=== PATIENT | male | born 1965 | race Caucasian/White ===

== ENCOUNTER 2019-04-24 11:03 | Emergency (ER) | payer OTHER, MEDICAID, SELFPAY ==
[2019-04-24] VITALS (7 sets, daily range): BP systolic 146–166; BP diastolic 93–101; PULSE 85–106; RESP 16–22; TEMP 36.3; O2SAT 94–98; BMI 24.4
--- NOTE | 2019-04-24 12:02 | PC.NURSE ---
Pt reports B/L leg pain and swelling x 4 days. Nothing makes it better. appears SOB and purse lipped breathing on arrival into room. states h/o COPD and has been told he has CHF. pt homeless. does not take any medications. 90% RA. placed on 2L with improvement to 99%. hypertensive. 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 B/L LE with mild non-pitting swelling. redness with R>L and pain also greater in R. Lungs with exp wheeze and mild crackles on LLL. IV placed and labs drawn. remains on O2. attached to cardiac monitoring. awaiting MD assessment
[2019-04-24 12:09] LABS: Add Manual Diff / Slide Review NO; Basophils Absolute Auto 100 /uL (0-100); Basophils Percent Auto 1.2 % (0-2); Eosinophils Absolute Auto 100 /uL (0-450); Eosinophils Percent Auto 1.8 % (2-4); Hematocrit 44.1 % (41-53); Hemoglobin 14.5 g/dL (13.5-17.5); Lymphocytes Absolute Auto 1100 /uL (1100-4500); Lymphocytes Percent Auto 14.5 % (25-40); Mean Corpuscular HGB Conc 32.8 % (30-36); Mean Corpuscular Hemoglobin 27.6 PG (26-34); Mean Corpuscular Volume 84.1 fL (80-100); Monocytes Absolute Auto 600 /uL (0-900); Monocytes Percent Auto 7.2 % (3-14); Neutrophils Absolute Auto 5800 /uL (1500-7000); Neutrophils Percent Auto 75.3 % (50-75); Platelet Count 410 X10^3/uL (150-400); Red Blood Cell Count 5.24 X10^6/uL (4.5-5.9); White Blood Cell Count 7.7 X10^3/uL (4.5-11.0)
--- NOTE | 2019-04-24 12:09 | DI.RAD.S_ITS ---
PROCEDURE: XR CHEST 2V INDICATIONS: shortness of breath TECHNIQUE: 2 views of the chest were acquired. COMPARISON: [facility], CHEST 1 VIEW, 08/18/2017, 18:05. [facility], CHEST 1 VIEW, 07/05/2017, 17:15. FINDINGS: Surgical changes and devices: None. Lungs and pleura: Lungs are clear. No pleural effusions or pneumothorax. Mediastinum: Mediastinal contours are normal. Heart size is normal. Bones and chest wall: No suspicious bony abnormalities. Soft tissues appear unremarkable. IMPRESSION: Normal for age, source of current shortness of breath symptoms is not seen. Dictated by: Buck Gonzales M.D. on 04/24/2019 at 12:54 Approved by: Buck Gonzales M.D. on 04/24/2019 at 12:54
[2019-04-24 12:10] LABS: INR 1.1 (0.9-1.3); Prothrombin Time 12.2 SECONDS (10.1-12.7)
[2019-04-24 12:25] LABS: Alanine Aminotransferase 15 IU/L (<50); Albumin 4.1 g/dL (3.5-5.0); Albumin Globulin Ratio 1.2 (1.0-2.8); Alkaline Phosphatase 117 U/L (38-126); Aspartate Aminotransferase 25 IU/L (17-59); Bilirubin Total 0.3 mg/dL (0.2-1.3); Blood Urea Nitrogen 17 mg/dL (9-20); Carbon Dioxide 26 mmol/L (22-32); Chloride 105 mmol/L (98-107); Estimated Glomerular Filt Rate > 60.0 mL/min (>60); Globulin 3.3 g/dL (1.7-4.1); Glucose 117 mg/dL (70-100); HEMOLYSIS < 15 (0-50); Potassium 4.4 mmol/L (3.4-5.1); Sodium 139 mmol/L (137-145); Total Protein 7.4 g/dL (6.3-8.2)
--- NOTE | 2019-04-24 12:31 | ED_ITS ---
HPI - Extremity Problem General Chief complaint: Extremity Problem,Nontraumatic Stated complaint: right leg swelling,hard to walk/painful Time Seen by Provider: 04/24/19 12:11 Source: patient Mode of arrival: Ambulatory History of Present Illness HPI Narrative: Patient is a 53-year-old male with history of COPD and bilateral lower extremity edema presenting with right leg weakness ongoing for 2 days. He says that swollen. He was noticed by nursing to be short of breath with an O2 of 88%. He admits to smoking. He denies any chest pain no fevers he has pain and weakness in his right leg. No injury MD Complaint: extremity pain and extremity swelling Related Data Home Medications Medication Instructions Recorded Confirmed Heart Pill 1 tab PO DAILY 04/24/19 04/24/19 beclomethasone dipropionate [Qvar 1 inh INHALATION DAILY 04/24/19 04/24/19 RediHaler] umeclidinium [Incruse Ellipta] 1 inh INHALATION QAM 04/24/19 04/24/19 Previous Rx's Medication Instructions Recorded albuterol sulfate [Ventolin HFA] 2 puff INH QID #1 ea 07/08/17 albuterol sulfate 2 puff INHALATION Q4-6H PRN #8.5 04/24/19 gram doxycycline hyclate 100 mg PO BID #14 cap 04/24/19 prednisone 50 mg PO DAILY #5 tab 04/24/19 Review of Systems Review of Systems Narrative: GENERAL: Denies chills, fatigue, malaise, fever, sweats, travel HEENT: Denies sinus pain, ear pain, sore throat, difficulty swallowing, neck pain RESPIRATORY: Denies dyspnea, cough, wheezing, hemoptysis, sputum. CARDIOVASCULAR: Denies chest pain, palpitations, orthopnea, edema GASTROINTESTINAL: Denies nausea, vomiting, abdominal pain, diarrhea, consti pation, melena. : Denies dysuria, frequency, incontinence, hematuria, urinary retention, flank pain. MUSCULOSKELETAL: Right leg pain and weakness SKIN: No rash, no erythema, no pruritus NEUROLOGIC: Denies weakness, dizziness, headache, numbness, change in speech, confusion PSYCHIATRIC: No concerning psychosocial issues. 12 point review of systems is negative except for those stated above and HPI Patient History Medical History COPD (chronic obstructive pulmonary disease) (Acute) Peripheral edema (Acute) Surgical History Status post appendectomy (Acute) Social History Smoking Status: Current every day smoker Smoking Status: Current every day smoker alcohol intake frequency: other Substance Use Type: does not use Exam Initial Vital Signs Initial Vital Signs: Vital Signs Temperature 97.3 F L 04/24/19 11:12 Pulse Rate 106 H 04/24/19 11:12 Respiratory Rate 22 04/24/19 11:12 Blood Pressure 151/100 H 04/24/19 11:12 Pulse Oximetry 94 04/24/19 11:12 GENERAL: Alert chronically ill male HEENT: Head atraumatic,EOMI, pupils reactive, face symmetric CARDIOVASCULAR: Regular rate and rhythm without murmurs, rubs or gallops. RESPIRATORY: Breath sounds equal bilaterally, no wheezes rales or rhonchi. ABDOMEN: Soft, nontender. Normoactive bowel sounds all 4 quadrants. No guarding or rebound. EXTREMITIES: Normal range of motion, no clubbing or edema. Neurovascularly intact. Good strong distal pedal pulses bilaterally NEUROLOGICAL: Alert and oriented x4. Right leg is noted to be weak he is able to lift it but it does drift down. It appears painful. [employer] Network [employer] strength equal bilaterally good [id number] bilaterally SKIN: Warm, dry, no laceration, no petechiae, no rashes or lesions. Scores NIH Stroke Scale Level of Conciousness: Alert, keenly responsive Ask month/age: Answers both questions correctly. Open/close eyes, close hand: Performs both tasks correctly Best gaze horizontal: Normal Visual santillan: No visual loss Facial palsy: Normal symetrical movement Left arm drift: No drift for full 10 sec Right arm drift: No drift for full 10 sec Left leg drift: No drift for full 10 sec Right leg drift: Drifts down, not to bed Limb ataxia: Absent Sensory on face/arms/legs: Normal, no sensory loss Best language: No aphasia, normal Dysarthria: Normal Extinction or inattention: No abnormality Total NIH Stroke scale score: 1 Course Orders Ordered: ED Orders 04/24/19 11:54 B Type Natriuretic Peptide Stat Complete Blood Count AUTO DIFF Stat Lactate (Lactic Acid) Stat Prothrombin Time INR Stat 04/24/19 12:09 XR chest 2V Stat EKG-12 Lead Stat Measure peak expiratory flow ONCE RT Consult Eval and Treat Now 04/24/19 12:19 Comprehensive Metabolic Panel Stat 04/24/19 12:20 Troponin & CK Cardiac Panel Stat 04/24/19 12:37 CT angio chest PE protocol Stat CT head/brain wo con Stat US periph venous low extrem rt Stat Discontinued Medications Albuterol/Ipratropium (Duoneb) 3 ml INH NOW ONE Stop: 04/24/19 12:31 Last Admin: 04/24/19 12:33 Dose: 3 ml Documented by: JORDAN Albuterol/Ipratropium (Duoneb) 3 ml INH NOW ONE Stop: 04/24/19 12:34 Last Admin: 04/24/19 13:00 Dose: 3 ml Documented by: JORDAN Albuterol/Ipratropium (Duoneb) 3 ml INH NOW ONE Stop: 04/24/19 12:44 Last Admin: 04/24/19 13:00 Dose: 3 ml Documented by: JORDAN Methylprednisolone (Solu-Medrol 125 Mg Vial) 125 mg IV NOW ONE Stop: 04/24/19 12:49 Last Admin: 04/24/19 13:16 Dose: 125 mg Documented by: BRIONNA Vital Signs Vital signs: Vital Signs - 8 hr 04/24/19 11:12 04/24/19 12:00 04/24/19 12:12 Temperature 97.3 F L 97.3 F L Pulse Rate 106 H 90 106 H Respiratory Rate 22 22 Blood Pressure 151/100 H 151/100 H Blood Pressure [Right Arm] 166/101 H Pulse Oximetry 94 97 94 04/24/19 12:33 04/24/19 13:01 04/24/19 14:24 Temperature Pulse Rate 88 85 91 H Respiratory Rate 16 16 Blood Pressure Blood Pressure [Right Arm] 146/93 H Pulse Oximetry 98 98 96 04/24/19 14:55 Temperature Pulse Rate Respiratory Rate 20 Blood Pressure Blood Pressure [Right Arm] Pulse Oximetry 95 MDM - Extremity (Nontraumatic) Lab Data Attestation: I reviewed the patient's lab results. Result diagrams: 04/24/19 11:54 04/24/19 12:19 Labs: Lab Results 04/24/19 04/24/1919 Range/Units 11:54 11:54 11:54 WBC 7.7 (4.5-11.0) X10^3/uL RBC 5.24 (4.5-5.9) X10^6/uL Hgb 14.5 (13.5-17.5) g/dL Hct 44.1 (41-53) % MCV 84.1 (80-100) fL MCH 27.6 (26-34) PG MCHC 32.8 (30-36) % RDW 14.0 (11.6-14.8) % Plt Count 410 H (150-400) X10^3/uL Neut % (Auto) 75.3 H (50-75) % Lymph % (Auto) 14.5 L (25-40) % Rankin % (Auto) 7.2 (3-14) % Eos % (Auto) 1.8 L (2-4) % Baso % (Auto) 1.2 (0-2) % Neut # (Auto) 5800 (0443-2831) /uL Lymph # (Auto) 1100 (7168-9747) /uL Rankin # (Auto) 600 (0-900) /uL Eos # (Auto) 100 (0-450) /uL Baso # (Auto) 100 (0-100) /uL PT 12.2 (10.1-12.7) SECONDS INR 1.1 (0.9-1.3) Sodium Cancelled Potassium Cancelled Chloride Cancelled Carbon Dioxide Cancelled BUN Cancelled Creatinine Cancelled Estimated GFR Cancelled BUN/Creatinine Ratio Cancelled Glucose Cancelled Lactate (0.7-2.1) mmol/L Calcium Cancelled Total Bilirubin (0.2-1.3) mg/dL AST (17-59) IU/L ALT (<50) IU/L Alkaline Phosphatase (38-126) U/L Total Creatine Kinase (55-170) U/L CK-MB (CK-2) CK-MB (CK-2) Rel Index Troponin I (0.01-0.034) ng/mL B-Natriuretic Peptide (<100) Total Protein (6.3-8.2) g/dL Albumin (3.5-5.0) g/dL Globulin (1.7-4.1) g/dL Albumin/Globulin Ratio (1.0-2.8) 04/24/19 04/24/19 04/24/19 Range/Units 11:54 11:54 12:19 WBC (4.5-11.0) X10^3/uL RBC (4.5-5.9) X10^6/uL Hgb (13.5-17.5) g/dL Hct (41-53) % MCV (80-100) fL MCH (26-34) PG MCHC (30-36) % RDW (11.6-14.8) % Plt Count (150-400) X10^3/uL Neut % (Auto) (50-75) % Lymph % (Auto) (25-40) % Rankin % (Auto) (3-14) % Eos % (Auto) (2-4) % Baso % (Auto) (0-2) % Neut # (Auto) (9056-6807) /uL Lymph # (Auto) (2676-8054) /uL Rankin # (Auto) (0-900) /uL Eos # (Auto) (0-450) /uL Baso # (Auto) (0-100) /uL PT (10.1-12.7) SECONDS INR (0.9-1.3) Sodium 139 Potassium 4.4 Chloride 105 Carbon Dioxide 26 BUN 17 Creatinine 0.50 L Estimated GFR > 60.0 BUN/Creatinine Ratio 34.0 H Glucose 117 H Lactate 0.7 (0.7-2.1) mmol/L Calcium 9.0 Total Bilirubin 0.3 (0.2-1.3) mg/dL AST 25 (17-59) IU/L ALT 15 (<50) IU/L Alkaline Phosphatase 117 (38-126) U/L Total Creatine Kinase (55-170) U/L CK-MB (CK-2) CK-MB (CK-2) Rel Index Troponin I (0.01-0.034) ng/mL B-Natriuretic Peptide < 100 (<100) Total Protein 7.4 (6.3-8.2) g/dL Albumin 4.1 (3.5-5.0) g/dL Globulin 3.3 (1.7-4.1) g/dL Albumin/Globulin Ratio 1.2 (1.0-2.8) 04/24/19 Range/Units 12:20 WBC (4.5-11.0) X10^3/uL RBC (4.5-5.9) X10^6/uL Hgb (13.5-17.5) g/dL Hct (41-53) % MCV (80-100) fL MCH (26-34) PG MCHC (30-36) % RDW (11.6-14.8) % Plt Count (150-400) X10^3/uL Neut % (Auto) (50-75) % Lymph % (Auto) (25-40) % Rankin % (Auto) (3-14) % Eos % (Auto) (2-4) % Baso % (Auto) (0-2) % Neut # (Auto) (5319-0192) /uL Lymph # (Auto) (1848-1883) /uL Rankin # (Auto) (0-900) /uL Eos # (Auto) (0-450) /uL Baso # (Auto) (0-100) /uL PT (10.1-12.7) SECONDS INR (0.9-1.3) Sodium Potassium Chloride Carbon Dioxide BUN Creatinine Estimated GFR BUN/Creatinine Ratio Glucose Lactate (0.7-2.1) mmol/L Calcium Total Bilirubin (0.2-1.3) mg/dL AST (17-59) IU/L ALT (<50) IU/L Alkaline Phosphatase (38-126) U/L Total Creatine Kinase 67 (55-170) U/L CK-MB (CK-2) TNP CK-MB (CK-2) Rel Index TNP Troponin I < 0.012 (0.01-0.034) ng/mL B-Natriuretic Peptide (<100) Total Protein (6.3-8.2) g/dL Albumin (3.5-5.0) g/dL Globulin (1.7-4.1) g/dL Albumin/Globulin Ratio (1.0-2.8) Imaging Data Chest x-ray: Radiologist's Impression: PROCEDURE: XR CHEST 2V INDICATIONS: shortness of breath TECHNIQUE: 2 views of the chest were acquired. COMPARISON: [facility], , CHEST 1 VIEW, 08/18/2017, 18:05. [facility], , CHEST 1 VIEW, 07/05/2017, 17:15. FINDINGS: Surgical changes and devices: None. Lungs and pleura: Lungs are clear. No pleural effusions or pneumothorax. Mediastinum: Mediastinal contours are normal. Heart size is normal. Bones and chest wall: No suspicious bony abnormalities. Soft tissues appear unremarkable. IMPRESSION: Normal for age, source of current shortness of breath symptoms is not seen. Dictated by: Buck Gonzales M.D. on 04/24/2019 at 12:54 CT scan - chest: Radiologist's Impression: PROCEDURE: CT ANGIO CHEST PE PROTOCOL INDICATIONS: hypoxia TECHNIQUE: After the administration of intravenous contrast, 2 mm thick sections acquired from the pulmonary apices to the posterior costophrenic angles. 3-dimensional maximum intensity projection (MIP) coronal and sagittal reformats were then acquired through the thorax. For radiation dose reduction, the following was used: automated exposure control, adjustment of mA and/or kV according to patient size. COMPARISON: [facility], CT, THORAX WITHOUT CONTRAST, 09/05/2016, 10:06. [facility], CT, ABDOMEN/PELVIS WITH CONTRAST, 07/23/2017, 18:51. FINDINGS: Image quality: Excellent. Pulmonary arteries: Pulmonary arteries are normal in size, and demonstrate no intraluminal filling defects to suggest central pulmonary embolism. Lungs and pleura: There is moderate centrilobular emphysema with an apical predominance. A consolidative mass is present within the left lower lobe which measures approximately 5.1 x 2.8 cm in the axial plane (series 6, image 173). This is unchanged when compared with the prior CT dated 09/05/16 and likely represents rounded atelectasis. Trace atelectasis or scar is present at the lateral right lung base. No acute air space opacities. Mediastinum: Heart size is normal, without pericardial effusion. No mediastinal or hilar adenopathy. Thoracic aorta is normal in caliber and enhancement. Esophagus is normal in caliber, without hiatal hernia. Bones and chest wall: No suspicious bony lesions. Ribs and thoracic spine appear intact throughout. Thyroid gland is unremarkable. No axillary or supraclavicular adenopathy. Abdomen: Visualized upper abdominal solid organs appear normal in the early arterial phase of enhancement. IMPRESSION: 1. No acute pulmonary embolus. 2. Rounded atelectasis at the left lung base unchanged 2016. 3. Moderate centrilobular emphysema. Dictated by: Zaida Torres M.D. on 04/24/2019 at 12:17 CT scan - head: Radiologist's Impression: PROCEDURE: CT HEAD/BRAIN WO CON INDICATIONS: right leg weakness x 2 days TECHNIQUE: Noncontrast 4.5 mm thick angled axial sections acquired from the foramen magnum to the vertex, with coronal and sagittal reformats. For radiation dose reduction, the following was used: automated exposure control, adjustment of mA and/or kV according to patient size. COMPARISON: [facility], CT, HEAD WITHOUT CONTRAST, 08/25/2016, 20:34. FINDINGS: Image quality: Excellent. CSF spaces: Basal cisterns are patent. No extra-axial fluid collections. Ventricles are normal in size and shape. Brain: No midline shift. No intracranial masses or hemorrhage. Joseph-white matter interface is normal. Skull and face: Calvarium and visualized facial bones are intact, without suspicious lesions. Sinuses: Visualized sinuses and mastoids are clear. IMPRESSION: No acute intracranial findings. Dictated by: Zaida Torres M.D. on 04/24/2019 at 12:10 US - DVT: Radiologist's Impression: PROCEDURE: US PERIPH VENOUS LOW EXTREM RT INDICATIONS: EDEMA TECHNIQUE: Real-time imaging, as well as color and pulse Doppler interrogation, were performed of the lower extremity deep veins from the inguinal ligament to the popliteal fossa. COMPARISON: None. FINDINGS: The common femoral, femoral and popliteal veins are normally compressible, and free of intraluminal thrombus. Color and pulse Doppler demonstrate normal phasic intraluminal flow. There is normal augmentation response to distal compression maneuver. IMPRESSION: No deep vein thrombosis of the right lower extremity. Dictated by: Zaida Torres M.D. on 04/24/2019 at 12:23 ECG Data Attestation EKG: I personally reviewed and interpreted this ECG as follows: Prior ECG tracings: available for review Interpretation: He sinus rhythm rate 86 p.r. interval 142 QRS [address] elevation depression or T-wave inversions similar to to EKG in 2018 [facility] Narrative Medical decision making narrative: Patient is re-evaluated he is actually moving his right leg quite well bending his knee lifting it up out pain. He was given multiple albuterol treatments in the emergency department he is no longer requiring oxygen. Workup is negative. Previous records have been reviewed he has had swelling bilaterally that possibly to be from cor pulmonale however he doesn't have significant swelling here. His DVT study is negative CT chest angio negative head CT negative At this time will treat him for COPD exacerbation. Discharge Plan Departure Patient Disposition: Home Clinical Impression: COPD exacerbation Discharge Date/Time: 04/24/19 14:55 Activity Restrictions/Additional Instructions: *You have been diagnosed with COPD exacerbation *What to do: This time workup is overall reassuring. *Continue to take medications as directed-->SENT TO [facility] IN [place] Prednisone 50 mg once a day for 5 days Doxycycline 100 mg twice a day for 7 days Albuterol inhaler 1-2 puffs every 4 hours if needed for cough or shortness of *Follow up with your primary care provider in 2-3 days *Return to ER if you should have any shortness of breath chest pain weakness numbness tingling or any new, worsening or concerning symptoms Prescriptions: New doxycycline hyclate 100 mg capsule 100 mg PO BID Qty: 14 RF: 0 albuterol sulfate 90 mcg/actuation HFA aerosol inhaler 2 puff INHALATION Q4-6H PRN (Reason: shortness of breath or wheezing) Qty: 8.5 RF: 0 prednisone 50 mg tablet 50 mg PO DAILY Qty: 5 RF: 0 No Action albuterol sulfate [Ventolin HFA] 90 MCG/PUFF HFA aerosol inhaler 2 puff INH QID Qty: 1 RF: 7 Incruse Ellipta 62.5 mcg/actuation blister with device 1 inh INHALATION QAM RF: 0 Qvar RediHaler 80 mcg/actuation HFA aerosol breath activated 1 inh INHALATION DAILY RF: 0 Heart Pill 1 tab PO DAILY RF: 0 Referrals: [facility] [Outside]
[2019-04-24] MEDS: ALBUTEROL/IPRATROPIUM 3 ML AMPUL INH ×3 (12:33→13:00)
[2019-04-24 12:36] LABS: Creatine Kinase 67 U/L (55-170)
--- NOTE | 2019-04-24 12:37 | DI.US.S_ITS ---
PROCEDURE: US PERIPH VENOUS LOW EXTREM RT INDICATIONS: EDEMA TECHNIQUE: Real-time imaging, as well as color and pulse Doppler interrogation, were performed of the lower extremity deep veins from the inguinal ligament to the popliteal fossa. COMPARISON: None. FINDINGS: The common femoral, femoral and popliteal veins are normally compressible, and free of intraluminal thrombus. Color and pulse Doppler demonstrate normal phasic intraluminal flow. There is normal augmentation response to distal compression maneuver. IMPRESSION: No deep vein thrombosis of the right lower extremity. Dictated by: Zaida Torres M.D. on 04/24/2019 at 12:23 Approved by: Zaida Torres M.D. on 04/24/2019 at 12:23
--- NOTE | 2019-04-24 12:37 | DI.CT.S_ITS ---
PROCEDURE: CT HEAD/BRAIN WO CON INDICATIONS: right leg weakness x 2 days TECHNIQUE: Noncontrast 4.5 mm thick angled axial sections acquired from the foramen magnum to the vertex, with coronal and sagittal reformats. For radiation dose reduction, the following was used: automated exposure control, adjustment of mA and/or kV according to patient size. COMPARISON: [facility], CT, HEAD WITHOUT CONTRAST, 08/25/2016, 20:34. FINDINGS: Image quality: Excellent. CSF spaces: Basal cisterns are patent. No extra-axial fluid collections. Ventricles are normal in size and shape. Brain: No midline shift. No intracranial masses or hemorrhage. Joseph-white matter interface is normal. Skull and face: Calvarium and visualized facial bones are intact, without suspicious lesions. Sinuses: Visualized sinuses and mastoids are clear. IMPRESSION: No acute intracranial findings. Dictated by: Zaida Torres M.D. on 04/24/2019 at 12:10 Approved by: Zaida Torres M.D. on 04/24/2019 at 12:12
--- NOTE | 2019-04-24 12:37 | DI.CT.S_ITS ---
PROCEDURE: CT ANGIO CHEST PE PROTOCOL INDICATIONS: hypoxia TECHNIQUE: After the administration of intravenous contrast, 2 mm thick sections acquired from the pulmonary apices to the posterior costophrenic angles. 3-dimensional maximum intensity projection (MIP) coronal and sagittal reformats were then acquired through the thorax. For radiation dose reduction, the following was used: automated exposure control, adjustment of mA and/or kV according to patient size. COMPARISON: [facility], CT, THORAX WITHOUT CONTRAST, 09/05/2016, 10:06. [facility], CT, ABDOMEN/PELVIS WITH CONTRAST, 07/23/2017, 18:51. FINDINGS: Image quality: Excellent. Pulmonary arteries: Pulmonary arteries are normal in size, and demonstrate no intraluminal filling defects to suggest central pulmonary embolism. Lungs and pleura: There is moderate centrilobular emphysema with an apical predominance. A consolidative mass is present within the left lower lobe which measures approximately 5.1 x 2.8 cm in the axial plane (series 6, image 173). This is unchanged when compared with the prior CT dated 09/05/16 and likely represents rounded atelectasis. Trace atelectasis or scar is present at the lateral right lung base. No acute air space opacities. Mediastinum: Heart size is normal, without pericardial effusion. No mediastinal or hilar adenopathy. Thoracic aorta is normal in caliber and enhancement. Esophagus is normal in caliber, without hiatal hernia. Bones and chest wall: No suspicious bony lesions. Ribs and thoracic spine appear intact throughout. Thyroid gland is unremarkable. No axillary or supraclavicular adenopathy. Abdomen: Visualized upper abdominal solid organs appear normal in the early arterial phase of enhancement. IMPRESSION: 1. No acute pulmonary embolus. 2. Rounded atelectasis at the left lung base unchanged 2016. 3. Moderate centrilobular emphysema. Dictated by: Zaida Torres M.D. on 04/24/2019 at 12:17 Approved by: Zaida Torres M.D. on 04/24/2019 at 12:21
[2019-04-24 12:40] LABS: Lactate (Lactic Acid) 0.7 mmol/L (0.7-2.1)
[2019-04-24 12:49] LABS: Troponin I < 0.012 ng/mL (0.01-0.034)
[2019-04-24] MEDS: methylPREDNISolone 125 MG/2 ML VIAL IV (13:16)
[2019-04-24 14:35] LABS: B Type Natriuretic Peptide < 100 (<100)
== END 2019-04-24 14:55 | disposition home or self-care (01) ==
PROVIDERS: Emergency Provider Emergency Medicine
DX: J44.1 Chronic obstructive pulmonary disease with (acute) exacerbation (principal); M79.604 Pain in right leg; R53.1 Weakness; F17.200 Nicotine dependence, unspecified, uncomplicated
CPT/HCPCS: 36415; 70450; 71046; 71275; 80053; 82550; 83605; 83880; 84484; 85025; 85610; 93005; 93971; 94150; 94640; 96374; 99284; 99285; J2930; Q9967

== ENCOUNTER 2020-04-14 01:25 | Observation (INO) | payer OTHER, MEDICAID, SELFPAY ==
[2020-04-14] VITALS (20 sets, daily range): BP systolic 114–149; BP diastolic 73–109; PULSE 95–112; RESP 18–33; TEMP 36.3–37; O2SAT 88–98; BMI 28.6
--- NOTE | 2020-04-14 01:31 | DI.RAD.S_ITS ---
PROCEDURE: XR CHEST 1V INDICATIONS: Shortness of breath TECHNIQUE: One view of the chest was acquired. COMPARISON: [facility], CR, XR CHEST 2V, 04/24/2019, 12:18. FINDINGS: Surgical changes and devices: None. Scattered subsegmental atelectasis and/or scarring. No focal consolidation. Retrocardiac opacity appears grossly unchanged. No pleural effusions or pneumothorax. Mediastinum: Mediastinal contours appear normal. Heart size is normal. Bones and chest wall: Bilateral chronic rib fractures. IMPRESSION: No acute disease. Dictated by: Nehemiah Llanos M.D. on 04/14/2020 at 9:02 Approved by: Nehemiah Llanos M.D. on 04/14/2020 at 9:07
--- NOTE | 2020-04-14 01:34 | ED_ITS ---
HPI - General Adult General Chief complaint: Shortness of Breath/Dyspnea Stated complaint: COPD problems Time Seen by Provider: 04/14/20 01:28 Source: patient Mode of arrival: Ambulatory Limitations: no limitations History of Present Illness HPI narrative: Patient is a 54-year-old male. Has a history COPD. Has not been on any inhalers for ?months here for evaluation of shortness of breath. Also reports subjective fevers. Also has had a cough. States that his short nervous have been worsening for the past several days and the reason that he came into the emergency department is was close to the area. No chest pain. Has not tried anything for symptoms prior to arrival Related Data Home Medications Medication Instructions Recorded Confirmed Heart Pill 1 tab PO DAILY 04/24/19 04/24/19 beclomethasone dipropionate [Qvar 1 inh INHALATION DAILY 04/24/19 04/24/19 RediHaler] umeclidinium [Incruse Ellipta] 1 inh INHALATION QAM 04/24/19 04/24/19 Previous Rx's Medication Instructions Recorded albuterol sulfate [Ventolin HFA] 2 puff INH QID #1 ea 07/08/17 albuterol sulfate 2 puff INHALATION Q4-6H PRN #8.5 04/24/19 gram doxycycline hyclate 100 mg PO BID #14 cap 04/24/19 prednisone 50 mg PO DAILY #5 tab 04/24/19 Allergies Allergy/AdvReac Type Severity Reaction Status Date / Time No Known Drug Allergies Allergy Verified 04/14/20 03:02 Review of Systems Constitutional Constitutional: Reports chills and Reports fever(s) Cardiovascular Cardiovascular: Denies chest pain and Reports dyspnea Respiratory Respiratory: Reports cough and Reports dyspnea Gastrointestinal Gastrointestinal: Denies abdominal pain, Denies nausea and Denies vomiting Musculoskeletal Musculoskeletal: Denies arthralgias and Denies myalgias Integumentary/Breasts Skin/Breast: Denies lesions and Denies rash Neurologic Neurologic: Denies behavioral changes Psychiatric Psychiatric: Denies behavioral changes Hematologic/Lymphatic Hematologic/Lymphatic: Denies easy bleeding and Denies easy bruising Allergic/Immunologic Allergic/Immunologic: Denies urticaria Patient History Medical History (Updated 04/14/20 @ 03:22 by Adrian Zambrano DO) COPD (chronic obstructive pulmonary disease) Peripheral edema Surgical History Status post appendectomy Social History Smoking Status: Current every day smoker Smoking Status: Current every day smoker alcohol intake frequency: other Substance Use Type: does not use Exam Initial Vital Signs Initial Vital Signs: Vital Signs Temperature 98.6 F 04/14/20 01:36 Pulse Rate 112 H 04/14/20 01:36 Respiratory Rate 25 H 04/14/20 01:36 Blood Pressure 145/87 H 04/14/20 01:36 Pulse Oximetry 95 04/14/20 01:36 Const General: cooperative HENMT Head: normal to inspection and normocephalic Resp Effort & Inspection: labored and tachypneic Auscultation: rhonchi and wheezes Cardio Rate: tachycardic GI Inspection: non-distended Palpation: soft Skin Lesions: no lesions Rashes: no rashes Neuro General: patient alert and patient awake Cognition: normal cognition Extrem General: capillary refill normal and edema Psych Appearance: grossly normal and well kempt Course Orders Ordered: ED Orders 04/14/20 EKG-12 Lead Stat 04/14/20 01:25 COVID19 Stat 04/14/20 01:31 XR chest 1V Stat RT Consult Eval and Treat Now 04/14/20 01:45 Complete Blood Count AUTO DIFF Stat Comprehensive Metabolic Panel Stat Lipase Stat NT-proBNP (BNP-Adult 18+) Stat Procalcitonin Stat Troponin & CK Cardiac Panel Stat Discontinued Medications Albuterol (Albuterol Hfa Mdi 60 Puff/8 Gm Inhaler) 4 puff INH NOW ONE Stop: 04/14/20 01:33 Last Admin: 04/14/20 01:46 Dose: 4 puff Documented by: Albuterol/Ipratropium (Albuterol/Ipratropium 3 Ml Ampul) 3 ml INH NOW ONE Stop: 04/14/20 02:38 Last Admin: 04/14/20 02:58 Dose: 3 ml Documented by: Furosemide (Furosemide 40 Mg/4 Ml Vial) 40 mg IV NOW ONE Stop: 04/14/20 02:38 Last Admin: 04/14/20 03:02 Dose: 40 mg Documented by: Methylprednisolone (Methylprednisolone 125 Mg/2 Ml Vial) 125 mg IV NOW ONE Stop: 04/14/20 01:33 Last Admin: 04/14/20 01:46 Dose: 125 mg Documented by: Vital Signs Vital signs: Vital Signs - 8 hr 04/14/20 01:36 04/14/20 01:46 04/14/20 01:55 Temperature 98.6 F Pulse Rate 112 H 107 H 101 H Respiratory Rate 25 H 30 H 30 H Blood Pressure 145/87 H Pulse Oximetry 95 93 97 04/14/20 02:00 04/14/20 02:30 04/14/20 03:00 Temperature Pulse Rate 101 H 97 H 98 H Respiratory Rate 26 H 25 H 30 H Blood Pressure 136/109 H 132/76 Pulse Oximetry 96 96 97 04/14/20 03:01 Temperature Pulse Rate 97 H Respiratory Rate 28 H Blood Pressure 149/99 H Pulse Oximetry 98 Medical Decision Making Medical Records Medical records reviewed: Yes I reviewed the patient's medical records. Lab Data Lab results reviewed: Yes I reviewed the patient's lab results. Result diagrams: 04/14/20 01:45 04/14/20 01:45 Labs: Lab Results 04/14/20 04/14/20 04/14/20 Range/Units 01:25 01:45 01:45 WBC 9.3 (4.5-11.0) X10^3/uL RBC 5.72 (4.5-5.9) X10^6/uL Hgb 15.4 (13.5-17.5) g/dL Hct 48.3 (41-53) % MCV 84.4 (80-100) fL MCH 26.9 (26-34) PG MCHC 31.9 (30-36) % RDW 14.5 (11.6-14.8) % Plt Count 247 (150-400) X10^3/uL Neut % (Auto) 77.8 H (50-75) % Lymph % (Auto) 13.2 L (25-40) % [place] % (Auto) 6.8 (3-14) % Eos % (Auto) 1.8 L (2-4) % Baso % (Auto) 0.4 (0-2) % Neut # (Auto) 7200 H (3056-6769) /uL Lymph # (Auto) 1200 (0349-8769) /uL [place] # (Auto) 600 (0-900) /uL Eos # (Auto) 200 (0-450) /uL Baso # (Auto) 0 (0-100) /uL Sodium 139 (137-145) mmol/L Potassium 3.8 (3.4-5.1) mmol/L Chloride 103 (98-107) mmol/L Carbon Dioxide 33 H (22-32) mmol/L BUN 19 (9-20) mg/dL Creatinine 0.70 (0.66-1.25) mg/dL Estimated GFR > 60.0 (>60) mL/min BUN/Creatinine Ratio 27.1 H (6-22) Glucose 110 H (70-100) mg/dL Calcium 8.8 (8.4-10.2) mg/dL Total Bilirubin 0.4 (0.2-1.3) mg/dL AST 34 (17-59) IU/L ALT 24 (<50) IU/L Alkaline Phosphatase 79 (38-126) U/L Total Creatine Kinase 203 H (55-170) U/L CK-MB (CK-2) 9.45 H (<2.37) ng/mL CK-MB (CK-2) Rel Index 4.7 (1.5-5.0) % Troponin I 0.050 H (0.01-0.034) ng/mL NT-Pro-B Natriuret Pep 1640 H (<125) pg/mL Total Protein 7.0 (6.3-8.2) g/dL Albumin 3.8 (3.5-5.0) g/dL Globulin 3.2 (1.7-4.1) g/dL Albumin/Globulin Ratio 1.2 (1.0-2.8) Lipase 126 (23-300) U/L Procalcitonin (<0.5) ng/mL COVID-19 PCR Negative (Negative) 04/14/20 Range/Units 01:45 WBC (4.5-11.0) X10^3/uL RBC (4.5-5.9) X10^6/uL Hgb (13.5-17.5) g/dL Hct (41-53) % MCV (80-100) fL MCH (26-34) PG MCHC (30-36) % RDW (11.6-14.8) % Plt Count (150-400) X10^3/uL Neut % (Auto) (50-75) % Lymph % (Auto) (25-40) % [place] % (Auto) (3-14) % Eos % (Auto) (2-4) % Baso % (Auto) (0-2) % Neut # (Auto) (5211-9956) /uL Lymph # (Auto) (7224-0149) /uL [place] # (Auto) (0-900) /uL Eos # (Auto) (0-450) /uL Baso # (Auto) (0-100) /uL Sodium (137-145) mmol/L Potassium (3.4-5.1) mmol/L Chloride (98-107) mmol/L Carbon Dioxide (22-32) mmol/L BUN (9-20) mg/dL Creatinine (0.66-1.25) mg/dL Estimated GFR (>60) mL/min BUN/Creatinine Ratio (6-22) Glucose (70-100) mg/dL Calcium (8.4-10.2) mg/dL Total Bilirubin (0.2-1.3) mg/dL AST (17-59) IU/L ALT (<50) IU/L Alkaline Phosphatase (38-126) U/L Total Creatine Kinase (55-170) U/L CK-MB (CK-2) (<2.37) ng/mL CK-MB (CK-2) Rel Index (1.5-5.0) % Troponin I (0.01-0.034) ng/mL NT-Pro-B Natriuret Pep (<125) pg/mL Total Protein (6.3-8.2) g/dL Albumin (3.5-5.0) g/dL Globulin (1.7-4.1) g/dL Albumin/Globulin Ratio (1.0-2.8) Lipase (23-300) U/L Procalcitonin < 0.05 (<0.5) ng/mL COVID-19 PCR (Negative) ECG Data Attestation: I personally reviewed and interpreted this ECG as follows: Prior ECG tracings: not available for review Interpretation: Sinus tachycardia Ventricular rate of 1 1 LVH Inverted T-waves in 1 aVL [address] elevations MDM Narrative Medical decision making narrative: Patient arrived tachypneic with bilateral wheezing and rhonchi. His COVID was negative. Chest x-ray shows no acute issues. Does have bilateral lower extremity swelling. Difficult to determine whether not this is new or old is the patient does not know if these are new changes. Has not been seen in over a year. Review his medical records show no prior echocardiogram. He was initially given Solu-Medrol IV and then an albuterol MDI which seemed to help his symptoms somewhat. Was placed on 2 L of oxygen upon arrival for symptom control. He was satting in the low 90s. Patient reported some improvement after the albuterol however after a short period of time of observation the wheezing returned. He was then given a DuoNeb which again seemed to help his symptoms somewhat. He ambulated to the bathroom and upon returning was very tachypneic and short of breath his oxygen saturations were in the low 90s. Has T-wave inversions laterally on his EKG. He denies chest pain. Has a troponin above the 99th percentile however less than the a.m. I cut off. Aspirin was ordered. His elevated troponin most likely related to COPD. Could also be related to heart failure. Discussed the case with TINA Young the [facility] provider who will admit for further evaluation and treatment. Discussed the admission with the patient. He expressed understanding and agreement. Discharge Plan Departure Patient Disposition: Admitted as Observation Clinical Impression: COPD exacerbation, Elevated troponin Admit Date/Time: 04/14/20 03:21 Admit Provider: Regina Young
[2020-04-14] MEDS: methylPREDNISolone 125 MG/2 ML VIAL IV (01:46)
[2020-04-14] MEDS: ALBUTEROL HFA MDI 60 PUFF/8 GM INHALER INH (01:46)
[2020-04-14 02:00] LABS: Add Manual Diff / Slide Review NO; Basophils Absolute Auto 0 /uL (0-100); Basophils Percent Auto 0.4 % (0-2); Eosinophils Absolute Auto 200 /uL (0-450); Eosinophils Percent Auto 1.8 % (2-4); Hematocrit 48.3 % (41-53); Hemoglobin 15.4 g/dL (13.5-17.5); Lymphocytes Absolute Auto 1200 /uL (1100-4500); Lymphocytes Percent Auto 13.2 % (25-40); Mean Corpuscular HGB Conc 31.9 % (30-36); Mean Corpuscular Hemoglobin 26.9 PG (26-34); Mean Corpuscular Volume 84.4 fL (80-100); Monocytes Absolute Auto 600 /uL (0-900); Monocytes Percent Auto 6.8 % (3-14); Neutrophils Absolute Auto 7200 /uL (1500-7000); Neutrophils Percent Auto 77.8 % (50-75); Platelet Count 247 X10^3/uL (150-400); Red Blood Cell Count 5.72 X10^6/uL (4.5-5.9); Red Cell Distribution Width 14.5 % (11.6-14.8); White Blood Cell Count 9.3 X10^3/uL (4.5-11.0)
[2020-04-14 02:00] LABS: COVID19 -Nasal RAPID Negative (Negative)
[2020-04-14 02:15] LABS: Alanine Aminotransferase 24 IU/L (<50); Albumin 3.8 g/dL (3.5-5.0); Albumin Globulin Ratio 1.2 (1.0-2.8); Alkaline Phosphatase 79 U/L (38-126); Aspartate Aminotransferase 34 IU/L (17-59); BUN Creatinine Ratio 27.1 (6-22); Bilirubin Total 0.4 mg/dL (0.2-1.3); Blood Urea Nitrogen 19 mg/dL (9-20); Calcium 8.8 mg/dL (8.4-10.2); Carbon Dioxide 33 mmol/L (22-32); Chloride 103 mmol/L (98-107); Creatine Kinase 203 U/L (55-170); Estimated Glomerular Filt Rate > 60.0 mL/min (>60); Globulin 3.2 g/dL (1.7-4.1); Glucose 110 mg/dL (70-100); HEMOLYSIS < 15 (0-50); Lipase 126 U/L (23-300); Potassium 3.8 mmol/L (3.4-5.1); Sodium 139 mmol/L (137-145)
[2020-04-14 02:27] LABS: NT-proBNP (BNP-Adult 18+) 1640 pg/mL (<125)
[2020-04-14 02:30] LABS: CKMB % Relative Index 4.7 % (1.5-5.0); Creatine Kinase MB 9.45 ng/mL (<2.37)
[2020-04-14] MEDS: ALBUTEROL/IPRATROPIUM 3 ML AMPUL INH ×2 (02:58→18:55)
[2020-04-14 03:00] LABS: Procalcitonin < 0.05 ng/mL (<0.5)
[2020-04-14] MEDS: FUROSEMIDE 40 MG/4 ML VIAL IV (03:02)
[2020-04-14] MEDS: ASPIRIN 81 MG CHEW TAB 324 MG PO (03:44)
--- NOTE | 2020-04-14 04:15 | DI.ECHO.S_ITS ---
[facility] +---------+ : : [address] : : : : [place] : : : : [id number] : : : : Phone: [phone] Echocardiogram Report + + :Name: JOHN JOHNSON Study Date: 04/14/2020 Height: 67 in : :[facility] Weight: 183 lb : : Gender: Male BSA: 1.9 m2 : :: 1965 Age: 54 yrs BP: 149/99 mmHg: :Reason For Study: COPD, ELEVATED TROPONIN : :Ordering Physician: : :QING CHAMBERS SHOE STITCHER-BC Performed By: Yasmin Velasquez : :Referring: QING CHAMBERS : + + Interpretation Summary Left ventricular wall thickness is mildly increased. The left ventricle is mildly dilated. Left ventricular systolic function is moderately reduced. The ejection fraction is estimated to be 35-40%. The apex appears to be mildly hyperdynamic. The septum and part of anterolateral wall appear to have normal contractility. The rest of LV segments are hypokinetic. The specificity for assessing LV wall motion is decreased due to suboptimal visualization of LV endocardium. Findings are suggetive of ischemic or stress induced cardiomyopathy. The right ventricle is normal in size and function. Pulmonary artery pressures cannot be estimated because of the lack of a measurable TR jet velocity but the IVC suggests a CVP of around 3 mmHg. Both atria are normal in size. There is no significant valvular heart disease. The aortic root is normal size. Comparison to prior echo shows a significant decreased LVEF and new wall motion abnormalities. Procedure: A two-dimensional transthoracic echocardiogram with color flow and Doppler was performed. The study quality was technically adequate. Comparison is made with the echocardiogram of 04/12/2017. The heart rate ranged between 84-111 bpm during the study. Left Ventricle: Left ventricular wall thickness is mildly increased. The left ventricle is mildly dilated. Left ventricular systolic function is moderately reduced. The ejection fraction is estimated to be 35-40%. The apex appears to be mildly hyperdynamic. The septum and part of anterolateral wall appear to have normal contractility. The rest of LV segments are hypokinetic. The specificity for assessing LV wall motion is decreased due to suboptimal visualization of LV endocardium. Findings are suggetive of ischemic or stress induced cardiomyopathy. Diastolic function could not be accurately assessed due to unobtainable data. Right Ventricle: The right ventricle is normal in size and function. Atria: Both atria are normal in size. A patent foramen ovale is present. Mitral Valve: The mitral valve leaflets appear mildly thickened, but open well. There is trace mitral regurgitation. Aortic Valve: The aortic valve opens well. There is no aortic valve stenosis. No aortic regurgitation is present. Tricuspid Valve: The tricuspid valve is not well visualized, but is grossly normal. There is trace tricuspid regurgitation. Pulmonary artery pressures cannot be estimated because of the lack of a measurable TR jet velocity but the IVC suggests a CVP of around 3 mmHg. Pulmonic Valve: The pulmonic valve is not well seen, but is grossly normal. There is no pulmonic valvular regurgitation. There is no significant valvular heart disease. Great Vessels: The aortic root is normal size. The dimensions of the ascending aorta are normal. The IVC is of normal diameter and collapses greater than 50% with a sniff. This suggests a low right atrial pressure of 3 mm Hg. Pericardium/ Pleura There is no pericardial effusion. There is no pleural effusion. MMode/2D Measurements & Calculations LVIDd: 5.7 cm LVOT diam: 2.0 cm LVIDs: 4.8 cm Ao root diam: 3.4 cm FS: 15.2 % asc Aorta Diam: 3.3 cm EPSS: 1.9 cm IVSd: 1.1 cm LVPWd: 1.1 cm LV thompson. diameter/BSA (cm/m^2): 2.9 LV sys. diameter/BSA (cm/m^2): 2.5 LA A2 area: 21.6 cm2 RA long axis: 4.9 cm LA A4 area: 19.3 cm2 RA area: 17.5 cm2 LA length (vol): 5.5 cm RA vol: 52.5 ml LA vol: 64.7 ml RA : 27.0 ml/m2 LA vol index: 33.2 ml/m2 IVC diam: 1.1 cm RVD1 (basal): 3.6 cm TAPSE: 2.1 cm Doppler Measurements & Calculations Ao V2 max: 131.4 cm/sec LVOT Max Timi: 106.4 cm/sec Ao V2 mean: 89.1 cm/sec LV V1 max P.5 mmHg Ao max P.9 mmHg LV V1 VTI: 16.3 cm Ao mean P.6 mmHg JARAD(I,D): 2.7 cm2 Ao V2 VTI: 18.3 cm JARAD(V,D): 2.4 cm2 sev ratio: 0.89 JARAD indexed to BSA (cm^2/m^2): 1.4 Med Peak E' Timi: 4.5 cm/sec PA V2 max: 78.2 cm/sec Lat Peak E' Timi: 5.0 cm/sec PA V2 mean: 49.4 cm/sec PA mean P.2 mmHg PA pr(Accel): 29.3 mmHg SV(LVOT): 49.0 ml Reading Physician:12:29 PM
--- NOTE | 2020-04-14 05:01 | PC.NURSE ---
Admitted from ER. patient very poor historian. States I'm tired lrt me sleep. Falls asleep while asking him questions, & mumbles. 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 Was not able to do home medications rec. he does not know what kind of medications his taking. Refused to take off his pants & declined to secure his Credit card. Placed his pack of cigarette in the safe. Instructed to call for assistance to the BR. denies any fall for the last 3 months. Bed alarm activated. Coughing non productive cough, sl. wheezing with exertion & denies any dyspnea. Will cont. POC & monitor.
[2020-04-14 05:47] LABS: Fractionated Inspired Oxygen 21; HCO3 ABG 34 mmol/L (22-26); Oxygen Saturation ABG 86 % (95-100); PCO2 ABG 58.6 mmHg (35-45); PO2 ABG 54 mmHg (80-100); TCO2 ABG 36 mmol/L (21-31); pH ABG 7.38 (7.35-7.45)
[2020-04-14 05:52] LABS: Cholesterol 164 mg/dL (140-199); HDL Cholesterol 51 mg/dL (40-60); LDL Cholesterol Calculated 92 mg/dL (<100); Magnesium 1.8 mg/dL (1.6-2.3); Triglycerides 105 mg/dL (35-150)
[2020-04-14 05:55] LABS: High Sensitivity CRP - Cardiac 7.4 mg/L (1.0-3.0)
--- NOTE | 2020-04-14 08:54 | P.HP_ITS ---
History of Present Illness History of Present Illness Date Patient Seen: 04/14/20 Time Patient Seen: 08:54 Chief complaint: COPD problems Narrative: Bradly Morley is a 54 year old homeless male with PMH of COPD who presents for shortness of breath. Patient reports he is short of breath normally with exertion. States he is only able to walk about 12 feet at baseline. He does not take any medications. Reports daily smoking still. He denies chest pain but endorses chronic cough. He states he is supposed to be taking inhalers and medications but cannot. In the emergency room, patient was mildly hypertensive, mildly tachycardic, tachypneic but saturating well on room air. Initial laboratory evaluation showed an unremarkable CBC, ABG with a pH of 7.38, pCO2 of 58, and PO2 of 54 with a bicarb of 34. Chemistries revealed a normal BMP, A1c of 6.1%, initial troponin of 0.050, proBNP of 1640, procalcitonin negative. COVID-19 testing was negative. He was given a dose of steroids and lasix. Patient was admitted under observation status for COPD exacerbation with possible new diagnosis of heart failure. Patient History Medical History COPD (chronic obstructive pulmonary disease) Peripheral edema Surgical History Status post appendectomy Family & Social History Social History: Prior Living Arrangements Homeless Safety & Behavioral: Feels Safe in Current Yes Environment Been Physically Hurt or No Threatened By a Person Suicidal Ideation Description None Suicide Plan Description No Plan Tobacco & Substance use: Tobacco type cigarettes Smoking Status Current every day smoker alcohol intake never alcohol intake frequency other Substance Use Type does not use Meds Home Medications and Allergies Home Medications Medication Instructions Recorded Confirmed Type albuterol sulfate [Ventolin HFA] 2 puff INH QID #1 ea 07/08/17 04/24/19 Rx Heart Pill 1 tab PO DAILY 04/24/19 04/24/19 History albuterol sulfate 2 puff INHALATION Q4-6H PRN #8.5 04/24/19 Rx gram beclomethasone dipropionate [Qvar 1 inh INHALATION DAILY 04/24/19 04/24/19 History RediHaler] doxycycline hyclate 100 mg PO BID #14 cap 04/24/19 Rx prednisone 50 mg PO DAILY #5 tab 04/24/19 Rx umeclidinium [Incruse Ellipta] 1 inh INHALATION QAM 04/24/19 04/24/19 History Allergies Allergy/AdvReac Type Severity Reaction Status Date / Time No Known Drug Allergies Allergy Verified 04/14/20 03:02 Review of Systems Review of Systems Narrative: All other systems reviewed with the patient and are negative unless otherwise stated. Exam Vital Signs (past 8 hours): - 04/14/20 01:36 04/14/20 01:46 04/14/20 01:55 Temperature 98.6 F Pulse Rate 112 H 107 H 101 H Respiratory Rate 25 H 30 H 30 H Blood Pressure 145/87 H Pulse Oximetry 95 93 97 04/14/20 02:00 04/14/20 02:30 04/14/20 03:00 Temperature Pulse Rate 101 H 97 H 98 H Respiratory Rate 26 H 25 H 30 H Blood Pressure 136/109 H 132/76 Pulse Oximetry 96 96 97 04/14/20 03:01 04/14/20 03:30 04/14/20 03:40 Temperature 97.3 F L Pulse Rate 97 H 102 H 100 H Respiratory Rate 28 H 33 H 20 Blood Pressure 149/99 H 147/92 H Pulse Oximetry 98 90 L 95 04/14/20 03:58 04/14/20 07:55 Temperature 97.7 F Pulse Rate 96 H Respiratory Rate 18 Blood Pressure 148/92 H Pulse Oximetry 95 92 Oxygen Delivery Method Nasal Cannula Oxygen Flow Rate 0 Narrative Exam Narrative: GENERAL APPEARANCE: Disheveled male, no acute distress, mildly fatigued. SKIN: Inspection of the skin reveals no rashes, ulcerations or petechiae. There are multiple tattoos HEENT: Normocephalic atraumatic, extraocular muscles are intact, oropharynx is clear and mucous membranes are moist, neck is supple without adenopathy NECK: Supple and symmetric. There was no thyroid enlargement, and no tenderness, or masses were felt. CHEST: Normal AP diameter and normal contour without any kyphoscoliosis. LUNGS: Auscultation of the lungs revealed mild diffuse wheezing. CARDIOVASCULAR: There was a regular rate and rhythm without any murmurs, gallops, rubs. Peripheral pulses were 2+ and symmetric. ABDOMEN: Soft and nontender with normal bowel sounds. No ascites was noted. MUSCULOSKELETAL: There was no tenderness or effusions noted. Muscle strength and tone were normal. EXTREMITIES: No cyanosis, clubbing or edema. NEUROLOGIC: Alert and oriented x 3. avoidant. Slurred speech likely baseline. Strength is +5/5 in the Upper Extremities and Lower Extremities Bilaterally. Sensation to touch was normal. Objective ECG Impression: Sinus tachycardia, new T wave inversions laterally, old shows TWI in lead I, now in I aVL, V4-6. Imaging Chest x-ray: Radiologist's impression: PROCEDURE: XR CHEST 1V INDICATIONS: Shortness of breath TECHNIQUE: One view of the chest was acquired. COMPARISON: [facility], , XR CHEST 2V, 04/24/2019, 12:18. FINDINGS: Surgical changes and devices: None. Scattered subsegmental atelectasis and/or scarring. No focal consolidation. Retrocardiac opacity appears grossly unchanged. No pleural effusions or pneumothorax. Mediastinum: Mediastinal contours appear normal. Heart size is normal. Bones and chest wall: Bilateral chronic rib fractures. IMPRESSION: No acute disease Labs Result Diagrams: 04/14/20 01:45 04/14/20 01:45 Labs: Laboratory Results - last 24 hr 04/14/20 04/14/20 04/14/20 01:25 01:45 01:45 WBC 9.3 RBC 5.72 Hgb 15.4 Hct 48.3 MCV 84.4 MCH 26.9 MCHC 31.9 RDW 14.5 Plt Count 247 Neut % (Auto) 77.8 H Lymph % (Auto) 13.2 L [place] % (Auto) 6.8 Eos % (Auto) 1.8 L Baso % (Auto) 0.4 Neut # (Auto) 7200 H Lymph # (Auto) 1200 [place] # (Auto) 600 Eos # (Auto) 200 Baso # (Auto) 0 ABG pH ABG pCO2 ABG pO2 ABG HCO3 ABG Total CO2 ABG O2 Saturation ABG Base Excess FiO2 Sodium 139 Potassium 3.8 Chloride 103 Carbon Dioxide 33 H BUN 19 Creatinine 0.70 Estimated GFR > 60.0 BUN/Creatinine Ratio 27.1 H Glucose 110 H Calcium 8.8 Magnesium Total Bilirubin 0.4 AST 34 ALT 24 Alkaline Phosphatase 79 Total Creatine Kinase 203 H CK-MB (CK-2) 9.45 H CK-MB (CK-2) Rel Index 4.7 Troponin I 0.050 H C-React Prot High Sens NT-Pro-B Natriuret Pep 1640 H Total Protein 7.0 Albumin 3.8 Globulin 3.2 Albumin/Globulin Ratio 1.2 Triglycerides Cholesterol LDL Cholesterol, Calc HDL Cholesterol Lipase 126 Procalcitonin COVID-19 PCR Negative 04/14/20 04/14/20 04/14/20 01:45 01:45 05:39 WBC RBC Hgb Hct MCV MCH MCHC RDW Plt Count Neut % (Auto) Lymph % (Auto) [place] % (Auto) Eos % (Auto) Baso % (Auto) Neut # (Auto) Lymph # (Auto) [place] # (Auto) Eos # (Auto) Baso # (Auto) ABG pH 7.38 ABG pCO2 58.6 H ABG pO2 54 L ABG HCO3 34 H ABG Total CO2 36 H ABG O2 Saturation 86 L ABG Base Excess 9.0 H FiO2 21 Sodium Potassium Chloride Carbon Dioxide BUN Creatinine Estimated GFR BUN/Creatinine Ratio Glucose Calcium Magnesium 1.8 Total Bilirubin AST ALT Alkaline Phosphatase Total Creatine Kinase CK-MB (CK-2) CK-MB (CK-2) Rel Index Troponin I C-React Prot High Sens 7.4 H NT-Pro-B Natriuret Pep Total Protein Albumin Globulin Albumin/Globulin Ratio Triglycerides 105 Cholesterol 164 LDL Cholesterol, Calc 92 HDL Cholesterol 51 Lipase Procalcitonin < 0.05 COVID-19 PCR Assessment & Plan Assessment & Plan narrative: Bradly Morley is a 54 year old homeless male with PMH of COPD who presents for shortness of breath and is admitted under observation status for COPD exacerbation with possible new diagnosis of heart failure. 1. shortness of breath, chronic - suspect etiology is due to poorly controlled COPD as he is unable to afford medications, and he is still smoking. - Troponin elevated on admission labs, will trend. EKG with new T wave inversions, echo pending. No complaints of chest pain, ACS unlikely. Not a great [facility] candidate given medication non-compliance. - at baseline he is able to walk about 12 feet, appears at baseline. last echo 2016 with normal EF. 2. COPD exacerbation - - COVID negative, no evidence of bacterial infection or pneumonia on CXR. Continue prednisone 40 mg x4 additional days, given 125 mg solumedrol in ED. - Respiratory therapy eval and treat. - doxycycline 100 mg BID for antiinflammatory effect in COPD. 3. Medication non-compliance, chronic - due to homelessness. 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 Code: full as discussed with the patient. Dispo: Admit under observation, likely discharge later today as he is now seemingly at baseline shortness of breath if troponin improves and echo is unremarkable. Quality VTE Deep Vein Thrombosis/Pulmonary Embolism Present on Admission: No
--- NOTE | 2020-04-14 09:56 | OT.IP.EVAL ---
Past Medical History (Last Reviewed 04/14/20 @ 08:55 by Madi Hartley DO) COPD (chronic obstructive pulmonary disease) Peripheral edema Surgical History (Last Reviewed 04/14/20 @ 08:55 by Madi Hartley DO) Status post appendectomy Occupational Therapy Inpatient Evaluation/Re-Eval M1 PT/OT-IP Prior Functional Status Start: 04/14/20 10:19 Freq: NEEDED Status: Active Protocol: Document 04/14/20 10:21 CGR (Rec: 04/14/20 10:42 CGR [id number]) Medical Review Prior Functional Status Medical History Reviewed Yes Communication Pt is an effective verbal communicator but is difficult to understand. Mobility and Gait Pt states that he is typically IND in all mobility and gait. Activities of Daily Living and IADL's Pt states that he is typically IND in all ADLs. Prior Functional Level (Other details) Pt is homeless and states that he couch surfs but doesn't always have a place to sleep. Pt stays in [place]. Social History Living Arrangements Homeless M2 OT-IP Current Condition Start: 04/14/20 10:19 Freq: Status: Active Protocol: Document 04/14/20 10:21 CGR (Rec: 04/14/20 10:42 CGR [id number]) Occupational Therapy Current Condition Current Condition Evaluation Date 04/14/20 Treatment Diagnosis SOB, COPD exacerbation Diagnosis Onset Date 04/13/20 M3 OT- IP Subjective and Pain Start: 04/14/20 10:19 Freq: Status: Active Protocol: Document 04/14/20 10:21 CGR (Rec: 04/14/20 10:42 CGR [id number]) OT- Subjective Occupational Therapy Visit Type Type Initial Evaluation Visit Start Time 09:30 Visit Stop Time 09:56 Total Visit Minutes 26 Occupational Therapy Visit Comments Patient Comments I just want to sleep OT Pain Assessment Pain When Pain Assessed At Rest Pain Present Pain Present Denied Pain M4 OT- IP ADL's Start: 04/14/20 10:19 Freq: Status: Active Protocol: Document 04/14/20 10:21 CGR (Rec: 04/14/20 10:42 CGR [id number]) OT TIO-[place] General Evaluation Self-Feeding Ability Independent Comments OT Self-Feeding Comments Pt eating breakfast when OT entered. Obtained apple juice for pt per request and nursing oked. OT ADL-Grooming General Evaluation Grooming Ability Standby Assistance Areas Needing Assistance Retrieving/Set-up of Grooming Items,Face Washing Comments OT Grooming Comments seated in bed OT ADL-Oral Care General Eval Oral Care Ability Standby Assistance Areas of Assistance Brushing Teeth,Retrieving/Set- Up of Items Comments Oral Care Comments seated in bed OT ADL-Dressing General Eval Lower Body Dressing Ability Total Assistance Areas Needing Assistance Socks Comments OT Dressing Comments Pt states that he will be too winded if he dons his own socks but is typically able to perform. OT ADL-Toileting General Evaluation Toileting Ability Standby Assistance Comments OT Toileting Comments urinated standing at toilet OT ADL-Bathing Comments OT Bathing Comments Not performed M5 OT- IP IADL's Start: 04/14/20 10:19 Freq: Status: Active Protocol: Document 04/14/20 10:21 CGR (Rec: 04/14/20 10:42 CGR [id number]) OT-Instrumental Activities of Daily Living Deficits IADL Deficits Identified Deficits Home Safety Awareness Awareness of Need for Assistance at Home Decreased Awareness M6 OT- IP Functional Cognition Start: 04/14/20 10:19 Freq: Status: Active Protocol: Document 04/14/20 10:21 CGR (Rec: 04/14/20 10:42 CGR [id number]) Cognitive Factors Limiting Selfcare Function Cognitive Ability Level of Alertness Alert Patient Orientation Name,Age,Birthday,Month,Date, Year,Day of Week,Place, Situation Attention Span Ability Capable of Focused Attention, Unable to Sustain Attention Ability to Follow Commands Able to Follow One Step Commands with Increased Time, Able to Follow One Step Commands with Repetition OT- Vision and Hearing OT- Hearing Assessment OT- Hearing Assessment WFL OT- Vision Assessment Visual Acuity WFL M7 OT- IP Mobility and Balance Start: 04/14/20 10:19 Freq: Status: Active Protocol: Document 04/14/20 10:21 CGR (Rec: 04/14/20 10:42 CGR [id number]) OT- Bed Mobility Assessment Supine to Sit Supine to Sit Assist Standby Assistance Sit to Supine Sit to Supine Assist Standby Assistance Scooting Scooting to Edge of Bed Standby Assistance OT-Transfer Assessment Sit to and From Stand Sit to and from Stand Contact Guard Assistance Transfers Transfer Ability Contact Guard Assistance, Minimal Assistance Technique Transfer Destination Bed,Toilet Transfer Technique Stand Step Pivot Devices Transfer Assistive Devices Gait Belt Comments Mobility Comments Pt stood without assist prior to having gait belt for safety . Pt ambulated to the bathroom with poor balance but without LOB. Pt leans heavily to the right with ambulation. Pt was able to stand at the toilet without assist for urination and return to bed with CGA to min a for mobility. Pt with poor safety awareness and is impulsive. OT- Balance Assessment Sitting Balance and Reactions Static Sitting Balance Ability Fair Dynamic Sitting Balance Ability Fair Standing Balance and Reactions Static Standing Balance Ability Fair Dynamic Standing Balance Ability Poor M8 OT- IP Objective Assessments Start: 04/14/20 10:19 Freq: Status: Active Protocol: Document 04/14/20 10:21 CGR (Rec: 04/14/20 10:42 CGR [id number]) OT Gross Range of Motion Upper Extremity Range of Motion Assessment Within Functional Limits OT Strength Upper Extremity Strength Assessment Within Functional Limits OT- Coordination Assessment Upper Extremity Finger to Nose Test Within Functional Limits Finger Tapping Test Within Functional Limits OT-Muscle Tone Assessment Muscle Tone WNL Yes OT Sensation Assessment Edema Edema Absent M9 OT- IP Assessment and Plan Start: 04/14/20 10:19 Freq: Status: Active Protocol: Document 04/14/20 10:21 CGR (Rec: 04/14/20 10:42 CGR [id number]) OT Summary Assessment and Plan Potential Rehabilitation Potential Good Analytic Complexity at Evaluation Low Summary OT Impairments Balance,Activity Tolerance Progress Towards Goals Slow Progress due to Activity Tolerance Assessment Summary Pt presents as a low complexity evaluation s/p admit for SOB. Pt with poor endurance and balance for mobility and is impulsive with his mobility. Pt will benefit from further OT services to address declines to his ADLs. Discharge recommendation at this time SNF vs home/couch surfing depending on progress. Pt's O2 stats dropped to 87% without O2 during limited mobility and required 1.5-2 minutes on 2L o2 to return to 94%. Pt demonstrates poor articulation with conversing. Discussed with SP and plan to see if articulation clears over 1-2 days and request orders if needed at that time. Goals Grooming Goal Independent Dressing Goal Independent Toileting Goal Independent Bathing Goal Independent Toilet Transfer Goal Independent Shower Transfer Goal Independent Days to Meet Goals 5 Frequency of Treatment Frequency Of Treatment Once a Day Treatment Plan OT Treatment Plan ADL Training,Functional Mobility,Patient/Family Education,Discharge Planning Other Treatment Recommendations and Next endurance activities, energy Treatment Focus conservation Discharge Recommendations OT Discharge Recommendations Home with Assistance,SNF Rehab Other Discharge Recommendations Pt is homeless and couch surfs prior to admit. Pt stated that he needed to call his parents at end of eval. Unsure of pt's plan for discharge. Transportation Needs at Discharge Private Vehicle
[2020-04-14] MEDS: SODIUM CHLORIDE 0.9% FLUSH 10 ML IV ×2 (10:06→20:46)
[2020-04-14] MEDS: predniSONE 20 MG TABLET 40 MG PO (10:06)
[2020-04-14 10:21] LABS: Hemoglobin A1C% w Est Avg Glu 6.1 % (4.0-6.0)
[2020-04-14 10:39] LABS: Troponin I 0.022 ng/mL (0.01-0.034)
--- NOTE | 2020-04-14 10:43 | PT.IIE ---
Surgical History (Last Reviewed 04/14/20 @ 08:55 by Madi Hartley DO) Status post appendectomy Medical History (Last Reviewed 04/14/20 @ 08:55 by Madi Hartley DO) COPD (chronic obstructive pulmonary disease) Peripheral edema Physical Therapy Inpatient Evaluation/Re-Eval M1 PT/OT-IP Prior Functional Status Start: 04/14/20 10:19 Freq: NEEDED Status: Active Protocol: Document 04/14/20 10:21 CGR (Rec: 04/14/20 10:42 CGR [id number]) Medical Review Prior Functional Status Medical History Reviewed Yes Communication Pt is an effective verbal communicator but is difficult to understand. Mobility and Gait Pt states that he is typically IND in all mobility and gait. Activities of Daily Living and IADL's Pt states that he is typically IND in all ADLs. Prior Functional Level (Other details) Pt is homeless and states that he couch surfs but doesn't always have a place to sleep. Pt stays in [place]. Social History Living Arrangements Homeless M2 PT-IP Current Condition Start: 04/14/20 08:33 Freq: NEEDED Status: Active Protocol: Document 04/14/20 10:43 DE (Rec: 04/14/20 11:17 DE [id number]) Physical Therapy Current Condition Current Condition Evaluation Date 04/14/20 Treatment Diagnosis Dyspnea; Decreased endurance, generalized weakness Onset Date 04/14/20 M3 PT-IP Subjective Start: 04/14/20 08:33 Freq: NEEDED Status: Active Protocol: Document 04/14/20 10:43 DE (Rec: 04/14/20 11:17 DE [id number]) Subjective Physical Therapy Visit Type Type Initial Evaluation Visit Start Time 10:13 Visit Stop Time 10:29 Total Visit Minutes 16 Notes SPT Mariano led session under direct supervision of PT Bunny. Number of DRAFTING TEACHER Visits 0 Physical Therapy Visit Comments Patient Comments I am tired M4 PT-IP Mobility and Gait Start: 04/14/20 08:33 Freq: NEEDED Status: Active Protocol: Document 04/14/20 10:43 DE (Rec: 04/14/20 11:17 DE [id number]) PT-Bed Mobility Assessment Supine to Sit Supine to Sit Standby Assistance,Head of Bed Elevated PT-Transfer Assessment Sit to and From Stand Sit to and from Stand Contact Guard Assistance Equipment Transfer Assistive Device None,Gait Belt Orthotic/Prosthetic Devices or Brace: No Transfers Transfer Destination Bed Transfer Technique Amb Transfer Ability Level of Assist Contact Guard Assistance Comments Mobility Comments Pt was inclined in bed sleeping upon arrival. Pt was agreeable to do PT. Pt completed supine to sit at L EOB with elevated HOB and SBA. Pt had difficulty sitting upright as he demonstrated tendency to lean on something likely d/t respiratory distress. When asked, pt was able to sit up straight. Pt demonstrated severe respiratory distress with use of accessory breathing muscles and wheezing. On EOB, BP was 142/92, HR was high 90s to low 100s, and SPO2 was low 90s. Pt performed sit to stand without AD with CGA. In standing, pt had tendency to lean on his RLE while putting the LLE forward in staggered stance. When asked, pt was able to square up his feet and stand up straight. However, pt had difficulty maintaining upright posture d/t respiratory distress and fatigue. Pt the amb ~12 ft in the room to the window and back to bed with SBA and no AD . Pt demonstrated unsteadiness during gait. Pt needed to sit down on EOB immediately d/t fatigue. Pt refused to perform 2-minute walk test d/t increased fatigue. Pt did sit to supine in bed SBA. HR maintained in high 90s to low 100s and SPO2 maintained in low 90s throughout session. Call light placed within reach . Gait Assessment Gait Gait Assistance Required: Contact Guard Assist Distance (Feet) 12 Assistive Devices Assistive Device None,Gait Belt Orthotic/Prosthetic Devices or Brace: No Gait Deviations General Gait Pattern Decreased Feet Clearance, Flexed Trunk Factors Limiting Gait Function Factors Limiting Gait Function Decreased Activity Tolerance, Decreased Strength,Poor Balance,Poor Safety Awareness, Respiratory Distress Comments Gait Comments See mobility comments. Stair Climbing Assessment Comments Stair Climbing Comments Not assessed. 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 Gross Range of Motion Lower Extremity ROM Assessment Within Functional Limits Strength Lower Extremity Strength Assessment Bilaterally Impaired Hip 4-/5 Knee 4-/5 Ankle 5/5 Comments Strength Comments Strength likely limited d/t respiratory distress and fatigue. Coordination Assessment Gross Coordination Gross Coordination WNL Muscle Tone Muscle Tone WNL Yes M6 PT-IP Treatment Start: 04/14/20 08:33 Freq: NEEDED Status: Active Protocol: Document 04/14/20 10:43 DE (Rec: 04/14/20 11:17 DE [id number]) Physical Therapy Treatment Education Education Provided Safety M7 PT-IP Assessment and Plan Start: 04/14/20 08:33 Freq: NEEDED Status: Active Protocol: Document 04/14/20 10:43 DE (Rec: 04/14/20 11:17 DE [id number]) PT Summary Assessment and Plan Potential Rehabilitation Potential Fair Status of Condition at Evaluation Evolving Summary Impairments Pain,ROM,Strength,Balance, Cognition,Bed Mobility, Transfers,Gait,Activity Tolerance Assessment Summary Bradly is a 54 yo male who was admitted to the hospital for difficulty breathing with hx of COPD. Pt is currently homeless and reports that he couch surfs and sometimes sleeps on street. Pt reports he was IND for all mobility, amb, and ADLs at baseline. On evaluation, pt CGA-SBA for mobility and amb but demonstrates severe dyspnea, poor endurance, and unsteady gait. Pt had difficulty breathing after sitting up on EOB. Pt was able to amb ~12 ft in the room with CGA and no AD but was very fatigued and SOB afterwards. PT recommends SNF to improve endurance as well as strength and balance. Goals Bed Mobility Goal Independent Transfer Goal Independent Gait Goal Independent Gait Distance 200 Days to Meet Goals 5 Frequency of Treatment Frequency Of Treatment Once a Day Treatment Plan Physical Therapy Treatment Plan Bed Mobility Training,Transfer Training,Gait Training, Therapeutic Exercise,Balance Retraining,Post Op Education, Discharge Planning,Hot or Cold Pack,Neuromuscular Re-ed Other Recommendations and Next Treatment Endurance outcome measure (ex. Focus 2-min walk test) Recommendations To Nursing Amount of Assist Needed 1 Person Assist Discharge Recommendations PT Discharge Recommendations SNF Rehab Other Discharge Recommendations [facility] depending on pt progress Transportation Needs at Discharge Private Vehicle This session was led by SPT Mariano Webb and supervised by me PT Morelia Ball. I personally reviewed and approved this eval noted as well.
[2020-04-14 11:15] LABS: TSH w/ Reflex to FT4 0.55 uIU/mL (0.47-4.68)
[2020-04-14] MEDS: lisinopriL 10 MG TABLET PO (13:46)
--- NOTE | 2020-04-14 15:21 | CM.DANOTE ---
Patient is a 54 year old male who was admitted on 04/14/20 today for SOB/COPD. Pt has [employer] and [employer] for insurance and his PCP is not listed. EMR was reviewed. Per MD, pt with a hx of medication noncompliance and meth abuse and admitted for Echo and Stress Test which is not available until Sunday. UDS ordered and pending to determine toxicology. Pt last admitted in 2018 and was homeless and had UDS positive for methamphetamines and amphetamines and was living in his truck at the time and declined CD tx but accepted housing and CD resources and discharged back to his truck and was unable to live at local father's house due to legal restraining order by neighbor. Pt also with legal hx of alf time for being in possession of meth. SW met bedside with pt and pt very difficult to wake and was having some labored respirations and RN notified. Pt able to provide brief answers and was vague but states he no longer has his truck and has been living on the street and walking places. Pt initially denied any current drug use but then father Jonnathan arrived bedside and pt became more alert and responsive. Father states pt continues to smoke cigarettes and use drugs and that he has attempted to get pt sober for decades. Father confirms that pt cannot stay with him and he himself is elderly with some medical issues himself but he does stay in regular contact with the pt. SW inquired if pt has been utilizing the Shelters and he states they are all usually full. Pt confirms that he is not currently established with [facility] for PCP anymore and still needs to establish with PCP. PT/OT ordered and pending and pt still quite short of breath. D/C needs unclear at this time. Plan: SW to follow closely for further discussion with pt regarding his plan and needs at d/c pending PT/OT eval and stress test and to determine if pt agreeable with any CD tx resources and plan of likely back to the streets. ASHLI Tsai Discharge Planning/Care Management CM Discharge Assessment Start: 04/14/20 15:18 Freq: Status: Active Protocol: Document 04/14/20 15:19 BF (Rec: 04/14/20 15:21 BF [id number]) Discharge Planning Assessment Assigned Outreach Manager ASHLI Sheffield DPOA/Assigned Designee Name none, informally father Jonnathan Contact Information [phone] Advance Directives? No Advance Directives on File No History Provided By Patient,Family Member,Medical Record Has Patient been admitted in last 30 No days? Prior Living Arrangements Homeless Household Members none Type of transporation used prior to Relies on Others admit Willing to Return to Facility? No Independent with ADL's Yes Is patient alert and oriented? Yes Caregiver for Another No Patient/Family Preference Drug/Alcohol Rehab Comment Pt likely will decline CD resources or tx but to assess further when pt more medically appropriate. Barriers to Discharge No Discharge Plan Home Transportation Arrangement Father lives locally and may provide transport and but pt is homeless and therefore may d/c outside by himself Additional Comment Waiting for Stress test and UDS to determine needs Review Status In Process Please Provide Date Initial DC 04/14/20 Assessment Was Performed Next Review Type Continued Stay Review
[2020-04-14] MEDS: DOXYCYCLINE HYCLATE 100 MG TABLET PO (20:46)
[2020-04-15] VITALS (15 sets, daily range): BP systolic 124–156; BP diastolic 72–97; PULSE 95–112; RESP 13–26; TEMP 35.8–37.3; O2SAT 87–96
[2020-04-15 05:15] LABS: UR Morphine/Opiate cutoff 300 Negative (Negative); Ur Creatinine Normal (Normal); Ur Specific Gravity Normal (Normal); Urine Amphetamines Positive (Negative); Urine Barbiturates Negative (Negative); Urine Benzodiazepines Negative (Negative); Urine Cocaine Negative (Negative); Urine MDMA Negative (Negative); Urine Methadone Negative (Negative); Urine Methamphetamines Positive (Negative); Urine Oxycodone Negative (Negative); Urine Phencyclidine Negative (Negative); Urine Tetrahydrocannabinol Negative (Negative); Urine Tricyclic Antidepressant Negative (Negative); Urine pH Normal (Normal)
[2020-04-15 06:18] LABS: NT-proBNP (BNP-Adult 18+) 573 pg/mL (<125)
[2020-04-15] MEDS: ALBUTEROL/IPRATROPIUM 3 ML AMPUL INH ×4 (07:52→19:18)
[2020-04-15] MEDS: BUDESONIDE 0.5 MG/2 ML NEB INH ×2 (08:18→19:25)
[2020-04-15] MEDS: IPRATROPIUM 0.5 MG/2.5 ML NEB INH (08:18)
[2020-04-15] MEDS: predniSONE 20 MG TABLET 40 MG PO (09:02)
[2020-04-15] MEDS: FUROSEMIDE 20 MG TABLET PO (09:02)
[2020-04-15] MEDS: lisinopriL 10 MG TABLET PO (09:02)
[2020-04-15] MEDS: DOXYCYCLINE HYCLATE 100 MG TABLET PO ×2 (09:02→20:54)
[2020-04-15] MEDS: SODIUM CHLORIDE 0.9% FLUSH 10 ML IV ×2 (09:03→20:54)
--- NOTE | 2020-04-15 12:26 | PC.NURSE ---
Patient remains lethargic, awakes to eat and go to the bathroom but declines other activity stating I just want to sleep. Frequently mumbles and then drifts off to sleep. Urinal at bedside, or SB assistance up to bathroom. Patient did not save urine but states he went pee without problem. Nehemiah COMMUTATOR INSPECTOR shared tele strip of irregular heart beats, possible PAC's and non conducted PAC's. Patient asymptomatic, and resting. Nehemiah reviewed strips with Dr. Hartley, and plan for STAT EKG if reoccurs. Currently SR/ST on telmetry. Call light with in reach and bed alarm on for safety. Continue to monitor.
--- NOTE | 2020-04-15 14:37 | PC.NURSE ---
Nuclear medicine called to let this RN know that patient needs to be NO CAFFEINE (including decaf or chocolate) now for stress test tomorrow. And should be NPO by 5am.
--- NOTE | 2020-04-15 15:05 | PM.PN.1 ---
Subjective Subjective Date Patient Seen: 04/15/20 Time Patient Seen: 15:05 Interval history: Bradly Morley is a 54-year-old homeless male with past medical history of COPD who presented with shortness of breath. He is admitted with continued shortness of breath, but acute, likely on chronic systolic heart failure and COPD exacerbation. His UDS was positive for methamphetamines. He is very sleepy throughout the day, waking only to eat and use the restroom. Overnight he was nauseous, pale, diaphoretic, tachycardic. EKG did not show any changes from admission tracing. He still endorses fatigue, and shortness of breath with minimal movement, but improved since yesterday slightly. He is getting coughing fits as well. O2 did drop to 87 % overnight, now in low 90s on 1 L NC. Exam Vital Signs (past 8 hours): - 04/15/20 07:15 04/15/20 08:19 04/15/20 09:00 Temperature 98.2 F Pulse Rate 104 H Respiratory Rate 13 26 H Blood Pressure 156/97 H Pulse Oximetry 91 93 94 04/15/20 11:02 04/15/20 11:47 04/15/20 14:37 Temperature 98.4 F Pulse Rate 98 H 95 H Respiratory Rate 14 22 Blood Pressure 130/88 Pulse Oximetry 93 94 96 Oxygen Delivery Method Nasal Cannula Oxygen Flow Rate 1 Narrative Exam Narrative: GENERAL APPEARANCE: Disheveled male, no acute distress, fatigued mildly diaphoretic. SKIN: Inspection of the skin reveals no rashes, ulcerations or petechiae. There are multiple tattoos HEENT: Normocephalic atraumatic, extraocular muscles are intact, oropharynx is clear and mucous membranes are moist, neck is supple without adenopathy NECK: Supple and symmetric. There was no thyroid enlargement, and no tenderness, or masses were felt. CHEST: Normal AP diameter and normal contour without any kyphoscoliosis. LUNGS: Auscultation of the lungs no wheezes, rhonchi, or rales. CARDIOVASCULAR: There was a regular rate and rhythm without any murmurs, gallops, rubs. Peripheral pulses were 2+ and symmetric. ABDOMEN: Soft and nontender with normal bowel sounds. No ascites was noted. MUSCULOSKELETAL: There was no tenderness or effusions noted. Muscle strength and tone were normal. EXTREMITIES: No cyanosis, clubbing or edema. NEUROLOGIC: Alert and oriented x 3. avoidant. Slurred speech likely baseline. Strength is +5/5 in the Upper Extremities and Lower Extremities Bilaterally. Sensation to touch was normal. Objective Labs Result Diagrams: 04/14/20 01:45 04/14/20 01:45 Labs: Laboratory Results - last 24 hr 04/15/20 04/15/20 04:58 05:15 NT-Pro-B Natriuret Pep 573 H U Opiates 300ng/mL cut Negative Ur Oxycodone Screen Negative Urine Methadone Screen Negative Ur Barbiturates Screen Negative U Tricyclic Antidepress Negative Ur Phencyclidine Scrn Negative Ur Amphetamines Screen Positive H U Methamphetamines Scrn Positive H Ur MDMA Scrn (Ecstasy) Negative U Benzodiazepines Scrn Negative Urine Cocaine Screen Negative U Marijuana (THC) Screen Negative [facility] Medical History COPD (chronic obstructive pulmonary disease) Peripheral edema Surgical History Status post appendectomy Social History household members: none Smoking Status: Current every day smoker alcohol intake: never Assessment & Plan Assessment & Plan narrative: Bradly Morley is a 54 year old homeless male with PMH of COPD who presents for shortness of breath and is admitted with hypoxia, secondary to acute likely on chronic systolic heart failure and COPD exacerbation. Pending stress testing tomorrow. 1. hypoxia, acute - currently on 1 L NC after O2 87% on RA overnight. Suspect secondary to acute on chronic heart failure and COPD exacerbation. - Troponin elevated on admission labs to 0.050 which then downtrended. EKG with new T wave inversions, echo shows increased left ventricular wall thickness, mildly dilated left ventricle with an EF of 35-40% with new wall motion abnormalities compared to prior echocardiogram. No complaints of chest pain, ACS unlikely. Not a great [facility] candidate given medication non-compliance. Discussed with cardiology at [facility] whom recommended stress testing. - at baseline he is able to walk about 12 feet, appears at baseline. last echo 2016 with normal EF. 2. COPD exacerbation - - COVID negative, no evidence of bacterial infection or pneumonia on CXR. Continue prednisone 40 mg x4 additional days, given 125 mg solumedrol in ED. - Respiratory therapy eval and treat. - doxycycline 100 mg BID for antiinflammatory effect in COPD. 3. Acute, likely on chronic, systolic heart failure, acute portion resolved. -echo shows increased left ventricular wall thickness, mildly dilated left ventricle with an EF of 35-40% with new wall motion abnormalities compared to prior echocardiogram -have started lisinopril, add beta andreina following stress testing. -appears euvolemic at this time. Continue oral furosemide daily. Patient was initially given doses of IV furosemide for slight diuresis in the ER with improvement by the time of arrival to the floor. -stress testing delayed until tomorrow for schedule availability. He is highly unlikely to follow up as an outpatient for additional evaluations. 4. Medication non-compliance, chronic - due to homelessness. [employer] consultation ordered. 5. Methamphetamine use, chronic - UDS positive for methamphetamines. Patient denied drug use to this provider. Suspect other use, possible heroin, as he had an episode of diaphoresis, nausea, agitation yesterday which improved with ativan . Code: full as discussed with the patient. Dispo: Admit under observation, likely discharge later today as he is now seemingly at baseline shortness of breath if troponin improves and echo is unremarkable. Quality VTE Deep Vein Thrombosis/Pulmonary Embolism Present on Admission: No
--- NOTE | 2020-04-15 15:24 | DI.RAD.S_ITS ---
PROCEDURE: XR CHEST 1V INDICATIONS: hypoxia TECHNIQUE: One view of the chest was acquired. COMPARISON: [facility], CR, XR CHEST 1V, 04/14/2020, 1:46. FINDINGS: Surgical changes and devices: None. Lungs and pleura: There is left basilar infiltrate or atelectasis. Possible trace left pleural effusion. Right lung is clear. No pneumothorax. Mediastinum: Mediastinal contours appear normal. Heart size is normal. Bones and chest wall: No suspicious bony lesions. Overlying soft tissues appear unremarkable. IMPRESSION: Left basilar infiltrate or atelectasis. Possible small left pleural effusion. No pneumothorax. Dictated by: Yakelin Moon M.D. on 04/15/2020 at 16:22 Approved by: Yakelin Moon M.D. on 04/15/2020 at 16:23
--- NOTE | 2020-04-15 16:10 | PC.NURSE ---
Addendum entered by Cyndie Parker R.N. 04/15/20 22:14: Pt has been resting quietly since 1800. Denies any discomfort. NPO @ 0500 for stress test in am. Tele shows ST per ICU staff. Call light w/in reach. pt calls appropriately for needs. Continue w/plan of care. Addendum entered by Cyndie Parker R.N. 04/15/20 16:26: Tele reads NSR per ICU staff. Original Note: Pt watching TV, Denies dsicomfort @ this time. HL right hand intact. Lungs course w/faint wheeze anteriorly. SpO2 93% on 1L Call light w/in reach, pt calls appropriately for needs.
--- NOTE | 2020-04-15 16:18 | OT.IP.TRT ---
Occupational Therapy Treatment Note M2 OT-IP Current Condition Start: 04/14/20 10:19 Freq: Status: Active Protocol: Document 04/14/20 10:21 [facility] (Rec: 04/14/20 10:42 CGR [id number]) Occupational Therapy Current Condition Current Condition Evaluation Date 04/14/20 Treatment Diagnosis SOB, COPD exacerbation Diagnosis Onset Date 04/13/20 M3 OT- IP Subjective and Pain Start: 04/14/20 10:19 Freq: Status: Active Protocol: Document 04/15/20 16:34 [facility] (Rec: 04/15/20 16:42 [facility] [id number]) OT- Subjective Occupational Therapy Visit Type Type Treatment Note Visit Start Time 16:10 Visit Stop Time 16:18 Total Visit Minutes 8 Occupational Therapy Visit Comments Patient Comments Pt not wanting to shower as states, I do not need someone to babysit me in the shower, I can do it myself. Pt agreed to go over energy conservations suggestions. OT Pain Assessment Pain When Pain Assessed At Rest Pain Present Pain Present Denied Pain M4 OT- IP ADL's Start: 04/14/20 10:19 Freq: Status: Active Protocol: Document 04/15/20 16:34 [facility] (Rec: 04/15/20 16:42 [facility] [id number]) OT [id number] Comments OT Self-Feeding Comments NOt at meal time. OT ADL-Grooming Comments OT Grooming Comments Not performed. OT ADL-Dressing General Eval Lower Body Dressing Ability Standby Assistance Areas Needing Assistance Socks Comments OT Dressing Comments Pt able to bend his foot up to natalia/doff socks with great effort and O2 on 1L decreased from 98% t0 92%. Able to talk to pt about use of boiler inspector and sock aid to help to increase ease and help to conserve his energy , but pt not interested in trying today . OT ADL-Toileting Comments OT Toileting Comments Pt states just used the toilet earlier. OT ADL-Bathing Comments OT Bathing Comments Pt reefusing to shower. M5 OT- IP IADL's Start: 04/14/20 10:19 Freq: Status: Active Protocol: Document 04/14/20 10:21 [facility] (Rec: 04/14/20 10:42 [facility] [id number]) OT-Instrumental Activities of Daily Living Deficits IADL Deficits Identified Deficits Home Safety Awareness Awareness of Need for Assistance at Home Decreased Awareness M6 OT- IP Functional Cognition Start: 04/14/20 10:19 Freq: Status: Active Protocol: Document 04/15/20 16:34 [facility] (Rec: 04/15/20 16:42 [facility] [id number]) Cognitive Factors Limiting Selfcare Function Cognitive Comments Cognitive Assessment Comments Pt insistent of doing things his way but open to listening to energy conservation suggestions. M8 OT- IP Objective Assessments Start: 04/14/20 10:19 Freq: Status: Active Protocol: Document 04/14/20 10:21 [facility] (Rec: 04/14/20 10:42 [facility] [id number]) OT Gross Range of Motion Upper Extremity Range of Motion Assessment Within Functional Limits OT Strength Upper Extremity Strength Assessment Within Functional Limits OT- Coordination Assessment Upper Extremity Finger to Nose Test Within Functional Limits Finger Tapping Test Within Functional Limits OT-Muscle Tone Assessment Muscle Tone WNL Yes OT Sensation Assessment Edema Edema Absent M9 OT- IP Assessment and Plan Start: 04/14/20 10:19 Freq: Status: Active Protocol: Document 04/15/20 16:34 [facility] (Rec: 04/15/20 16:42 [facility] [id number]) OT Summary Assessment and Plan Potential Rehabilitation Potential Good Analytic Complexity at Evaluation Low Summary OT Impairments Balance,Dressing,Activity Tolerance Progress Towards Goals Slow Progress due to Activity Tolerance Assessment Summary Pt not wanting to get up today but open to listening to energy conservation strategies . Pt feel that he is already able to do all his ADL needs on his own. However with minimal activity pt's O2 level drop. While donning his socks, O2 level decreased from 98% to 92% on 1L of O2. Pt would benefit from short skilled rehab versus home with assist. Goals Grooming Goal Independent Dressing Goal Independent Toileting Goal Independent Bathing Goal Independent Toilet Transfer Goal Independent Shower Transfer Goal Independent Days to Meet Goals 4 Frequency of Treatment Frequency Of Treatment Once a Day Treatment Plan OT Treatment Plan ADL Training,Functional Mobility,Patient/Family Education,Discharge Planning Other Treatment Recommendations and Next Have pt try LB dressing Treatment Focus equipment Discharge Recommendations OT Discharge Recommendations Home with Assistance,SNF Rehab Other Discharge Recommendations Pt is homeless and couch surfs prior to admit. Unsure of pt's plan for discharge. Transportation Needs at Discharge Private Vehicle
--- NOTE | 2020-04-15 16:52 | PT.IPTN ---
Physical Therapy Treatment Note M2 PT-IP Current Condition Start: 04/14/20 08:33 Freq: NEEDED Status: Active Protocol: Document 04/14/20 10:43 [facility] (Rec: 04/14/20 11:17 [facility] [id number]) Physical Therapy Current Condition Current Condition Evaluation Date 04/14/20 Treatment Diagnosis Dyspnea; Decreased endurance, generalized weakness Onset Date 04/14/20 M3 PT-IP Subjective Start: 04/14/20 08:33 Freq: NEEDED Status: Active Protocol: Document 04/15/20 16:11 [facility] (Rec: 04/15/20 16:49 [facility] [id number]) Subjective Physical Therapy Visit Type Type Treatment Note Visit Start Time 15:10 Visit Stop Time 15:35 Total Visit Minutes 25 Notes SPT Mariano led session under direct supervision of PT Ainsley. Number of PADDER CUSHION Visits 0 Physical Therapy Visit Comments Patient Comments Pt is agreeablt to do PT. M4 PT-IP Mobility and Gait Start: 04/14/20 08:33 Freq: NEEDED Status: Active Protocol: Document 04/15/20 16:11 [facility] (Rec: 04/15/20 16:49 [facility] [id number]) PT-Bed Mobility Assessment Supine to Sit Supine to Sit Standby Assistance,Head of Bed Elevated PT-Transfer Assessment Sit to and From Stand Sit to and from Stand Contact Guard Assistance Equipment Transfer Assistive Device None,Gait Belt Orthotic/Prosthetic Devices or Brace: No Transfers Transfer Destination Bed Transfer Technique Amb Transfer Ability Level of Assist Contact Guard Assistance Comments Mobility Comments Pt was inclined in bed upon arrival. Pt completed supine to sit at L EOB with SBA. BP in sitting on EOB was 146/87. SPO2 was low 90s on 1L O2 NC. Pt demonstrated sweating. Pt requested to use the bathroom. Pt did sit to stand and amb ~ 8 ft to the toilet with CGA. Pt was able to void in standing with CGA. Pt demonstrated labored breathing while voiding. Pt amb back to the L EOB and sat down with CGA. Pt had labored breathing with coughing. SPO2 remained in the low 90s. After resting for ~2 min on EOB with 1L of O2 NC, labored breathing and coughing improved. Pt agreed to participate in 2-minute walk test. Pt stood up and amb ~450 ft in the hallway and back to the room with CGA and 1L of O2 NC. SPO2 remained 90- 91 throughout amb. Pt had step -through gait pattern without noticeable deviations but demonstrated some heavy foot falls. Pt amb ~362 ft in 2 minutes. Pt returned to the room and sat down on the bed with CGA. Pt did sit to supine SBA. Pt refused blankets. Call light placed within reach . Gait Assessment Gait Gait Assistance Required: Contact Guard Assist Distance (Feet) 12 Assistive Devices Assistive Device None,Gait Belt Orthotic/Prosthetic Devices or Brace: No Factors Limiting Gait Function Factors Limiting Gait Function Respiratory Distress Comments Gait Comments See mobility comments. Functional Assessments Functional Tests 2 Minute Walk Test ~362 ft Other Functional Tests Performed Pt walked around the tiff station in clockwise direction starting from room 210. After 2 min, pt was in front of room 206 on the second lap. M5 PT-IP Objective Assessments Start: 04/14/20 08:33 Freq: NEEDED Status: Active Protocol: Document 04/14/20 10:43 [facility] (Rec: 04/14/20 11:17 DE [id number]) Orientation Orientation/Cognition Level of Alertness Lethargic Language Function Ability Garbled Speech Safety Awareness Decreased Safety Awareness Memory Description Short Term Impaired,Jail Impaired Comments Pt was very fatigued and drowsy. Gross Range of Motion Lower Extremity ROM Assessment Within Functional Limits Strength Lower Extremity Strength Assessment Bilaterally Impaired Hip 4-/5 Knee 4-/5 Ankle 5/5 Comments Strength Comments Strength likely limited d/t respiratory distress and fatigue. Coordination Assessment Gross Coordination Gross Coordination WNL Muscle Tone Muscle Tone WNL Yes M6 PT-IP Treatment Start: 04/14/20 08:33 Freq: NEEDED Status: Active Protocol: Document 04/15/20 16:11 [facility] (Rec: 04/15/20 16:49 DE [id number]) Physical Therapy Treatment Education Education Provided Safety Other Treatments Other Treatment Performed Provided education on safety and role of PT. M7 PT-IP Assessment and Plan Start: 04/14/20 08:33 Freq: NEEDED Status: Active Protocol: Document 04/15/20 16:11 [facility] (Rec: 04/15/20 16:49 DE [id number]) PT Summary Assessment and Plan Potential Rehabilitation Potential Fair Status of Condition at Evaluation Evolving Summary Impairments Pain,ROM,Strength,Balance, Cognition,Bed Mobility, Transfers,Gait,Activity Tolerance Assessment Summary Pt demonstrated improved alertness and activity tolerance from yesterday However, pt still continues to demonstrate labored breathing and coughing after short amb in the room. Pt was able to amb ~450 ft in the hallway with 1L O2 NC and participate in 2-minute walk test. Pt walked ~362 ft in 2 min. SPO2 maintained 90-91 throughout amb. PT will continue to recommend SNF to improve endurance and activity tolerance. Goals Bed Mobility Goal Independent Transfer Goal Independent Gait Goal Independent Gait Distance 200 Days to Meet Goals 5 Frequency of Treatment Frequency Of Treatment Once a Day Treatment Plan Physical Therapy Treatment Plan Bed Mobility Training,Transfer Training,Gait Training, Therapeutic Exercise,Balance Retraining,Post Op Education, Discharge Planning,Hot or Cold Pack,Neuromuscular Re-ed Other Recommendations and Next Treatment Monitor SPO2 Focus Bring pulse ox and portable oxygen tank if walking in the hallway Recommendations To Nursing Amount of Assist Needed 1 Person Assist Discharge Recommendations PT Discharge Recommendations SNF Rehab Other Discharge Recommendations [facility] depending on pt progress Transportation Needs at Discharge Private Vehicle Treatment was provided by Mariano Webb, SPT and supervised by Ainsley Weir, PT. I personally reviewed this note and agree with its contents.
[2020-04-16] VITALS (8 sets, daily range): BP systolic 127–152; BP diastolic 91–102; PULSE 92–106; RESP 20–24; TEMP 36.7–37.2; O2SAT 90–95
[2020-04-16 06:19] LABS: Alanine Aminotransferase 19 IU/L (<50); Albumin 3.4 g/dL (3.5-5.0); Albumin Globulin Ratio 1.1 (1.0-2.8); Alkaline Phosphatase 70 U/L (38-126); Aspartate Aminotransferase 22 IU/L (17-59); Bilirubin Total 0.4 mg/dL (0.2-1.3); Bilirubin Unconjugated 0.2 mg/dL (0.0-1.1); Blood Urea Nitrogen 32 mg/dL (9-20); Calcium 8.7 mg/dL (8.4-10.2); Carbon Dioxide 37 mmol/L (22-32); Chloride 102 mmol/L (98-107); Estimated Glomerular Filt Rate > 60.0 mL/min (>60); Globulin 3.1 g/dL (1.7-4.1); Glucose 88 mg/dL (70-100); HEMOLYSIS < 15 (0-50); Potassium 3.8 mmol/L (3.4-5.1); Sodium 139 mmol/L (137-145); Total Protein 6.5 g/dL (6.3-8.2)
[2020-04-16] MEDS: ALBUTEROL/IPRATROPIUM 3 ML AMPUL INH ×2 (07:42→12:41)
[2020-04-16] MEDS: BUDESONIDE 0.5 MG/2 ML NEB INH (07:58)
--- NOTE | 2020-04-16 10:28 | PT-IP ANOTE ---
Attempted to see patient at 10:28 AM, patient stated he is too tired to participate in PT at this time. Will attempt to see pt again in PM.
--- NOTE | 2020-04-16 11:32 | PC.NURSE ---
Addendum entered by Anatoliy Christie R.N. 04/16/20 13:59: bp elevated upon return from studies. notified and that lisinopril and lasix given late r/t npo status this am. rounded on patient and cleared for dc. patient eager to leave, states he plans to sleep on the sidewalk in [place], states he has already called his dad who was in visiting patient earlier and that his dad is picking him up outside. he is determined to wait for him outside if he is not yet here. discussed option of trying to find [facility], states he doesn't want to do that. he gives verbal understanding that taking his medication is extremely important, that if he does, he will improve, if he doesn't he could feel worse rapidly. patient understands scripts for heart and breathing medications have been sent to [facility] in [place], he states his dad will take him there. attempted to call patient's dad henry, on his home phone, no answer, mailbox full. notified mireya in fence installer helper, who came to see patient. patient declines any further assistance. returned box of cigarettes from safe. wrote rationale for each medication next to each on vt home paperwork. attempted to review [facility] handouts, patient not interested and not paying attention, but read to him the color coded handout. patient left by w[place] with wood fence erector escort. per wood fence erector report, patient's dad had not arrived yet. patient lit up cigarette promptly and would not wait inside for his ride to come. Original Note: PATIENT OFF OF UNIT TWICE THIS AM FOR PORTIONS OF NUC MED STRESS TEST.
[2020-04-16] MEDS: SODIUM CHLORIDE 0.9% FLUSH 10 ML IV (12:23)
[2020-04-16] MEDS: predniSONE 20 MG TABLET 40 MG PO (12:24)
[2020-04-16] MEDS: FUROSEMIDE 20 MG TABLET PO (12:24)
[2020-04-16] MEDS: ENOXAPARIN 40 MG/0.4 ML SYRINGE SUBCUT (12:24)
[2020-04-16] MEDS: DOXYCYCLINE HYCLATE 100 MG TABLET PO (12:24)
[2020-04-16] MEDS: lisinopriL 10 MG TABLET PO (12:24)
--- NOTE | 2020-04-16 13:21 | P.DS_ITS ---
History of Present Illness History of Present Illness Date Patient Seen: 04/16/20 Time Patient Seen: 13:30 Chief complaint: COPD problems Narrative: Bradly Morley is a 54 year old homeless male with PMH of COPD who presents for shortness of breath. Patient reports he is short of breath normally with exertion. States he is only able to walk about 12 feet at baseline. He does not take any medications. Reports daily smoking still. He denies chest pain but endorses chronic cough. He states he is supposed to be taking inhalers and medications but cannot. In the emergency room, patient was mildly hypertensive, mildly tachycardic, tachypneic but saturating well on room air. Initial laboratory evaluation showed an unremarkable CBC, ABG with a pH of 7.38, pCO2 of 58, and PO2 of 54 with a bicarb of 34. Chemistries revealed a normal BMP, A1c of 6.1%, initial troponin of 0.050, proBNP of 1640, procalcitonin negative. COVID-19 testing was negative. He was given a dose of steroids and lasix. Patient was admitted under observation status for COPD exacerbation with possible new diagnosis of heart failure. Discharge Providers Provider Date of admission: 04/14/20 03:21 Discharge Date: 04/16/20 Consults: 04/14/20 04:05 Consult to Occupational Therapy Evaluate & Treat Comment: Physician Instructions: Evaluate and treat Consult to Physical Therapy Evaluate & Treat Comment: Physician Instructions: Evaluate and Treat 04/14/20 04:06 Consult to Discharge Planning Routine Comment: Discharge provider: Madi Hartley DO Summary Hospital Course Discharge Diagnosis: Please see hospital course by problem list noted below. Hospital Course: Bradly Morley is a 54 year old homeless male with PMH of COPD who presents for shortness of breath whom was admitted with hypoxia, secondary to acute likely on chronic systolic heart failure and COPD exacerbation. Stress testing was deemed low risk for ischemia per cardiology. Patient was saturating well on room air, and although he was still dyspnic on exertion this appeared to be his baseline. 1. hypoxia, acute, resolved - Troponin elevated on admission labs to 0.050 which then downtrended. EKG with new T wave inversions, echo shows increased left ventricular wall thickness, mildly dilated left ventricle with an EF of 35-40% with new wall motion abnormalities compared to prior echocardiogram. No complaints of chest pain, ACS unlikely. Not a great [facility] candidate given medication non-compliance. Discussed with cardiology at [facility] whom recommended stress testing. Stress testing was deemed low risk for ischemia. - at baseline he is able to walk about 12 feet, appears at baseline. last echo 2016 with normal EF. - patient was saturating at 91% after activity on room air on the day of discharge, after stress testing. 2. COPD exacerbation, acute, present on admission - COVID negative, no evidence of bacterial infection or pneumonia on CXR. Given 125 mg solumedrol in ED, can complete 5 day total course of steroids as an outpatient. - doxycycline 100 mg BID for antiinflammatory effect in COPD. - Patient's COPD medications were adjusted slightly to try and reduce risk of re-exacerbation, although compliance limited by his homelessness. Patient refused nursing home placement. Discharged on albuterol, mometasone, and tiotroprium as well as a few additional days of doxy and prednisone as noted above. 3. Acute, likely on chronic, systolic heart failure, acute portion resolved. -echo showed increased left ventricular wall thickness, mildly dilated left ventricle with an EF of 35-40% with new wall motion abnormalities compared to prior echocardiogram. -suspect related to methamphetamine use given Urine tox, denies EtOH. Ischemic evaluation recommended by cardiology which was deemed low risk for ischemia. -started on lisa-inhibition and beta andreina at time of discharge. Medications were sent to a local pharmacy per patient request. -appears euvolemic at this time. Continue oral furosemide daily. Patient was initially given doses of IV furosemide for slight diuresis in the ER with improvement in shortness of breath. 4. Medication non-compliance, chronic - due to homelessness. [employer] consultation appreciated. 5. Methamphetamine use, chronic - UDS positive for methamphetamines. Patient denied drug use to this provider. Suspect other use, possible heroin, as he had an episode of diaphoresis, nausea, agitation which improved with ativan. 6. Elevated troponin, acute, present on admission, resolved. - management as noted above. Likely elevated in the setting of COPD exacerbation. Status at Discharge Cognitive/behavioral status at discharge: oriented Functional status at discharge: independent ambulation Overall status at discharge: patient is back to baseline Time Spent with Patient Time spent: Greater than 30 minutes Exam Vital Signs (past 8 hours): - 04/16/20 06:17 04/16/20 07:43 04/16/20 07:59 Temperature Pulse Rate 102 H 92 H Respiratory Rate 24 24 Blood Pressure Pulse Oximetry 91 90 L 04/16/20 08:00 04/16/20 09:00 04/16/20 12:42 Temperature 98.9 F Pulse Rate 106 H 94 H Respiratory Rate 21 22 Blood Pressure 127/102 H Pulse Oximetry 92 95 94 Oxygen Delivery Method Nasal Cannula Oxygen Flow Rate 2 Narrative Exam Narrative: GENERAL APPEARANCE: Disheveled male, no acute distress, fatigued mildly diaphoretic. SKIN: Inspection of the skin reveals no rashes, ulcerations or petechiae. There are multiple tattoos HEENT: Normocephalic atraumatic, extraocular muscles are intact, oropharynx is clear and mucous membranes are moist, neck is supple without adenopathy NECK: Supple and symmetric. There was no thyroid enlargement, and no tenderness, or masses were felt. CHEST: Normal AP diameter and normal contour without any kyphoscoliosis. LUNGS: Auscultation of the lungs no wheezes, rhonchi, or rales. CARDIOVASCULAR: There was a regular rate and rhythm without any murmurs, gallops, rubs. Peripheral pulses were 2+ and symmetric. ABDOMEN: Soft and nontender with normal bowel sounds. No ascites was noted. MUSCULOSKELETAL: There was no tenderness or effusions noted. Muscle strength and tone were normal. EXTREMITIES: No cyanosis, clubbing or edema. NEUROLOGIC: Alert and oriented x 3. avoidant. Slurred speech likely baseline. Strength is +5/5 in the Upper Extremities and Lower Extremities Bilaterally. Sensation to touch was normal. Objective Labs Result Diagrams: 04/14/20 01:45 04/16/20 05:30 Labs: Laboratory Results - last 24 hr 04/16/20 05:30 Sodium 139 Potassium 3.8 Chloride 102 Carbon Dioxide 37 H BUN 32 H Creatinine 0.64 L Estimated GFR > 60.0 BUN/Creatinine Ratio 50.0 H Glucose 88 Calcium 8.7 Magnesium 2.0 Total Bilirubin 0.4 Conjugated Bilirubin 0.0 Unconjugated Bilirubin 0.2 AST 22 ALT 19 Alkaline Phosphatase 70 Total Protein 6.5 Albumin 3.4 L Globulin 3.1 Albumin/Globulin Ratio 1.1 [facility] Medical History COPD (chronic obstructive pulmonary disease) Peripheral edema Surgical History Status post appendectomy Social History household members: none Smoking Status: Current every day smoker alcohol intake: never Discharge Plan Discharge Plan Patient Disposition: Home Provider Discharge Comment: You were admitted to the hospital with shortness of breath due to COPD and newly found heart failure. I enourage you to take your medications and try and follow up with a primary care provider and find a stable place to live. Please avoid using methamphetamines or illicit substances. If you take your medications your symptoms will improve. Discharge orders & Medications Prescriptions: New furosemide 20 mg Tablet 20 mg PO DAILY 30 Days Qty: 30 RF: 0 prednisone 20 mg Tablet 40 mg PO DAILY 3 Days Qty: 6 RF: 0 lisinopril 10 mg Tablet 10 mg PO DAILY 30 Days Qty: 30 RF: 0 metoprolol succinate 25 mg tablet extended release 24 hr 12.5 mg PO BID 30 Days Qty: 30 RF: 0 Continued albuterol sulfate [Ventolin HFA] 90 MCG/PUFF HFA aerosol inhaler 2 puff INH QID Qty: 1 RF: 7 doxycycline hyclate 100 mg capsule 100 mg PO BID 3 Days Qty: 6 RF: 0 albuterol sulfate 90 mcg/actuation HFA aerosol inhaler 2 puff INHALATION Q4-6H PRN (Reason: shortness of breath or wheezing) 30 Days Qty: 8.5 RF: 0 Changed tiotropium bromide 18 mcg capsule, w/inhalation device 1 cap inhalation DAILY 30 Days Qty: 30 RF: 0 mometasone 100 mcg/actuation HFA aerosol inhaler 1 puff inhalation BID 30 Days Qty: 13 RF: 0 Discontinued Heart Pill 1 tab PO DAILY RF: 0 prednisone 50 mg tablet 50 mg PO DAILY Qty: 5 RF: 0 Diet/Activity/Treatments Diet: Diet as Tolerated and Low-sodium Activity: As tolerated Visit Report/Discharge Packet Instructions: DI for Heart Failure Discharge Data Attending Provider: Regina Young VTE Deep Vein Thrombosis/Pulmonary Embolism Present on Admission: No
--- NOTE | 2020-04-16 13:28 | OT.IP.TRT ---
Occupational Therapy Treatment Note M2 OT-IP Current Condition Start: 04/14/20 10:19 Freq: Status: Active Protocol: Document 04/14/20 10:21 CGR (Rec: 04/14/20 10:42 CGR [id number]) Occupational Therapy Current Condition Current Condition Evaluation Date 04/14/20 Treatment Diagnosis SOB, COPD exacerbation Diagnosis Onset Date 04/13/20 M3 OT- IP Subjective and Pain Start: 04/14/20 10:19 Freq: Status: Active Protocol: Document 04/16/20 13:26 CGR (Rec: 04/16/20 13:27 CGR [id number]) OT- Subjective Occupational Therapy Visit Type Type Administrative Note Notes Attempted to see pt for OT services x3. Pt initially declined stating that he was fatigued. Then pt was being take off the floor for stress test. In PM pt had been told that he was discharging and is preparing for discharge. No OT charge on this date.
--- NOTE | 2020-04-16 13:39 | CM.SWNOTE ---
CODING DIRECTOR Note Patient has passed his stress test today; Dr Hartley has suggested DC today to patient, after which patient had a panic attack in room. Patient now would like to leave [facility] and has been telling NICHOLE Cope I'll stay w/my Dad down the street. Patient asking for his cigarettes so he can leave. 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 and patient said he could p/u at [facility] in [place]. Patient denies needs from this CODING DIRECTOR, patient states he does not stay in homeless shelters. Patient states he will plan to stay with his Dad or somewhere. Plan: DC home today, patient refuses resources or assist w/coordination JW
--- NOTE | 2020-04-16 13:51 | DI.NM.S_ITS ---
DATE OF SERVICE: 04/16/2020 PROCEDURE PERFORMED: Vasodilator stress and rest myocardial perfusion imaging with gating to assess ejection fraction and regional wall motion. ORDERING PROVIDER: Dr. Madi Hartley. INDICATIONS: The patient is a 54-year-old homeless male with COPD and a history of methamphetamine use. CARDIAC STRESS: Per protocol, 0.4 mg of regadenoson was infused with a normal hemodynamic response. The patient developed severe dyspnea but no chest discomfort. His ECG shows LVH with a strain pattern. There are no significant ST-segment shifts with cardiac stress. There were no arrhythmias. Per protocol, 26.4 millicuries of technetium-99m Myoview was injected and the patient was imaged 20 minutes later using a gated SPECT acquisition protocol. Earlier in the day, he had been injected with 10.5 millicuries of technetium-99m Myoview at rest and was imaged 30 minutes later, again using a gated SPECT acquisition protocol. FINDINGS: 1. Raw data: There is fair myocardial tracer uptake although the patient was unwilling to lie prone. There is clear diaphragmatic attenuation noted on the raw data images. Lung/heart ratio was normal at 0.28. TID ratio is borderline elevated at 1.20, but is nonspecific with vasodilator stress. 2. Quantitated gated SPECT: Post-stress ejection fraction is estimated at 22% with severe global hypokinesis without any obvious focal wall motion abnormality and specifically the inferior wall has similar contractility as the other wall segments. Left ventricular volumes are markedly increased with a resting end-diastolic volume of 261 mL. Resting ejection fraction is 30% and appears similar to the post- stress images. 3. Post-stress supine images shows a mild perfusion defect throughout the entire inferior wall in a pattern that would be consistent with diaphragmatic attenuation. There is no prone imaging to assess for this. There are no other concerning perfusion defects. The resting images show an identical perfusion pattern without any obvious improvement in the inferior wall or other wall segments. IMPRESSION: 1. Abnormal myocardial perfusion study. 2. Mild fixed inferior defect that likely reflects diaphragmatic attenuation, although there are no prone images to assess for this. A previous nontransmural infarction cannot be entirely excluded. There is no compelling evidence for any significant myocardial ischemia. 3. Severely reduced left ventricular systolic function in a global fashion without any focal wall motion abnormality. Left ventricular volumes are severely increased. 4. Severe dyspnea with regadenoson infusion but no chest discomfort or changes from his baseline ST-segment abnormalities to suggest ischemia. Bradly Morley - FERNANDA/sb/yogi doc#: [id number]/job#: [id number] dd: 04/16/2020 12:56:00 dt: 04/16/2020 13:33:00 DICTATING MD/COPIES TO: Fahad Hogue MD; Madi Hartley M.D. COPIES MNE: MALIK;
== END 2020-04-16 14:11 | disposition home or self-care (01) ==
LOC: ED 03:22 → AC 03:24
PROVIDERS: Internal Medicine; Admitting Provider Nurse Practitioner Family; Emergency Provider Emergency Medicine; Visit Provider Nurse Practitioner Family
DX: R09.02 Hypoxemia (principal); R06.02 Shortness of breath; R77.8 Other specified abnormalities of plasma proteins; I50.21 Acute systolic (congestive) heart failure; J44.1 Chronic obstructive pulmonary disease with (acute) exacerbation; F15.90 Other stimulant use, unspecified, uncomplicated; Z91.14 Patient's other noncompliance with medication regimen; Z59.0 Homelessness; F17.210 Nicotine dependence, cigarettes, uncomplicated; Z01.812 Encounter for preprocedural laboratory examination; Z20.828 Contact with and (suspected) exposure to other viral communicable diseases
CPT/HCPCS: 36415; 36600; 71045; 78452; 80048; 80053; 80061; 80076; 80305; 82550; 82553; 82805; 82962; 83036; 83690; 83735; 83880; 84145; 84443; 84484; 85025; 86140; 87635; 93005; 93010; 93017; 93306; 94640; 94760; 94762; 96372; 96374; 96375; 97116; 97162; 97165; 97530; 97535; 99284; G0378; A9270; A9502; J1650; J1940; J2785; J2930

== ENCOUNTER 2020-05-21 14:15 | Inpatient (IN) | payer OTHER, MEDICAID, SELFPAY ==
[2020-04-14 03:48] VITALS: BMI 28.6
[2020-05-21] VITALS (24 sets, daily range): BP systolic 124–178; BP diastolic 64–114; PULSE 84–114; RESP 18–49; TEMP 36.4–36.7; O2SAT 92–98; BMI 26.2
--- NOTE | 2020-05-21 14:26 | DI.RAD.S_ITS ---
PROCEDURE: XR CHEST 1V INDICATIONS: SOB TECHNIQUE: One view of the chest was acquired. COMPARISON: [facility], CT, CT ANGIO CHEST PE PROTOCOL, 04/24/2019, 12:41. [facility], CR, XR CHEST 1V, 04/15/2020, 15:31. [facility], CR, XR CHEST 1V, 04/14/2020, 1:46. FINDINGS: Surgical changes and devices: None. Lungs and pleura: Minimal opacity at the left lung base similar to the prior exams. Suspect mild scarring at the left lung base. No significant pleural effusions or pneumothorax. Mediastinum: Mediastinal contours appear unchanged. Heart size is within normal limits. Bones and chest wall: No suspicious bony lesions. Overlying soft tissues appear unremarkable. IMPRESSION: Minimal opacity at the left lung base is similar to the prior exams and most likely due to scarring. Less likely infectious/inflammatory etiology. Dictated by: Vishnu Gomez M.D. on 05/21/2020 at 14:52 Approved by: Vishnu Gomez M.D. on 05/21/2020 at 14:54
--- NOTE | 2020-05-21 14:32 | ED_ITS ---
HPI - General Adult General Chief complaint: Shortness of Breath/Dyspnea Stated complaint: COPD Time Seen by Provider: 05/21/20 14:20 Source: patient Mode of arrival: Ambulatory Limitations: no limitations History of Present Illness HPI narrative: Patient is a 54-year-old male. Has a history of COPD. Reported history of drug abuse. Is homeless. Was admitted here to the hospital than the past 60 days for COPD exacerbation where he had a cardiac workup secondary to an elevated troponin and EKG changes. It was felt after that workup that no cardiac catheterization was needed. He was discharged home with medications. Patient states that he ?completed ?those medications and has not on anything for the past several weeks. He states that for the past couple days he has had increasing shortness of breath. Has had subjective fevers, no productive cough, occasionally has chest discomfort. Comes the emergency department today for shortness of breath Related Data Previous Rx's Medication Instructions Recorded albuterol sulfate [Ventolin HFA] 2 puff INH QID #1 ea 07/08/17 albuterol sulfate 2 puff INHALATION Q4-6H PRN 30 04/16/20 Days #8.5 gram doxycycline hyclate 100 mg PO BID 3 Days #6 cap 04/16/20 mometasone 1 puff INHALATION BID 30 Days #13 g 04/16/20 tiotropium bromide 1 cap INHALATION DAILY 30 Days #30 04/16/20 inh Allergies Allergy/AdvReac Type Severity Reaction Status Date / Time No Known Drug Allergies Allergy Verified 04/14/20 03:02 Review of Systems Constitutional Constitutional: Reports fever(s) (Subjective) and Denies headache(s) ENT Ears, Nose, Mouth, and Throat: Denies headache(s) Cardiovascular Cardiovascular: Reports chest pain, Reports dyspnea and Reports dyspnea on exertion Respiratory Respiratory: Reports cough, Denies excessive phlegm production, Reports dyspnea and Reports dyspnea on exertion Gastrointestinal Gastrointestinal: Denies abdominal pain, Denies nausea and Denies vomiting Genitourinary Genitourinary: Denies dysuria Genitourinary: Denies dysuria Musculoskeletal Musculoskeletal: Denies arthralgias and Denies myalgias Integumentary/Breasts Skin/Breast: Denies lesions and Denies rash Neurologic Neurologic: Denies behavioral changes and Denies headache(s) Psychiatric Psychiatric: Denies behavioral changes Hematologic/Lymphatic On Anticoagulants: No Allergic/Immunologic Allergic/Immunologic: Denies urticaria Patient History Medical History (Updated 05/21/20 @ 18:58 by Adrian Zambrano DO) COPD (chronic obstructive pulmonary disease) Peripheral edema Surgical History Status post appendectomy Social History household members: none Smoking Status: Current every day smoker alcohol intake: never Smoking Status: Current every day smoker alcohol intake frequency: other Substance Use Type: does not use Exam Initial Vital Signs Initial Vital Signs: Vital Signs Pulse Rate 113 H 05/21/20 14:22 Respiratory Rate 49 H 05/21/20 14:22 Pulse Oximetry 95 05/21/20 14:22 Const General: cooperative and No ill appearing Limitations: mental status not altered HENMT Head: normal to inspection and normocephalic Resp Effort & Inspection: labored and tachypneic Auscultation: no wheezes Cardio Rate: regular rate Rhythm: regular rhythm GI Inspection: non-distended Palpation: soft Skin Lesions: no lesions Rashes: no rashes Neuro General: patient alert and patient awake Cognition: normal cognition Speech: speech normal Extrem General: capillary refill normal Psych Appearance: grossly normal and well kempt Course Orders Ordered: ED Orders 05/21/20 14:26 XR chest 1V Stat EKG-12 Lead Stat RT Consult Eval and Treat Now 05/21/20 14:30 COVID19 Stat Complete Blood Count AUTO DIFF Stat Comprehensive Metabolic Panel Stat Ethanol (ETOH) Stat Lipase Stat NT-proBNP (BNP-Adult 18+) Stat Procalcitonin Stat Troponin & CK Cardiac Panel Stat 05/21/20 14:41 Consult to [employer]ER - [employer] Technologist Stat Discontinued Medications Albuterol (Albuterol Hfa Mdi 60 Puff/8 Gm Inhaler) 2 puff INH NOW ONE Stop: 05/21/20 14:28 Last Admin: 05/21/20 14:49 Dose: 2 puff Documented by: ZIA Albuterol (Albuterol 2.5 Mg/3 Ml Neb (Adult)) 2.5 mg INH NOW ONE Stop: 05/21/20 18:54 Albuterol/Ipratropium (Albuterol/Ipratropium 3 Ml Ampul) 3 ml INH Q20M LIGIA Stop: 05/21/20 15:56 Last Admin: 05/21/20 17:00 Dose: 3 ml Documented by: Admin: 05/21/20 15:58 Dose: 3 ml Documented by: Admin: 05/21/20 15:15 Dose: 3 ml Documented by: DARNELL Azithromycin (Azithromycin 250 Mg Tablet) 500 mg PO NOW ONE Stop: 05/21/20 18:35 Last Admin: 05/21/20 18:45 Dose: 500 mg Documented by: Methylprednisolone (Methylprednisolone 125 Mg/2 Ml Vial) 125 mg IV NOW ONE Stop: 05/21/20 14:32 Last Admin: 05/21/20 14:35 Dose: 125 mg Documented by: KATHY Vital Signs Vital signs: Vital Signs - 8 hr 05/21/20 14:22 05/21/20 14:28 05/21/20 14:30 Temperature 98.1 F Pulse Rate 113 H 110 H 114 H Respiratory Rate 49 H 28 H 38 H Blood Pressure 139/75 Pulse Oximetry 95 96 92 05/21/20 14:31 05/21/20 14:54 05/21/20 15:00 Temperature Pulse Rate 112 H 104 H 105 H Respiratory Rate 41 H 28 H 26 H Blood Pressure 175/69 H 170/90 H Pulse Oximetry 92 94 95 05/21/20 15:15 05/21/20 15:30 05/21/20 15:59 Temperature Pulse Rate 104 H 106 H 108 H Respiratory Rate 26 H 33 H Blood Pressure 162/93 H Pulse Oximetry 94 98 96 05/21/20 16:00 05/21/20 16:30 05/21/20 17:00 Temperature Pulse Rate 109 H 111 H 109 H Respiratory Rate 32 H Blood Pressure 178/114 H Pulse Oximetry 92 92 05/21/20 17:01 05/21/20 17:30 05/21/20 18:00 Temperature Pulse Rate 112 H 110 H 111 H Respiratory Rate 34 H 34 H 31 H Blood Pressure 172/100 H 154/87 H 124/64 Pulse Oximetry 96 96 05/21/20 18:30 Temperature Pulse Rate 114 H Respiratory Rate 41 H Blood Pressure 126/82 Pulse Oximetry 93 Medical Decision Making Medical Records Medical records reviewed: Yes I reviewed the patient's medical records. Lab Data Lab results reviewed: Yes I reviewed the patient's lab results. Result diagrams: 05/21/20 14:30 05/21/20 14:30 Labs: Lab Results 05/21/20 05/21/20 05/21/20 Range/Units 14:30 14:30 14:30 WBC 9.4 (4.5-11.0) X10^3/uL RBC 6.00 H (4.5-5.9) X10^6/uL Hgb 16.5 (13.5-17.5) g/dL Hct 50.4 (41-53) % MCV 84.0 (80-100) fL MCH 27.6 (26-34) PG MCHC 32.8 (30-36) % RDW 13.9 (11.6-14.8) % Plt Count 271 (150-400) X10^3/uL Neut % (Auto) 86.4 H (50-75) % Lymph % (Auto) 10.1 L (25-40) % [place] % (Auto) 2.6 L (3-14) % Eos % (Auto) 0.3 L (2-4) % Baso % (Auto) 0.6 (0-2) % Neut # (Auto) 8100 H (9568-8658) /uL Lymph # (Auto) 1000 L (1307-1602) /uL [place] # (Auto) 200 (0-900) /uL Eos # (Auto) 0 (0-450) /uL Baso # (Auto) 100 (0-100) /uL Sodium 137 (137-145) mmol/L Potassium 3.7 (3.4-5.1) mmol/L Chloride 100 (98-107) mmol/L Carbon Dioxide 34 H (22-32) mmol/L BUN 21 H (9-20) mg/dL Creatinine 0.75 (0.66-1.25) mg/dL Estimated GFR > 60.0 (>60) mL/min BUN/Creatinine Ratio 28.0 H (6-22) Glucose 248 H (70-100) mg/dL Calcium 9.0 (8.4-10.2) mg/dL Total Bilirubin 0.3 (0.2-1.3) mg/dL AST 26 (17-59) IU/L ALT 19 (<50) IU/L Alkaline Phosphatase 84 (38-126) U/L Total Creatine Kinase 99 (55-170) U/L CK-MB (CK-2) TNP CK-MB (CK-2) Rel Index TNP Troponin I 0.031 (0.01-0.034) ng/mL NT-Pro-B Natriuret Pep (<125) pg/mL Total Protein 7.1 (6.3-8.2) g/dL Albumin 3.9 (3.5-5.0) g/dL Globulin 3.2 (1.7-4.1) g/dL Albumin/Globulin Ratio 1.2 (1.0-2.8) Lipase 90 (23-300) U/L Procalcitonin < 0.05 (<0.5) ng/mL Ethyl Alcohol < 10 ( - 10) mg/dL SARS-CoV-2 (PCR) (Negative) 05/21/20 05/21/20 Range/Units 14:30 14:30 WBC (4.5-11.0) X10^3/uL RBC (4.5-5.9) X10^6/uL Hgb (13.5-17.5) g/dL Hct (41-53) % MCV (80-100) fL MCH (26-34) PG MCHC (30-36) % RDW (11.6-14.8) % Plt Count (150-400) X10^3/uL Neut % (Auto) (50-75) % Lymph % (Auto) (25-40) % [place] % (Auto) (3-14) % Eos % (Auto) (2-4) % Baso % (Auto) (0-2) % Neut # (Auto) (4676-8751) /uL Lymph # (Auto) (2040-6864) /uL [place] # (Auto) (0-900) /uL Eos # (Auto) (0-450) /uL Baso # (Auto) (0-100) /uL Sodium (137-145) mmol/L Potassium (3.4-5.1) mmol/L Chloride (98-107) mmol/L Carbon Dioxide (22-32) mmol/L BUN (9-20) mg/dL Creatinine (0.66-1.25) mg/dL Estimated GFR (>60) mL/min BUN/Creatinine Ratio (6-22) Glucose (70-100) mg/dL Calcium (8.4-10.2) mg/dL Total Bilirubin (0.2-1.3) mg/dL AST (17-59) IU/L ALT (<50) IU/L Alkaline Phosphatase (38-126) U/L Total Creatine Kinase (55-170) U/L CK-MB (CK-2) CK-MB (CK-2) Rel Index Troponin I (0.01-0.034) ng/mL NT-Pro-B Natriuret Pep 1290 H (<125) pg/mL Total Protein (6.3-8.2) g/dL Albumin (3.5-5.0) g/dL Globulin (1.7-4.1) g/dL Albumin/Globulin Ratio (1.0-2.8) Lipase (23-300) U/L Procalcitonin (<0.5) ng/mL Ethyl Alcohol ( - 10) mg/dL SARS-CoV-2 (PCR) Negative (Negative) Imaging Data Chest x-ray: Radiologist's Impression: [address] [id number] ReportSigned Patient: Bradly Morley AMR#: [id number]: 1965Acct:[id number]/Sex: 54 / MDate of Service: 05/21/20Loc: EDAccession Number: [id number] Procedure: XR chest 1V Ordering Provider: Adrian Zambrano D.O. PROCEDURE: XR CHEST 1V INDICATIONS: SOB TECHNIQUE: One view of the chest was acquired. COMPARISON: [facility], CT, CT ANGIO CHEST PE PROTOCOL, 04/24/2019, 12:41. [facility], CR, XR CHEST 1V, 04/15/2020, 15:31. [facility], CR, XR CHEST 1V, 04/14/2020, 1:46. FINDINGS: Surgical changes and devices: None. Lungs and pleura: Minimal opacity at the left lung base similar to the prior exams. Suspect mild scarring at the left lung base. No significant pleural effusions or pneumothorax. Mediastinum: Mediastinal contours appear unchanged. Heart size is within normal limits. Bones and chest wall: No suspicious bony lesions. Overlying soft tissues appear unremarkable. IMPRESSION: Minimal opacity at the left lung base is similar to the prior exams and most likely due to scarring. Less likely infectious/inflammatory etiology. Dictated by: Vishnu Gomez M.D. on 05/21/2020 at 14:52 Approved by: Vishnu Gomez M.D. on 05/21/2020 at 14:54 ECG Data Attestation: I personally reviewed and interpreted this ECG as follows: Prior ECG tracings: not available for review Interpretation: Sinus tachycardia Ventricular rate of 110 LVH Normal QTC Nonspecific ST T wave changes MDM Narrative Medical decision making narrative: Patient has not been on his COPD medications for several weeks. He is homeless. After albuterol nebulizers his symptoms improved. Low suspicion for pneumonia. Low suspicion for ACS. He did have an extensive workup recently for any cardiac issues. He was seen by social work. Patient's symptoms did seem to improve however upon my re-evaluation he became much more tachypneic. He was ambulating his oxygen saturations dropped to the low 90s. He became tachypneic into the 40s. Still wheezing. I did discuss the case with Dr. Rehman with Internal Medicine who will admit for further evaluation and treatment. Discharge Plan Departure Patient Disposition: Admitted as Observation Clinical Impression: COPD exacerbation
[2020-05-21] MEDS: methylPREDNISolone 125 MG/2 ML VIAL IV (14:35)
[2020-05-21 14:37] LABS: Add Manual Diff / Slide Review NO; Basophils Absolute Auto 100 /uL (0-100); Basophils Percent Auto 0.6 % (0-2); Eosinophils Absolute Auto 0 /uL (0-450); Eosinophils Percent Auto 0.3 % (2-4); Hematocrit 50.4 % (41-53); Hemoglobin 16.5 g/dL (13.5-17.5); Lymphocytes Absolute Auto 1000 /uL (1100-4500); Lymphocytes Percent Auto 10.1 % (25-40); Mean Corpuscular HGB Conc 32.8 % (30-36); Mean Corpuscular Hemoglobin 27.6 PG (26-34); Monocytes Absolute Auto 200 /uL (0-900); Monocytes Percent Auto 2.6 % (3-14); Neutrophils Absolute Auto 8100 /uL (1500-7000); Neutrophils Percent Auto 86.4 % (50-75); Platelet Count 271 X10^3/uL (150-400); Red Cell Distribution Width 13.9 % (11.6-14.8); White Blood Cell Count 9.4 X10^3/uL (4.5-11.0)
[2020-05-21] MEDS: ALBUTEROL HFA MDI 60 PUFF/8 GM INHALER INH (14:49)
[2020-05-21 14:51] LABS: Alanine Aminotransferase 19 IU/L (<50); Albumin 3.9 g/dL (3.5-5.0); Albumin Globulin Ratio 1.2 (1.0-2.8); Alkaline Phosphatase 84 U/L (38-126); Aspartate Aminotransferase 26 IU/L (17-59); Bilirubin Total 0.3 mg/dL (0.2-1.3); Blood Urea Nitrogen 21 mg/dL (9-20); COVID19 -Nasal RAPID Negative (Negative); Carbon Dioxide 34 mmol/L (22-32); Chloride 100 mmol/L (98-107); Creatine Kinase 99 U/L (55-170); Estimated Glomerular Filt Rate > 60.0 mL/min (>60); Ethanol (ETOH) < 10 mg/dL; Globulin 3.2 g/dL (1.7-4.1); Glucose 248 mg/dL (70-100); HEMOLYSIS < 15 (0-50); Lipase 90 U/L (23-300); Potassium 3.7 mmol/L (3.4-5.1); Sodium 137 mmol/L (137-145); Total Protein 7.1 g/dL (6.3-8.2)
[2020-05-21 15:00] LABS: NT-proBNP (BNP-Adult 18+) 1290 pg/mL (<125)
[2020-05-21 15:02] LABS: Troponin I 0.031 ng/mL (0.01-0.034)
[2020-05-21 15:14] LABS: Procalcitonin < 0.05 ng/mL (<0.5)
[2020-05-21] MEDS: ALBUTEROL/IPRATROPIUM 3 ML AMPUL INH ×4 (15:15→20:45)
--- NOTE | 2020-05-21 15:24 | RT ---
pt on room air, katie neb tx well. pf 120 pre and 150 post with min effort. sob still noted
--- NOTE | 2020-05-21 16:03 | PC.NURSE ---
PT is resting, breathing improved with treatments. RT at beside.
--- NOTE | 2020-05-21 16:20 | RT ---
pt katie tx well, improvment noted. pt on room air and mild sob noted
--- NOTE | 2020-05-21 17:25 | RT ---
pt katie tx well, no distress noted and pt on room air. Peak flow attempted, poor effort
--- NOTE | 2020-05-21 18:16 | CM.SWNOTE ---
DRIVER GUARD note DRIVER GUARD consult requested for manjinder. Patient is a 54 y/o male who presents to ED with breathing difficulty s/t COPD. Per verbal report from Dr. Zambrano, patient is currently experiencing homelessness and not connected with PCP. DRIVER GUARD enters room and attempts to meet with patient. Patient is drowsy, and falls asleep during brief meeting. DRIVER GUARD exits and re enters later. Patient explains that he has been struggling with his breathing for a long time and that he is currently worried because he does not have anywhere to go after leaving ED. Patient states he stayed outside previous evening I just run around, but is worried about staying outside tonight due to cold air. Patient reports he previously had a system in which he purchased a motel room for part of the month with [employer], and then stayed with friends for the remainder of the month. Patient reports a recent falling out with members of his friend group that resulted in the lost of his abliity to stay with them. Patient states he is unable to stay with family. Patient provides permission for DRIVER GUARD to contact [facility] to see if patient can get into cold weather long-term. leaves VM for Nori @ [facility] with patient's contact info. Pl: Patient to continue course of care while in ED ASHLI Callahan
[2020-05-21] MEDS: AZITHROMYCIN 250 MG TABLET 500 MG PO (18:45)
--- NOTE | 2020-05-21 18:54 | PC.NURSE ---
Assisted pt with ambulation down the hallway. Pt can ambulated independently with a SBA however pt is not very steady. Pt became very tachypnCall light within reach. ic with small amount of exertion, RR 40's, SPO2 91% on room air. Pt assisted back to bed.
[2020-05-21] MEDS: ALBUTEROL 2.5 MG/3 ML NEB (ADULT) INH (19:07)
--- NOTE | 2020-05-21 20:22 | PC.NURSE ---
Addendum entered by Michelle Jackson R.N. 05/21/20 23:29: Per Machelle, TABULAR TYPIST, pt experienced HR in the 50's with oxygen level in the 80's with sleep. At this time Machelle placed pt on 02 @ 2L. Shortly thereafter, Machelle reported pt attempted out of bed to use urinal and tele rhythm showed pt in rapid afib. Per Machelle, pt did c/o burning in chest when this occurred. Machelle notified GISSEL Jane who obtained stat EKG. This proposal lead writer returned from dinner break and was informed of these events. Orders entered by GISSEL Jane for electrolyte replacement and metoprolol. This proposal lead writer phoned Max @ [facility] to acknowledge these new orders APOORVA. Original Note: Pt to room 225 from E.R. via wheelchair. Dyspnea @ rest and increases with activity. Room air 95% at rest. Cautioned and recommended pt not attempt out of bed d/t dyspnea. Pt verbalizes agreement and understanding. Tele placed and BL calf scd's placed as ordered. Blood sugar 204 and heart healthy foods provided. Pt states no valuables to secure in safe, but when this proposal lead writer assisted pt out of own jeans into hospital pj pants, several cards and change fell out of pockets of jeans. Inquired of pt if desires to have these locked in safe and pt declines. GISSEL Jane in to see patient.
[2020-05-21 20:23] LABS: Magnesium 1.8 mg/dL (1.6-2.3)
[2020-05-21 20:26] LABS: Hemoglobin A1C% w Est Avg Glu 6.3 % (4.0-6.0)
[2020-05-21] MEDS: INSULIN ASPART 100 UNIT/ML INSULN PEN SUBCUT (20:28)
[2020-05-21] MEDS: FUROSEMIDE 40 MG/4 ML VIAL IV (20:35)
[2020-05-21] MEDS: SODIUM CHLORIDE 0.9% FLUSH 10 ML IV ×2 (20:41→23:25)
--- NOTE | 2020-05-21 20:49 | PM.HP.1 ---
History of Present Illness History of Present Illness Date Patient Seen: 05/21/20 Time Patient Seen: 20:03 Chief complaint: COPD Narrative: Mr. Bradly Morley is a 54-year-old male who is a current smoker with a past medical history significant for COPD, methamphetamine abuse and congestive heart failure with reduced ejection fraction diagnosed on prior admission who presents to the ER today with shortness of breath for 2 days. The patient has a history of becoming dyspneic walking 12 ft and now states he can not walk 3 ft without having to stop. Reports shortness of breath at rest with conversational dyspnea. He was hospitalized for COPD exacerbation from 04/14/2020 to 04/16/2020 at which time was also found to have congestive heart failure with echo demonstrating reduced ejection fraction of 35 to 45%. He was discharged with a 30 day supply of lisinopril metoprolol and Lasix and a course of doxycycline for which he states he has completed. The patient reports he has run out of all medications and does not have inhalers. He has no primary care and has had no post discharge follow-up. He denies complaints of fevers or chills, endorses a frontal headache but no dizziness, nasal congestion or sore throat. He denies complaints of chest pain or palpitations and describes mild ankle swelling. The patient is short of breath at rest and becomes markedly dyspneic with any activity including just standing. Patient denies epigastric or abdominal pain but has had episode of nausea and vomiting with coughing. He denies diarrhea constipation and has had no urinary difficulties starting or stopping his stream, burning urgency or frequency. He states he is homeless and will stay with friends. He continues smoke methamphetamine he says every couple weeks last use few days ago. Upon arrival the ER the patient is afebrile with temperature 98.1?, heart rate of 110, blood pressure 139/75, respiratory rate of 28 saturating 94% on room air. Chest x-ray shows a normal cardiac silhouette with minimal opacity left base which is similar to prior exams likely representing scarring. Twelve lead EKG reveals a sinus tach at 110 with baseline artifact but appearance of atrial enlargement with LVH. On laboratory analysis he has white count of 9.4 with slightly elevated neutrophils add a 1100. His hemoglobin is 16.5 and hematocrit is 50.4 and platelets are 271. His electrolytes are within normal range and has a BUN of 21 creatinine 0.75. His EGFR is greater than 60. His nonfasting glucose is 248. He has normal liver function. He has a total CK of 99, troponin of 0.031, proBNP of 1290. His procalcitonin is negative at less than 0.05, ETOH is less than 10 and COVID screening is negative. While in the ER the patient received multiple nebulizer treatments with DuoNeb and albuterol, methylprednisolone 125 cc and 500 mg azithromycin. The patient continues to be markedly dyspneic and wheezy and is admitted to the hospital service for COPD exacerbation and congestive heart failure. Patient History Medical History (Updated 05/21/20 @ 21:14 by GISSEL Koo) COPD (chronic obstructive pulmonary disease) HFrEF (heart failure with reduced ejection fraction) Methamphetamine abuse Peripheral edema Surgical History Status post appendectomy Family & Social History Family History (Updated 05/21/20 @ 21:15 by GISSEL Koo) Father Heart disease Mother Medical history unknown Brother Medical history unknown Social History: household members none Prior Living Arrangements Homeless Safety & Behavioral: Feels Safe in Current Yes Environment Been Physically Hurt or No Threatened By a Person Suicidal Ideation Description None Suicide Plan Description No Plan Tobacco & Substance use: Tobacco type cigarettes Smoking Status Current every day smoker Smoking packs per day 1 alcohol intake never alcohol intake frequency other Substance Use Type methamphetamine Meds Home Medications and Allergies Home Medications Medication Instructions Recorded Confirmed Type albuterol sulfate [Ventolin HFA] 2 puff INH QID #1 ea 07/08/17 04/24/19 Rx albuterol sulfate 2 puff INHALATION Q4-6H PRN 30 04/16/20 Rx Days #8.5 gram doxycycline hyclate 100 mg PO BID 3 Days #6 cap 04/16/20 Rx mometasone 1 puff INHALATION BID 30 Days #13 g 04/16/20 Rx tiotropium bromide 1 cap INHALATION DAILY 30 Days #30 04/16/20 Rx inh Allergies Allergy/AdvReac Type Severity Reaction Status Date / Time No Known Drug Allergies Allergy Verified 04/14/20 03:02 Review of Systems Review of Systems ROS: Yes All systems reviewed with the patient and are negative except as otherwise documented Exam Vital Signs (past 8 hours): - 05/21/20 14:22 05/21/20 14:28 05/21/20 14:30 Temperature 98.1 F Pulse Rate 113 H 110 H 114 H Respiratory Rate 49 H 28 H 38 H Blood Pressure 139/75 Pulse Oximetry 95 96 92 05/21/20 14:31 05/21/20 14:54 05/21/20 15:00 Temperature Pulse Rate 112 H 104 H 105 H Respiratory Rate 41 H 28 H 26 H Blood Pressure 175/69 H 170/90 H Pulse Oximetry 92 94 95 05/21/20 15:15 05/21/20 15:30 05/21/20 15:59 Temperature Pulse Rate 104 H 106 H 108 H Respiratory Rate 26 H 33 H Blood Pressure 162/93 H Pulse Oximetry 94 98 96 05/21/20 16:00 05/21/20 16:30 05/21/20 17:00 Temperature Pulse Rate 109 H 111 H 109 H Respiratory Rate 32 H Blood Pressure 178/114 H Pulse Oximetry 92 92 05/21/20 17:01 05/21/20 17:30 05/21/20 18:00 Temperature Pulse Rate 112 H 110 H 111 H Respiratory Rate 34 H 34 H 31 H Blood Pressure 172/100 H 154/87 H 124/64 Pulse Oximetry 96 96 05/21/20 18:30 05/21/20 19:00 05/21/20 19:07 Temperature Pulse Rate 114 H 109 H 106 H Respiratory Rate 41 H 29 H 24 Blood Pressure 126/82 Pulse Oximetry 93 93 95 Oxygen Delivery Method Room Air Oxygen Flow Rate 0 Narrative Exam Narrative: GENERAL APPEARANCE: well developed, well nourished, anxious appearing with 3-4 word dyspnea. HEENT: Normocephalic, PERRLA, conjunctiva mild injection, EOMs intact without nystagmus, no sinus tenderness to percussion, no rhinorrhea, mucous membranes are moist and pink NECK/THYROID: neck supple, no JVD, no thyromegaly, trachea midline. LYMPH NODES: no cervical or supraclavicular lymphadenopathy. SKIN: [place], warm and dry, no visible rashes or lesions. HEART: regular rate and rhythm, S1-S2, no murmur, no rubs or gallops, 2+ pedal pulses, trace bilateral pedal edema LUNGS: Breath sounds diminished with expiratory wheezing bilaterally left greater than right and bibasilar crackles. No cough present CHEST: Symmetrical movement, no accessory muscle use, good tidal volume, no pain on AP or lateral compression. ABDOMEN: Soft, distended in technique to percussion, no abdominal tenderness or guarding, no organomegaly, no flank or suprapubic tenderness, active bowel tones. BACK: Nontender to palpation EXTREMITIES: moves all extremities, strength is 5/5 and symmetrical, no deformities or joint effusions no distal cyanosis, mild clubbing. NEUROLOGIC: AAO x 3, cranial nerves II-XII grossly intact, sensation intact to light touch, hearing grossly normal to speech. PSYCH: Anxious, response to questions with short answer, evasive responses. Objective Labs Result Diagrams: 05/21/20 14:30 05/21/20 14:30 Labs: Laboratory Results - last 24 hr 05/21/20 05/21/20 05/21/20 14:30 14:30 14:30 WBC 9.4 RBC 6.00 H Hgb 16.5 Hct 50.4 MCV 84.0 MCH 27.6 MCHC 32.8 RDW 13.9 Plt Count 271 Neut % (Auto) 86.4 H Lymph % (Auto) 10.1 L [place] % (Auto) 2.6 L Eos % (Auto) 0.3 L Baso % (Auto) 0.6 Neut # (Auto) 8100 H Lymph # (Auto) 1000 L [place] # (Auto) 200 Eos # (Auto) 0 Baso # (Auto) 100 Sodium 137 Potassium 3.7 Chloride 100 Carbon Dioxide 34 H BUN 21 H Creatinine 0.75 Estimated GFR > 60.0 BUN/Creatinine Ratio 28.0 H Glucose 248 H Hemoglobin A1c Calcium 9.0 Magnesium Total Bilirubin 0.3 AST 26 ALT 19 Alkaline Phosphatase 84 Total Creatine Kinase 99 CK-MB (CK-2) TNP CK-MB (CK-2) Rel Index TNP Troponin I 0.031 NT-Pro-B Natriuret Pep Total Protein 7.1 Albumin 3.9 Globulin 3.2 Albumin/Globulin Ratio 1.2 Lipase 90 Procalcitonin < 0.05 Ethyl Alcohol < 10 SARS-CoV-2 (PCR) 05/21/20 05/21/20 05/21/20 14:30 14:30 14:30 WBC RBC Hgb Hct MCV MCH MCHC RDW Plt Count Neut % (Auto) Lymph % (Auto) [place] % (Auto) Eos % (Auto) Baso % (Auto) Neut # (Auto) Lymph # (Auto) [place] # (Auto) Eos # (Auto) Baso # (Auto) Sodium Potassium Chloride Carbon Dioxide BUN Creatinine Estimated GFR BUN/Creatinine Ratio Glucose Hemoglobin A1c 6.3 H Calcium Magnesium Total Bilirubin AST ALT Alkaline Phosphatase Total Creatine Kinase CK-MB (CK-2) CK-MB (CK-2) Rel Index Troponin I NT-Pro-B Natriuret Pep 1290 H Total Protein Albumin Globulin Albumin/Globulin Ratio Lipase Procalcitonin Ethyl Alcohol SARS-CoV-2 (PCR) Negative 05/21/20 14:30 WBC RBC Hgb Hct MCV MCH MCHC RDW Plt Count Neut % (Auto) Lymph % (Auto) [place] % (Auto) Eos % (Auto) Baso % (Auto) Neut # (Auto) Lymph # (Auto) [place] # (Auto) Eos # (Auto) Baso # (Auto) Sodium Potassium Chloride Carbon Dioxide BUN Creatinine Estimated GFR BUN/Creatinine Ratio Glucose Hemoglobin A1c Calcium Magnesium 1.8 Total Bilirubin AST ALT Alkaline Phosphatase Total Creatine Kinase CK-MB (CK-2) CK-MB (CK-2) Rel Index Troponin I NT-Pro-B Natriuret Pep Total Protein Albumin Globulin Albumin/Globulin Ratio Lipase Procalcitonin Ethyl Alcohol SARS-CoV-2 (PCR) Assessment & Plan Assessment & Plan narrative: This is a 54-year-old male who is a current smoker with a past medical history significant for COPD, methamphetamine abuse and congestive heart failure with reduced ejection fraction diagnosed on prior admission who presents to the ER today with shortness of breath for 2 days after running out medications. The patient states he has been taking medications as he was told including inhalers, lisinopril Toprol and Lasix of which she had a 30 day supply. At baseline the patient can ambulate approximately 12 ft without dyspnea today become dyspneic upon standing. 1. Acute exacerbation of chronic COPD, present on admission, active. -the patient continues to be a 1 [id number] smoker and continues to smoke methamphetamine. -no evidence pneumonia, chest x-ray identifies minimal opacity in left base which is similar to prior exams and felt to be related to scarring, white count is normal at 9.4, procalcitonin is negative at less than 0.05. -patient received multiple nebulizer treatments in the ER including albuterol and DuoNebs and methylprednisolone 125 mg with minimal to modest improvement in respiratory status. -requested respiratory therapy to consult evaluate and treat -ordered albuterol treatments every every 2 hours as needed and DuoNeb every 6 hours scheduled. -ordered prednisone 40 mg daily. 2. Acute on chronic systolic heart failure, present on admission, active -patient with echocardiogram completed on 04/14/2020 finding ejection fraction of 35-40% with mildly increased left ventricular wall thickness and moderately reduced function right ventricle is normal in size and function. -patient presents today with an elevated proBNP 1290, total CK is 99 and troponin is upper end of normal at 0.031 in the setting of a normal renal function with a creatinine 0.75. -patient states he has been taking all medications he was given on discharge until he ran out 2 days ago which included Lasix 20 mg daily. -chest x-ray finds minimal opacity in left base only no evidence of pulmonary edema and a normal cardiac silhouette. -ordered Lasix 40 mg x 1 now, ordered Lasix 20 mg daily starting in the morning. -will recheck proBNP in the morning. 3. Hyperglycemia without diagnosis of diabetes, present on admission, active -Patient presents to with hyperglycemia on initial labs with a serum glucose of 248. Patient with mildly elevated glucose 110-117 on prior admission in March 2020. -ordered fingerstick blood sugars a.c. and hs with correctional insulin low-dose range. -will obtain hemoglobin A1c 4. Methamphetamine abuse, chronic, stable -teach provided on methamphetamine use and progression of hard damage and heart failure. -strongly encouraged sobriety. 5. Tobacco dependence, chronic, stable -teaching provided on COPD and smoking. -strongly encouraged smoking cessation. DVT prophylaxis: Enoxaparin IV fluid: Saline lock Diet: Small consistent carbohydrate, heart healthy low-sodium Code status: Full code. The patient designates his father to be his surrogate decision maker. The patient is admitted to the hospital due to the extent of his symptoms not responding to initial therapy and requiring further monitoring and intervention with a complex treatment plan. The patient is admitted as observation with expected length of stay to be less than 2 midnights. COVID-19 COVID-19 status: Negative Result date/Date tested (Pos, Neg/Pending): 05/21/20 Scores GCS Bogdan coma scale eye opening: Spontaneous [place] coma scale verbal response: Orientated [place] coma scale motor response: Obey commands [place] coma scale total score: 15
[2020-05-21 22:24] LABS: Bacteria Urine None Seen; WBC Urine None Seen (0-5/HPF)
[2020-05-21 22:26] LABS: Appearance Urine UA CLEAR; Bilirubin Urine UA NEGATIVE (NEGATIVE); Color Urine UA YELLOW; Glucose Urine UA TRACE g/dL (Negative); Ketones Urine UA NEGATIVE (NEGATIVE); Leukocyte Esterase Urine UA NEGATIVE (NEGATIVE); Nitrite Urine UA NEGATIVE (Negative); Occult Blood Urine UA TRACE-LYSED (Negative); Protein Urine UA 2+ (Negative); Urobilinogen Urine UA 0.2 E.U./dL (0.2)
[2020-05-21 22:30] LABS: UR Morphine/Opiate cutoff 300 Negative (Negative); Ur Creatinine Normal (Normal); Ur Specific Gravity Normal (Normal); Urine Amphetamines Positive (Negative); Urine Barbiturates Negative (Negative); Urine Benzodiazepines Negative (Negative); Urine Cocaine Positive (Negative); Urine MDMA Negative (Negative); Urine Methadone Negative (Negative); Urine Methamphetamines Positive (Negative); Urine Oxycodone Negative (Negative); Urine Phencyclidine Negative (Negative); Urine Tetrahydrocannabinol Negative (Negative); Urine Tricyclic Antidepressant Negative (Negative); Urine pH Normal (Normal)
[2020-05-21 22:34] LABS: Culture Indicated Urine Cult Not Indicated; Mucus Urine 1+ (Negative); RBC Urine 0-1/HPF (0-5/HPF)
[2020-05-21] MEDS: METOPROLOL ER 25 MG TABLET PO (23:25)
[2020-05-21] MEDS: POTASSIUM CHLORIDE 40 MEQ in SODIUM CHLORIDE 0.9% 500 ML 130 ML IV (23:30)
[2020-05-21] MEDS: MAGNESIUM SULFATE 1 GM in DEXTROSE 5 % IN WATER 100 ML 102 ML IV (23:31)
--- NOTE | 2020-05-21 23:58 | PC.NURSE ---
[id number] patient sleeping soundly; able to awaken by calling name loudly and shaking arm. Is oriented to self, birthdate, month and place but states he doesn't know date/year/age because he doesn't care. Breath sounds diminished with crackles in left LL; oxygen at 2L/min per NC with sat of 96% and not currently SOB so oxygen decreased to 1L/min and will continue to titrate for sat > 88% with use of continuous oximetry. HR irregular and tachy in low 100's. Last telemetry reading was afib RVR; medicated with Metoprolol at shift change. Denies nausea. BT present and abdomen is soft. Voiding per urinal. Able to move self in bed. Gait not assessed at this time; evening RN reports very dyspneic with activity. Wearing bilateral calf SCD's. Fall risk score is high and bed alarm is activated.
[2020-05-22] VITALS (13 sets, daily range): BP systolic 110–136; BP diastolic 34–95; PULSE 87–97; RESP 15–23; TEMP 36.6–37.4; O2SAT 93–100
[2020-05-22] MEDS: ALBUTEROL/IPRATROPIUM 3 ML AMPUL INH ×4 (01:27→19:03)
--- NOTE | 2020-05-22 01:42 | RT ---
Found pt on RA @ 0126 with pt's NC on chest. Pt's SpO2 93%, RR 20-21. Pt left on RA, SpO2 92%-94% post breathing treatment.
[2020-05-22] MEDS: ALBUTEROL HFA MDI 60 PUFF/8 GM INHALER INH ×2 (03:43→05:57)
[2020-05-22 05:40] LABS: Add Manual Diff / Slide Review NO; Basophils Absolute Auto 0 /uL (0-100); Basophils Percent Auto 0.3 % (0-2); Eosinophils Absolute Auto 0 /uL (0-450); Eosinophils Percent Auto 0.4 % (2-4); Hematocrit 47.6 % (41-53); Hemoglobin 15.2 g/dL (13.5-17.5); Lymphocytes Absolute Auto 400 /uL (1100-4500); Lymphocytes Percent Auto 4.2 % (25-40); Mean Corpuscular Hemoglobin 26.8 PG (26-34); Mean Corpuscular Volume 83.8 fL (80-100); Monocytes Absolute Auto 300 /uL (0-900); Monocytes Percent Auto 2.5 % (3-14); Neutrophils Absolute Auto 9800 /uL (1500-7000); Neutrophils Percent Auto 92.6 % (50-75); Platelet Count 266 X10^3/uL (150-400); Red Blood Cell Count 5.68 X10^6/uL (4.5-5.9); Red Cell Distribution Width 14.2 % (11.6-14.8); White Blood Cell Count 10.5 X10^3/uL (4.5-11.0)
[2020-05-22 05:51] LABS: Magnesium 1.9 mg/dL (1.6-2.3)
[2020-05-22 05:52] LABS: BUN Creatinine Ratio 36.3 (6-22); Blood Urea Nitrogen 29 mg/dL (9-20); Calcium 8.9 mg/dL (8.4-10.2); Carbon Dioxide 32 mmol/L (22-32); Chloride 103 mmol/L (98-107); Estimated Glomerular Filt Rate > 60.0 mL/min (>60); Glucose 145 mg/dL (70-100); HEMOLYSIS < 15 (0-50); Potassium 4.5 mmol/L (3.4-5.1); Sodium 138 mmol/L (137-145)
[2020-05-22 06:01] LABS: NT-proBNP (BNP-Adult 18+) 653 pg/mL (<125)
[2020-05-22] MEDS: TIOTROPIUM BROMIDE 18 MCG INHALER INH (07:23)
[2020-05-22] MEDS: MOMETASONE 1 EACH INH (07:24)
[2020-05-22] MEDS: ASPIRIN EC 81 MG TABLET PO (08:35)
[2020-05-22] MEDS: ENOXAPARIN 40 MG/0.4 ML SYRINGE SUBCUT (08:35)
[2020-05-22] MEDS: lisinopriL 5 MG TABLET PO (08:35)
[2020-05-22] MEDS: FUROSEMIDE 40 MG TABLET 20 MG PO (08:35)
[2020-05-22] MEDS: METOPROLOL ER 25 MG TABLET PO (08:36)
[2020-05-22] MEDS: SODIUM CHLORIDE 0.9% FLUSH 10 ML IV ×2 (08:37→21:00)
[2020-05-22] MEDS: predniSONE 20 MG TABLET 40 MG PO (08:37)
--- NOTE | 2020-05-22 11:48 | PM.PN.1 ---
Subjective Subjective Date Patient Seen: 05/22/20 Interval history: He still appears very dyspneic. The slightest exertion in bed, choosing words, looks labored. He mentions that the coughing particularly causes shortness of breath and that he tends to wake up at night suddenly short of breath. His BNP has dropped from 1290 down to 653. His last ejection fraction a month ago was in the 35-40% range. His urine drug screen is positive for cocaine and methamphetamines. His magnesium was 1.8 and the potassium was 3.7 so both of those have been supplemented as he went to a rapid ventricular response atrial fibrillation episode last night. That has calmed down. His last chest CT a month ago showed chronic centrilobular emphysema. Exam Vital Signs (past 8 hours): - 05/22/20 05:57 05/22/20 07:27 05/22/20 07:44 Temperature 98.5 F Pulse Rate 96 H 92 H 88 Respiratory Rate 23 20 16 Blood Pressure 136/34 L Pulse Oximetry 97 95 99 05/22/20 08:35 05/22/20 08:36 05/22/20 11:09 Temperature 98.2 F Pulse Rate 96 H 96 H 88 Respiratory Rate 15 Blood Pressure 136/84 136/84 131/83 Pulse Oximetry 94 Oxygen Delivery Method Room Air Oxygen Flow Rate 1 Narrative Exam Narrative: He looks very very fatigued. He is oriented x3. He is in moderate respiratory distress Heart is regular rate and rhythm without murmur. Lungs have crackles and wheezing at both bases Extremities have no ankle edema Objective Labs Result Diagrams: 05/22/20 05:24 05/22/20 05:24 Labs: Laboratory Results - last 24 hr 05/21/20 05/21/20 05/21/20 14:30 14:30 14:30 WBC 9.4 RBC 6.00 H Hgb 16.5 Hct 50.4 MCV 84.0 MCH 27.6 MCHC 32.8 RDW 13.9 Plt Count 271 Neut % (Auto) 86.4 H Lymph % (Auto) 10.1 L [place] % (Auto) 2.6 L Eos % (Auto) 0.3 L Baso % (Auto) 0.6 Neut # (Auto) 8100 H Lymph # (Auto) 1000 L [place] # (Auto) 200 Eos # (Auto) 0 Baso # (Auto) 100 Sodium 137 Potassium 3.7 Chloride 100 Carbon Dioxide 34 H BUN 21 H Creatinine 0.75 Estimated GFR > 60.0 BUN/Creatinine Ratio 28.0 H Glucose 248 H Hemoglobin A1c Calcium 9.0 Magnesium Total Bilirubin 0.3 AST 26 ALT 19 Alkaline Phosphatase 84 Total Creatine Kinase 99 CK-MB (CK-2) TNP CK-MB (CK-2) Rel Index TNP Troponin I 0.031 NT-Pro-B Natriuret Pep Total Protein 7.1 Albumin 3.9 Globulin 3.2 Albumin/Globulin Ratio 1.2 Lipase 90 Procalcitonin < 0.05 Urine Color Urine Appearance Urine pH Ur Specific [place] Urine Protein Urine Glucose (UA) Urine Ketones Urine Occult Blood Urine Nitrate Urine Bilirubin Urine Urobilinogen Ur Leukocyte Esterase Urine RBC Urine WBC Urine Bacteria Urine Mucus Ur Culture Indicated? U Opiates 300ng/mL cut Ur Oxycodone Screen Urine Methadone Screen Ur Barbiturates Screen U Tricyclic Antidepress Ur Phencyclidine Scrn Ur Amphetamines Screen U Methamphetamines Scrn Ur MDMA Scrn (Ecstasy) U Benzodiazepines Scrn Urine Cocaine Screen U Marijuana (THC) Screen Ethyl Alcohol < 10 SARS-CoV-2 (PCR) 05/21/20 05/21/20 05/21/20 14:30 14:30 14:30 WBC RBC Hgb Hct MCV MCH MCHC RDW Plt Count Neut % (Auto) Lymph % (Auto) [place] % (Auto) Eos % (Auto) Baso % (Auto) Neut # (Auto) Lymph # (Auto) [place] # (Auto) Eos # (Auto) Baso # (Auto) Sodium Potassium Chloride Carbon Dioxide BUN Creatinine Estimated GFR BUN/Creatinine Ratio Glucose Hemoglobin A1c 6.3 H Calcium Magnesium Total Bilirubin AST ALT Alkaline Phosphatase Total Creatine Kinase CK-MB (CK-2) CK-MB (CK-2) Rel Index Troponin I NT-Pro-B Natriuret Pep 1290 H Total Protein Albumin Globulin Albumin/Globulin Ratio Lipase Procalcitonin Urine Color Urine Appearance Urine pH Ur Specific [place] Urine Protein Urine Glucose (UA) Urine Ketones Urine Occult Blood Urine Nitrate Urine Bilirubin Urine Urobilinogen Ur Leukocyte Esterase Urine RBC Urine WBC Urine Bacteria Urine Mucus Ur Culture Indicated? U Opiates 300ng/mL cut Ur Oxycodone Screen Urine Methadone Screen Ur Barbiturates Screen U Tricyclic Antidepress Ur Phencyclidine Scrn Ur Amphetamines Screen U Methamphetamines Scrn Ur MDMA Scrn (Ecstasy) U Benzodiazepines Scrn Urine Cocaine Screen U Marijuana (THC) Screen Ethyl Alcohol SARS-CoV-2 (PCR) Negative 05/21/20 05/21/20 05/21/20 14:30 21:30 21:30 WBC RBC Hgb Hct MCV MCH MCHC RDW Plt Count Neut % (Auto) Lymph % (Auto) [place] % (Auto) Eos % (Auto) Baso % (Auto) Neut # (Auto) Lymph # (Auto) [place] # (Auto) Eos # (Auto) Baso # (Auto) Sodium Potassium Chloride Carbon Dioxide BUN Creatinine Estimated GFR BUN/Creatinine Ratio Glucose Hemoglobin A1c Calcium Magnesium 1.8 Total Bilirubin AST ALT Alkaline Phosphatase Total Creatine Kinase CK-MB (CK-2) CK-MB (CK-2) Rel Index Troponin I NT-Pro-B Natriuret Pep Total Protein Albumin Globulin Albumin/Globulin Ratio Lipase Procalcitonin Urine Color Yellow Urine Appearance Clear Urine pH 6.0 Ur Specific [place] 1.020 Urine Protein 2+ H Urine Glucose (UA) Trace H Urine Ketones Negative Urine Occult Blood Trace-lysed Urine Nitrate Negative Urine Bilirubin Negative Urine Urobilinogen 0.2 Ur Leukocyte Esterase Negative Urine RBC 0-1/hpf Urine WBC None seen Urine Bacteria None seen Urine Mucus 1+ H Ur Culture Indicated? Cult not indicated U Opiates 300ng/mL cut Negative Ur Oxycodone Screen Negative Urine Methadone Screen Negative Ur Barbiturates Screen Negative U Tricyclic Antidepress Negative Ur Phencyclidine Scrn Negative Ur Amphetamines Screen Positive H U Methamphetamines Scrn Positive H Ur MDMA Scrn (Ecstasy) Negative U Benzodiazepines Scrn Negative Urine Cocaine Screen Positive H U Marijuana (THC) Screen Negative Ethyl Alcohol SARS-CoV-2 (PCR) 05/22/20 05/22/20 05/22/20 05:24 05:24 05:24 WBC 10.5 RBC 5.68 Hgb 15.2 Hct 47.6 MCV 83.8 MCH 26.8 MCHC 32.0 RDW 14.2 Plt Count 266 Neut % (Auto) 92.6 H Lymph % (Auto) 4.2 L [place] % (Auto) 2.5 L Eos % (Auto) 0.4 L Baso % (Auto) 0.3 Neut # (Auto) 9800 H Lymph # (Auto) 400 L [place] # (Auto) 300 Eos # (Auto) 0 Baso # (Auto) 0 Sodium 138 Potassium 4.5 Chloride 103 Carbon Dioxide 32 BUN 29 H Creatinine 0.80 Estimated GFR > 60.0 BUN/Creatinine Ratio 36.3 H Glucose 145 H D Hemoglobin A1c Calcium 8.9 Magnesium 1.9 Total Bilirubin AST ALT Alkaline Phosphatase Total Creatine Kinase CK-MB (CK-2) CK-MB (CK-2) Rel Index Troponin I NT-Pro-B Natriuret Pep 653 H Total Protein Albumin Globulin Albumin/Globulin Ratio Lipase Procalcitonin Urine Color Urine Appearance Urine pH Ur Specific [place] Urine Protein Urine Glucose (UA) Urine Ketones Urine Occult Blood Urine Nitrate Urine Bilirubin Urine Urobilinogen Ur Leukocyte Esterase Urine RBC Urine WBC Urine Bacteria Urine Mucus Ur Culture Indicated? U Opiates 300ng/mL cut Ur Oxycodone Screen Urine Methadone Screen Ur Barbiturates Screen U Tricyclic Antidepress Ur Phencyclidine Scrn Ur Amphetamines Screen U Methamphetamines Scrn Ur MDMA Scrn (Ecstasy) U Benzodiazepines Scrn Urine Cocaine Screen U Marijuana (THC) Screen Ethyl Alcohol SARS-CoV-2 (PCR) [facility] Medical History (Updated 05/21/20 @ 21:14 by GISSEL Koo) COPD (chronic obstructive pulmonary disease) HFrEF (heart failure with reduced ejection fraction) Methamphetamine abuse Peripheral edema Surgical History Status post appendectomy Family History (Updated 05/21/20 @ 21:15 by GISSEL Koo) Father Heart disease Mother Medical history unknown Brother Medical history unknown Social History household members: none Smoking Status: Current every day smoker alcohol intake: never Assessment & Plan Assessment & Plan narrative: This is a 54-year-old male who is a current smoker with a past medical history significant for COPD, methamphetamine abuse and congestive heart failure with reduced ejection fraction diagnosed on prior admission who presents to the ER with shortness of breath for 2 days after running out medications. The patient states he has been taking medications as he was told including inhalers, lisinopril Toprol and Lasix of which he had a 30 day supply. At baseline the patient can ambulate approximately 12 ft without dyspnea but today becomes dyspneic upon standing. 1. Acute exacerbation of chronic COPD, present on admission, active. -the patient continues to be a 1 [id number] smoker and continues to smoke methamphetamine. -no evidence pneumonia, chest x-ray identifies minimal opacity in left base which is similar to prior exams and felt to be related to scarring, white count is normal at 9.4, procalcitonin is negative at less than 0.05. -COVID test is negative. Last chest CT from a month ago is reviewed and shows/confirms emphysema. -patient received multiple nebulizer treatments in the ER including albuterol and DuoNebs and methylprednisolone 125 mg with minimal to modest improvement in respiratory status. -Respiratory therapy treatments -Albuterol treatments every 2 hours as needed and DuoNeb every 6 hours scheduled. -continue prednisone 40 mg daily. 2. Acute on chronic systolic heart failure, present on admission, active -patient with echocardiogram completed on 04/14/2020 finding ejection fraction of 35-40% with mildly increased left ventricular wall thickness and moderately reduced function right ventricle is normal in size and function. -patient presented with an elevated proBNP 1290, total CK is 99 and troponin is upper end of normal at 0.031 in the setting of a normal renal function with a creatinine 0.75. -patient states he has been taking all medications he was given on discharge until he ran out 2 days ago which included Lasix 20 mg daily. -chest x-ray finds minimal opacity in left base only no evidence of pulmonary edema and a normal cardiac silhouette. -continue Lasix 20 mg daily -BNP recheck today is 653 on 05/22 3. Hyperglycemia without diagnosis of diabetes, present on admission, active -Patient presented with hyperglycemia on initial labs with a serum glucose of 248. Patient with mildly elevated glucose 110-117 on prior admission in March 2020. -ordered fingerstick blood sugars a.c. and hs with correctional insulin low-dose range. -Hemoglobin A1c 6.3 on admission 4. Methamphetamine abuse, chronic, stable -teaching provided on methamphetamine use and progression of heart damage and heart failure. -strongly encouraged sobriety. 5. Tobacco dependence, chronic, stable -teaching provided on COPD and smoking. -strongly encouraged smoking cessation. DVT prophylaxis: Enoxaparin IV fluid: Saline lock Diet: Small consistent carbohydrate, heart healthy low-sodium Code status: Full code. The patient designates his father to be his surrogate decision maker.
--- NOTE | 2020-05-22 12:46 | PC.NURSE ---
Day shift note: Patient sleeping in between care, arouses easily to voice. Dyspnea noted at rest, worse with exertion. Continue on O2 at 1L via NC, sat between 93-94%, cont. pulse ox. Able to tolerate ambulating to BR and back to bed. HOB elevated while in bed, SCDs in place. Speaking in short sentences 2-3 words. PRN breathing treatment required. Persistent productive cough noted. Voiding QS, reminded to use urinal for accurate measurement. NSR on Tele. HR 95-101. RR 20-24. Excellent appetite, 100% meal intake. Dad at bedside providing supportive care. Call light within reach. Bed alarm active.
--- NOTE | 2020-05-22 13:10 | CM.DANOTE ---
Patient is a 54 year old male who was admitted on 05/21/20 for COPD. Pt has [employer] and [employer] for insurance and no established PCP. EMR was reviewed. Per MD, pt with significant COPD exacerbation and heart failure and UDS+ meth, amphetamines, cocaine and likely will need a few days in the hospital and currently on 1l oxygen and not able to successfully wean to room air yet. Pt was recently admitted for similar medical needs from 04/14/20-04/16/20 and declined CD tx again and since at least 2018 has been homeless and originally was living in his truck as he was unable to live at local father's house due to legal restraining order by neighbor. Pt also with legal hx of [place] [facility] time for being in possession of meth. During pt's admission about a month ago, pt able to provide brief answers and was vague but stated he no longer has his truck and has been living on the street and walking places, although the past week pt confirms he gets SOB after only walking a few feet. SW had met with pt's Father who states pt continues to smoke cigarettes and use drugs and that he has attempted to get pt sober for decades. Father confirms that pt cannot stay with him and he himself is elderly with some medical issues himself but he does stay in regular contact with the pt. SW inquired if pt has been utilizing the Shelters and he states they are all usually full and declines going to Shelters and would rather be on the street. Pt confirms that he is not currently established with [facility] for PCP anymore and still needs to establish with PCP. SW met bedside with pt and explained role and pt was continuously drowsy and requesting to sleep as he is not currently feeling well. Plan: SW to follow closely later today or tomorrow towards determining d/c planning needs and to determine if PT should eval pt due to his fatigue and SOB with exertion. ASHLI Tsai Discharge Planning/Care Management CM Discharge Assessment Start: 05/22/20 12:58 Freq: Status: Active Protocol: Document 05/22/20 12:58 BF (Rec: 05/22/20 13:10 BF [id number]) Discharge Planning Assessment Assigned Core Extruder ASHLI Sheffield DPOA/Assigned Designee Name none, informally father Jonnathan Contact Information [phone] Advance Directives? No Advance Directives on File No History Provided By Patient,Family Member,Medical Record Has Patient been admitted in last 30 No days? Comment Was admitted a little over a month ago from 04/14-04/16/20 and discharged home. Prior Living Arrangements Homeless Household Members none Type of transporation used prior to Relies on Others admit Independent with ADL's Yes Is patient alert and oriented? Yes Needs Assistance With Managing Medications Caregiver for Another No Patient/Family Preference Drug/Alcohol Rehab Barriers to Discharge Yes Comment Pt is homeless and has been for many years with polysubstance Discharge Plan Home Transportation Arrangement Father lives locally and may provide transport and but pt is homeless and therefore may d/c outside by himself as he refuses/declines care home options and declines CD treatment Referrals Initiated None needed Review Status In Process Please Provide Date Initial DC 05/22/20 Assessment Was Performed Next Review Type Continued Stay Review
[2020-05-22] MEDS: INSULIN ASPART 100 UNIT/ML INSULN PEN SUBCUT (16:56)
--- NOTE | 2020-05-22 21:49 | PC.NURSE ---
Pt sleeping for long periods this shift. When awake expresses concern for troubling family matters. Becomes very short of breath with slight exertion. Rocael Breath sounds noted exp wheezing throughout. O2 Sats >92 on 1.5L nc. Denies pain.
[2020-05-23] VITALS (21 sets, daily range): BP systolic 114–143; BP diastolic 61–95; PULSE 81–112; RESP 16–24; TEMP 36.2–36.9; O2SAT 90–95
--- NOTE | 2020-05-23 00:41 | PC.NURSE ---
Pt alert and oriented x4. SOB at rest. O2 sats at 94% on room air. Pt denies any pain. No complaints at this time. Bed alarm set, call light within reach
[2020-05-23] MEDS: ALBUTEROL/IPRATROPIUM 3 ML AMPUL INH ×4 (01:00→19:23)
--- NOTE | 2020-05-23 07:25 | P.PN_ITS ---
Subjective Subjective Date Patient Seen: 05/23/20 Interval history: He is very, very dyspneic with slightest movement, dropping 94% on room air to 77% on room air when standing up for vital sign orthostatics checks. His lung air movement is quite minimal. A CT of the chest is done showing no significant change/abnormality and an echocardiogram along with D- dimer is still pending. We will be changing his steroids to IV as after 2-3 days of oral steroids he does not seem to have begun to improve with his COPD exacerbation Exam Vital Signs (past 8 hours): - 05/23/20 00:05 05/23/20 00:16 05/23/20 01:00 Temperature 98.5 F Pulse Rate 93 H Respiratory Rate 18 Blood Pressure 125/80 Pulse Oximetry 94 94 94 05/23/20 05:16 Temperature 97.2 F L Pulse Rate 94 H Respiratory Rate 20 Blood Pressure 140/84 Pulse Oximetry 94 Oxygen Delivery Method Room Air Oxygen Flow Rate 0 Narrative Exam Narrative: He remains very, very dyspneic with slightest exertion He is 94% on room air at rest and 77% with minimal movement. He appears to be in mild respiratory distress. He is alert and oriented x3. Heart is regular rate and rhythm without murmur Lungs are very tight with minimal air movement and minimal wheezing bilaterally. Extremities have no ankle edema Objective Labs Result Diagrams: 05/22/20 05:24 05/22/20 05:24 [facility] Medical History (Updated 05/21/20 @ 21:14 by GISSEL Koo) COPD (chronic obstructive pulmonary disease) HFrEF (heart failure with reduced ejection fraction) Methamphetamine abuse Peripheral edema Surgical History Status post appendectomy Family History (Updated 05/21/20 @ 21:15 by GISSEL Koo) Father Heart disease Mother Medical history unknown Brother Medical history unknown Social History household members: none Smoking Status: Current every day smoker alcohol intake: never Assessment & Plan Assessment & Plan narrative: This is a 54-year-old male who is a current smoker with a past medical history significant for COPD, methamphetamine abuse and congestive heart failure with reduced ejection fraction diagnosed on prior admission who presents to the ER with shortness of breath for 2 days after running out medications. The patient states he has been taking medications as he was told including inhalers, lisinopril Toprol and Lasix of which he had a 30 day supply. At baseline the patient can ambulate approximately 12 ft without dyspnea but today becomes dyspneic upon standing. 1. Acute exacerbation of chronic COPD, present on admission, active. -the patient continues to be a 1 [id number] smoker and continues to smoke methamphetamine. -no evidence pneumonia, chest x-ray identifies minimal opacity in left base which is similar to prior exams and felt to be related to scarring, white count is normal at 9.4, procalcitonin is negative at less than 0.05. -COVID test is negative. Last chest CT from a month ago is reviewed and shows/confirms emphysema. -05/[address] shows: Masslike opacity at the left lung base with internal calcifications and adjacent mild pleural thickening. This may represent rounded atelectasis. Recommend follow-up chest CT in 3 months. -05/23 D-dimer less than 200 -changed from oral prednisone to IV Solu-Medrol based on lack of improvement over the last 48 h+. -Albuterol treatments every 2 hours as needed and DuoNeb every 6 hours scheduled. 2. Acute on chronic systolic heart failure, present on admission, active -patient with echocardiogram completed on 04/14/2020 finding ejection fraction of 35-40% with mildly increased left ventricular wall thickness and moderately reduced function right ventricle is normal in size and function. -patient presented with an elevated proBNP 1290, total CK is 99 and troponin is upper end of normal at 0.031 in the setting of a normal renal function with a creatinine 0.75. -patient states he has been taking all medications he was given on discharge until he ran out 2 days ago which included Lasix 20 mg daily. -chest x-ray finds minimal opacity in left base only no evidence of pulmonary edema and a normal cardiac silhouette. -chest CT shows significant coronary calcifications -continue Lasix 20 mg daily -BNP recheck today is 653 on 05/22 -repeat limited echo for assessment of any changes in left ventricular function on 05/23 3. Hyperglycemia without diagnosis of diabetes, present on admission, active -Patient presented with hyperglycemia on initial labs with a serum glucose of 248. Patient with mildly elevated glucose 110-117 on prior admission in March 2020. -ordered fingerstick blood sugars a.c. and hs with correctional insulin low-dose range. -Hemoglobin A1c 6.3 on admission 4. Methamphetamine abuse, chronic, stable -teaching provided on methamphetamine use and progression of heart damage and heart failure. -strongly encouraged sobriety. 5. Tobacco dependence, chronic, stable -teaching provided on COPD and smoking. -strongly encouraged smoking cessation. DVT prophylaxis: Enoxaparin IV fluid: Saline lock Diet: Small consistent carbohydrate, heart healthy low-sodium Code status: Full code. The patient designates his father to be his surrogate decision maker.
[2020-05-23] MEDS: TIOTROPIUM BROMIDE 18 MCG INHALER INH (08:03)
[2020-05-23] MEDS: MOMETASONE 1 EACH INH (08:03)
[2020-05-23] MEDS: METOPROLOL ER 25 MG TABLET PO (09:08)
[2020-05-23] MEDS: SODIUM CHLORIDE 0.9% FLUSH 10 ML IV ×3 (09:08→21:11)
[2020-05-23] MEDS: ASPIRIN EC 81 MG TABLET PO (09:08)
[2020-05-23] MEDS: ENOXAPARIN 40 MG/0.4 ML SYRINGE SUBCUT (09:08)
[2020-05-23] MEDS: FUROSEMIDE 40 MG TABLET 20 MG PO (09:09)
[2020-05-23] MEDS: lisinopriL 5 MG TABLET PO (09:09)
--- NOTE | 2020-05-23 09:09 | DI.ECHO.S_ITS ---
[facility]---------+ [facility] +---------+ : : [address] : : : : [id number] : : : : Phone: [phone]+ Echocardiogram Report + + :Name: JOHN JOHNSON Study Date: 05/23/2020 Height: 70 in : :[facility] ReadingLocation: Weight: 185 lb : : Gender: Male BSA: 2.0 m2 : :: 1965 Age: 54 yrs BP: 134/89 mmHg: :Reason For Study: Severe dyspnea : :Ordering Physician: Luli SHEN : :TAHIRA E Performed By: Yasmin Velasquez : :Referring: Luli SHEN E : + + Interpretation Summary Normal sinus rhythm. Mildly dilated LV; severe global hypokinesis. EF is 20-25%. Mild LA enlargement. No significant valvular abnormalities. Compared to prior study 04/14/2020 LV is less dynamic Procedure: A two-dimensional transthoracic echocardiogram with color flow and Doppler was performed in limited views only to assess ejection fraction. Comparison is made with the echocardiogram of 04/14/2020. The study quality was technically adequate. The heart rate ranged between 82-92 bpm during the study. Left Ventricle: The estimated left ventricular end diastolic volume is 155 ml. The left ventricle is mildly dilated. There is mild concentric left ventricular hypertrophy. Left ventricular ejection fraction is estimated to be 25 +/- 5%. Right Ventricle: The right ventricle is normal in size and function. Atria: The left atrium is mildly dilated. Right atrial size is normal. A patent foramen ovale is suspected. Aortic Valve: There is no aortic valve stenosis. Great Vessels: The IVC is of normal diameter and collapses greater than 50% with a sniff. This suggests a low right atrial pressure of 3 mm Hg. Pericardium/ Pleura There is no pericardial effusion. There is no pleural effusion. MMode/2D Measurements & Calculations LVIDd: 6.0 cm LA A2 area: 23.2 cm2 LVIDs: 5.3 cm LA A4 area: 19.6 cm2 FS: 11.1 % LA length (vol): 5.3 cm EPSS: 1.7 cm LA vol: 72.2 ml IVSd: 1.2 cm LA vol index: 35.7 ml/m2 LVPWd: 1.1 cm LV thompson. diameter/BSA (cm/m^2): 3.0 LV sys. diameter/BSA (cm/m^2): 2.6 RA long axis: 4.2 cm RVD1 (basal): 3.4 cm RA area: 14.7 cm2 TAPSE: 2.2 cm RA vol: 44.0 ml RA : 21.8 ml/m2 IVC diam: 1.3 cm Doppler Measurements & Calculations Ao V2 max: 123.7 cm/sec LVOT Max Timi: 78.2 cm/sec Ao V2 mean: 83.8 cm/sec LV V1 max P.4 mmHg Ao max P.2 mmHg LV V1 VTI: 13.5 cm Ao mean P.2 mmHg sev ratio: 0.71 Ao V2 VTI: 19.0 cm MV E max timi: 49.0 cm/sec MV A max timi: 85.3 cm/sec MV E/A: 0.57 Med Peak E' Timi: 5.2 cm/sec E/E' med: 9.4 Lat Peak E' Timi: 7.7 cm/sec E/E' lat: 6.3 E/e' average: 7.9 MV dec time: 0.30 sec Electronically signed by: Tita Palmer M.D. on Reading Physician:05/23/2020 05:42 PM
--- NOTE | 2020-05-23 09:10 | DI.CT.S_ITS ---
PROCEDURE: CT CHEST WO CON INDICATIONS: Severe Dyspnea TECHNIQUE: Noncontrast 5 mm thick sections acquired from the pulmonary apices to the posterior costophrenic angles. 1 mm lung window, 5 mm thick coronal and sagittal and 7 mm axial MIP reformats were then acquired. For radiation dose reduction, the following was used: automated exposure control, adjustment of mA and/or kV according to patient size. COMPARISON: None. FINDINGS: Image quality: Somewhat limited by motion artifact. Lungs and pleura: The central tracheobronchial tree is patent. No significant bronchiectasis. Focal basilar atelectasis is noted, this is worse within the left lung base. More focal region of density at the right lung base with internal calcifications is noted measuring approximately 3.6 by 2.1 cm. There is mild adjacent pleural thickening. There are emphysematous changes of the lungs worse at the lung apices. This is predominantly centrilobular in appearance. Calcified granuloma within the anterior aspect of the right middle lobe. Mediastinum: Heart size is normal. Mild to moderate multi-vessel coronary vascular calcifications. No pericardial effusion. No mediastinal adenopathy by size criteria. Thoracic aorta and central pulmonary arteries are normal in size. Esophagus is normal in caliber. No hiatal hernia. Bones and chest wall: No suspicious bony lesions. Multiple remote bilateral rib fractures. No acute osseous abnormality. No vertebral body compression fractures. No axillary or supraclavicular adenopathy by size criteria. Thyroid gland unremarkable. Abdomen: No acute abnormality within the visualized abdomen within limitations of motion artifact. Fluid density exophytic lesions along both kidneys are incompletely evaluated, however favor simple cysts. IMPRESSION: Apical predominent emphysema. Mild to moderate multi-vessel coronary vascular calcifications. Masslike opacity at the left lung base with internal calcifications and adjacent mild pleural thickening. This may represent rounded atelectasis. Recommend follow-up chest CT in 3 months. Dictated by: Ziyad Youssef D.O. on 05/23/2020 at 8:57 Approved by: Ziyad Youssef D.O. on 05/23/2020 at 9:05
[2020-05-23] MEDS: methylPREDNISolone 125 MG/2 ML VIAL 60 MG IV ×3 (09:38→21:11)
[2020-05-23 09:52] LABS: D Dimer < 200 ng/mL (<230)
[2020-05-23 10:02] LABS: NT-proBNP (BNP-Adult 18+) 463 pg/mL (<125)
[2020-05-23] MEDS: BENZOCAINE/MENTHOL 1 LOZ PKT 1 EACH PO (14:51)
[2020-05-23] MEDS: INSULIN ASPART 100 UNIT/ML INSULN PEN SUBCUT (16:51)
[2020-05-23] MEDS: FUROSEMIDE 40 MG/4 ML VIAL IV (18:41)
[2020-05-23] MEDS: lisinopriL 20 MG TABLET PO (18:53)
[2020-05-23] MEDS: carvediloL 12.5 MG TABLET PO (21:11)
[2020-05-24 00:56] VITALS: PULSE 84; RESP 22; O2SAT 89
[2020-05-24] MEDS: ALBUTEROL/IPRATROPIUM 3 ML AMPUL INH ×2 (00:56→07:10)
[2020-05-24 02:17] VITALS: RESP 24; O2SAT 90
--- NOTE | 2020-05-24 02:24 | PC.NURSE ---
2315 Received safe hand-off report. The patient is awake and oriented x4. He has a right AC PIV that is saline locked and is on room air. His oxygen saturation is stable at 94%. No s/sx of distress. Bed alarm is on. Will continue to monitor. 5885 The patient's oxygen saturation has been staying above 88% on room air with average of 90% while sleeping.
[2020-05-24] MEDS: methylPREDNISolone 125 MG/2 ML VIAL 60 MG IV ×2 (03:14→08:29)
[2020-05-24 04:27] VITALS: PULSE 87; O2SAT 88
[2020-05-24 05:04] LABS: Blood Urea Nitrogen 42 mg/dL (9-20); Calcium 9.1 mg/dL (8.4-10.2); Carbon Dioxide 37 mmol/L (22-32); Chloride 98 mmol/L (98-107); Estimated Glomerular Filt Rate > 60.0 mL/min (>60); Glucose 131 mg/dL (70-100); HEMOLYSIS 15 (0-50); Potassium 4.7 mmol/L (3.4-5.1); Sodium 137 mmol/L (137-145)
[2020-05-24 05:12] VITALS: BP 121/98; PULSE 95; RESP 20; TEMP 36.8; O2SAT 92
[2020-05-24 05:13] LABS: NT-proBNP (BNP-Adult 18+) 554 pg/mL (<125)
[2020-05-24] MEDS: TIOTROPIUM BROMIDE 18 MCG INHALER INH (07:10)
[2020-05-24 07:13] VITALS: PULSE 88; RESP 18; O2SAT 90
[2020-05-24 08:00] VITALS: BP 146/94; PULSE 87; RESP 24; TEMP 36.8; O2SAT 90
[2020-05-24] MEDS: lisinopriL 20 MG TABLET PO (08:26)
[2020-05-24] MEDS: ASPIRIN EC 81 MG TABLET PO (08:26)
[2020-05-24] MEDS: carvediloL 12.5 MG TABLET PO (08:26)
[2020-05-24] MEDS: SPIRONOLACTONE 25 MG TABLET 12.5 MG PO (08:26)
[2020-05-24] MEDS: ENOXAPARIN 40 MG/0.4 ML SYRINGE SUBCUT (08:26)
[2020-05-24] MEDS: FUROSEMIDE 40 MG/4 ML VIAL IV (08:28)
[2020-05-24] MEDS: SODIUM CHLORIDE 0.9% FLUSH 10 ML IV (08:29)
--- NOTE | 2020-05-24 11:03 | PM.PN.1 ---
Subjective Subjective Date Patient Seen: 05/24/20 Time Patient Seen: 11:03 Interval history: This is a 54-year-old male who is a current smoker with a past medical history significant for COPD, methamphetamine abuse and congestive heart failure with reduced ejection fraction diagnosed on prior admission who presented to the ER with shortness of breath for 2 days after running out medications. The patient states he has been taking medications as he was told including inhalers, lisinopril Toprol and Lasix of which he had a 30 day supply. At baseline the patient can ambulate approximately 12 ft without dyspnea. He is improved today slightly, with improved dyspnea at rest but still cannot take more than a few steps before becoming short of breath. Exam Vital Signs (past 8 hours): - 05/24/20 04:27 05/24/20 05:12 05/24/20 07:13 Temperature 98.3 F Pulse Rate 87 95 H 88 Respiratory Rate 20 18 Blood Pressure 121/98 H Pulse Oximetry 88 L 92 90 L 05/24/20 08:00 Temperature 98.2 F Pulse Rate 87 Respiratory Rate 24 Blood Pressure 146/94 H Pulse Oximetry 90 L Oxygen Delivery Method Room Air Oxygen Flow Rate 0 Narrative Exam Narrative: GENERAL APPEARANCE: well developed, well nourished, in no acute distress, winded with prolonged speaking. HEENT: Normocephalic, PERRLA, conjunctiva mild injection, EOMs intact without nystagmus, no sinus tenderness to percussion, no rhinorrhea, mucous membranes are moist and pink NECK/THYROID: neck supple, no JVD, no thyromegaly, trachea midline. LYMPH NODES: no cervical or supraclavicular lymphadenopathy. SKIN: [place], warm and dry, no visible rashes or lesions. HEART: regular rate and rhythm, S1-S2, no murmur, no rubs or gallops, 2+ pedal pulses, trace bilateral pedal edema LUNGS: Breath sounds diminished with expiratory wheezing bilaterally left greater than right and bibasilar crackles. No cough present CHEST: Symmetrical movement, no accessory muscle use, good tidal volume, no pain on AP or lateral compression. ABDOMEN: Soft, distended in technique to percussion, no abdominal tenderness or guarding, no organomegaly, no flank or suprapubic tenderness, active bowel tones. BACK: Nontender to palpation EXTREMITIES: moves all extremities, strength is 5/5 and symmetrical, no deformities or joint effusions no distal cyanosis, mild clubbing. NEUROLOGIC: AAO x 3, cranial nerves II-XII grossly intact, sensation intact to light touch, hearing grossly normal to speech. PSYCH: Anxious, response to questions with short answer, evasive responses. Objective Labs Result Diagrams: 05/22/20 05:24 05/24/20 04:44 Labs: Laboratory Results - last 24 hr 05/24/20 05/24/20 04:44 04:44 Sodium 137 Potassium 4.7 Chloride 98 Carbon Dioxide 37 H BUN 42 H Creatinine 0.75 Estimated GFR > 60.0 BUN/Creatinine Ratio 56.0 H Glucose 131 H Calcium 9.1 NT-Pro-B Natriuret Pep 554 H [facility] Medical History (Updated 05/21/20 @ 21:14 by GISSEL Koo) COPD (chronic obstructive pulmonary disease) HFrEF (heart failure with reduced ejection fraction) Methamphetamine abuse Peripheral edema Surgical History Status post appendectomy Family History (Updated 05/21/20 @ 21:15 by GISSEL Koo) Father Heart disease Mother Medical history unknown Brother Medical history unknown Social History household members: none Smoking Status: Current every day smoker alcohol intake: never Assessment & Plan Assessment & Plan narrative: his is a 54-year-old male who is a current smoker with a past medical history significant for COPD, methamphetamine abuse and congestive heart failure with reduced ejection fraction diagnosed on prior admission who presents to the ER with shortness of breath for 2 days after running out medications. The patient states he has been taking medications as he was told including inhalers, lisinopril Toprol and Lasix of which he had a 30 day supply. At baseline the patient can ambulate approximately 12 ft without dyspnea but today becomes dyspneic upon standing. 1. Acute exacerbation of chronic COPD, present on admission, active. -the patient continues to be a 1 [id number] smoker and continues to smoke methamphetamine. -no evidence pneumonia, chest x-ray identifies minimal opacity in left base which is similar to prior exams and felt to be related to scarring, white count is normal at 9.4, procalcitonin is negative at less than 0.05. -COVID test is negative. Last chest CT from a month ago is reviewed and shows/confirms emphysema. -05/[address] shows: Masslike opacity at the left lung base with internal calcifications and adjacent mild pleural thickening. This may represent rounded atelectasis. Recommend follow-up chest CT in 3 months. -05/23 D-dimer less than 200 -changed from oral prednisone to IV Solu-Medrol based on lack of improvement over the last 48 h+. -Albuterol treatments every 2 hours as needed and DuoNeb every 6 hours scheduled. 2. Acute on chronic systolic heart failure, present on admission, active -patient with echocardiogram completed on 04/14/2020 finding ejection fraction of 35-40% with mildly increased left ventricular wall thickness and moderately reduced function right ventricle is normal in size and function. -patient presented with an elevated proBNP 1290, total CK is 99 and troponin is upper end of normal at 0.031 in the setting of a normal renal function with a creatinine 0.75. -patient states he has been taking all medications he was given on discharge until he ran out 2 days ago which included Lasix 20 mg daily. -chest x-ray finds minimal opacity in left base only no evidence of pulmonary edema and a normal cardiac silhouette. -chest CT shows significant coronary calcifications -continue Lasix 20 mg daily -BNP recheck today is 653 on 05/22 -repeat limited echo for assessment of any changes in left ventricular function on 05/23 3. Hyperglycemia without diagnosis of diabetes, present on admission, active -Patient presented with hyperglycemia on initial labs with a serum glucose of 248. Patient with mildly elevated glucose 110-117 on prior admission in March 2020. -ordered fingerstick blood sugars a.c. and hs with correctional insulin low-dose range. -Hemoglobin A1c 6.3 on admission 4. Methamphetamine abuse, chronic, stable -teaching provided on methamphetamine use and progression of heart damage and heart failure. -strongly encouraged sobriety. 5. Tobacco dependence, chronic, stable -teaching provided on COPD and smoking. -strongly encouraged smoking cessation. DVT prophylaxis: Enoxaparin IV fluid: Saline lock Diet: Small consistent carbohydrate, heart healthy low-sodium Code status: Full code. The patient designates his father to be his surrogate decision maker.
--- NOTE | 2020-05-24 11:14 | P.DS_ITS ---
History of Present Illness History of Present Illness Date Patient Seen: 05/24/20 Time Patient Seen: 11:14 Chief complaint: COPD Narrative: As per GISSEL Koo: Bradly Morley is a 54-year-old male who is a current smoker with a past medical history significant for COPD, methamphetamine abuse and congestive heart failure with reduced ejection fraction diagnosed on prior admission who presents to the ER today with shortness of breath for 2 days. The patient has a history of becoming dyspneic walking 12 ft and now states he can not walk 3 ft without having to stop. Reports shortness of breath at rest with conversational dyspnea. He was hospitalized for COPD exacerbation from 04/14/2020 to 04/16/2020 at which time was also found to have congestive heart failure with echo demonstrating reduced ejection fraction of 35 to 45%. He was discharged with a 30 day supply of lisinopril metoprolol and Lasix and a course of doxycycline for which he states he has completed. The patient reports he has run out of all medications and does not have inhalers. He has no primary care and has had no post discharge follow-up. He denies complaints of fevers or chills, endorses a frontal headache but no dizziness, nasal congestion or sore throat. He denies complaints of chest pain or palpitations and describes mild ankle swelling. The patient is short of breath at rest and becomes markedly dyspneic with any activity including just standing. Patient denies epigastric or abdominal pain but has had episode of nausea and vomiting with coughing. He denies diarrhea constipation and has had no urinary difficulties starting or stopping his stream, burning urgency or frequency. He states he is homeless and will stay with friends. He continues smoke methamphetamine he says every couple weeks last use few days ago. Upon arrival the ER the patient is afebrile with temperature 98.1?, heart rate of 110, blood pressure 139/75, respiratory rate of 28 saturating 94% on room air. Chest x-ray shows a normal cardiac silhouette with minimal opacity left base which is similar to prior exams likely representing scarring. Twelve lead EKG reveals a sinus tach at 110 with baseline artifact but appearance of atrial enlargement with LVH. On laboratory analysis he has white count of 9.4 with slightly elevated neutrophils add a 1100. His hemoglobin is 16.5 and hematocrit is 50.4 and platelets are 271. His electrolytes are within normal range and has a BUN of 21 creatinine 0.75. His EGFR is greater than 60. His nonfasting glucose is 248. He has normal liver function. He has a total CK of 99, troponin of 0.031, proBNP of 1290. His procalcitonin is negative at less than 0.05, ETOH is less than 10 and COVID screening is negative. While in the ER the patient received multiple nebulizer treatments with DuoNeb and albuterol, methylprednisolone 125 cc and 500 mg azithromycin. The patient continues to be markedly dyspneic and wheezy and is admitted to the hospital service for COPD exacerbation and congestive heart failure. Discharge Providers Provider Date of admission: 05/21/20 19:05 Discharge Date: 05/24/20 Consults: 05/21/20 14:41 Consult to [facility] - Financial Specialist Stat Comment: COMPENSATION ADJUSTER Consult: Community Health Res Need 05/21/20 20:00 Consult to Dietitian, Adult Routine Comment: Reason For Exam: Exacerbation CHF, COPD, hyperglycemia Consult to Discharge Planning Routine Comment: Consult to Respiratory Therapy Evaluate & Treat Comment: COPD, CHF Physician Instructions: Evaluate and treat 05/21/20 21:21 Consult to [facility] - Financial Specialist Routine Comment: Readmit for lack of resources, homeless COMPENSATION ADJUSTER Consult: Community Health Res Need Discharge provider: Madi Hartley DO Summary Hospital Course Discharge Diagnosis: Please see hospital course by problem list noted below. Hospital Course: This is a 54-year-old male who is a current smoker with a past medical history significant for COPD, methamphetamine abuse and congestive heart failure with reduced ejection fraction diagnosed on prior admission who presented to the ER with shortness of breath for 2 days after running out medications. The patient states he has been taking medications as he was told including inhalers, lisinopril Toprol and Lasix of which he had a 30 day supply. At baseline the patient can ambulate approximately 12 ft without dyspnea. He improved with resumption of his medications and diuresis. His EF was noted to be slightly diminished compared to prior, but he is not a candidate at this time for [facility]. Patient improved more quickly than anticipated, and on the day of discharge he was ambulating around the nursing station at his baseline, O2 at 90% after ambulating. 1. Acute exacerbation of chronic COPD, present on admission, active. -the patient continues to be a 1 [id number] smoker and continues to smoke methamphetamine. -no evidence pneumonia, chest x-ray identifies minimal opacity in left base which is similar to prior exams and felt to be related to scarring, white count is normal at 9.4, procalcitonin is negative at less than 0.05. -COVID test is negative. Last chest CT from a month ago is reviewed and shows/confirms emphysema. -05/[address] shows: Masslike opacity at the left lung base with internal calcifications and adjacent mild pleural thickening. This may represent rounded atelectasis. Recommend follow-up chest CT in 3 months. -05/23 D-dimer less than 200 -changed from oral prednisone to IV Solu-Medrol with improvement. Will discharge on oral prednisone for an additional 4 days on discharge. -refilled home medications upon discharge. Needs follow up with a PCP. 2. Acute on chronic systolic heart failure, present on admission, active -patient with echocardiogram completed on 04/14/2020 finding ejection fraction of 35-40% with mildly increased left ventricular wall thickness and moderately reduced function right ventricle is normal in size and function. -repeat limited echo showing worsening EF of 25-30% this admission. Not a [facility] candidate per cardiology at this time. -patient presented with an elevated proBNP 1290, total CK is 99 and troponin is upper end of normal at 0.031 in the setting of a normal renal function with a creatinine 0.75. He was diuresed with IV lasix during his admission. Now improved symptoms. -resumed on home medications and given IV diuresis. Will discharge on coreg, lisinopril, aldactone, lasix, and asa. -chest CT shows significant coronary calcifications 3. Hyperglycemia without diagnosis of diabetes, now pre-diabetes, present on admission, active -Patient presented with hyperglycemia on initial labs with a serum glucose of 248. Patient with mildly elevated glucose 110-117 on prior admission in March 2020. -ordered fingerstick blood sugars a.c. and hs with correctional insulin low-dose range during admission. -Hemoglobin A1c 6.3 on admission 4. Methamphetamine abuse, chronic, stable -teaching provided on methamphetamine use and progression of heart damage and heart failure. -strongly encouraged sobriety. 5. Tobacco dependence, chronic, stable -teaching provided on COPD and smoking. -strongly encouraged smoking cessation. Dispo: patient is homeless, appreciate social work assistance in providing resources, stable for discharge from the hospital today. Time Spent with Patient Time spent: Greater than 30 minutes Exam Vital Signs (past 8 hours): - 05/24/20 04:27 05/24/20 05:12 05/24/20 07:13 Temperature 98.3 F Pulse Rate 87 95 H 88 Respiratory Rate 20 18 Blood Pressure 121/98 H Pulse Oximetry 88 L 92 90 L 05/24/20 08:00 Temperature 98.2 F Pulse Rate 87 Respiratory Rate 24 Blood Pressure 146/94 H Pulse Oximetry 90 L Oxygen Delivery Method Room Air Oxygen Flow Rate 0 Narrative Exam Narrative: GENERAL APPEARANCE: well developed, well nourished, no acute distress. HEENT: Normocephalic, PERRLA, conjunctiva mild injection, EOMs intact without nystagmus, no sinus tenderness to percussion, no rhinorrhea, mucous membranes are moist and pink NECK/THYROID: neck supple, no JVD, no thyromegaly, trachea midline. LYMPH NODES: no cervical or supraclavicular lymphadenopathy. SKIN: [place], warm and dry, no visible rashes or lesions. HEART: regular rate and rhythm, S1-S2, no murmur, no rubs or gallops, 2+ pedal pulses, trace bilateral pedal edema LUNGS: Breath sounds diminished with mild and improved expiratory wheezing bilaterally and minimal bibasilar crackles. No cough present CHEST: Symmetrical movement, no accessory muscle use, good tidal volume, no pain on AP or lateral compression. ABDOMEN: Soft, no distension, no abdominal tenderness or guarding, no organomegaly, no flank or suprapubic tenderness, active bowel tones. BACK: Nontender to palpation EXTREMITIES: moves all extremities, strength is 5/5 and symmetrical, no deformities or joint effusions no distal cyanosis, mild clubbing. NEUROLOGIC: AAO x 3, cranial nerves II-XII grossly intact, sensation intact to light touch, hearing grossly normal to speech. PSYCH: cooperative with stable behavior. normal affect. Objective Labs Result Diagrams: 05/22/20 05:24 05/24/20 04:44 Labs: Laboratory Results - last 24 hr 05/24/20 05/24/20 04:44 04:44 Sodium 137 Potassium 4.7 Chloride 98 Carbon Dioxide 37 H BUN 42 H Creatinine 0.75 Estimated GFR > 60.0 BUN/Creatinine Ratio 56.0 H Glucose 131 H Calcium 9.1 NT-Pro-B Natriuret Pep 554 H [facility] Medical History (Updated 05/21/20 @ 21:14 by GISSEL Koo) COPD (chronic obstructive pulmonary disease) HFrEF (heart failure with reduced ejection fraction) Methamphetamine abuse Peripheral edema Surgical History Status post appendectomy Family History (Updated 05/21/20 @ 21:15 by GISSEL Koo) Father Heart disease Mother Medical history unknown Brother Medical history unknown Social History household members: none Smoking Status: Current every day smoker alcohol intake: never Discharge Plan Discharge Plan Patient Disposition: Home Provider Discharge Comment: You were admitted to the hospital with shortness of breath after running out of medications. Please try and continue your home medications and establish care with a primary provider. Please stop methamphetamine and drug use as this is contributing to your symptoms. You should also see a swahili teacher if your housing situation improves and you're able to establish care. Discharge orders & Medications Prescriptions: New carvedilol [Coreg] 12.5 mg Tablet 12.5 mg PO BID 30 Days Qty: 60 RF: 0 lisinopril 20 mg Tablet 20 mg PO DAILY 30 Days Qty: 30 RF: 0 aspirin 81 mg Tablet,Delayed Release (Dr/Ec) 81 mg PO DAILY 30 Days Qty: 30 RF: 0 spironolactone 25 mg Tablet 12.5 mg PO DAILY 30 Days Qty: 15 RF: 0 prednisone 20 mg tablet 40 mg PO DAILY 4 Days Qty: 8 RF: 0 furosemide 20 mg tablet 20 mg PO DAILY 30 Days Qty: 30 RF: 0 Continued albuterol sulfate 90 mcg/actuation HFA aerosol inhaler 2 puff INHALATION Q4-6H PRN (Reason: shortness of breath or wheezing) 30 Days Qty: 8.5 RF: 0 tiotropium bromide 18 mcg capsule, w/inhalation device 1 cap inhalation DAILY 30 Days Qty: 30 RF: 0 mometasone 100 mcg/actuation HFA aerosol inhaler 1 puff inhalation BID 30 Days Qty: 13 RF: 0 Discontinued albuterol sulfate [Ventolin HFA] 90 MCG/PUFF HFA aerosol inhaler 2 puff INH QID Qty: 1 RF: 7 Diet/Activity/Treatments Diet: Diet as Tolerated and Low-sodium Activity: As tolerated Visit Report/Discharge Packet Instructions: DI for Heart Failure, DI for Chronic Obstructive Pulmonary Disease
== END 2020-05-24 12:50 | disposition home or self-care (01) | DRG 140 ==
LOC: ED 18:58 → AC 05-22 11:29
PROVIDERS: Family Medicine; Admitting Provider Nurse Practitioner Adult Health; Emergency Provider Emergency Medicine; Referring Provider Nurse Practitioner Adult Health; Visit Provider Nurse Practitioner Adult Health
DX: J44.1 Chronic obstructive pulmonary disease with (acute) exacerbation (principal); J96.20 Acute and chronic respiratory failure, unspecified whether with hypoxia or hypercapnia; I50.23 Acute on chronic systolic (congestive) heart failure; F15.10 Other stimulant abuse, uncomplicated; Z59.0 Homelessness; Z20.822 Contact with and (suspected) exposure to COVID-19; F17.210 Nicotine dependence, cigarettes, uncomplicated; R73.9 Hyperglycemia, unspecified
CPT/HCPCS: 36415; 71045; 71250; 80048; 80053; 80305; 80320; 81001; 82550; 82962; 83036; 83690; 83735; 83880; 84145; 84484; 85025; 85379; 87635; 93005; 93307; 94150; 94640; 94762; 96374; 99284; C9803; A9270; J1650; J1940; J2930; J3475; J3480; J7613

== ENCOUNTER 2020-09-16 13:54 | Inpatient (IN) | payer MEDICAID, OTHER, SELFPAY ==
[2020-05-21 19:34] VITALS: BMI 26.2
[2020-09-16] VITALS (21 sets, daily range): BP systolic 149–210; BP diastolic 83–112; PULSE 93–108; RESP 24–39; TEMP 36.4–36.9; O2SAT 86–95; BMI 26.4
--- NOTE | 2020-09-16 14:02 | DI.RAD.S_ITS ---
PROCEDURE: XR CHEST 1V INDICATIONS: chest pain TECHNIQUE: One view of the chest was acquired. COMPARISON: [facility], CT, CT CHEST WO CON, 05/23/2020, 9:15. [facility], CR, XR CHEST 1V, 04/15/2020, 15:31. [facility], CR, XR CHEST 1V, 05/21/2020, 14:30. FINDINGS: Surgical changes and devices: None. Lungs and pleura: Left hemidiaphragm elevation and left basilar atelectasis. Lungs are clear. No pleural effusions or pneumothorax. Mediastinum: Mediastinal contours appear normal. Heart size is normal. Bones and chest wall: No suspicious bony lesions. Overlying soft tissues appear unremarkable. IMPRESSION: No acute cardiopulmonary disease. Dictated by: Yakelin Moon M.D. on 09/16/2020 at 14:25 Approved by: Yakelin Moon M.D. on 09/16/2020 at 14:30
[2020-09-16 14:22] LABS: Add Manual Diff / Slide Review NO; Basophils Absolute Auto 100 /uL (0-100); Basophils Percent Auto 0.8 % (0-2); Eosinophils Absolute Auto 100 /uL (0-450); Eosinophils Percent Auto 0.9 % (2-4); Hematocrit 49.9 % (41-53); Hemoglobin 15.8 g/dL (13.5-17.5); Lymphocytes Absolute Auto 800 /uL (1100-4500); Lymphocytes Percent Auto 8.8 % (25-40); Mean Corpuscular HGB Conc 31.8 % (30-36); Mean Corpuscular Hemoglobin 27.2 PG (26-34); Mean Corpuscular Volume 85.7 fL (80-100); Monocytes Absolute Auto 200 /uL (0-900); Monocytes Percent Auto 2.5 % (3-14); Neutrophils Absolute Auto 8200 /uL (1500-7000); Platelet Count 293 X10^3/uL (150-400); Red Blood Cell Count 5.82 X10^6/uL (4.5-5.9); Red Cell Distribution Width 14.3 % (11.6-14.8); White Blood Cell Count 9.4 X10^3/uL (4.5-11.0)
[2020-09-16 14:29] LABS: INR 1.1 (0.9-1.3); Prothrombin Time 11.8 SECONDS (10.1-12.7)
[2020-09-16 14:32] LABS: PTT Partial Thromboplastin Tim 50 SECONDS (26.4-36.2)
[2020-09-16 14:35] LABS: Alanine Aminotransferase 18 IU/L (<50); Albumin 3.9 g/dL (3.5-5.0); Albumin Globulin Ratio 1.2 (1.0-2.8); Alkaline Phosphatase 86 U/L (38-126); Aspartate Aminotransferase 26 IU/L (17-59); BUN Creatinine Ratio 28.8 (6-22); Bilirubin Total 0.3 mg/dL (0.2-1.3); Blood Urea Nitrogen 23 mg/dL (9-20); Calcium 9.1 mg/dL (8.4-10.2); Carbon Dioxide 32 mmol/L (22-32); Chloride 101 mmol/L (98-107); Creatine Kinase 106 U/L (55-170); Estimated Glomerular Filt Rate > 60.0 mL/min (>60); Globulin 3.3 g/dL (1.7-4.1); Glucose 186 mg/dL (70-100); HEMOLYSIS < 15 (0-50); Lipase 282 U/L (23-300); Magnesium 1.9 mg/dL (1.6-2.3); Potassium 3.9 mmol/L (3.4-5.1); Sodium 140 mmol/L (137-145); Total Protein 7.2 g/dL (6.3-8.2)
--- NOTE | 2020-09-16 14:36 | ED_ITS ---
HPI - SOB/Dyspnea <ELIU Barnes - Last Filed: 09/16/20 18:13> General Chief Complaint: Shortness of Breath/Dyspnea Stated Complaint: COPD, can hardly walk, abdominal pain Time Seen by Provider: 09/16/20 14:21 Source: patient Mode of arrival: Ambulatory Limitations: no limitations History of Present Illness HPI Narrative: The patient is a 54-year-old male current everyday smoker me thamphetamine user who presents with a chief complaint of shortness of breath. He has history of COPD with CHF. He states that his breathing is pending a worse over the past days to weeks. He is very nonspecific with this time lines. He does note that he does not take any medications as they ?all ran out.Thus he does not use any inhalers. He states he feels very fatigued. He does note that he had his 1st coronavirus vaccination last week or the week before. He denies any abdominal pain nausea vomiting or diarrhea. He states that he does not know if anything makes his chest pain come, or go. He denies any chest pain upon my interview. He denies any known coronavirus exposures. Related Data Home Medications Medication Instructions Recorded Confirmed aspirin 81 mg PO DAILY 09/16/20 09/16/20 carvedilol 12.5 mg PO DAILY 09/16/20 09/16/20 furosemide 20 mg PO DAILY 09/16/20 09/16/20 lisinopril 20 mg PO DAILY 09/16/20 09/16/20 metoprolol succinate 12.5 mg PO DAILY 09/16/20 09/16/20 spironolactone 12.5 mg PO DAILY 09/16/20 09/16/20 Previous Rx's Medication Instructions Recorded albuterol sulfate 2 puff INHALATION Q4-6H PRN 30 05/24/20 Days #8.5 gram mometasone 1 puff INHALATION BID 30 Days #13 g 05/24/20 tiotropium bromide 1 cap INHALATION DAILY 30 Days #30 05/24/20 inh Allergies Allergy/AdvReac Type Severity Reaction Status Date / Time No Known Drug Allergies Allergy Verified 04/14/20 03:02 Review of Systems <ELIU Barnes - Last Filed: 09/16/20 18:13> Review of Systems Narrative: GENERAL: Denies chills, fatigue, malaise, fever, sweats. HEENT: Denies sinus pain, ear pain, sore throat, difficulty swallowing, dizziness. RESPIRATORY: See HPI CARDIOVASCULAR: Denies chest pain, palpitations, orthopnea, edema, GASTROINTESTINAL: Denies nausea, vomiting, abdominal pain, diarrhea, cons tipation, melena. : Denies dysuria, frequency, incontinence, hematuria, urinary retention. MUSCULOSKELETAL: denies weakness, joint pain, or bony pain SKIN: Denies rash, skin lesions, or other NEUROLOGIC: Denies weakness, headache, numbness, change in speech, confusion, seizures, incoordination. PSYCHIATRIC: No concerning psychosocial issues. 12 point review of systems is negative except for those stated above Patient History <ELIU Barnes - Last Filed: 09/16/20 18:13> Medical History COPD (chronic obstructive pulmonary disease) HFrEF (heart failure with reduced ejection fraction) Methamphetamine abuse Peripheral edema Surgical History Status post appendectomy Family History Father Heart disease Mother Medical history unknown Brother Medical history unknown Social History household members: none Smoking Status: Current every day smoker alcohol intake: never Smoking Status: Current every day smoker alcohol intake frequency: other Substance Use Type: methamphetamine Exam <ELIU Barnes - Last Filed: 09/16/20 18:13> Narrative Exam Narrative: GENERAL: This is a well-nourished, well-developed patient, in mild distress. HEAD: Atraumatic. Normocephalic. No temporal or scalp tenderness. EYES: Pupils equal round and reactive. Extraocular motions intact. No scleral icterus. No injection or drainage. ENT: Nose without bleeding, purulent drainage or septal hematoma. Wearing a mask. Airway patent. NECK: Trachea midline. No JVD or lymphadenopathy. Supple, nontender, no meningeal signs. CARDIOVASCULAR: Regular rate and rhythm RESPIRATORY: Expiratory wheeze to auscultation. Breath sounds equal bilaterally. Loose sounding cough noted GASTROINTESTINAL: Abdomen soft, non-tender, nondistended. No hepato- splenomegaly, or palpable masses. No guarding. EXTREMITIES: No clubbing, cyanosis, or edema. No joint tenderness, effusion, or edema noted. BACK: Nontender without deformity or crepitance. No flank tenderness. NEURO: AOx3. SKIN: No rash or erythema on visible skin Initial Vital Signs Initial Vital Signs: Vital Signs Temperature 97.8 F 09/16/20 14:04 Pulse Rate 107 H 09/16/20 14:04 Respiratory Rate 26 H 09/16/20 14:04 Blood Pressure 173/112 H 09/16/20 14:04 Pulse Oximetry 94 09/16/20 14:04 <Yoselin Rashid DO - Last Filed: 09/17/20 10:31> Initial Vital Signs Initial Vital Signs: Vital Signs Temperature 97.8 F 09/16/20 14:04 Pulse Rate 107 H 09/16/20 14:04 Respiratory Rate 26 H 09/16/20 14:04 Blood Pressure 173/112 H 09/16/20 14:04 Pulse Oximetry 94 09/16/20 14:04 Scores <ELIU Barnes - Last Filed: 09/16/20 18:13> GCS Bogdan coma scale eye opening: Spontaneous [place] coma scale verbal response: Orientated Bogdan coma scale motor response: Obey commands Bogdan coma scale total score: 15 Course <ELIU Barnes - Last Filed: 09/16/20 18:13> Orders Ordered: Acetaminophen (Acetaminophen 325 Mg Tablet) 650 mg PO Q6HR PRN PRN Reason: Fever/Mild Pain (1-3) Last Admin: 09/16/20 21:47 Dose: 650 mg Documented by: VERITO Albuterol (Albuterol 2.5 Mg/3 Ml Neb (Adult)) 2.5 mg INH [id number] PRN PRN Reason: Shortness Of Breath Last Admin: 09/17/20 04:30 Dose: 2.5 mg Documented by: Admin: 09/16/20 22:15 Dose: 2.5 mg Documented by: RODOLFO Albuterol/Ipratropium (Albuterol/Ipratropium 3 Ml Ampul) 3 ml INH [id number] LIGIA Last Admin: 09/17/20 07:03 Dose: 3 ml Documented by: RODOLFO Aspirin (Aspirin Ec 81 Mg Tablet) 81 mg PO DAILY COUNT INCLUDES THE [facility] Last Admin: 09/17/20 08:42 Dose: 81 mg Documented by: GERONIMO Budesonide (Budesonide 0.5 Mg/2 Ml Neb) 0.5 mg INH RTBID COUNT INCLUDES THE [facility] Last Admin: 09/17/20 07:03 Dose: 0.5 mg Documented by: RODOLFO Carvedilol (Carvedilol 12.5 Mg Tablet) 12.5 mg PO 0800 COUNT INCLUDES THE [facility] Last Admin: 09/17/20 08:49 Dose: 12.5 mg Documented by: GERONIMO Dexamethasone (Dexamethasone 10 Mg/Ml Vial) 6 mg IV DAILY COUNT INCLUDES THE [facility] Last Admin: 09/17/20 08:43 Dose: 6 mg Documented by: GERONIMO Enoxaparin Sodium (Enoxaparin 40 Mg/0.4 Ml Syringe) 40 mg SUBCUT DAILY COUNT INCLUDES THE [facility] Last Admin: 09/17/20 08:45 Dose: 40 mg Documented by: GERONIMO Furosemide (Furosemide 20 Mg Tablet) 40 mg PO DAILY COUNT INCLUDES THE [facility] Last Admin: 09/17/20 08:45 Dose: 40 mg Documented by: GERONIMO Remdesivir 100 mg/ Sodium (Chloride) 250 mls @ 250 mls/hr IV 1800 COUNT INCLUDES THE [facility] Lisinopril (Lisinopril 20 Mg Tablet) 20 mg PO DAILY COUNT INCLUDES THE [facility] Last Admin: 09/17/20 08:45 Dose: 20 mg Documented by: GERONIMO Ondansetron HCl (Ondansetron 4 Mg/2 Ml Inj) 4 mg IV Q8HR PRN PRN Reason: Nausea And Vomiting Sodium Chloride (Sodium Chloride 0.9% Flush) 10 ml IV PRN PRN PRN Reason: Flush Sodium Chloride (Sodium Chloride 0.9% Flush) 10 ml IV BID COUNT INCLUDES THE [facility] Last Admin: 09/17/20 08:46 Dose: 10 ml Documented by: GERONIMO Spironolactone (Spironolactone 25 Mg Tablet) 12.5 mg PO DAILY COUNT INCLUDES THE [facility] Last Admin: 09/17/20 08:45 Dose: 12.5 mg Documented by: GERONIMO Discontinued Medications Albuterol/Ipratropium (Albuterol/Ipratropium 3 Ml Ampul) 3 ml INH NOW ONE Stop: 09/16/20 14:47 Last Admin: 09/16/20 16:15 Dose: 3 ml Documented by: DARNELL Albuterol/Ipratropium (Albuterol/Ipratropium 3 Ml Ampul) 3 ml INH NOW ONE Stop: 09/16/20 16:13 Last Admin: 09/16/20 17:04 Dose: 3 ml Documented by: DARNELL Albuterol/Ipratropium (Albuterol/Ipratropium 3 Ml Ampul) 3 ml INH RTBID LIGIA Doxycycline Hyclate (Doxycycline Hyclate 100 Mg Tablet) 100 mg PO NOW ONE Stop: 09/16/20 17:03 Last Admin: 09/16/20 17:17 Dose: 100 mg Documented by: JEAN Furosemide (Furosemide 40 Mg/4 Ml Vial) 40 mg IV NOW ONE Stop: 09/16/20 17:22 Last Admin: 09/16/20 17:35 Dose: 40 mg Documented by: PRANAY Remdesivir 200 mg/ Sodium (Chloride) 250 mls @ 250 mls/hr IV NOW ONE Stop: 09/16/20 19:06 Last Admin: 09/16/20 19:46 Dose: 250 mls/hr Documented by: VERITO Methylprednisolone (Methylprednisolone 125 Mg/2 Ml Vial) 125 mg IV NOW ONE Stop: 09/16/20 14:47 Last Admin: 09/16/20 15:18 Dose: 125 mg Documented by: PRANAY Metoprolol Succinate (Metoprolol Er 25 Mg Tablet) 12.5 mg PO DAILY COUNT INCLUDES THE [facility] Last Admin: 09/17/20 08:42 Dose: 12.5 mg Documented by: GERONIMO Vital Signs Vital signs: Vital Signs - 8 hr 09/16/20 14:04 09/16/20 14:06 09/16/20 14:30 Temperature 97.8 F Pulse Rate 107 H 104 H 97 H Respiratory Rate 26 H 26 H 27 H Blood Pressure 173/112 H 153/83 H Pulse Oximetry 94 95 92 09/16/20 15:00 09/16/20 15:30 09/16/20 15:53 Temperature Pulse Rate 95 H 93 H Respiratory Rate 29 H 28 H Blood Pressure 149/94 H 181/93 H Pulse Oximetry 92 89 L 92 09/16/20 16:00 09/16/20 16:05 09/16/20 16:16 Temperature 98.5 F Pulse Rate 100 H 100 H 97 H Respiratory Rate 24 25 H 28 H Blood Pressure 210/97 H 171/100 H Pulse Oximetry 94 95 91 09/16/20 16:30 09/16/20 16:54 09/16/20 17:05 Temperature Pulse Rate 98 H 108 H 100 H Respiratory Rate 35 H 27 H Blood Pressure 149/86 H Pulse Oximetry 94 92 93 09/16/20 17:24 09/16/20 17:30 09/16/20 17:31 Temperature Pulse Rate 101 H 99 H Respiratory Rate 24 26 H Blood Pressure 165/102 H Pulse Oximetry 93 92 91 <Yoselin Rashid, DO - Last Filed: 09/17/20 10:31> Orders Ordered: Acetaminophen (Acetaminophen 325 Mg Tablet) 650 mg PO Q6HR PRN PRN Reason: Fever/Mild Pain (1-3) Last Admin: 09/16/20 21:47 Dose: 650 mg Documented by: VERITO Albuterol (Albuterol 2.5 Mg/3 Ml Neb (Adult)) 2.5 mg INH [id number] PRN PRN Reason: Shortness Of Breath Last Admin: 09/17/20 04:30 Dose: 2.5 mg Documented by: Admin: 09/16/20 22:15 Dose: 2.5 mg Documented by: RODOLFO Albuterol/Ipratropium (Albuterol/Ipratropium 3 Ml Ampul) 3 ml INH [id number] COUNT INCLUDES THE [facility] Last Admin: 09/17/20 07:03 Dose: 3 ml Documented by: RODOLFO Aspirin (Aspirin Ec 81 Mg Tablet) 81 mg PO DAILY COUNT INCLUDES THE [facility] Last Admin: 09/17/20 08:42 Dose: 81 mg Documented by: GERONIMO Budesonide (Budesonide 0.5 Mg/2 Ml Neb) 0.5 mg INH RTBID COUNT INCLUDES THE [facility] Last Admin: 09/17/20 07:03 Dose: 0.5 mg Documented by: RODOLFO Carvedilol (Carvedilol 12.5 Mg Tablet) 12.5 mg PO 0800 COUNT INCLUDES THE [facility] Last Admin: 09/17/20 08:49 Dose: 12.5 mg Documented by: GERONIMO Dexamethasone (Dexamethasone 10 Mg/Ml Vial) 6 mg IV DAILY COUNT INCLUDES THE [facility] Last Admin: 09/17/20 08:43 Dose: 6 mg Documented by: GERONIMO Enoxaparin Sodium (Enoxaparin 40 Mg/0.4 Ml Syringe) 40 mg SUBCUT DAILY COUNT INCLUDES THE [facility] Last Admin: 09/17/20 08:45 Dose: 40 mg Documented by: GERONIMO Furosemide (Furosemide 20 Mg Tablet) 40 mg PO DAILY COUNT INCLUDES THE [facility] Last Admin: 09/17/20 08:45 Dose: 40 mg Documented by: GERONIMO Remdesivir 100 mg/ Sodium (Chloride) 250 mls @ 250 mls/hr IV 1800 COUNT INCLUDES THE [facility] Lisinopril (Lisinopril 20 Mg Tablet) 20 mg PO DAILY COUNT INCLUDES THE [facility] Last Admin: 09/17/20 08:45 Dose: 20 mg Documented by: GERONIMO Ondansetron HCl (Ondansetron 4 Mg/2 Ml Inj) 4 mg IV Q8HR PRN PRN Reason: Nausea And Vomiting Sodium Chloride (Sodium Chloride 0.9% Flush) 10 ml IV PRN PRN PRN Reason: Flush Sodium Chloride (Sodium Chloride 0.9% Flush) 10 ml IV BID COUNT INCLUDES THE [facility] Last Admin: 09/17/20 08:46 Dose: 10 ml Documented by: GERONIMO Spironolactone (Spironolactone 25 Mg Tablet) 12.5 mg PO DAILY COUNT INCLUDES THE [facility] Last Admin: 09/17/20 08:45 Dose: 12.5 mg Documented by: GERONIMO Discontinued Medications Albuterol/Ipratropium (Albuterol/Ipratropium 3 Ml Ampul) 3 ml INH NOW ONE Stop: 09/16/20 14:47 Last Admin: 09/16/20 16:15 Dose: 3 ml Documented by: DARNELL Albuterol/Ipratropium (Albuterol/Ipratropium 3 Ml Ampul) 3 ml INH NOW ONE Stop: 09/16/20 16:13 Last Admin: 09/16/20 17:04 Dose: 3 ml Documented by: DARNELL Albuterol/Ipratropium (Albuterol/Ipratropium 3 Ml Ampul) 3 ml INH RTBID COUNT INCLUDES THE [facility] Doxycycline Hyclate (Doxycycline Hyclate 100 Mg Tablet) 100 mg PO NOW ONE Stop: 09/16/20 17:03 Last Admin: 09/16/20 17:17 Dose: 100 mg Documented by: JEAN Furosemide (Furosemide 40 Mg/4 Ml Vial) 40 mg IV NOW ONE Stop: 09/16/20 17:22 Last Admin: 09/16/20 17:35 Dose: 40 mg Documented by: KBRYERS Remdesivir 200 mg/ Sodium (Chloride) 250 mls @ 250 mls/hr IV NOW ONE Stop: 09/16/20 19:06 Last Admin: 09/16/20 19:46 Dose: 250 mls/hr Documented by: VERITO Methylprednisolone (Methylprednisolone 125 Mg/2 Ml Vial) 125 mg IV NOW ONE Stop: 09/16/20 14:47 Last Admin: 09/16/20 15:18 Dose: 125 mg Documented by: PRANAY Metoprolol Succinate (Metoprolol Er 25 Mg Tablet) 12.5 mg PO DAILY LIGIA Last Admin: 09/17/20 08:42 Dose: 12.5 mg Documented by: GERONIMO Vital Signs Vital signs: Vital Signs - 8 hr 09/16/20 14:04 09/16/20 14:06 09/16/20 14:30 Temperature 97.8 F Pulse Rate 107 H 104 H 97 H Respiratory Rate 26 H 26 H 27 H Blood Pressure 173/112 H 153/83 H Pulse Oximetry 94 95 92 09/16/20 15:00 09/16/20 15:30 09/16/20 15:53 Temperature Pulse Rate 95 H 93 H Respiratory Rate 29 H 28 H Blood Pressure 149/94 H 181/93 H Pulse Oximetry 92 89 L 92 09/16/20 16:00 09/16/20 16:05 09/16/20 16:16 Temperature 98.5 F Pulse Rate 100 H 100 H 97 H Respiratory Rate 24 25 H 28 H Blood Pressure 210/97 H 171/100 H Pulse Oximetry 94 95 91 09/16/20 16:30 09/16/20 16:54 09/16/20 17:05 Temperature Pulse Rate 98 H 108 H 100 H Respiratory Rate 35 H 27 H Blood Pressure 149/86 H Pulse Oximetry 94 92 93 09/16/20 17:24 09/16/20 17:30 09/16/20 17:31 Temperature Pulse Rate 101 H 99 H Respiratory Rate 24 26 H Blood Pressure 165/102 H Pulse Oximetry 93 92 91 MDM - SOB/Dyspnea <BRANDON Barnes-TOSHIA - Last Filed: 09/16/20 18:13> Lab Data Attestation: I reviewed the patient's lab results. Result diagrams: 09/17/20 05:30 09/17/20 05:30 Labs: Lab Results 09/16/20 09/16/20 09/16/20 Range/Units 14:10 14:10 14:10 WBC 9.4 (4.5-11.0) X10^3/uL RBC 5.82 (4.5-5.9) X10^6/uL Hgb 15.8 (13.5-17.5) g/dL Hct 49.9 (41-53) % MCV 85.7 (80-100) fL MCH 27.2 (26-34) PG MCHC 31.8 (30-36) % RDW 14.3 (11.6-14.8) % Plt Count 293 (150-400) X10^3/uL Neut % (Auto) 87.0 H (50-75) % Lymph % (Auto) 8.8 L (25-40) % [place] % (Auto) 2.5 L (3-14) % Eos % (Auto) 0.9 L (2-4) % Baso % (Auto) 0.8 (0-2) % Neut # (Auto) 8200 H (6799-4498) /uL Lymph # (Auto) 800 L (5204-9709) /uL [place] # (Auto) 200 (0-900) /uL Eos # (Auto) 100 (0-450) /uL Baso # (Auto) 100 (0-100) /uL PT 11.8 (10.1-12.7) SECONDS INR 1.1 (0.9-1.3) APTT 50 H (26.4-36.2) SECONDS D-Dimer (<230) ng/mL Sodium 140 (137-145) mmol/L Potassium 3.9 (3.4-5.1) mmol/L Chloride 101 (98-107) mmol/L Carbon Dioxide 32 (22-32) mmol/L BUN 23 H (9-20) mg/dL Creatinine 0.80 (0.66-1.25) mg/dL Estimated GFR > 60.0 (>60) mL/min BUN/Creatinine Ratio 28.8 H (6-22) Glucose 186 H (70-100) mg/dL Calcium 9.1 (8.4-10.2) mg/dL Magnesium 1.9 (1.6-2.3) mg/dL Total Bilirubin 0.3 (0.2-1.3) mg/dL AST 26 (17-59) IU/L ALT 18 (<50) IU/L Alkaline Phosphatase 86 (38-126) U/L Total Creatine Kinase 106 (55-170) U/L CK-MB (CK-2) 6.25 H (<2.37) ng/mL CK-MB (CK-2) Rel Index 5.9 H (1.5-5.0) % Troponin I 0.017 (0.01-0.034) ng/mL NT-Pro-B Natriuret Pep (<125) pg/mL Total Protein 7.2 (6.3-8.2) g/dL Albumin 3.9 (3.5-5.0) g/dL Globulin 3.3 (1.7-4.1) g/dL Albumin/Globulin Ratio 1.2 (1.0-2.8) Lipase 282 (23-300) U/L Urine Color Urine Appearance Urine pH (4.5-8.0) Ur Specific [place] (1.000-1.035) Urine Protein (Negative) Urine Glucose (UA) (Negative) g/dL Urine Ketones (NEGATIVE) Urine Occult Blood (Negative) Urine Nitrate (Negative) Urine Bilirubin (NEGATIVE) Urine Urobilinogen (0.2) E.U./dL Ur Leukocyte Esterase (NEGATIVE) Urine RBC (0-5/HPF) Urine WBC (0-5/HPF) Ur Squamous Epith Cells (0-5/HPF) Urine Bacteria (None) Urine Mucus (Negative) Ur Culture Indicated? U Opiates 300ng/mL cut (Negative) Ur Oxycodone Screen (Negative) Urine Methadone Screen (Negative) Ur Barbiturates Screen (Negative) U Tricyclic Antidepress (Negative) Ur Phencyclidine Scrn (Negative) Ur Amphetamines Screen (Negative) U Methamphetamines Scrn (Negative) Ur MDMA Scrn (Ecstasy) (Negative) U Benzodiazepines Scrn (Negative) Urine Cocaine Screen (Negative) U Marijuana (THC) Screen (Negative) SARS-CoV-2 (PCR) (Negative) 09/16/20 09/16/20 09/16/20 Range/Units 14:10 14:15 14:24 WBC (4.5-11.0) X10^3/uL RBC (4.5-5.9) X10^6/uL Hgb (13.5-17.5) g/dL Hct (41-53) % MCV (80-100) fL MCH (26-34) PG MCHC (30-36) % RDW (11.6-14.8) % Plt Count (150-400) X10^3/uL Neut % (Auto) (50-75) % Lymph % (Auto) (25-40) % [place] % (Auto) (3-14) % Eos % (Auto) (2-4) % Baso % (Auto) (0-2) % Neut # (Auto) (3347-4115) /uL Lymph # (Auto) (5838-5186) /uL [place] # (Auto) (0-900) /uL Eos # (Auto) (0-450) /uL Baso # (Auto) (0-100) /uL PT (10.1-12.7) SECONDS INR (0.9-1.3) APTT (26.4-36.2) SECONDS D-Dimer 249 H (<230) ng/mL Sodium (137-145) mmol/L Potassium (3.4-5.1) mmol/L Chloride (98-107) mmol/L Carbon Dioxide (22-32) mmol/L BUN (9-20) mg/dL Creatinine (0.66-1.25) mg/dL Estimated GFR (>60) mL/min BUN/Creatinine Ratio (6-22) Glucose (70-100) mg/dL Calcium (8.4-10.2) mg/dL Magnesium (1.6-2.3) mg/dL Total Bilirubin (0.2-1.3) mg/dL AST (17-59) IU/L ALT (<50) IU/L Alkaline Phosphatase (38-126) U/L Total Creatine Kinase (55-170) U/L CK-MB (CK-2) (<2.37) ng/mL CK-MB (CK-2) Rel Index (1.5-5.0) % Troponin I (0.01-0.034) ng/mL NT-Pro-B Natriuret Pep 2070 H (<125) pg/mL Total Protein (6.3-8.2) g/dL Albumin (3.5-5.0) g/dL Globulin (1.7-4.1) g/dL Albumin/Globulin Ratio (1.0-2.8) Lipase (23-300) U/L Urine Color Urine Appearance Urine pH (4.5-8.0) Ur Specific [place] (1.000-1.035) Urine Protein (Negative) Urine Glucose (UA) (Negative) g/dL Urine Ketones (NEGATIVE) Urine Occult Blood (Negative) Urine Nitrate (Negative) Urine Bilirubin (NEGATIVE) Urine Urobilinogen (0.2) E.U./dL Ur Leukocyte Esterase (NEGATIVE) Urine RBC (0-5/HPF) Urine WBC (0-5/HPF) Ur Squamous Epith Cells (0-5/HPF) Urine Bacteria (None) Urine Mucus (Negative) Ur Culture Indicated? U Opiates 300ng/mL cut (Negative) Ur Oxycodone Screen (Negative) Urine Methadone Screen (Negative) Ur Barbiturates Screen (Negative) U Tricyclic Antidepress (Negative) Ur Phencyclidine Scrn (Negative) Ur Amphetamines Screen (Negative) U Methamphetamines Scrn (Negative) Ur MDMA Scrn (Ecstasy) (Negative) U Benzodiazepines Scrn (Negative) Urine Cocaine Screen (Negative) U Marijuana (THC) Screen (Negative) SARS-CoV-2 (PCR) Negative (Negative) 09/16/20 09/16/20 09/16/20 Range/Units 17:30 17:57 17:57 WBC (4.5-11.0) X10^3/uL RBC (4.5-5.9) X10^6/uL Hgb (13.5-17.5) g/dL Hct (41-53) % MCV (80-100) fL MCH (26-34) PG MCHC (30-36) % RDW (11.6-14.8) % Plt Count (150-400) X10^3/uL Neut % (Auto) (50-75) % Lymph % (Auto) (25-40) % [place] % (Auto) (3-14) % Eos % (Auto) (2-4) % Baso % (Auto) (0-2) % Neut # (Auto) (7134-4742) /uL Lymph # (Auto) (1397-4949) /uL [place] # (Auto) (0-900) /uL Eos # (Auto) (0-450) /uL Baso # (Auto) (0-100) /uL PT (10.1-12.7) SECONDS INR (0.9-1.3) APTT (26.4-36.2) SECONDS D-Dimer (<230) ng/mL Sodium (137-145) mmol/L Potassium (3.4-5.1) mmol/L Chloride (98-107) mmol/L Carbon Dioxide (22-32) mmol/L BUN (9-20) mg/dL Creatinine (0.66-1.25) mg/dL Estimated GFR (>60) mL/min BUN/Creatinine Ratio (6-22) Glucose (70-100) mg/dL Calcium (8.4-10.2) mg/dL Magnesium (1.6-2.3) mg/dL Total Bilirubin (0.2-1.3) mg/dL AST (17-59) IU/L ALT (<50) IU/L Alkaline Phosphatase (38-126) U/L Total Creatine Kinase (55-170) U/L CK-MB (CK-2) (<2.37) ng/mL CK-MB (CK-2) Rel Index (1.5-5.0) % Troponin I (0.01-0.034) ng/mL NT-Pro-B Natriuret Pep (<125) pg/mL Total Protein (6.3-8.2) g/dL Albumin (3.5-5.0) g/dL Globulin (1.7-4.1) g/dL Albumin/Globulin Ratio (1.0-2.8) Lipase (23-300) U/L Urine Color Yellow Urine Appearance Clear Urine pH 6.0 (4.5-8.0) Ur Specific [place] 1.025 (1.000-1.035) Urine Protein 2+ H (Negative) Urine Glucose (UA) Negative (Negative) g/dL Urine Ketones Negative (NEGATIVE) Urine Occult Blood 1+ H (Negative) Urine Nitrate Negative (Negative) Urine Bilirubin Negative (NEGATIVE) Urine Urobilinogen 0.2 (0.2) E.U./dL Ur Leukocyte Esterase Negative (NEGATIVE) Urine RBC 1-5/hpf (0-5/HPF) Urine WBC 0-1/hpf (0-5/HPF) Ur Squamous Epith Cells 0-1 /hpf (0-5/HPF) Urine Bacteria None seen (None) Urine Mucus 1+ H (Negative) Ur Culture Indicated? Cult not indicated U Opiates 300ng/mL cut Negative (Negative) Ur Oxycodone Screen Negative (Negative) Urine Methadone Screen Negative (Negative) Ur Barbiturates Screen Negative (Negative) U Tricyclic Antidepress Negative (Negative) Ur Phencyclidine Scrn Negative (Negative) Ur Amphetamines Screen Negative (Negative) U Methamphetamines Scrn Negative (Negative) Ur MDMA Scrn (Ecstasy) Negative (Negative) U Benzodiazepines Scrn Negative (Negative) Urine Cocaine Screen Negative (Negative) U Marijuana (THC) Screen Negative (Negative) SARS-CoV-2 (PCR) Positive H (Negative) Imaging Data Chest x-ray: Radiologist's Impression: [address] [place] [id number] ReportSigned Patient: Bradly Morley AMR#: [id number]: 1965Acct:[id number]/Sex: 54 / MDate of Service: 09/16/20Loc: EDAccession Number: [id number] Procedure: XR chest 1V Ordering Provider: Yoselin Rashid D.O. PROCEDURE: XR CHEST 1V INDICATIONS: chest pain TECHNIQUE: One view of the chest was acquired. COMPARISON: [facility], CT, CT CHEST WO CON, 05/23/2020, 9:15. [facility], CR, XR CHEST 1V, 04/15/2020, 15:31. [facility], CR, XR CHEST 1V, 05/21/2020, 14:30. FINDINGS: Surgical changes and devices: None. Lungs and pleura: Left hemidiaphragm elevation and left basilar atelectasis. Lungs are clear. No pleural effusions or pneumothorax. Mediastinum: Mediastinal contours appear normal. Heart size is normal. Bones and chest wall: No suspicious bony lesions. Overlying soft tissues appear unremarkable. IMPRESSION: No acute cardiopulmonary disease. Dictated by: Yakelin Moon M.D. on 09/16/2020 at 14:25 Approved by: Yakelin Moon M.D. on 09/16/2020 at 14:30 MDM Narrative Medical decision making narrative: The patient is a 54-year-old male with history of CHF and COPD who presents to the emergency department with shortness of breath productive cough. He is given Solu-Medrol in the emergency department, multiple nebulizers, doxycycline and remained approximately 90 to 92% on room air however was noted to have increased work of breathing. He tests negative for COVID in the emergency department. He is noted to have an elevated BNP. Patient admitted to observation by Dr Hartley <Yoselin Rashid, DO - Last Filed: 09/17/20 10:31> Lab Data Labs: Lab Results 09/16/20 09/16/20 09/16/20 Range/Units 14:10 14:10 14:10 WBC 9.4 (4.5-11.0) X10^3/uL RBC 5.82 (4.5-5.9) X10^6/uL Hgb 15.8 (13.5-17.5) g/dL Hct 49.9 (41-53) % MCV 85.7 (80-100) fL MCH 27.2 (26-34) PG MCHC 31.8 (30-36) % RDW 14.3 (11.6-14.8) % Plt Count 293 (150-400) X10^3/uL Neut % (Auto) 87.0 H (50-75) % Lymph % (Auto) 8.8 L (25-40) % [place] % (Auto) 2.5 L (3-14) % Eos % (Auto) 0.9 L (2-4) % Baso % (Auto) 0.8 (0-2) % Neut # (Auto) 8200 H (6599-0441) /uL Lymph # (Auto) 800 L (4817-8839) /uL [place] # (Auto) 200 (0-900) /uL Eos # (Auto) 100 (0-450) /uL Baso # (Auto) 100 (0-100) /uL PT 11.8 (10.1-12.7) SECONDS INR 1.1 (0.9-1.3) APTT 50 H (26.4-36.2) SECONDS D-Dimer (<230) ng/mL Sodium 140 (137-145) mmol/L Potassium 3.9 (3.4-5.1) mmol/L Chloride 101 (98-107) mmol/L Carbon Dioxide 32 (22-32) mmol/L BUN 23 H (9-20) mg/dL Creatinine 0.80 (0.66-1.25) mg/dL Estimated GFR > 60.0 (>60) mL/min BUN/Creatinine Ratio 28.8 H (6-22) Glucose 186 H (70-100) mg/dL Calcium 9.1 (8.4-10.2) mg/dL Magnesium 1.9 (1.6-2.3) mg/dL Total Bilirubin 0.3 (0.2-1.3) mg/dL AST 26 (17-59) IU/L ALT 18 (<50) IU/L Alkaline Phosphatase 86 (38-126) U/L Total Creatine Kinase 106 (55-170) U/L CK-MB (CK-2) 6.25 H (<2.37) ng/mL CK-MB (CK-2) Rel Index 5.9 H (1.5-5.0) % Troponin I 0.017 (0.01-0.034) ng/mL NT-Pro-B Natriuret Pep (<125) pg/mL Total Protein 7.2 (6.3-8.2) g/dL Albumin 3.9 (3.5-5.0) g/dL Globulin 3.3 (1.7-4.1) g/dL Albumin/Globulin Ratio 1.2 (1.0-2.8) Lipase 282 (23-300) U/L Urine Color Urine Appearance Urine pH (4.5-8.0) Ur Specific [place] (1.000-1.035) Urine Protein (Negative) Urine Glucose (UA) (Negative) g/dL Urine Ketones (NEGATIVE) Urine Occult Blood (Negative) Urine Nitrate (Negative) Urine Bilirubin (NEGATIVE) Urine Urobilinogen (0.2) E.U./dL Ur Leukocyte Esterase (NEGATIVE) Urine RBC (0-5/HPF) Urine WBC (0-5/HPF) Ur Squamous Epith Cells (0-5/HPF) Urine Bacteria (None) Urine Mucus (Negative) Ur Culture Indicated? U Opiates 300ng/mL cut (Negative) Ur Oxycodone Screen (Negative) Urine Methadone Screen (Negative) Ur Barbiturates Screen (Negative) U Tricyclic Antidepress (Negative) Ur Phencyclidine Scrn (Negative) Ur Amphetamines Screen (Negative) U Methamphetamines Scrn (Negative) Ur MDMA Scrn (Ecstasy) (Negative) U Benzodiazepines Scrn (Negative) Urine Cocaine Screen (Negative) U Marijuana (THC) Screen (Negative) SARS-CoV-2 (PCR) (Negative) 09/16/20 09/16/20 09/16/20 Range/Units 14:10 14:15 14:24 WBC (4.5-11.0) X10^3/uL RBC (4.5-5.9) X10^6/uL Hgb (13.5-17.5) g/dL Hct (41-53) % MCV (80-100) fL MCH (26-34) PG MCHC (30-36) % RDW (11.6-14.8) % Plt Count (150-400) X10^3/uL Neut % (Auto) (50-75) % Lymph % (Auto) (25-40) % [place] % (Auto) (3-14) % Eos % (Auto) (2-4) % Baso % (Auto) (0-2) % Neut # (Auto) (6300-9192) /uL Lymph # (Auto) (6446-4542) /uL [place] # (Auto) (0-900) /uL Eos # (Auto) (0-450) /uL Baso # (Auto) (0-100) /uL PT (10.1-12.7) SECONDS INR (0.9-1.3) APTT (26.4-36.2) SECONDS D-Dimer 249 H (<230) ng/mL Sodium (137-145) mmol/L Potassium (3.4-5.1) mmol/L Chloride (98-107) mmol/L Carbon Dioxide (22-32) mmol/L BUN (9-20) mg/dL Creatinine (0.66-1.25) mg/dL Estimated GFR (>60) mL/min BUN/Creatinine Ratio (6-22) Glucose (70-100) mg/dL Calcium (8.4-10.2) mg/dL Magnesium (1.6-2.3) mg/dL Total Bilirubin (0.2-1.3) mg/dL AST (17-59) IU/L ALT (<50) IU/L Alkaline Phosphatase (38-126) U/L Total Creatine Kinase (55-170) U/L CK-MB (CK-2) (<2.37) ng/mL CK-MB (CK-2) Rel Index (1.5-5.0) % Troponin I (0.01-0.034) ng/mL NT-Pro-B Natriuret Pep 2070 H (<125) pg/mL Total Protein (6.3-8.2) g/dL Albumin (3.5-5.0) g/dL Globulin (1.7-4.1) g/dL Albumin/Globulin Ratio (1.0-2.8) Lipase (23-300) U/L Urine Color Urine Appearance Urine pH (4.5-8.0) Ur Specific [place] (1.000-1.035) Urine Protein (Negative) Urine Glucose (UA) (Negative) g/dL Urine Ketones (NEGATIVE) Urine Occult Blood (Negative) Urine Nitrate (Negative) Urine Bilirubin (NEGATIVE) Urine Urobilinogen (0.2) E.U./dL Ur Leukocyte Esterase (NEGATIVE) Urine RBC (0-5/HPF) Urine WBC (0-5/HPF) Ur Squamous Epith Cells (0-5/HPF) Urine Bacteria (None) Urine Mucus (Negative) Ur Culture Indicated? U Opiates 300ng/mL cut (Negative) Ur Oxycodone Screen (Negative) Urine Methadone Screen (Negative) Ur Barbiturates Screen (Negative) U Tricyclic Antidepress (Negative) Ur Phencyclidine Scrn (Negative) Ur Amphetamines Screen (Negative) U Methamphetamines Scrn (Negative) Ur MDMA Scrn (Ecstasy) (Negative) U Benzodiazepines Scrn (Negative) Urine Cocaine Screen (Negative) U Marijuana (THC) Screen (Negative) SARS-CoV-2 (PCR) Negative (Negative) 09/16/20 09/16/20 09/16/20 Range/Units 17:30 17:57 17:57 WBC (4.5-11.0) X10^3/uL RBC (4.5-5.9) X10^6/uL Hgb (13.5-17.5) g/dL Hct (41-53) % MCV (80-100) fL MCH (26-34) PG MCHC (30-36) % RDW (11.6-14.8) % Plt Count (150-400) X10^3/uL Neut % (Auto) (50-75) % Lymph % (Auto) (25-40) % [place] % (Auto) (3-14) % Eos % (Auto) (2-4) % Baso % (Auto) (0-2) % Neut # (Auto) (5066-1297) /uL Lymph # (Auto) (4755-1696) /uL [place] # (Auto) (0-900) /uL Eos # (Auto) (0-450) /uL Baso # (Auto) (0-100) /uL PT (10.1-12.7) SECONDS INR (0.9-1.3) APTT (26.4-36.2) SECONDS D-Dimer (<230) ng/mL Sodium (137-145) mmol/L Potassium (3.4-5.1) mmol/L Chloride (98-107) mmol/L Carbon Dioxide (22-32) mmol/L BUN (9-20) mg/dL Creatinine (0.66-1.25) mg/dL Estimated GFR (>60) mL/min BUN/Creatinine Ratio (6-22) Glucose (70-100) mg/dL Calcium (8.4-10.2) mg/dL Magnesium (1.6-2.3) mg/dL Total Bilirubin (0.2-1.3) mg/dL AST (17-59) IU/L ALT (<50) IU/L Alkaline Phosphatase (38-126) U/L Total Creatine Kinase (55-170) U/L CK-MB (CK-2) (<2.37) ng/mL CK-MB (CK-2) Rel Index (1.5-5.0) % Troponin I (0.01-0.034) ng/mL NT-Pro-B Natriuret Pep (<125) pg/mL Total Protein (6.3-8.2) g/dL Albumin (3.5-5.0) g/dL Globulin (1.7-4.1) g/dL Albumin/Globulin Ratio (1.0-2.8) Lipase (23-300) U/L Urine Color Yellow Urine Appearance Clear Urine pH 6.0 (4.5-8.0) Ur Specific [place] 1.025 (1.000-1.035) Urine Protein 2+ H (Negative) Urine Glucose (UA) Negative (Negative) g/dL Urine Ketones Negative (NEGATIVE) Urine Occult Blood 1+ H (Negative) Urine Nitrate Negative (Negative) Urine Bilirubin Negative (NEGATIVE) Urine Urobilinogen 0.2 (0.2) E.U./dL Ur Leukocyte Esterase Negative (NEGATIVE) Urine RBC 1-5/hpf (0-5/HPF) Urine WBC 0-1/hpf (0-5/HPF) Ur Squamous Epith Cells 0-1 /hpf (0-5/HPF) Urine Bacteria None seen (None) Urine Mucus 1+ H (Negative) Ur Culture Indicated? Cult not indicated U Opiates 300ng/mL cut Negative (Negative) Ur Oxycodone Screen Negative (Negative) Urine Methadone Screen Negative (Negative) Ur Barbiturates Screen Negative (Negative) U Tricyclic Antidepress Negative (Negative) Ur Phencyclidine Scrn Negative (Negative) Ur Amphetamines Screen Negative (Negative) U Methamphetamines Scrn Negative (Negative) Ur MDMA Scrn (Ecstasy) Negative (Negative) U Benzodiazepines Scrn Negative (Negative) Urine Cocaine Screen Negative (Negative) U Marijuana (THC) Screen Negative (Negative) SARS-CoV-2 (PCR) Positive H (Negative) Discharge Plan Departure Patient Disposition: Admitted as Observation Clinical Impression: COPD exacerbation CHF (congestive heart failure) Qualifiers: Heart failure type: unspecified Heart failure chronicity: unspecified Qualified Code(s): I50.9 - Heart failure, unspecified Admit Date/Time: 09/16/20 17:59 Admit Provider: Madi Hartley <Yoselin Rashid DO - Last Filed: 09/17/20 10:31> [facility] ED Attending Bradley[place] Attestation: I was immediately available in the department for consultation. Documentation has been reviewed. I agree with assessment and plan.
[2020-09-16 14:39] LABS: COVID19 -Nasal RAPID Negative (Negative)
[2020-09-16 14:47] LABS: Troponin I 0.017 ng/mL (0.01-0.034)
[2020-09-16 14:51] LABS: CKMB % Relative Index 5.9 % (1.5-5.0); Creatine Kinase MB 6.25 ng/mL (<2.37)
[2020-09-16 14:57] LABS: D Dimer 249 ng/mL (<230)
[2020-09-16 14:59] LABS: NT-proBNP (BNP-Adult 18+) 2070 pg/mL (<125)
[2020-09-16] MEDS: methylPREDNISolone 125 MG/2 ML VIAL IV (15:18)
[2020-09-16] MEDS: ALBUTEROL/IPRATROPIUM 3 ML AMPUL INH ×2 (16:15→17:04)
--- NOTE | 2020-09-16 16:21 | RT ---
pt katie tx well, mild/mod sob and pt placed on 2 lpm nc.
--- NOTE | 2020-09-16 16:56 | PC.NURSE ---
ambulatory trial, on room air, ambulated approx 80 feet. oxygen saturation 92-94% HR 100-108. steady gate. tolerated well.
--- NOTE | 2020-09-16 16:58 | PC.NURSE ---
pt refuses to provide urine sample.
[2020-09-16] MEDS: DOXYCYCLINE HYCLATE 100 MG TABLET PO (17:17)
[2020-09-16] MEDS: FUROSEMIDE 40 MG/4 ML VIAL IV (17:35)
--- NOTE | 2020-09-16 17:42 | PM.HP.1 ---
History of Present Illness History of Present Illness Date Patient Seen: 09/16/20 Time Patient Seen: 17:45 Chief complaint: COPD, can hardly walk, abdominal pain Narrative: This is a 54-year-old male who is a current smoker with a past medical history significant for COPD, methamphetamine abuse and congestive heart failure with reduced ejection fraction diagnosed on prior admission who presented to the ER with shortness of breath for the last few weeks after running out of medications. He reports dyspnea on exertion and even dyspnea at rest currently. He complains of some chest tightness, increased cough with white sputum production. He also complains of lower abdominal pain but worsened with cough. He denies palpitations, lower extremity edema, or orthopnea. He denies any nausea, vomiting, diarrhea, or constipation. In the emergency room the patient had a desaturation to 86% on room air. He was mildly tachypneic, mildly hypertensive, and mildly tachycardic. He was saturating in the low 90s on room air. Initial laboratory evaluation revealed an unremarkable CBC, negative D-dimer for age, unremarkable chemistries except for a glucose of 186. Troponin was within normal limits at 0.017. ProBNP was 2070. COVID-19 testing was negative. In the emergency room the patient was given 2 DuoNebs, Solu-Medrol, and Lasix without much improvement in symptoms. He was admitted for further management of COPD exacerbation and probable acute on chronic systolic heart failure. Patient History Medical History COPD (chronic obstructive pulmonary disease) HFrEF (heart failure with reduced ejection fraction) Methamphetamine abuse Peripheral edema Surgical History Status post appendectomy Family & Social History Family History Father Heart disease Mother Medical history unknown Brother Medical history unknown Social History: household members none Safety & Behavioral: Feels Safe in Current Yes Environment Been Physically Hurt or No Threatened By a Person Tobacco & Substance use: Tobacco type cigarettes Smoking Status Current every day smoker alcohol intake never alcohol intake frequency other Substance Use Type methamphetamine Meds Home Medications and Allergies Home Medications Medication Instructions Recorded Confirmed Type albuterol sulfate 2 puff INHALATION Q4-6H PRN 30 05/24/20 09/16/20 Rx Days #8.5 gram mometasone 1 puff INHALATION BID 30 Days #13 g 05/24/20 09/16/20 Rx tiotropium bromide 1 cap INHALATION DAILY 30 Days #30 05/24/20 09/16/20 Rx inh aspirin 81 mg PO DAILY 09/16/20 09/16/20 History carvedilol 12.5 mg PO DAILY 09/16/20 09/16/20 History furosemide 20 mg PO DAILY 09/16/20 09/16/20 History lisinopril 20 mg PO DAILY 09/16/20 09/16/20 History metoprolol succinate 12.5 mg PO DAILY 09/16/20 09/16/20 History spironolactone 12.5 mg PO DAILY 09/16/20 09/16/20 History Allergies Allergy/AdvReac Type Severity Reaction Status Date / Time No Known Drug Allergies Allergy Verified 04/14/20 03:02 Review of Systems Review of Systems Narrative: All other systems reviewed with the patient and are negative unless otherwise stated. Exam Vital Signs (past 8 hours): - 09/16/20 14:04 09/16/20 14:06 09/16/20 14:30 Temperature 97.8 F Pulse Rate 107 H 104 H 97 H Respiratory Rate 26 H 26 H 27 H Blood Pressure 173/112 H 153/83 H Pulse Oximetry 94 95 92 09/16/20 15:00 09/16/20 15:30 09/16/20 15:53 Temperature Pulse Rate 95 H 93 H Respiratory Rate 29 H 28 H Blood Pressure 149/94 H 181/93 H Pulse Oximetry 92 89 L 92 09/16/20 16:00 09/16/20 16:05 09/16/20 16:16 Temperature 98.5 F Pulse Rate 100 H 100 H 97 H Respiratory Rate 24 25 H 28 H Blood Pressure 210/97 H 171/100 H Pulse Oximetry 94 95 91 09/16/20 16:30 09/16/20 16:54 09/16/20 17:05 Temperature Pulse Rate 98 H 108 H 100 H Respiratory Rate 35 H 27 H Blood Pressure 149/86 H Pulse Oximetry 94 92 93 09/16/20 17:24 09/16/20 17:30 09/16/20 17:31 Temperature Pulse Rate 101 H 99 H Respiratory Rate 24 26 H Blood Pressure 165/102 H Pulse Oximetry 93 92 91 Oxygen Delivery Method Room Air Oxygen Flow Rate 1 Narrative Exam Narrative: GENERAL APPEARANCE: Disheveled male, no acute distress. SKIN: Inspection of the skin reveals no rashes, ulcerations or petechiae. There are multiple tattoos HEENT: Normocephalic atraumatic, extraocular muscles are intact, oropharynx is clear and mucous membranes are moist, neck is supple without adenopathy NECK: Supple and symmetric. There was no thyroid enlargement, and no tenderness, or masses were felt. CHEST: Normal AP diameter and normal contour without any kyphoscoliosis. LUNGS: Auscultation of the lungs revealed mild diffuse wheezing, mild bibasilar crackles. CARDIOVASCULAR: There was a regular rate and rhythm without any murmurs, gallops, rubs. Peripheral pulses were 2+ and symmetric. ABDOMEN: Soft and nontender with normal bowel sounds. No ascites was noted. MUSCULOSKELETAL: There was no tenderness or effusions noted. Muscle strength and tone were normal. EXTREMITIES: No cyanosis, clubbing or edema. NEUROLOGIC: Alert and oriented x 3. speech slightly slurred at baseline compared to previous encounters. Strength is +5/5 in the Upper Extremities and Lower Extremities Bilaterally. Sensation to touch was normal. Objective Labs Result Diagrams: 09/16/20 14:10 09/16/20 14:10 Labs: Laboratory Results - last 24 hr 09/16/20 09/16/20 09/16/20 14:10 14:10 14:10 WBC 9.4 RBC 5.82 Hgb 15.8 Hct 49.9 MCV 85.7 MCH 27.2 MCHC 31.8 RDW 14.3 Plt Count 293 Neut % (Auto) 87.0 H Lymph % (Auto) 8.8 L [place] % (Auto) 2.5 L Eos % (Auto) 0.9 L Baso % (Auto) 0.8 Neut # (Auto) 8200 H Lymph # (Auto) 800 L [place] # (Auto) 200 Eos # (Auto) 100 Baso # (Auto) 100 PT 11.8 INR 1.1 APTT 50 H D-Dimer Sodium 140 Potassium 3.9 Chloride 101 Carbon Dioxide 32 BUN 23 H Creatinine 0.80 Estimated GFR > 60.0 BUN/Creatinine Ratio 28.8 H Glucose 186 H Calcium 9.1 Magnesium 1.9 Total Bilirubin 0.3 AST 26 ALT 18 Alkaline Phosphatase 86 Total Creatine Kinase 106 CK-MB (CK-2) 6.25 H CK-MB (CK-2) Rel Index 5.9 H Troponin I 0.017 NT-Pro-B Natriuret Pep Total Protein 7.2 Albumin 3.9 Globulin 3.3 Albumin/Globulin Ratio 1.2 Lipase 282 SARS-CoV-2 (PCR) 09/16/20 09/16/20 09/16/20 14:10 14:15 14:24 WBC RBC Hgb Hct MCV MCH MCHC RDW Plt Count Neut % (Auto) Lymph % (Auto) [place] % (Auto) Eos % (Auto) Baso % (Auto) Neut # (Auto) Lymph # (Auto) [place] # (Auto) Eos # (Auto) Baso # (Auto) PT INR APTT D-Dimer 249 H Sodium Potassium Chloride Carbon Dioxide BUN Creatinine Estimated GFR BUN/Creatinine Ratio Glucose Calcium Magnesium Total Bilirubin AST ALT Alkaline Phosphatase Total Creatine Kinase CK-MB (CK-2) CK-MB (CK-2) Rel Index Troponin I NT-Pro-B Natriuret Pep 2070 H Total Protein Albumin Globulin Albumin/Globulin Ratio Lipase SARS-CoV-2 (PCR) Negative Assessment & Plan Assessment & Plan narrative: This is a 54-year-old male who is a current smoker with a past medical history significant for COPD, methamphetamine abuse and congestive heart failure with reduced ejection fraction, prior abnormal stress testing but not a suitable left heart cath candidate due to medication noncompliance who presented to the ER with shortness of breath for the last few weeks after running out medications. 1. Acute exacerbation of chronic COPD, present on admission, active. -the patient reports his smoking has declined dramatically, he in fact denies methamphetamine use -COVID test is negative. Last chest CT is reviewed and shows/confirms emphysema. -continue doxy for anti-inflammatory effect. F/u sputum cultures but no current evidence of pneumonia on CXR however + COVID testing. -continue prednisone 40 mg daily. -may be related to COVID, given 86% on RA will start remdesevir and decadron. Decadron will adequately cover COPD exacerbation 2. Acute on chronic systolic heart failure, present on admission, active -patient with echocardiogram completed on 04/14/2020 finding ejection fraction of 35-40% with mildly increased left ventricular wall thickness and moderately reduced function right ventricle is normal in size and function. -repeat limited echo 1 month later showing worsening EF of 25-30% this admission. Not a [facility] candidate per cardiology during prior admission. -patient presented with an elevated proBNP 2069. -resume previous medciations including coreg, lisinopril, aldactone, asa and diurese with IV lasix 40 mg IV BID. First dose in ER now. He is not a LHC at this time. Depending on progress in symptoms consider repeat limited TTE however this will not likely climate change risk assessor at this time. -prior chest CT shows significant coronary calcifications 3. Prediabetes -glucose 186 on admission -Hemoglobin A1c 6.3 on previous admission, will repeat. 4. Methamphetamine abuse, chronic, reports cessation -UDS pending -strongly encouraged sobriety. 5. Tobacco dependence, chronic, stable -teaching provided on COPD and smoking. -strongly encouraged smoking cessation 6. Medication non-compliance. 7. + COVID 19 testing - patient with positive nasal swab. Received COVID vaccine. 8. Acute respiratory failure with hypoxia, improved - patient 86% on room air in the ER. Treatments as noted above with improvement, currently 92% on 1 L. titrate oxygen supplementation with goal O2 of greater than 88%, but no greater than 96% while on supplemental therapy. Code: Full, as discussed with the patient. DVT: Lovenox Dispo: Admit as observation as his stay is not expected to exceed 2 midnights.
[2020-09-16 18:30] LABS: Bacteria Urine None Seen
[2020-09-16 18:58] LABS: COVID19 - ADMIT (NP swab/PCR) POSITIVE (Negative)
[2020-09-16 19:01] LABS: Appearance Urine UA CLEAR; Bilirubin Urine UA NEGATIVE (NEGATIVE); Color Urine UA YELLOW; Glucose Urine UA NEGATIVE (Negative); Ketones Urine UA NEGATIVE (NEGATIVE); Leukocyte Esterase Urine UA NEGATIVE (NEGATIVE); Nitrite Urine UA NEGATIVE (Negative); Occult Blood Urine UA 1+ (Negative); Protein Urine UA 2+ (Negative); Specific Gravity Urine UA 1.025 (1.000-1.035); Urobilinogen Urine UA 0.2 E.U./dL (0.2)
[2020-09-16 19:31] LABS: UR Morphine/Opiate cutoff 300 Negative (Negative); Ur Creatinine Normal (Normal); Ur Specific Gravity Normal (Normal); Urine Amphetamines Negative (Negative); Urine Barbiturates Negative (Negative); Urine Benzodiazepines Negative (Negative); Urine Cocaine Negative (Negative); Urine MDMA Negative (Negative); Urine Methadone Negative (Negative); Urine Methamphetamines Negative (Negative); Urine Oxycodone Negative (Negative); Urine Phencyclidine Negative (Negative); Urine Tetrahydrocannabinol Negative (Negative); Urine Tricyclic Antidepressant Negative (Negative); Urine pH Normal (Normal)
[2020-09-16 19:41] LABS: Culture Indicated Urine Cult Not Indicated; Mucus Urine 1+ (Negative); RBC Urine 1-5/HPF (0-5/HPF); Squamous Epithelial Cell Urine 0-1 /HPF (0-5/HPF); WBC Urine 0-1/HPF (0-5/HPF)
[2020-09-16] MEDS: REMDESIVIR 200 MG in SODIUM CHLORIDE 0.9% 210 ML 250 ML IV (19:46)
[2020-09-16] MEDS: ACETAMINOPHEN 325 MG TABLET 650 MG PO (21:47)
[2020-09-16] MEDS: ALBUTEROL 2.5 MG/3 ML NEB (ADULT) INH (22:15)
[2020-09-17] VITALS (19 sets, daily range): BP systolic 120–143; BP diastolic 70–93; PULSE 87–107; RESP 15–25; TEMP 36.1–36.8; O2SAT 90–96
[2020-09-17] MEDS: ALBUTEROL 2.5 MG/3 ML NEB (ADULT) INH (04:30)
[2020-09-17 05:58] LABS: Add Manual Diff / Slide Review NO; Basophils Absolute Auto 0 /uL (0-100); Basophils Percent Auto 0.2 % (0-2); Eosinophils Absolute Auto 0 /uL (0-450); Eosinophils Percent Auto 0.4 % (2-4); Hematocrit 47.4 % (41-53); Hemoglobin 14.9 g/dL (13.5-17.5); Lymphocytes Absolute Auto 500 /uL (1100-4500); Lymphocytes Percent Auto 5.7 % (25-40); Mean Corpuscular HGB Conc 31.5 % (30-36); Mean Corpuscular Hemoglobin 27.1 PG (26-34); Monocytes Absolute Auto 300 /uL (0-900); Monocytes Percent Auto 3.2 % (3-14); Neutrophils Absolute Auto 7900 /uL (1500-7000); Neutrophils Percent Auto 90.5 % (50-75); Platelet Count 250 X10^3/uL (150-400); Red Blood Cell Count 5.52 X10^6/uL (4.5-5.9); Red Cell Distribution Width 14.5 % (11.6-14.8); White Blood Cell Count 8.7 X10^3/uL (4.5-11.0)
[2020-09-17 06:09] LABS: Alanine Aminotransferase 18 IU/L (<50); Albumin 3.5 g/dL (3.5-5.0); Albumin Globulin Ratio 1.1 (1.0-2.8); Alkaline Phosphatase 74 U/L (38-126); Aspartate Aminotransferase 22 IU/L (17-59); Bilirubin Total 0.1 mg/dL (0.2-1.3); Globulin 3.1 g/dL (1.7-4.1); HEMOLYSIS < 15 (0-50); Total Protein 6.6 g/dL (6.3-8.2)
[2020-09-17 06:10] LABS: BUN Creatinine Ratio 38.5 (6-22); Blood Urea Nitrogen 30 mg/dL (9-20); Calcium 8.5 mg/dL (8.4-10.2); Carbon Dioxide 30 mmol/L (22-32); Chloride 99 mmol/L (98-107); Estimated Glomerular Filt Rate > 60.0 mL/min (>60); Glucose 199 mg/dL (70-100); HEMOLYSIS < 15 (0-50); Potassium 4.1 mmol/L (3.4-5.1); Sodium 138 mmol/L (137-145)
[2020-09-17] MEDS: ALBUTEROL/IPRATROPIUM 3 ML AMPUL INH ×5 (07:03→23:04)
[2020-09-17] MEDS: BUDESONIDE 0.5 MG/2 ML NEB INH ×2 (07:03→19:36)
[2020-09-17] MEDS: METOPROLOL ER 25 MG TABLET 12.5 MG PO (08:42)
[2020-09-17] MEDS: ASPIRIN EC 81 MG TABLET PO (08:42)
[2020-09-17] MEDS: DEXAMETHASONE 10 MG/ML VIAL 6 MG IV (08:43)
[2020-09-17] MEDS: SPIRONOLACTONE 25 MG TABLET 12.5 MG PO (08:45)
[2020-09-17] MEDS: FUROSEMIDE 20 MG TABLET 40 MG PO (08:45)
[2020-09-17] MEDS: ENOXAPARIN 40 MG/0.4 ML SYRINGE SUBCUT (08:45)
[2020-09-17] MEDS: lisinopriL 20 MG TABLET PO (08:45)
[2020-09-17] MEDS: SODIUM CHLORIDE 0.9% FLUSH 10 ML IV ×2 (08:46→21:47)
[2020-09-17] MEDS: carvediloL 12.5 MG TABLET PO (08:49)
--- NOTE | 2020-09-17 13:55 | PC.NURSE ---
SOB at rest; ls diminished bl throughout; O2 RA=90% independent in room, patient declines shower; call light within reach
--- NOTE | 2020-09-17 16:44 | PM.PN.1 ---
Subjective Subjective Date Patient Seen: 09/17/20 Time Patient Seen: 16:44 Interval history: Bradly Morley is a 54-year-old homeless male with past medical history of COPD and systolic heart failure who presented with shortness of breath. He remains dyspneic at rest, and still more so with exertion today. He is not on any supplemental oxygen at this time. He denies any fever, shortness of breath. He does have some muscle aches, which may be more indicative of a early diagnosed COVID-19 infection as his COVID-19 testing was positive. Exam Vital Signs (past 8 hours): - 09/17/20 08:55 09/17/20 11:45 09/17/20 11:54 Temperature 98.0 F Pulse Rate 102 H 97 H Respiratory Rate 15 24 Blood Pressure 137/93 H Pulse Oximetry 91 91 90 L 09/17/20 12:30 09/17/20 14:49 09/17/20 15:50 Temperature 98.2 F Pulse Rate 92 H 87 87 Respiratory Rate 16 20 Blood Pressure 131/82 131/82 Pulse Oximetry 92 90 L Oxygen Delivery Method Room Air Oxygen Flow Rate 0 Narrative Exam Narrative: GENERAL APPEARANCE: Disheveled male, no acute distress. SKIN: Inspection of the skin reveals no rashes, ulcerations or petechiae. There are multiple tattoos HEENT: Normocephalic atraumatic, extraocular muscles are intact, oropharynx is clear and mucous membranes are moist, neck is supple without adenopathy NECK: Supple and symmetric. There was no thyroid enlargement, and no tenderness, or masses were felt. CHEST: Normal AP diameter and normal contour without any kyphoscoliosis. LUNGS: Auscultation of the lungs revealed mild diffuse wheezing, mild bibasilar crackles. CARDIOVASCULAR: There was a regular rate and rhythm without any murmurs, gallops, rubs. Peripheral pulses were 2+ and symmetric. ABDOMEN: Soft and nontender with normal bowel sounds. No ascites was noted. MUSCULOSKELETAL: There was no tenderness or effusions noted. Muscle strength and tone were normal. EXTREMITIES: No cyanosis, clubbing or edema. NEUROLOGIC: Alert and oriented x 3. speech slightly slurred at baseline compared to previous encounters. Strength is +5/5 in the Upper Extremities and Lower Extremities Bilaterally. Sensation to touch was normal. Objective Labs Result Diagrams: 09/17/20 05:30 09/17/20 05:30 Labs: Laboratory Results - last 24 hr 09/16/20 09/16/20 09/16/20 17:30 17:57 17:57 WBC RBC Hgb Hct MCV MCH MCHC RDW Plt Count Neut % (Auto) Lymph % (Auto) [place] % (Auto) Eos % (Auto) Baso % (Auto) Neut # (Auto) Lymph # (Auto) [place] # (Auto) Eos # (Auto) Baso # (Auto) Sodium Potassium Chloride Carbon Dioxide BUN Creatinine Estimated GFR BUN/Creatinine Ratio Glucose Calcium Magnesium Total Bilirubin Conjugated Bilirubin Unconjugated Bilirubin AST ALT Alkaline Phosphatase Total Protein Albumin Globulin Albumin/Globulin Ratio Urine Color Yellow Urine Appearance Clear Urine pH 6.0 Ur Specific [place] 1.025 Urine Protein 2+ H Urine Glucose (UA) Negative Urine Ketones Negative Urine Occult Blood 1+ H Urine Nitrate Negative Urine Bilirubin Negative Urine Urobilinogen 0.2 Ur Leukocyte Esterase Negative Urine RBC 1-5/hpf Urine WBC 0-1/hpf Ur Squamous Epith Cells 0-1 /hpf Urine Bacteria None seen Urine Mucus 1+ H Ur Culture Indicated? Cult not indicated U Opiates 300ng/mL cut Negative Ur Oxycodone Screen Negative Urine Methadone Screen Negative Ur Barbiturates Screen Negative U Tricyclic Antidepress Negative Ur Phencyclidine Scrn Negative Ur Amphetamines Screen Negative U Methamphetamines Scrn Negative Ur MDMA Scrn (Ecstasy) Negative U Benzodiazepines Scrn Negative Urine Cocaine Screen Negative U Marijuana (THC) Screen Negative SARS-CoV-2 (PCR) Positive H 09/17/20 09/17/20 09/17/20 05:30 05:30 05:30 WBC 8.7 RBC 5.52 Hgb 14.9 Hct 47.4 MCV 86.0 MCH 27.1 MCHC 31.5 RDW 14.5 Plt Count 250 Neut % (Auto) 90.5 H Lymph % (Auto) 5.7 L Cowley % (Auto) 3.2 Eos % (Auto) 0.4 L Baso % (Auto) 0.2 Neut # (Auto) 7900 H Lymph # (Auto) 500 L Cowley # (Auto) 300 Eos # (Auto) 0 Baso # (Auto) 0 Sodium 138 Potassium 4.1 Chloride 99 Carbon Dioxide 30 BUN 30 H Creatinine 0.78 Estimated GFR > 60.0 BUN/Creatinine Ratio 38.5 H Glucose 199 H Calcium 8.5 Magnesium 2.0 Total Bilirubin 0.1 L Conjugated Bilirubin 0.0 Unconjugated Bilirubin 0.0 AST 22 ALT 18 Alkaline Phosphatase 74 Total Protein 6.6 Albumin 3.5 Globulin 3.1 Albumin/Globulin Ratio 1.1 Urine Color Urine Appearance Urine pH Ur Specific [place] Urine Protein Urine Glucose (UA) Urine Ketones Urine Occult Blood Urine Nitrate Urine Bilirubin Urine Urobilinogen Ur Leukocyte Esterase Urine RBC Urine WBC Ur Squamous Epith Cells Urine Bacteria Urine Mucus Ur Culture Indicated? U Opiates 300ng/mL cut Ur Oxycodone Screen Urine Methadone Screen Ur Barbiturates Screen U Tricyclic Antidepress Ur Phencyclidine Scrn Ur Amphetamines Screen U Methamphetamines Scrn Ur MDMA Scrn (Ecstasy) U Benzodiazepines Scrn Urine Cocaine Screen U Marijuana (THC) Screen SARS-CoV-2 (PCR) [facility] Medical History COPD (chronic obstructive pulmonary disease) HFrEF (heart failure with reduced ejection fraction) Methamphetamine abuse Peripheral edema Surgical History Status post appendectomy Family History Father Heart disease Mother Medical history unknown Brother Medical history unknown Social History household members: none Smoking Status: Current every day smoker alcohol intake: never Assessment & Plan Assessment & Plan narrative: This is a 54-year-old male who is a current smoker with a past medical history significant for COPD, methamphetamine abuse and congestive heart failure with reduced ejection fraction, prior abnormal stress testing but not a suitable left heart cath candidate due to medication noncompliance who presented to the ER with shortness of breath for the last few weeks after running out medications. 1. Acute exacerbation of chronic COPD, present on admission, active. -the patient reports his smoking has declined dramatically, he in fact denies methamphetamine use and UDS is negative. -Rapid COVID negative, admit swab positive. Last chest CT is reviewed and shows/confirms emphysema. -continue doxy for anti-inflammatory effect. F/u sputum cultures but no current evidence of pneumonia on CXR however + COVID testing. -continue prednisone 40 mg daily. -may be related to COVID, given 86% on RA in ER he was started on remdesevir and decadron. Decadron will adequately cover COPD exacerbation. Will leave on decadron and hold remdesevir today given he is not requiring oxygen at this time. 2. Acute on chronic systolic heart failure, present on admission, active -patient with echocardiogram completed on 04/14/2020 finding ejection fraction of 35-40% with mildly increased left ventricular wall thickness and moderately reduced function right ventricle is normal in size and function. -repeat limited echo 1 month later showing worsening EF of 25-30% this admission. Not a [facility] candidate per cardiology during prior prior admission. -patient presented with an elevated proBNP 2069. -resume previous medciations including coreg, lisinopril, aldactone, asa and diurese with IV lasix 40 mg IV BID. First dose of lasix in ER, attempted PO lasix this AM but still with continued symptoms today. He is not a LHC at this time. Depending on progress in symptoms consider repeat limited TTE however this will not likely exchange administrator at this time. -prior chest CT shows significant coronary calcifications 3. Prediabetes -glucose 186 on admission. Elevated again today, likely due to steroids. Will start sliding scale today during steroid therapy. -Hemoglobin A1c 6.3 on previous admission, will repeat. 4. Methamphetamine abuse, chronic, reports cessation -UDS negative on admission. Continue praising cessation. 5. Tobacco dependence, chronic, stable -teaching provided on COPD and smoking. -strongly encouraged smoking cessation 6. Medication non-compliance. 7. + COVID 19 testing - patient with positive nasal swab. Received COVID vaccine, moderna x1 dose only. Maybe mild symptoms thus far. Will repeat this evening given negative rapid testing to recheck. 8. Acute respiratory failure with hypoxia, resolved - patient 86% on room air in the ER. Treatments as noted above with improvement, currently 90% on RA. titrate oxygen supplementation with goal O2 of greater than 88%, but no greater than 96% while on supplemental therapy. Code: Full, as discussed with the patient. DVT: Lovenox Dispo: Admitted as observation, may need to change to inpatient depending on his continued heart failure symptoms.
[2020-09-17] MEDS: FUROSEMIDE 40 MG/4 ML VIAL IV (17:18)
[2020-09-17] MEDS: ACETAMINOPHEN 325 MG TABLET 650 MG PO (18:13)
[2020-09-17 20:25] LABS: COVID19 - ADMIT (NP swab/PCR) POSITIVE (Negative)
[2020-09-18] VITALS (15 sets, daily range): BP systolic 117–137; BP diastolic 63–87; PULSE 83–100; RESP 20–32; TEMP 36.6–37.1; O2SAT 91–98
[2020-09-18 05:27] LABS: Add Manual Diff / Slide Review NO; Basophils Absolute Auto 100 /uL (0-100); Basophils Percent Auto 0.4 % (0-2); Eosinophils Absolute Auto 0 /uL (0-450); Eosinophils Percent Auto 0.2 % (2-4); Hematocrit 45.8 % (41-53); Hemoglobin 14.4 g/dL (13.5-17.5); Lymphocytes Absolute Auto 1200 /uL (1100-4500); Lymphocytes Percent Auto 8.5 % (25-40); Mean Corpuscular HGB Conc 31.3 % (30-36); Mean Corpuscular Hemoglobin 26.7 PG (26-34); Mean Corpuscular Volume 85.4 fL (80-100); Monocytes Absolute Auto 1000 /uL (0-900); Neutrophils Absolute Auto 11600 /uL (1500-7000); Neutrophils Percent Auto 83.9 % (50-75); Platelet Count 276 X10^3/uL (150-400); Red Blood Cell Count 5.37 X10^6/uL (4.5-5.9); Red Cell Distribution Width 14.3 % (11.6-14.8); White Blood Cell Count 13.8 X10^3/uL (4.5-11.0)
[2020-09-18] MEDS: ALBUTEROL 2.5 MG/3 ML NEB (ADULT) INH (05:35)
[2020-09-18 05:37] LABS: BUN Creatinine Ratio 42.2 (6-22); Blood Urea Nitrogen 38 mg/dL (9-20); Carbon Dioxide 34 mmol/L (22-32); Chloride 99 mmol/L (98-107); Estimated Glomerular Filt Rate > 60.0 mL/min (>60); Glucose 111 mg/dL (70-100); HEMOLYSIS < 15 (0-50); Potassium 4.4 mmol/L (3.4-5.1); Sodium 137 mmol/L (137-145)
[2020-09-18 05:38] LABS: Alanine Aminotransferase 16 IU/L (<50); Albumin 3.4 g/dL (3.5-5.0); Albumin Globulin Ratio 1.1 (1.0-2.8); Alkaline Phosphatase 67 U/L (38-126); Aspartate Aminotransferase 23 IU/L (17-59); Bilirubin Total < 0.1 mg/dL (0.2-1.3); HEMOLYSIS < 15 (0-50); Total Protein 6.4 g/dL (6.3-8.2)
[2020-09-18 05:49] LABS: Hemoglobin A1C% w Est Avg Glu 5.8 % (4.0-6.0)
[2020-09-18] MEDS: BUDESONIDE 0.5 MG/2 ML NEB INH ×2 (08:01→19:40)
[2020-09-18] MEDS: ALBUTEROL/IPRATROPIUM 3 ML AMPUL INH ×5 (08:01→23:25)
[2020-09-18] MEDS: DEXAMETHASONE 10 MG/ML VIAL 6 MG IV (09:11)
[2020-09-18] MEDS: ACETAMINOPHEN 325 MG TABLET 650 MG PO ×2 (09:12→17:00)
[2020-09-18] MEDS: lisinopriL 20 MG TABLET PO (09:12)
[2020-09-18] MEDS: ASPIRIN EC 81 MG TABLET PO (09:12)
[2020-09-18] MEDS: SPIRONOLACTONE 25 MG TABLET 12.5 MG PO (09:12)
[2020-09-18] MEDS: FUROSEMIDE 40 MG/4 ML VIAL IV (09:13)
[2020-09-18] MEDS: carvediloL 12.5 MG TABLET PO (09:13)
[2020-09-18] MEDS: ENOXAPARIN 40 MG/0.4 ML SYRINGE SUBCUT (09:13)
[2020-09-18] MEDS: SODIUM CHLORIDE 0.9% FLUSH 10 ML IV ×4 (09:14→20:41)
[2020-09-18] MEDS: INSULIN LISPRO 100 UNIT/ML 3ML VIAL SUBCUT (12:18)
[2020-09-18] MEDS: AZITHROMYCIN 500 MG in DEXTROSE 5% IN WATER 250 ML IV (15:32)
--- NOTE | 2020-09-18 15:36 | CM.IDA ---
Initial DCP Assessment Note Pt is a 54 yo male, notes indicate currently homeless, presents w/exacerbation of COPD, SOB, inability to ambulate, abd pain, found to be COVID-19+ (not requiring O2 at this time), past medical history of COPD and systolic heart failure Patient familiar to this [employer] from prior medical admissions, h/o [facility] poly substance abuse, chronic homelessness, reports cessation from meth. Tox screen Neg for all substances upon admission. PCP: None Listed Payer: [employer] According to Dr Rodgers, patient will not be discharged today, continues to be SOB. Placed call into patient's room today, introduced role. Patient sounds very agitated, tells this [employer] I was sleeping. Patient is not forthcoming w/information about current living situation or plans upon DC. Patient states I am going back to sleep now, thank you for the call and hangs up the phone. Updated Dr Rodgers. Plan: DC likely back to the streets of [place] vs home w/family if agreeable (?) COVID-19+ status complicates nursing home placement. ASHLI Tello Discharge Planning/Care Management CM Discharge Assessment Start: 09/18/20 15:34 Freq: Status: Active Protocol: Document 09/18/20 15:34 SANGITA (Rec: 09/18/20 15:36 SANGITA [id number]) Discharge Planning Assessment Assigned Registered Diet Technician ASHLI Zuniga DPOA/Assigned Designee Name Jonnathan Morley, Contact Information [phone], Advance Directives? No Advance Directives on File No History Provided By Patient,Medical Record Prior Living Arrangements Homeless Household Members none Discharge Plan Home Transportation Arrangement Father lives locally and may provide transport Referrals Initiated None needed
--- NOTE | 2020-09-18 16:32 | PM.PN.1 ---
Subjective Subjective Date Patient Seen: 09/18/20 Time Patient Seen: 09:32 Interval history: Today he continues to feel quite short of breath. He is winded and tachypneic when he walks from the bed to the chair. Coughing up some sputum. Exam Vital Signs (past 8 hours): - 09/18/20 09:45 09/18/20 11:40 09/18/20 12:08 Temperature 97.9 F Pulse Rate 97 H 85 86 Respiratory Rate 32 H 28 H 30 H Blood Pressure 137/76 117/63 Pulse Oximetry 91 92 92 09/18/20 16:10 Temperature Pulse Rate 91 H Respiratory Rate 28 H Blood Pressure Pulse Oximetry 93 Fraction of Inspired Oxygen 24 Oxygen Delivery Method Room Air Oxygen Flow Rate 0 Narrative Exam Narrative: GENERAL APPEARANCE: No acute distress SKIN: No rashes There are multiple tattoos HEENT: Normocephalic atraumatic, extraocular muscles are intact, oropharynx is clear and mucous membranes are moist LUNGS: diffuse wheezing and basilar rhonchi CARDIOVASCULAR: regular rate and rhythm without murmurs ABDOMEN: Soft and nontender with normal bowel sounds. No ascites was noted. MUSCULOSKELETAL: There was no tenderness or effusions noted. Muscle strength and tone were normal. EXTREMITIES: No cyanosis, clubbing or edema. NEUROLOGIC: Alert and oriented x 3. moving all extremities, no slurred speech Objective Labs Result Diagrams: 09/18/20 04:56 09/18/20 04:56 Labs: Laboratory Results - last 24 hr 09/17/20 09/18/20 09/18/20 18:15 04:56 04:56 WBC RBC Hgb Hct MCV MCH MCHC RDW Plt Count Neut % (Auto) Lymph % (Auto) Ness % (Auto) Eos % (Auto) Baso % (Auto) Neut # (Auto) Lymph # (Auto) Ness # (Auto) Eos # (Auto) Baso # (Auto) Sodium 137 Potassium 4.4 Chloride 99 Carbon Dioxide 34 H BUN 38 H Creatinine 0.90 Estimated GFR > 60.0 BUN/Creatinine Ratio 42.2 H Glucose 111 H Hemoglobin A1c 5.8 Calcium 9.0 Magnesium Total Bilirubin Conjugated Bilirubin Unconjugated Bilirubin AST ALT Alkaline Phosphatase Total Protein Albumin Globulin Albumin/Globulin Ratio SARS-CoV-2 (PCR) Positive H 09/18/20 09/18/20 04:56 04:56 WBC 13.8 H D RBC 5.37 Hgb 14.4 Hct 45.8 MCV 85.4 MCH 26.7 MCHC 31.3 RDW 14.3 Plt Count 276 Neut % (Auto) 83.9 H Lymph % (Auto) 8.5 L Ness % (Auto) 7.0 Eos % (Auto) 0.2 L Baso % (Auto) 0.4 Neut # (Auto) 60173 H Lymph # (Auto) 1200 Ness # (Auto) 1000 H Eos # (Auto) 0 Baso # (Auto) 100 Sodium Potassium Chloride Carbon Dioxide BUN Creatinine Estimated GFR BUN/Creatinine Ratio Glucose Hemoglobin A1c Calcium Magnesium 2.0 Total Bilirubin < 0.1 L Conjugated Bilirubin 0.0 Unconjugated Bilirubin 0.0 AST 23 ALT 16 Alkaline Phosphatase 67 Total Protein 6.4 Albumin 3.4 L Globulin 3.0 Albumin/Globulin Ratio 1.1 SARS-CoV-2 (PCR) [facility] Medical History COPD (chronic obstructive pulmonary disease) HFrEF (heart failure with reduced ejection fraction) Methamphetamine abuse Peripheral edema Surgical History Status post appendectomy Family History Father Heart disease Mother Medical history unknown Brother Medical history unknown Social History household members: none Smoking Status: Current every day smoker alcohol intake: never Assessment & Plan Assessment & Plan narrative: 54M PMH current smoker, COPD, heroin abuse and congestive heart failure with reduced ejection fraction, prior abnormal stress testing but not a suitable left heart cath candidate due to medication noncompliance who presented to the ER with shortness of breath for the last few weeks after running out medications. 1. Acute exacerbation of chronic COPD, present on admission, active. -the patient reports his smoking has declined dramatically, he in fact denies methamphetamine use and UDS is negative. -Rapid COVID negative, admit swab positive. Last chest CT is reviewed and shows/confirms emphysema. -continue azithromycin for anti-inflammatory effect. F/u sputum cultures showed pneumococcus -continue prednisone 40 mg daily. -may be related to COVID, given 86% on RA in ER he was started on remdesevir and decadron. Decadron will adequately cover COPD exacerbation. Will leave on decadron and hold remdesevir as he is not requiring oxygen at this time. 2. Acute bacterial pneumonia, pneumococcus -has mild infiltrate noted on CT scan -sputum positive for pneumococcus -ceftriaxone started 09/18, continuining azithromycin as above 2. Acute on chronic systolic heart failure, present on admission, active -patient with echocardiogram completed on 04/14/2020 finding ejection fraction of 35-40% with mildly increased left ventricular wall thickness and moderately reduced function right ventricle is normal in size and function. -repeat limited echo 1 month later showing worsening EF of 25-30% this admission. Not a [facility] candidate per cardiology during prior prior admission. -patient presented with an elevated proBNP 2069. -resume previous medciations including coreg, lisinopril, aldactone, asa and diurese with IV lasix 40 mg IV BID. Decreased lasix to daily on 09/18. First dose of lasix in ER, attempted PO lasix this AM but still with continued symptoms today. He is not a LHC at this time. Depending on progress in symptoms consider repeat limited TTE however this will not likely liner roll changer at this time. -prior chest CT shows significant coronary calcifications 3. Prediabetes -glucose 186 on admission. Elevated again today, likely due to steroids. Will start sliding scale today during steroid therapy. -Hemoglobin A1c 6.3 on previous admission, will repeat was 5.8 4. Methamphetamine vs heroin abuse, chronic, reports cessation -UDS negative on admission. Continue encouraging cessation. 5. Tobacco dependence, chronic, stable -teaching provided on COPD and smoking. -strongly encouraged smoking cessation 6. Medication non-compliance. 7. + COVID 19 testing - patient with positive nasal swab. Received COVID vaccine, moderna x1 dose only. Maybe mild symptoms thus far. Will repeat this evening given negative rapid testing to recheck. 8. Acute respiratory failure with hypoxia, resolved - patient 86% on room air in the ER. Treatments as noted above with improvement, currently 90% on RA. titrate oxygen supplementation with goal O2 of greater than 88%, but no greater than 96% while on supplemental therapy. Code: Full, as discussed with the patient. DVT: Lovenox Dispo: Admitted as observation, may need to change to inpatient depending on his continued heart failure symptoms.
[2020-09-18] MEDS: CEFTRIAXONE 1 GM/50 ML FROZ.PIGGY IV (16:58)
[2020-09-18] MEDS: SODIUM CHLORIDE 0.9% 250 ML 21 ML IV (17:00)
[2020-09-19] VITALS (18 sets, daily range): BP systolic 110–148; BP diastolic 59–95; PULSE 78–102; RESP 14–24; TEMP 36.5–37.1; O2SAT 92–97
[2020-09-19] MEDS: ALBUTEROL 2.5 MG/3 ML NEB (ADULT) INH (05:11)
[2020-09-19 06:13] LABS: Hematocrit 46.2 % (41-53); Hemoglobin 14.3 g/dL (13.5-17.5); Mean Corpuscular HGB Conc 30.9 % (30-36); Mean Corpuscular Hemoglobin 26.7 PG (26-34); Mean Corpuscular Volume 86.3 fL (80-100); Platelet Count 297 X10^3/uL (150-400); Red Blood Cell Count 5.35 X10^6/uL (4.5-5.9); Red Cell Distribution Width 14.5 % (11.6-14.8); White Blood Cell Count 11.9 X10^3/uL (4.5-11.0)
[2020-09-19 06:23] LABS: BUN Creatinine Ratio 48.8 (6-22); Blood Urea Nitrogen 41 mg/dL (9-20); Calcium 8.8 mg/dL (8.4-10.2); Carbon Dioxide 34 mmol/L (22-32); Chloride 98 mmol/L (98-107); Estimated Glomerular Filt Rate > 60.0 mL/min (>60); Glucose 120 mg/dL (70-100); HEMOLYSIS < 15 (0-50); Magnesium 2.1 mg/dL (1.6-2.3); Potassium 4.6 mmol/L (3.4-5.1); Sodium 137 mmol/L (137-145)
[2020-09-19] MEDS: ALBUTEROL/IPRATROPIUM 3 ML AMPUL INH ×5 (08:14→23:19)
[2020-09-19] MEDS: BUDESONIDE 0.5 MG/2 ML NEB INH ×2 (08:14→19:08)
[2020-09-19] MEDS: carvediloL 12.5 MG TABLET PO (09:06)
[2020-09-19] MEDS: ENOXAPARIN 40 MG/0.4 ML SYRINGE SUBCUT (09:09)
[2020-09-19] MEDS: DEXAMETHASONE 10 MG/ML VIAL 6 MG IV (09:09)
[2020-09-19] MEDS: lisinopriL 20 MG TABLET PO (09:09)
[2020-09-19] MEDS: ASPIRIN EC 81 MG TABLET PO (09:10)
[2020-09-19] MEDS: FUROSEMIDE 40 MG/4 ML VIAL IV (09:11)
[2020-09-19] MEDS: SODIUM CHLORIDE 0.9% FLUSH 10 ML IV (09:12)
--- NOTE | 2020-09-19 09:56 | PC.NURSE ---
Addendum entered by Jaguar Bethea R.N. 09/19/20 11:54: set up for lunch. RT also at bedside. Original Note: Pt alert and oriented, responds to questions slowly. Offers no overt c/o. Though is tired of his cough. Nothing productive presently. Prefers lights off. IV patent left AC. in to see Pt and discuss plan. Pt states he is to be released tomorrow 09/20/20.
[2020-09-19] MEDS: AZITHROMYCIN 500 MG in DEXTROSE 5% IN WATER 250 ML IV (14:43)
--- NOTE | 2020-09-19 16:35 | P.PN_ITS ---
Subjective Subjective Date Patient Seen: 09/19/20 Time Patient Seen: 08:35 Interval history: Still feeling short of breath, but he does feel his symptoms are improving. Coughing significantly Exam Vital Signs (past 8 hours): - 09/19/20 09:06 09/19/20 09:09 09/19/20 11:50 Temperature Pulse Rate 89 89 78 Respiratory Rate 20 Blood Pressure 121/81 121/81 Pulse Oximetry 94 09/19/20 13:00 09/19/20 16:00 09/19/20 16:20 Temperature 98.3 F Pulse Rate 86 89 Respiratory Rate 14 20 Blood Pressure 110/82 Pulse Oximetry 93 93 97 Fraction of Inspired Oxygen 24 Oxygen Delivery Method Room Air Oxygen Flow Rate 0 Narrative Exam Narrative: GENERAL APPEARANCE: No acute distress SKIN: No rashes There are multiple tattoos HEENT: Normocephalic atraumatic, extraocular muscles are intact, oropharynx is clear and mucous membranes are moist LUNGS: wheezing and basilar rhonchi but improving CARDIOVASCULAR: regular rate and rhythm without murmurs ABDOMEN: Soft and nontender with normal bowel sounds. No ascites was noted. MUSCULOSKELETAL: There was no tenderness or effusions noted. Muscle strength and tone were normal. EXTREMITIES: No cyanosis, clubbing or edema. NEUROLOGIC: Alert and oriented x 3. moving all extremities, no slurred speech Objective Labs Result Diagrams: 09/19/20 05:30 09/19/20 05:30 Labs: Laboratory Results - last 24 hr 09/19/20 09/19/20 05:30 05:30 WBC 11.9 H RBC 5.35 Hgb 14.3 Hct 46.2 MCV 86.3 MCH 26.7 MCHC 30.9 RDW 14.5 Plt Count 297 Sodium 137 Potassium 4.6 Chloride 98 Carbon Dioxide 34 H BUN 41 H Creatinine 0.84 Estimated GFR > 60.0 BUN/Creatinine Ratio 48.8 H Glucose 120 H Calcium 8.8 Magnesium 2.1 PFSH Medical History COPD (chronic obstructive pulmonary disease) HFrEF (heart failure with reduced ejection fraction) Methamphetamine abuse Peripheral edema Surgical History Status post appendectomy Family History Father Heart disease Mother Medical history unknown Brother Medical history unknown Social History household members: none Smoking Status: Current every day smoker alcohol intake: never Assessment & Plan Assessment & Plan narrative: 54M PMH current smoker, COPD, heroin abuse and congestive heart failure with reduced ejection fraction, prior abnormal stress testing but not a suitable left heart cath candidate due to medication noncompliance who presented to the ER with shortness of breath for the last few weeks after running out medications. 1. Acute exacerbation of chronic COPD, present on admission, active. -the patient reports his smoking has declined dramatically, he in fact denies methamphetamine use and UDS is negative. -Rapid COVID negative, admit swab positive. Last chest CT is reviewed and shows/confirms emphysema. -initially on azithromycin for anti-inflammatory effect. F/u sputum cultures showed pneumococcus so switched to levofloxacin -continue decadron -may be related to COVID, given 86% on RA in ER he was started on remdesevir and decadron. Decadron will adequately cover COPD exacerbation. Will leave on decadron and hold remdesevir as he is not requiring oxygen at this time. 2. Acute bacterial pneumonia, pneumococcus -has mild infiltrate noted on CT scan -sputum positive for pneumococcus -ceftriaxone started 09/18, and switched to levofloxacin on 09/19 2. Acute on chronic systolic heart failure, present on admission, active -patient with echocardiogram completed on 04/14/2020 finding ejection fraction of 35-40% with mildly increased left ventricular wall thickness and moderately reduced function right ventricle is normal in size and function. -repeat limited echo 1 month later showing worsening EF of 25-30% this admission. Not a [facility] candidate per cardiology during prior prior admission. -patient presented with an elevated proBNP 2069. -resume previous medciations including coreg, lisinopril, aldactone, asa -aldcatone held given diuresis with lasix -diuresed through 09/19 and stopped lasix as patietn appears improving -he is not a LHC at this time. Depending on progress in symptoms consider repeat limited TTE however this will not likely exchange underwriting consultant at this time. -prior chest CT shows significant coronary calcifications 3. Prediabetes -glucose 186 on admission. Elevated again today, likely due to steroids. Will start sliding scale today during steroid therapy. -Hemoglobin A1c 6.3 on previous admission, will repeat was 5.8 4. Methamphetamine vs heroin abuse, chronic, reports cessation -UDS negative on admission. Continue encouraging cessation. 5. Tobacco dependence, chronic, stable -teaching provided on COPD and smoking. -strongly encouraged smoking cessation 6. Medication non-compliance. 7. + COVID 19 testing - patient with positive nasal swab. Received COVID vaccine, moderna x1 dose only. Maybe mild symptoms thus far. 8. Acute respiratory failure with hypoxia, resolved - patient 86% on room air in the ER. Treatments as noted above with improvement, currently 90% on RA. titrate oxygen supplementation with goal O2 of greater than 88%, but no greater than 96% while on supplemental therapy. Code: Full, as discussed with the patient. DVT: Lovenox Dispo: Admitted as observation, may need to change to inpatient depending on his continued heart failure symptoms.
[2020-09-19] MEDS: INSULIN LISPRO 100 UNIT/ML 3ML VIAL SUBCUT (17:05)
[2020-09-20] VITALS (11 sets, daily range): BP systolic 110–149; BP diastolic 61–95; PULSE 79–100; RESP 20–25; TEMP 36.4–36.7; O2SAT 92–95
[2020-09-20] MEDS: ALBUTEROL 2.5 MG/3 ML NEB (ADULT) INH ×2 (03:36→15:22)
[2020-09-20 05:49] LABS: Hematocrit 45.5 % (41-53); Hemoglobin 14.4 g/dL (13.5-17.5); Mean Corpuscular HGB Conc 31.7 % (30-36); Mean Corpuscular Hemoglobin 26.9 PG (26-34); Mean Corpuscular Volume 85.1 fL (80-100); Platelet Count 283 X10^3/uL (150-400); Red Blood Cell Count 5.35 X10^6/uL (4.5-5.9); Red Cell Distribution Width 14.4 % (11.6-14.8); White Blood Cell Count 11.7 X10^3/uL (4.5-11.0)
[2020-09-20 05:55] LABS: BUN Creatinine Ratio 64.3 (6-22); Blood Urea Nitrogen 45 mg/dL (9-20); Calcium 8.8 mg/dL (8.4-10.2); Carbon Dioxide 35 mmol/L (22-32); Chloride 96 mmol/L (98-107); Estimated Glomerular Filt Rate > 60.0 mL/min (>60); Glucose 99 mg/dL (70-100); HEMOLYSIS 17 (0-50); Sodium 135 mmol/L (137-145)
[2020-09-20] MEDS: levoFLOXacin 250 MG TABLET 750 MG PO (06:11)
[2020-09-20] MEDS: ALBUTEROL/IPRATROPIUM 3 ML AMPUL INH ×2 (07:38→10:57)
[2020-09-20] MEDS: BUDESONIDE 0.5 MG/2 ML NEB INH (07:38)
--- NOTE | 2020-09-20 09:36 | PC.NURSE ---
Day shift: Pt said The social workers can't do anything for me. I'm ready to go now. At 0930 Pt is dressed and has his belongings. Waiting for d/c orders to be finalized. Will go over them w/ Pt before he leaves today.
[2020-09-20] MEDS: lisinopriL 20 MG TABLET PO (10:22)
[2020-09-20] MEDS: ASPIRIN EC 81 MG TABLET PO (10:22)
[2020-09-20] MEDS: carvediloL 12.5 MG TABLET PO (10:23)
[2020-09-20] MEDS: dexAMETHasone 4 MG TABLET 6 MG PO (10:24)
--- NOTE | 2020-09-20 11:40 | PM.DS.1 ---
History of Present Illness History of Present Illness Chief complaint: COPD, can hardly walk, abdominal pain Narrative: H and P per Madi Hartley: This is a 54-year-old male who is a current smoker with a past medical history significant for COPD, methamphetamine abuse and congestive heart failure with reduced ejection fraction diagnosed on prior admission who presented to the ER with shortness of breath for the last few weeks after running out of medications. He reports dyspnea on exertion and even dyspnea at rest currently. He complains of some chest tightness, increased cough with white sputum production. He also complains of lower abdominal pain but worsened with cough. He denies palpitations, lower extremity edema, or orthopnea. He denies any nausea, vomiting, diarrhea, or constipation. In the emergency room the patient had a desaturation to 86% on room air. He was mildly tachypneic, mildly hypertensive, and mildly tachycardic. He was saturating in the low 90s on room air. Initial laboratory evaluation revealed an unremarkable CBC, negative D-dimer for age, unremarkable chemistries except for a glucose of 186. Troponin was within normal limits at 0.017. ProBNP was 2070. COVID-19 testing was negative. In the emergency room the patient was given 2 DuoNebs, Solu-Medrol, and Lasix without much improvement in symptoms. He was admitted for further management of COPD exacerbation and probable acute on chronic systolic heart failure. Discharge Providers Provider Date of admission: 09/16/20 17:59 Discharge Date: 09/20/20 Consults: 09/16/20 17:02 Consult to [facility] [place] - Time Study Technician Stat Comment: out of meds, no pcp 09/16/20 20:26 Consult to Respiratory Therapy Evaluate & Treat Comment: Physician Instructions: Evaluate and treat Discharge provider: Ellis Rodgers MD Summary Hospital Course Discharge Diagnosis: 1. Acute hypoxemic respiratory failure 2. Acute COPD exacerbation 3. Acute bacterial pneumonia, pneumoccocus in sputum 4. Acute on chronic systolic heart failure 5. Prediabetes, a1c 5.8 6. History of meth vs heroin abuse, now reporst cessation 7. Active smoker 8. +COVID 19 9. Homeless Hospital Course: Mr. Morley was admitted with shortness of breath. He is homeless, and had run out of his medications. He presented short of breath and wheezing. He had inifiltrate on CT scan. Sputum culture grew pneumococcus, and his COVID swab was positive. He was quite significantly wheezing, and is an active smoker. He was treate with antibiotics for his pneumonia, nebulizers for COPD, he was started on decadron to cover COPD and COVID. He also was volume overloaded with previous EF of 25-30% and not a [facility] candidate per cardiology on previous visits. He was restarted on his lasix. With these treatments he greatly improved. He was off oxygen and ambulating on discharge. He will plan to go to a hotel that can house him for COVID positive persons. His urine drug screen was negative on admission. He was encourage to follow up closely with a PCP to help manage his multiple medical issues. He was given a few more days of antibiotics to complete his pneumonia treatment, and continued on prednisone to complete treatment for his COPD. He was encouraged to isolate due to COVID positive. Exam Vital Signs (past 8 hours): Fraction of Inspired Oxygen 24 Oxygen Delivery Method Room Air Oxygen Flow Rate 0 Narrative Exam Narrative: GENERAL APPEARANCE: No acute distress SKIN: No rashes There are multiple tattoos HEENT: Normocephalic atraumatic, extraocular muscles are intact, oropharynx is clear and mucous membranes are moist LUNGS: wheezing but improving, with some coughing CARDIOVASCULAR: regular rate and rhythm without murmurs ABDOMEN: Soft and nontender with normal bowel sounds. No ascites was noted. MUSCULOSKELETAL: There was no tenderness or effusions noted. Muscle strength and tone were normal. EXTREMITIES: No cyanosis, clubbing or edema. NEUROLOGIC: Alert and oriented x 3. moving all extremities, no slurred speech Objective Labs Result Diagrams: 09/20/20 05:25 09/20/20 05:25 [facility] Medical History COPD (chronic obstructive pulmonary disease) HFrEF (heart failure with reduced ejection fraction) Methamphetamine abuse Peripheral edema Surgical History Status post appendectomy Family History Father Heart disease Mother Medical history unknown Brother Medical history unknown Social History household members: none Smoking Status: Current every day smoker alcohol intake: never Discharge Plan Discharge Plan Patient Disposition: Home Provider Discharge Comment: Mr. Morley you came in with trouble breathing. You were found to be covid positive, you had a pneumonia, and you also had a COPD exacerbation. You had some extra fluid as you had run out of your medications. We will refill all your prescriptions and will give you a course of antibiotics to treat your infection. Please follow up closely with a primary care provider to help manage your medical issues. Discharge orders & Medications Prescriptions: New levofloxacin 250 mg Tablet 750 mg PO 0700 Qty: 9 RF: 0 prednisone 20 mg tablet 20 mg PO DAILY Qty: 4 RF: 0 Continued carvedilol 12.5 mg tablet 12.5 mg PO DAILY Qty: 60 RF: 0 lisinopril 20 mg tablet 20 mg PO DAILY Qty: 30 RF: 0 aspirin 81 mg tablet,delayed release (DR/EC) 81 mg PO DAILY Qty: 30 RF: 0 spironolactone 25 mg tablet 12.5 mg PO DAILY Qty: 30 RF: 0 furosemide 20 mg tablet 20 mg PO DAILY Qty: 30 RF: 0 metoprolol succinate 25 mg tablet extended release 24 hr 12.5 mg PO DAILY Qty: 30 RF: 0 albuterol sulfate 90 mcg/actuation HFA aerosol inhaler 2 puff INHALATION Q4-6H PRN (Reason: shortness of breath or wheezing) 30 Days Qty: 8.5 RF: 0 tiotropium bromide 18 mcg capsule, w/inhalation device 1 cap inhalation DAILY 30 Days Qty: 30 RF: 0 Discontinued mometasone 100 mcg/actuation HFA aerosol inhaler 1 puff inhalation BID 30 Days Qty: 13 RF: 0 Visit Report/Discharge Packet Instructions: Type 2 Diabetes, DI for Heart Failure, DI for Chronic Obstructive Pulmonary Disease, Prednisone, Levofloxacin Quality MIPS - DC The patient has current or prior documentation of left ventricular ejection fraction (LVEF) less than 40%, or moderate or severely depressed left ventricular systolic function.: Yes A. The patient was prescribed or already taking an Angiotensin-Converting Enzyme (TRE) Inhibitor, or Angiotensin Receptor [place] (ARB).: Yes B. The patient was prescribed or already taking a beta-carolina. [If Yes to Both A & B, STOP here]: Yes
--- NOTE | 2020-09-20 16:44 | CM.DANOTE ---
DCP/continued: Received call from Medicaid transport ([facility]) indicating that they now are unable to pick patient up today? [facility] reports that they can assist with transport tomorrow 09-21-20. Per previous discussions to Medicaid transport throughout the day (see notes) transport scheduled for 4:00pm? INFORMATION SCIENTIST expressed frustration with Medicaid transport system. Also reported to them that patient has been discharged and has motel room waiting for him. Gloria reports that there is absolutely nothing she can do. Asked that Medicaid transport concrete block plant supervisor contact INFORMATION SCIENTIST to discuss issues not only with this transport but others. Placed call to [facility], spoke with Jonnathan. He reports that he can arrange transport for this COVID positive patient. Patient now scheduled to be picked up around 5:45pm by [facility] #[phone]. RN given updated information. Transport will be calling the nursing floor when they are in vicinity. P: COVID positive motel today. ASHLI Barbosa
--- NOTE | 2020-09-20 16:46 | CM.DANOTE ---
DCP Continued DEMOLITIONIST Student called and spoke with Pan at [facility] to confirm if Patient will have a bed at the [facility]: [address] For COVID housing as he is pending D/C this date with recommendations to continue to quarantine until approximately 29 SEPTEMBER 2020. DEMOLITIONIST confirmed with Pan there is a bed at [facility] [address] [place], [place]. He will need to check in at the Hotel room number 216. Patient will receive three meals a day. DEMOLITIONIST Student relayed the information to the patient he reported he understood. Called and spoke with Lexa at the [facility] to enquire about Medicaid transportation, she reported there is a provider available today. Faxed completed transportation form pending answer. Called talked with Lexa at 1043 am to provide a heads-up that we will need transposition from the hospital. Will fax documents. Called at 1404 spoke with Lexa to confirm they received fax transportation request. Called at 1501 and spoke with Lexa who transferred me to [facility] left a message for [facility]. Spoke with Vishnu at 1517 who confirmed a 1600 pick-up time. [facility] reported she did not start working on the fax until after 1500. ?You were provided with the wrong information more than once today.? Called [facility] and spoke with Jonnathan who reported he will be able to fill prescriptions and have them delivered to patient?s room. Faxed perceptions and Face sheet for insurance information. At 1400 confirmed with [facility] pharmacy has prescriptions and will fill and deliver to patient?s room. Medications were delivered this afternoon in time for the 1600 D/C. Coordinated with nursing to secure a sack-lunch to-go for this evening. Spoke with and educated patient on D/C to [facility] this afternoon details provided to patient: Meals, isolation requirement, room number and location. Patient was in agreement with D/C plan. PLAN: Patient to D/C from hospital with, sack-lunch, medications and Medicaid transportation leaving the hospital at approximately 1600. ASHLI Barbosa MSW Student
--- NOTE | 2020-09-20 18:34 | PC.NURSE ---
Discharge Note Patient A&O, VSS, RA. No complaints of shortness of breath or other discomforts. Discharge instructions reviewed with patient, all questions/concerns addressed. Patient belongings packed and given to patient along with discharge instructions. Medication bag issued by pharmacy also given to patient. Patient picked up by taxi provided by health department.
== END 2020-09-20 17:45 | disposition home or self-care (01) | DRG 291 ==
LOC: ED 17:59 → AC 09-17 06:57
PROVIDERS: Emergency Medicine; Internal Medicine; Nurse Practitioner Family; Admitting Provider Internal Medicine; Emergency Provider Nurse Practitioner Family; Referring Provider Nurse Practitioner Family; Visit Provider Internal Medicine
DX: I50.23 Acute on chronic systolic (congestive) heart failure (principal); J96.01 Acute respiratory failure with hypoxia; J13 Pneumonia due to Streptococcus pneumoniae; U07.1 COVID-19; J44.1 Chronic obstructive pulmonary disease with (acute) exacerbation; J44.0 Chronic obstructive pulmonary disease with (acute) lower respiratory infection; F17.210 Nicotine dependence, cigarettes, uncomplicated; R73.03 Prediabetes; Z91.14 Patient's other noncompliance with medication regimen
CPT/HCPCS: 36415; 71045; 80048; 80053; 80076; 80305; 81001; 82550; 82553; 82962; 83036; 83690; 83735; 83880; 84484; 85025; 85027; 85379; 85610; 85730; 87070; 87077; 87186; 87205; 87635; 93005; 93010; 94640; 94760; 96374; 96375; 99285; C9803; J1100; J1650; J1815; J1940; J2930; J7613

== ENCOUNTER 2021-01-11 12:50 | Emergency (ER) | payer OTHER, MEDICAID, SELFPAY ==
[2020-09-16 18:45] VITALS: BMI 26.4
[2021-01-11] VITALS (27 sets, daily range): BP systolic 117–203; BP diastolic 63–117; PULSE 71–97; RESP 16–42; TEMP 36.8; O2SAT 92–100
--- NOTE | 2021-01-11 12:56 | DI.RAD.S_ITS ---
PROCEDURE: XR CHEST 1V INDICATIONS: suspected sepsis TECHNIQUE: One view of the chest was acquired. COMPARISON: [facility], CT, CT CHEST WO CON, 05/23/2020, 9:15. [facility], CR, XR CHEST 1V, 09/16/2020, 14:13. FINDINGS: Surgical changes and devices: None. Lungs and pleura: Lungs are clear. No pleural effusions or pneumothorax. Unchanged density left retrocardiac region, possibly representing rounded atelectasis. Centrilobular emphysema. Mediastinum: Mediastinal contours appear normal. Heart size is normal. Bones and chest wall: No suspicious bony lesions. Overlying soft tissues appear unremarkable. IMPRESSION: COPD, chronic left basilar atelectasis, no evidence acute superimposed pulmonary process. Dictated by: Sudheer Hodge M.D. on 01/11/2021 at 13:42 Approved by: Sudheer Hodge M.D. on 01/11/2021 at 13:45
--- NOTE | 2021-01-11 13:10 | PC.NURSE ---
blood culture x 1, failed IV attempt
[2021-01-11] MEDS: ALBUTEROL/IPRATROPIUM 3 ML AMPUL INH ×4 (13:15→17:45)
--- NOTE | 2021-01-11 13:15 | PC.NURSE ---
This RN to room to meet new pt. Mr. Morley presents tachypneic with increased WOB, cold, maldonado skin, diaphoretic, minimally cooperative due to his discomfort. RT at bedside administering breathing treatments.
[2021-01-11 13:27] LABS: COVID19 -Nasal RAPID Negative (Negative)
[2021-01-11 13:41] LABS: Add Manual Diff / Slide Review NO; Basophils Absolute Auto 100 /uL (0-100); Basophils Percent Auto 0.8 % (0-2); Eosinophils Absolute Auto 100 /uL (0-450); Hematocrit 52.1 % (41-53); Hemoglobin 16.7 g/dL (13.5-17.5); Lymphocytes Absolute Auto 900 /uL (1100-4500); Lymphocytes Percent Auto 11.9 % (25-40); Mean Corpuscular HGB Conc 32.1 % (30-36); Mean Corpuscular Hemoglobin 27.4 PG (26-34); Mean Corpuscular Volume 85.3 fL (80-100); Monocytes Absolute Auto 500 /uL (0-900); Monocytes Percent Auto 7.5 % (3-14); Neutrophils Absolute Auto 5700 /uL (1500-7000); Neutrophils Percent Auto 78.8 % (50-75); Platelet Count 251 X10^3/uL (150-400); Red Blood Cell Count 6.11 X10^6/uL (4.5-5.9); White Blood Cell Count 7.2 X10^3/uL (4.5-11.0)
[2021-01-11 13:52] LABS: Creatine Kinase 73 U/L (55-170)
[2021-01-11 13:53] LABS: Lactate (Lactic Acid) 1.1 mmol/L (0.7-2.1)
[2021-01-11 13:54] LABS: Alanine Aminotransferase 15 IU/L (<50); Albumin 4.2 g/dL (3.5-5.0); Albumin Globulin Ratio 1.3 (1.0-2.8); Alkaline Phosphatase 86 U/L (38-126); Aspartate Aminotransferase 24 IU/L (17-59); BUN Creatinine Ratio 26.3 (6-22); Bilirubin Total 0.5 mg/dL (0.2-1.3); Blood Urea Nitrogen 21 mg/dL (9-20); Calcium 9.2 mg/dL (8.4-10.2); Carbon Dioxide 33 mmol/L (22-32); Chloride 101 mmol/L (98-107); Estimated Glomerular Filt Rate > 60.0 mL/min (>60); Globulin 3.2 g/dL (1.7-4.1); Glucose 110 mg/dL (70-100); HEMOLYSIS < 15 (0-50); Lipase 166 U/L (23-300); Potassium 4.3 mmol/L (3.4-5.1); Sodium 139 mmol/L (137-145); Total Protein 7.4 g/dL (6.3-8.2)
--- NOTE | 2021-01-11 14:03 | ED_ITS ---
HPI - SOB/Dyspnea General Chief Complaint: Shortness of Breath/Dyspnea Stated Complaint: Can't Breath Time Seen by Provider: 01/11/21 13:04 Source: patient Mode of arrival: Wheelchair Limitations: no limitations History of Present Illness HPI Narrative: This is a 55-year-old male comes with complaint of difficulty b reathing. Patient has known COPD, CHF and uses methamphetamines intermittently as well as tobacco. Patient also was diagnosed with COVID in [place] and hospitalized for period of time. Patient states he is out of all his medications. He has not been taking them regularly. He denies any fevers. He has had a productive cough he is unsure what the color is. He complains of some chest discomfort particularly feeling tight. He denies any nausea or vomiting. No diaphoresis. No new swelling in his lower extremities. He denies any abdominal pain. No diarrhea constipation or other urinary symptoms. Patient does not believe he has had any cardiac stents when asked directly. He is unable to give much direct history. Related Data Previous Rx's Medication Instructions Recorded albuterol sulfate 90 mcg/actuation 2 puff INHALATION Q4-6H PRN 30 09/20/20 aerosol inhaler Days #8.5 gram aspirin 81 mg tablet,delayed 81 mg PO DAILY #30 tab 09/20/20 release carvedilol 12.5 mg tablet 12.5 mg PO DAILY #60 tab 09/20/20 furosemide 20 mg tablet 20 mg PO DAILY #30 tab 09/20/20 levofloxacin 250 mg tablet 750 mg PO 0700 #9 tab 09/20/20 lisinopril 20 mg tablet 20 mg PO DAILY #30 tab 09/20/20 metoprolol succinate 25 mg 12.5 mg PO DAILY #30 tab 09/20/20 tablet,extended release 24 hr prednisone 20 mg tablet 20 mg PO DAILY #4 tab 09/20/20 spironolactone 25 mg tablet 12.5 mg PO DAILY #30 tab 09/20/20 tiotropium bromide 18 mcg capsule 1 cap INHALATION DAILY 30 Days #30 09/20/20 with inhalation device inh furosemide 40 mg tablet (Lasix) 40 mg PO DAILY #5 tab 01/11/21 prednisone 50 mg tablet 50 mg PO DAILY #5 tab 01/11/21 Allergies Allergy/AdvReac Type Severity Reaction Status Date / Time No Known Drug Allergies Allergy Verified 04/14/20 03:02 Review of Systems Review of Systems ROS Unobtainable: All systems reviewed & are unremarkable except as noted in HPI and below Patient History Medical History COPD (chronic obstructive pulmonary disease) HFrEF (heart failure with reduced ejection fraction) Methamphetamine abuse Peripheral edema Surgical History Status post appendectomy Family History Father Heart disease Mother Medical history unknown Brother Medical history unknown Social History household members: none Smoking Status: Current every day smoker alcohol intake: never Smoking Status: Current every day smoker alcohol intake frequency: other Substance Use Type: does not use and methamphetamine Exam Narrative Exam Narrative: GENERAL: Alert and oriented x three, male in moderate distress. HEENT: Head normocephalic, atraumatic, EOMI, pupils reactive, face symmetric, moist mucous membranes NECK: Supple, full range of motion CARDIOVASCULAR: Regular rate and rhythm without murmurs, rubs or gallops. RESPIRATORY: Breath sounds decreased bilaterally, minimal wheeze, no crackles, rales or rhonchi. Patient is tachypneic. Speaks in 3-4 word sentences. ABDOMEN: Soft, nontender. Normoactive bowel sounds all 4 quadrants. No guarding or rebound, rigidity, no mass : No CVA tenderness EXTREMITIES: Normal range of motion, no clubbing or edema. Neurovascularly intact NEUROLOGICAL: Cranial nerves II through XII grossly intact. Moving all extrem ities SKIN: Warm, dry, no petechiae, no rashes or lesions. Initial Vital Signs Initial Vital Signs: Vital Signs Temperature 98.2 F 01/11/21 12:50 Pulse Rate 85 01/11/21 12:50 Respiratory Rate 42 H 01/11/21 12:50 Blood Pressure 183/117 H 01/11/21 12:50 Pulse Oximetry 95 01/11/21 12:50 Course Orders Ordered: ED Orders 01/11/21 12:56 XR chest 1V Stat COVID19 -Nasal swab/Pre-Proc Stat EKG-12 Lead Stat RT Consult Eval and Treat Now 01/11/21 13:30 Blood Culture Stat Complete Blood Count AUTO DIFF Stat Comprehensive Metabolic Panel Stat Lactate (Lactic Acid) Stat Lipase Stat NT-proBNP (BNP-Adult 18+) Stat Procalcitonin Stat Troponin & CK Cardiac Panel Stat 01/11/21 14:05 Respiratory Panel (Film Array) Stat 01/11/21 15:30 Urine Culture Stat Urine Microscopic Stat 01/11/21 15:40 Troponin I Stat Discontinued Medications Albuterol (Albuterol Hfa Mdi 60 Puff/8 Gm Inhaler) 2 puff INH NOW ONE Stop: 01/11/21 17:52 Last Admin: 01/11/21 18:14 Dose: Not Given Documented by: JANY Albuterol (Albuterol Hfa Prepack) 1 box MISC SEEINSTR ONE Stop: 01/11/21 18:12 Last Admin: 01/11/21 18:19 Dose: 1 box Documented by: SUJEY Albuterol/Ipratropium (Albuterol/Ipratropium 3 Ml Ampul) 3 ml INH Q1H PRN PRN Reason: Shortness Of Breath Albuterol/Ipratropium (Albuterol/Ipratropium 3 Ml Ampul) 3 ml INH Q20M LIGIA Stop: 01/11/21 13:56 Last Admin: 01/11/21 14:02 Dose: 3 ml Documented by: Admin: 01/11/21 13:26 Dose: 3 ml Documented by: Admin: 01/11/21 13:15 Dose: 3 ml Documented by: SUJEY Albuterol/Ipratropium (Albuterol/Ipratropium 3 Ml Ampul) 3 ml INH Q20M LIGIA Stop: 01/11/21 18:26 Last Admin: 01/11/21 17:45 Dose: 3 ml Documented by: SUJEY Furosemide (Furosemide 40 Mg/4 Ml Vial) 40 mg IV NOW ONE Stop: 01/11/21 14:33 Last Admin: 01/11/21 15:01 Dose: 40 mg Documented by: NATANAEL Magnesium Sulfate (Magnesium Sulfate) 2 gm in 50 mls @ 150 mls/hr IV NOW ONE Stop: 01/11/21 13:23 Last Infusion: 01/11/21 14:53 Dose: 0 mls/hr Documented by: NATANAEL Cosigned by: SAE Admin: 01/11/21 14:07 Dose: 150 mls/hr Documented by: NATANAEL Cosigned by: LIZETT Methylprednisolone (Methylprednisolone 125 Mg/2 Ml Vial) 125 mg IV NOW ONE Stop: 01/11/21 13:05 Last Admin: 01/11/21 14:07 Dose: 125 mg Documented by: NATANAEL Metoprolol Tartrate (Metoprolol Tartrate 5 Mg/5 Ml Inj) 5 mg IV Q5M LIGIA Stop: 01/11/21 15:26 Last Admin: 01/11/21 16:08 Dose: 5 mg Documented by: Admin: 01/11/21 15:55 Dose: 5 mg Documented by: Admin: 01/11/21 15:10 Dose: 5 mg Documented by: NATANAEL Reevaluation(s) Reevaluation #1: patient breathing significantly better at this time. Patient is quite hypertensive. He states he has been off all of his home medications. Time: 15:06 Reevaluation #2: On recheck patient continues to be breathing well. Respiratory had started a breathing treatment although after discussion was felt patient likely did not need this as his respirations have improved significantly although he is not clear he is on the likely to be and seems to be at his baseline. Patient was able to ambulate with minimal difficulty here in the department he was never hypoxic and his respiratory rate slightly increased but then improved again. Consultations Consultation #1: Dr. Powell, hospitalist I discussed the case. Patient's respiratory rate has been improving but is still somewhat elevated after ambulation but does not appear to be in significant or worsening distress and appears significantly better than upon arrival. He has never been hypoxic. He is not requiring oxygen. His blood pressure improved after IV beta-andreina. We did discuss that there is a social aspect to patient's situation is he tends to be noncompliant with his medications. 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 At this time Dr. Powell politely defers. Vital Signs Vital signs: Vital Signs - 8 hr 01/11/21 12:50 01/11/21 13:13 01/11/21 13:20 Temperature 98.2 F Pulse Rate 85 91 H Respiratory Rate 42 H Blood Pressure 183/117 H Pulse Oximetry 95 96 100 01/11/21 13:28 01/11/21 13:30 01/11/21 13:31 Temperature Pulse Rate 96 H 87 91 H Respiratory Rate 24 Blood Pressure 160/109 H Pulse Oximetry 96 98 98 01/11/21 13:45 01/11/21 14:00 01/11/21 14:02 Temperature Pulse Rate 91 H 96 H 94 H Respiratory Rate 28 H Blood Pressure 163/117 H 174/110 H Pulse Oximetry 95 95 93 01/11/21 14:15 01/11/21 14:30 01/11/21 14:45 Temperature Pulse Rate 91 H 86 95 H Respiratory Rate 29 H 30 H 28 H Blood Pressure 178/104 H 168/98 H 190/111 H Pulse Oximetry 96 92 92 01/11/21 15:00 01/11/21 15:07 01/11/21 15:15 Temperature Pulse Rate 97 H 92 H 87 Respiratory Rate 28 H 30 H 27 H Blood Pressure 203/100 H 181/101 H 165/100 H Pulse Oximetry 93 93 94 01/11/21 15:25 01/11/21 15:30 01/11/21 15:46 Temperature Pulse Rate 83 80 87 Respiratory Rate 16 Blood Pressure 152/95 H 139/86 145/95 H Pulse Oximetry 93 92 95 01/11/21 16:00 01/11/21 16:30 01/11/21 16:37 Temperature Pulse Rate 77 71 77 Respiratory Rate 28 H 28 H Blood Pressure 150/68 H 123/74 Pulse Oximetry 95 93 92 01/11/21 16:45 01/11/21 17:00 01/11/21 17:46 Temperature Pulse Rate 75 75 Respiratory Rate 30 H Blood Pressure 120/81 117/63 Pulse Oximetry 94 94 94 01/11/21 18:07 01/11/21 18:08 01/11/21 18:09 Temperature Pulse Rate 79 Respiratory Rate Blood Pressure 125/88 Pulse Oximetry 98 94 MDM - SOB/Dyspnea Lab Data Result diagrams: 01/11/21 13:30 01/11/21 13:30 Labs: Lab Results 01/11/21 01/11/21 01/11/21 Range/Units 12:56 13:30 13:30 WBC 7.2 (4.5-11.0) X10^3/uL RBC 6.11 H (4.5-5.9) X10^6/uL Hgb 16.7 (13.5-17.5) g/dL Hct 52.1 (41-53) % MCV 85.3 (80-100) fL MCH 27.4 (26-34) PG MCHC 32.1 (30-36) % RDW 14.0 (11.6-14.8) % Plt Count 251 (150-400) X10^3/uL Neut % (Auto) 78.8 H (50-75) % Lymph % (Auto) 11.9 L (25-40) % [place] % (Auto) 7.5 (3-14) % Eos % (Auto) 1.0 L (2-4) % Baso % (Auto) 0.8 (0-2) % Neut # (Auto) 5700 (0225-2798) /uL Lymph # (Auto) 900 L (0632-0445) /uL [place] # (Auto) 500 (0-900) /uL Eos # (Auto) 100 (0-450) /uL Baso # (Auto) 100 (0-100) /uL Sodium 139 (137-145) mmol/L Potassium 4.3 (3.4-5.1) mmol/L Chloride 101 (98-107) mmol/L Carbon Dioxide 33 H (22-32) mmol/L BUN 21 H (9-20) mg/dL Creatinine 0.80 (0.66-1.25) mg/dL Estimated GFR > 60.0 (>60) mL/min BUN/Creatinine Ratio 26.3 H (6-22) Glucose 110 H (70-100) mg/dL Lactate (0.7-2.1) mmol/L Calcium 9.2 (8.4-10.2) mg/dL Total Bilirubin 0.5 (0.2-1.3) mg/dL AST 24 (17-59) IU/L ALT 15 (<50) IU/L Alkaline Phosphatase 86 (38-126) U/L Total Creatine Kinase (55-170) U/L CK-MB (CK-2) CK-MB (CK-2) Rel Index Troponin I (0.01-0.034) ng/mL NT-Pro-B Natriuret Pep (<125) pg/mL Total Protein 7.4 (6.3-8.2) g/dL Albumin 4.2 (3.5-5.0) g/dL Globulin 3.2 (1.7-4.1) g/dL Albumin/Globulin Ratio 1.3 (1.0-2.8) Lipase 166 (23-300) U/L Procalcitonin 0.07 (<0.5) ng/mL Urine RBC (0-5/HPF) Urine WBC (0-5/HPF) Ur Squamous Epith Cells (0-5/HPF) Urine Bacteria (None) Urine Mucus (Negative) Ur Culture Indicated? Chlamy pneumoniae PCR (Not Detect) Adenovirus (PCR) (Not Detect) B. pertussis DNA (PCR) (Not Detecte) B.parapertussis DNA PCR (Not Detecte) Coronavirus OC43 (PCR) (Not Detect) Coronavirus HKU1 (PCR) (Not Detect) Coronavirus 229E (PCR) (Not Detect) SARS-CoV-2 (PCR) Negative (Negative) Coronavirus NL63 (PCR) (Not Detect) Human Metapneumovir PCR (Not Detect) Influenza Type A (PCR) (Not Detect) Influenza Type B (PCR) (Not Detect) M. pneumoniae (PCR) (Not Detect) Parainfluenza 1 (PCR) (Not Detect) Parainfluenza 2 (PCR) (Not Detect) Parainfluenza 3 (PCR) (Not Detect) Parainfluenza 4 (PCR) (Not Detect) RSV (PCR) (Not Detect) Entero/Rhino (PCR) (Not Detect) 01/11/21 01/11/21 01/11/21 Range/Units 13:30 13:30 14:05 WBC (4.5-11.0) X10^3/uL RBC (4.5-5.9) X10^6/uL Hgb (13.5-17.5) g/dL Hct (41-53) % MCV (80-100) fL MCH (26-34) PG MCHC (30-36) % RDW (11.6-14.8) % Plt Count (150-400) X10^3/uL Neut % (Auto) (50-75) % Lymph % (Auto) (25-40) % [place] % (Auto) (3-14) % Eos % (Auto) (2-4) % Baso % (Auto) (0-2) % Neut # (Auto) (9817-8847) /uL Lymph # (Auto) (4864-2913) /uL [place] # (Auto) (0-900) /uL Eos # (Auto) (0-450) /uL Baso # (Auto) (0-100) /uL Sodium (137-145) mmol/L Potassium (3.4-5.1) mmol/L Chloride (98-107) mmol/L Carbon Dioxide (22-32) mmol/L BUN (9-20) mg/dL Creatinine (0.66-1.25) mg/dL Estimated GFR (>60) mL/min BUN/Creatinine Ratio (6-22) Glucose (70-100) mg/dL Lactate 1.1 (0.7-2.1) mmol/L Calcium (8.4-10.2) mg/dL Total Bilirubin (0.2-1.3) mg/dL AST (17-59) IU/L ALT (<50) IU/L Alkaline Phosphatase (38-126) U/L Total Creatine Kinase 73 (55-170) U/L CK-MB (CK-2) TNP CK-MB (CK-2) Rel Index TNP Troponin I 0.028 (0.01-0.034) ng/mL NT-Pro-B Natriuret Pep 2510 H (<125) pg/mL Total Protein (6.3-8.2) g/dL Albumin (3.5-5.0) g/dL Globulin (1.7-4.1) g/dL Albumin/Globulin Ratio (1.0-2.8) Lipase (23-300) U/L Procalcitonin (<0.5) ng/mL Urine RBC (0-5/HPF) Urine WBC (0-5/HPF) Ur Squamous Epith Cells (0-5/HPF) Urine Bacteria (None) Urine Mucus (Negative) Ur Culture Indicated? Chlamy pneumoniae PCR Not detected (Not Detect) Adenovirus (PCR) Not detected (Not Detect) B. pertussis DNA (PCR) Not detected (Not Detecte) B.parapertussis DNA PCR Not detected (Not Detecte) Coronavirus OC43 (PCR) Not detected (Not Detect) Coronavirus HKU1 (PCR) Not detected (Not Detect) Coronavirus 229E (PCR) Not detected (Not Detect) SARS-CoV-2 (PCR) Not detected (Negative) Coronavirus NL63 (PCR) Not detected (Not Detect) Human Metapneumovir PCR Not detected (Not Detect) Influenza Type A (PCR) Not detected (Not Detect) Influenza Type B (PCR) Not detected (Not Detect) M. pneumoniae (PCR) Not detected (Not Detect) Parainfluenza 1 (PCR) Not detected (Not Detect) Parainfluenza 2 (PCR) Not detected (Not Detect) Parainfluenza 3 (PCR) Not detected (Not Detect) Parainfluenza 4 (PCR) Not detected (Not Detect) RSV (PCR) Not detected (Not Detect) Entero/Rhino (PCR) Not detected (Not Detect) 01/11/21 01/11/21 Range/Units 15:30 15:40 WBC (4.5-11.0) X10^3/uL RBC (4.5-5.9) X10^6/uL Hgb (13.5-17.5) g/dL Hct (41-53) % MCV (80-100) fL MCH (26-34) PG MCHC (30-36) % RDW (11.6-14.8) % Plt Count (150-400) X10^3/uL Neut % (Auto) (50-75) % Lymph % (Auto) (25-40) % [place] % (Auto) (3-14) % Eos % (Auto) (2-4) % Baso % (Auto) (0-2) % Neut # (Auto) (1159-9014) /uL Lymph # (Auto) (7443-5009) /uL [place] # (Auto) (0-900) /uL Eos # (Auto) (0-450) /uL Baso # (Auto) (0-100) /uL Sodium (137-145) mmol/L Potassium (3.4-5.1) mmol/L Chloride (98-107) mmol/L Carbon Dioxide (22-32) mmol/L BUN (9-20) mg/dL Creatinine (0.66-1.25) mg/dL Estimated GFR (>60) mL/min BUN/Creatinine Ratio (6-22) Glucose (70-100) mg/dL Lactate (0.7-2.1) mmol/L Calcium (8.4-10.2) mg/dL Total Bilirubin (0.2-1.3) mg/dL AST (17-59) IU/L ALT (<50) IU/L Alkaline Phosphatase (38-126) U/L Total Creatine Kinase (55-170) U/L CK-MB (CK-2) CK-MB (CK-2) Rel Index Troponin I 0.028 (0.01-0.034) ng/mL NT-Pro-B Natriuret Pep (<125) pg/mL Total Protein (6.3-8.2) g/dL Albumin (3.5-5.0) g/dL Globulin (1.7-4.1) g/dL Albumin/Globulin Ratio (1.0-2.8) Lipase (23-300) U/L Procalcitonin (<0.5) ng/mL Urine RBC 1-5/hpf (0-5/HPF) Urine WBC 0-1/hpf (0-5/HPF) Ur Squamous Epith Cells 5-10 /hpf H (0-5/HPF) Urine Bacteria None seen (None) Urine Mucus 1+ H (Negative) Ur Culture Indicated? Cult not indicated Chlamy pneumoniae PCR (Not Detect) Adenovirus (PCR) (Not Detect) B. pertussis DNA (PCR) (Not Detecte) B.parapertussis DNA PCR (Not Detecte) Coronavirus OC43 (PCR) (Not Detect) Coronavirus HKU1 (PCR) (Not Detect) Coronavirus 229E (PCR) (Not Detect) SARS-CoV-2 (PCR) (Negative) Coronavirus NL63 (PCR) (Not Detect) Human Metapneumovir PCR (Not Detect) Influenza Type A (PCR) (Not Detect) Influenza Type B (PCR) (Not Detect) M. pneumoniae (PCR) (Not Detect) Parainfluenza 1 (PCR) (Not Detect) Parainfluenza 2 (PCR) (Not Detect) Parainfluenza 3 (PCR) (Not Detect) Parainfluenza 4 (PCR) (Not Detect) RSV (PCR) (Not Detect) Entero/Rhino (PCR) (Not Detect) Urine Dip Bedside Urine Glucose Negative Bedside Urine Bilirubin - Negative Bedside Urine Ketone - Negative Urine Specific [place] 1.030 Bedside Urine Occult Blood +/- Bedside Urine pH 6 Bedside Urine Protein ++ 100 Bedside Urine Urobilinogen - Negative Bedside Urine Nitrite - Negative Bedside Urine Leukocytes - Negative Esterase Imaging Data Chest x-ray: Radiologist's Impression: [place] [id number] [place] [id number] XRay Report Signed Patient: Bradly Morley MR#: [id number] : 1965 Acct:[id number] Age/Sex: 55 / M Date of Service: 01/11/21 Loc: ED Accession Number: [id number] ?? Procedure: XR chest 1V Ordering Provider: Clarita Porras D.O. PROCEDURE:? XR CHEST 1V ? INDICATIONS:? suspected sepsis ? TECHNIQUE:? One view of the chest was acquired.? ? COMPARISON:? [facility], CT, CT CHEST WO CON, 05/23/2020, 9:15.? [facility], CR, XR CHEST 1V, 09/16/2020, 14:13. ? FINDINGS:? ? Surgical changes and devices:? None.? ? Lungs and pleura:? Lungs are clear.? No pleural effusions or pneumothorax.? Unchanged density left retrocardiac region, possibly representing rounded atelectasis.? Centrilobular emphysema. ? Mediastinum:? Mediastinal contours appear normal.? Heart size is normal.? ? Bones and chest wall:? No suspicious bony lesions.? Overlying soft tissues appear unremarkable.? ? IMPRESSION:? COPD, chronic left basilar atelectasis, no evidence acute superimposed pulmonary process. ? ? Dictated by: Sudheer Hodge M.D. on 01/11/2021 at 13:42 ? ? Approved by: Sudheer Hodge M.D. on 01/11/2021 at 13:45?? ECG Data Attestation: I personally reviewed and interpreted this ECG as follows: Prior ECG tracings: available for review Interpretation: Rate of 90 9p are 136 QRS 80 QTC of 487. Nonspecific change. Patient has prior from 09/16/2020 with no new acute ST changes appreciated. MDM Narrative Medical decision making narrative: This is a 55 old male with some COPD exacerbation, likely CHF with medical noncompliance knee the setting of a prior COVID infection 4 months ago. Patient responded well to breathing treatments, steroids and was given dose of magnesium. Patient's improved in his aeration and respirations. He is still mildly tachypneic particularly after ambulation but maintains his oxygen is no longer hypertensive after dose of medication. He was also given a dose of Lasix and has diuresed her somewhat in the hospital. No acute EKG changes, his labs were reassuring other than elevated BNP. Raghav mota's respiratory panel is negative with no significant or acute CXR changes. Case was discussed with the hospitalist decision was made patient was safe for discharge home at this time but patient was encouraged to return if he is worsening. Discharge Plan Departure Patient Disposition: Home Clinical Impression: COPD exacerbation, Acute exacerbation of CHF (congestive heart failure) Instructions: DI for Chronic Obstructive Pulmonary Disease Activity Restrictions/Additional Instructions: Follow up for recheck. You may return in 24 hours if felt warranted. Take steroids daily until gone. Use albuterol with spacer every 4 hours as needed. One has been sent with you today. Take Lasix daily until gone. Prescription sent [facility]. It is important for you to establish with a physician that you can take her medications regularly. Return for new or worsening chest pain, shortness of breath, lightheadedness or passing out, worsening swelling of your extremities, persistent vomiting or other new or concerning symptoms. Prescriptions: New furosemide [Lasix] 40 mg tablet 40 mg PO DAILY Qty: 5 RF: 0 prednisone 50 mg tablet 50 mg PO DAILY Qty: 5 RF: 0 No Action levofloxacin 250 mg Tablet 750 mg PO 0700 Qty: 9 RF: 0 prednisone 20 mg tablet 20 mg PO DAILY Qty: 4 RF: 0 carvedilol 12.5 mg tablet 12.5 mg PO DAILY Qty: 60 RF: 0 lisinopril 20 mg tablet 20 mg PO DAILY Qty: 30 RF: 0 aspirin 81 mg tablet,delayed release (DR/EC) 81 mg PO DAILY Qty: 30 RF: 0 spironolactone 25 mg tablet 12.5 mg PO DAILY Qty: 30 RF: 0 furosemide 20 mg tablet 20 mg PO DAILY Qty: 30 RF: 0 metoprolol succinate 25 mg tablet extended release 24 hr 12.5 mg PO DAILY Qty: 30 RF: 0 albuterol sulfate 90 mcg/actuation HFA aerosol inhaler 2 puff INHALATION Q4-6H PRN (Reason: shortness of breath or wheezing) 30 Days Qty: 8.5 RF: 0 tiotropium bromide 18 mcg capsule, w/inhalation device 1 cap inhalation DAILY 30 Days Qty: 30 RF: 0
[2021-01-11 14:05] LABS: NT-proBNP (BNP-Adult 18+) 2510 pg/mL (<125); Troponin I 0.028 ng/mL (0.01-0.034)
--- NOTE | 2021-01-11 14:05 | RT ---
pt katie neb tx well, sob still noted but improved since previous neb txs. pt on room air
[2021-01-11] MEDS: MAGNESIUM SULFATE 2 GM/50 ML PIGGYBACK IV (14:07)
[2021-01-11] MEDS: methylPREDNISolone 125 MG/2 ML VIAL IV (14:07)
[2021-01-11 14:11] LABS: Procalcitonin 0.07 ng/mL (<0.5)
--- NOTE | 2021-01-11 14:25 | PC.NURSE ---
Pt is now lying in his position of comfort in bed, breathing treatments complete for now - appearing much more comfortable. Still increased WOB but more settled, color improved.
[2021-01-11] MEDS: FUROSEMIDE 40 MG/4 ML VIAL IV (15:01)
[2021-01-11 15:07] LABS: Adenovirus Not Detected (Not Detect); B. parapertussis Not Detected (Not Detecte); Bordetella pertussis Not Detected (Not Detecte); Chlamydophila pneumoniae Not Detected (Not Detect); Coronavirus 229E Not Detected (Not Detect); Coronavirus HKU1 Not Detected (Not Detect); Coronavirus NL 63 Not Detected (Not Detect); Coronavirus OC43 Not Detected (Not Detect); Human Metapneumovirus Not Detected (Not Detect); Human Rhinovirus/Enterovirus Not Detected (Not Detect); Influenza A Not Detected (Not Detect); Influenza B Not Detected (Not Detect); Mycoplasma pneumoniae Not Detected (Not Detect); Parainfluenza Virus 1 Not Detected (Not Detect); Parainfluenza Virus 2 Not Detected (Not Detect); Parainfluenza Virus 3 Not Detected (Not Detect); Parainfluenza Virus 4 Not Detected (Not Detect); Respiratory Syncytial Virus Not Detected (Not Detect); SARS- CoV-2 Not Detected (Not Detecte)
[2021-01-11] MEDS: METOPROLOL TARTRATE 5 MG/5 ML INJ IV ×3 (15:10→16:08)
[2021-01-11 15:56] LABS: Bacteria Urine None Seen; Mucus Urine 1+ (Negative); RBC Urine 1-5/HPF (0-5/HPF); Squamous Epithelial Cell Urine 5-10 /HPF (0-5/HPF); WBC Urine 0-1/HPF (0-5/HPF)
[2021-01-11 15:57] LABS: Culture Indicated Urine Cult Not Indicated
[2021-01-11 16:11] LABS: Troponin I 0.028 ng/mL (0.01-0.034)
--- NOTE | 2021-01-11 17:30 | PC.NURSE ---
Pt ambulates with unsteady, independent gait with HR 102 and RA sats 95%.
[2021-01-11] MEDS: ALBUTEROL HFA PREPACK 1 BOX MISC (18:19)
== END 2021-01-11 18:20 | disposition home or self-care (01) ==
PROVIDERS: Emergency Provider Emergency Medicine
DX: J44.1 Chronic obstructive pulmonary disease with (acute) exacerbation (principal); I50.9 Heart failure, unspecified; R07.9 Chest pain, unspecified; R05 Cough; I10 Essential (primary) hypertension; Z20.822 Contact with and (suspected) exposure to COVID-19
CPT/HCPCS: 36415; 71045; 80053; 81003; 81015; 82550; 83605; 83690; 83880; 84145; 84484; 85025; 87040; 87086; 87633; 87635; 93005; 93010; 94640; 96361; 96374; 96375; 96376; 99285; C9803; A9270; J1940; J2930; J3475

== ENCOUNTER 2021-01-21 16:44 | Inpatient (IN) | payer MEDICAID, OTHER, SELFPAY ==
[2020-09-16 18:45] VITALS: BMI 26.4
[2021-01-21] VITALS (15 sets, daily range): BP systolic 131–186; BP diastolic 72–110; PULSE 54–102; RESP 17–40; TEMP 36.4–36.9; O2SAT 92–98; BMI 24.6
--- NOTE | 2021-01-21 16:54 | DI.RAD.S_ITS ---
PROCEDURE: XR CHEST 1V INDICATIONS: Shortness of breath TECHNIQUE: One view of the chest was acquired. COMPARISON: [facility], CT, CT CHEST WO CON, 05/23/2020, 9:15. [facility], CR, XR CHEST 1V, 09/16/2020, 14:13. [facility], CR, XR CHEST 1V, 01/11/2021, 13:27. FINDINGS: Surgical changes and devices: None. Lungs and pleura: There is mild blunting of the left costophrenic angle suggestive of a small left pleural effusion. A few linear opacities are redemonstrated in the left lung base likely representing scarring. No pneumothorax. Mediastinum: Mediastinal contours appear normal. Heart size is normal. Bones and chest wall: Multiple healed right rib fractures are redemonstrated. No suspicious bony lesions. Overlying soft tissues appear unremarkable. IMPRESSION: 1. Linear scarring redemonstrated in the left lung base. 2. No definite acute cardiopulmonary disease. Dictated by: Mariano Wang M.D. on 01/21/2021 at 18:33 Approved by: Mariano Wang M.D. on 01/21/2021 at 18:35
[2021-01-21] MEDS: ALBUTEROL HFA MDI 60 PUFF/8 GM INHALER INH (17:03)
[2021-01-21 17:11] LABS: Add Manual Diff / Slide Review NO; Basophils Absolute Auto 100 /uL (0-100); Basophils Percent Auto 0.7 % (0-2); Eosinophils Absolute Auto 200 /uL (0-450); Eosinophils Percent Auto 2.2 % (2-4); Hematocrit 47.6 % (41-53); Hemoglobin 15.1 g/dL (13.5-17.5); Lymphocytes Absolute Auto 1300 /uL (1100-4500); Lymphocytes Percent Auto 12.8 % (25-40); Mean Corpuscular HGB Conc 31.7 % (30-36); Mean Corpuscular Hemoglobin 27.2 PG (26-34); Mean Corpuscular Volume 85.5 fL (80-100); Monocytes Absolute Auto 900 /uL (0-900); Monocytes Percent Auto 8.5 % (3-14); Neutrophils Absolute Auto 7700 /uL (1500-7000); Neutrophils Percent Auto 75.8 % (50-75); Platelet Count 248 X10^3/uL (150-400); Red Blood Cell Count 5.56 X10^6/uL (4.5-5.9); White Blood Cell Count 10.1 X10^3/uL (4.5-11.0)
--- NOTE | 2021-01-21 17:14 | PC.NURSE ---
pt with SOB with difficulty speaking single words. Pt with diminished and wheezing throughout lungs. states this has been happening for a while and is not sure when this episode began. pt is diaphoretic and unable to lay back on stretcher due to difficulty breathing
[2021-01-21 17:20] LABS: BUN Creatinine Ratio 28.6 (6-22); Blood Urea Nitrogen 18 mg/dL (9-20); Calcium 9.1 mg/dL (8.4-10.2); Carbon Dioxide 39 mmol/L (22-32); Chloride 102 mmol/L (98-107); Creatine Kinase 71 U/L (55-170); Estimated Glomerular Filt Rate > 60.0 mL/min (>60); Glucose 95 mg/dL (70-100); HEMOLYSIS 18 (0-50); Potassium 4.7 mmol/L (3.4-5.1); Sodium 142 mmol/L (137-145)
[2021-01-21 17:30] LABS: NT-proBNP (BNP-Adult 18+) 1180 pg/mL (<125)
[2021-01-21 17:31] LABS: COVID19 -Nasal RAPID Negative (Negative)
[2021-01-21 17:32] LABS: Troponin I 0.028 ng/mL (0.01-0.034)
[2021-01-21 17:37] LABS: Procalcitonin 0.06 ng/mL (<0.5)
[2021-01-21] MEDS: ALBUTEROL/IPRATROPIUM 3 ML AMPUL INH ×3 (18:03→18:20)
--- NOTE | 2021-01-21 18:04 | ED_ITS ---
HPI - General Adult General Chief complaint: Shortness of Breath/Dyspnea Stated complaint: COPD SOB Time Seen by Provider: 01/21/21 16:45 Source: patient Mode of arrival: Ambulatory Limitations: no limitations History of Present Illness HPI narrative: Gentleman with history of methamphetamine use disorder, COPD and congestive heart failure with medication noncompliance. He is in severe respiratory distress able to speak in 1-2 word sentences sitting straight up try potting poor air movement. Appears fatigued. Notes that his legs have been a bit more swollen today and that his respiratory issues started yesterday. He notes he has not been taking any medications for a while. Related Data Previous Rx's Medication Instructions Recorded albuterol sulfate 90 mcg/actuation 2 puff INHALATION Q4-6H PRN 30 09/20/20 aerosol inhaler Days #8.5 gram aspirin 81 mg tablet,delayed 81 mg PO DAILY #30 tab 09/20/20 release carvedilol 12.5 mg tablet 12.5 mg PO DAILY #60 tab 09/20/20 furosemide 20 mg tablet 20 mg PO DAILY #30 tab 09/20/20 levofloxacin 250 mg tablet 750 mg PO 0700 #9 tab 09/20/20 lisinopril 20 mg tablet 20 mg PO DAILY #30 tab 09/20/20 metoprolol succinate 25 mg 12.5 mg PO DAILY #30 tab 09/20/20 tablet,extended release 24 hr prednisone 20 mg tablet 20 mg PO DAILY #4 tab 09/20/20 spironolactone 25 mg tablet 12.5 mg PO DAILY #30 tab 09/20/20 tiotropium bromide 18 mcg capsule 1 cap INHALATION DAILY 30 Days #30 09/20/20 with inhalation device inh furosemide 40 mg tablet (Lasix) 40 mg PO DAILY #5 tab 01/11/21 prednisone 50 mg tablet 50 mg PO DAILY #5 tab 01/11/21 Allergies Allergy/AdvReac Type Severity Reaction Status Date / Time No Known Drug Allergies Allergy Verified 04/14/20 03:02 Review of Systems Review of Systems Narrative: Too dyspneic to meaningfully answer any review of systems questions Patient History Medical History (Updated 01/21/21 @ 22:58 by LAVON Ron) COPD (chronic obstructive pulmonary disease) COVID-19 HFrEF (heart failure with reduced ejection fraction) Methamphetamine abuse Peripheral edema Tobacco abuse Surgical History Status post appendectomy Family History Father Heart disease Mother Medical history unknown Brother Medical history unknown Social History household members: none Smoking Status: Current every day smoker alcohol intake: never Smoking Status: Current every day smoker tobacco type: cigarettes alcohol intake frequency: other Substance Use Type: methamphetamine Exam Narrative Exam Narrative: General: Acutely ill-appearing, severe respiratory distress appears fatigued, using multiple accessory muscles to breathe able to speak in only 1-2 word sentences with effort HEENT: Dry mucous membranes, normal sclera with reactive pupils, Neck: No JVD sitting upright, not able to recline due to respiratory distress, Respiratory: Lungs with poor air movement and significant wheeze in lung [place] that do have air movement Cardiac: Regular rate and rhythm no murmurs no bruits Abdomen: Soft, nontender, good bowel tones, no flank pain, abdominal muscles use to supplement breathing effort Skin: Mildly diaphoretic, no rashes Neurologic: Moving all extremities, to focused on breathing to participate fully in remainder of neurologic exam Extremities: No trauma, well perfused, 2+ bilateral lower extremity edema without chronic venous stasis changes Psych: Cooperative, severe respiratory distress Initial Vital Signs Initial Vital Signs: Vital Signs Pulse Rate 102 H 01/21/21 16:53 Pulse Oximetry 96 01/21/21 16:53 Course Orders Ordered: ED Orders 01/21/21 18:22 Arterial Blood Gas Stat 01/21/21 20:00 Respiratory Panel (Film Array) Stat Acetaminophen (Acetaminophen 325 Mg Tablet) 650 mg PO Q6HR PRN PRN Reason: Fever/Mild Pain (1-3) Al Hydrox/Mg Hydrox/Simethicone (Mag Hydrox/Alum/Simeth 30 Ml Udc) 30 ml PO Q6HR PRN PRN Reason: Dyspepsia Albuterol (Albuterol 2.5 Mg/3 Ml Neb (Adult)) 2.5 mg INH RTQ4HR PRN PRN Reason: SOB,WHEEZING Aspirin (Aspirin Ec 81 Mg Tablet) 81 mg PO DAILY LIGIA Carvedilol (Carvedilol 12.5 Mg Tablet) 12.5 mg PO DAILY LIGIA Clonazepam (Clonazepam 0.5 Mg Tablet) 0.5 mg PO BID [facility] Last Admin: 01/21/21 22:32 Dose: 0.5 mg Documented by: CELESTINO Enoxaparin Sodium (Enoxaparin 30 Mg/0.3 Ml Syringe) 30 mg SUBCUT DAILY [facility] Lactated Ringer's (Lactated Ringers) 1,000 mls @ 40 mls/hr IV CONT [facility] Last Admin: 01/21/21 22:32 Dose: 40 mls/hr Documented by: CELESTINO Influenza Virus Vaccine (Influenza Vaccine Qiv 0.5 Ml Syringe) 0.5 ml IM .ONCE ONE Stop: 01/22/21 09:01 Ipratropium [place] (Ipratropium 0.5 Mg/2.5 Ml Neb) 0.5 mg INH [id number] [facility] Ipratropium [place] (Ipratropium 0.5 Mg/2.5 Ml Neb) 0.5 mg INH RTQ2HR PRN PRN Reason: SOB,WHEEZING Lisinopril (Lisinopril 20 Mg Tablet) 20 mg PO DAILY [facility] Magnesium Hydroxide (Magnesium Hydroxide 30 Ml Udc) 30 ml PO DAILY PRN PRN Reason: Constipation Metoprolol Succinate (Metoprolol Er 25 Mg Tablet) 12.5 mg PO DAILY [facility] Naloxone HCl (Naloxone 0.4 Mg/Ml Vial) 0.2 mg IV Q2MIN PRN PRN Reason: Opiate Reversal Ondansetron HCl (Ondansetron 4 Mg/2 Ml Inj) 4 mg IV Q8HR PRN PRN Reason: Nausea And Vomiting Prednisone (Prednisone 20 Mg Tablet) 40 mg PO DAILY [facility] Stop: 01/27/21 08:59 Discontinued Medications Albuterol (Albuterol Hfa Mdi 60 Puff/8 Gm Inhaler) 4 puff INH NOW ONE Stop: 01/21/21 17:04 Last Admin: 01/21/21 17:03 Dose: 4 puff Documented by: ZIA Albuterol (Albuterol Hfa Mdi 60 Puff/8 Gm Inhaler) 2 puff INH Q4-6H PRN PRN Reason: shortness of breath or wheezing Albuterol/Ipratropium (Albuterol/Ipratropium 3 Ml Ampul) 3 ml INH Q20M [facility] Stop: 01/21/21 18:26 Last Admin: 01/21/21 18:20 Dose: 3 ml Documented by: Admin: 01/21/21 18:11 Dose: 3 ml Documented by: Admin: 01/21/21 18:03 Dose: 3 ml Documented by: ZIA Albuterol/Ipratropium (Albuterol/Ipratropium 3 Ml Ampul) 3 ml INH [id number] LIGIA Furosemide (Furosemide 100 Mg/10 Ml Vial) 80 mg IV NOW ONE Stop: 01/21/21 18:14 Last Admin: 01/21/21 18:22 Dose: 80 mg Documented by: KAITLIN Magnesium Sulfate (Magnesium Sulfate) 2 gm in 50 mls @ 150 mls/hr IV NOW ONE Stop: 01/21/21 18:32 Last Infusion: 01/21/21 18:47 Dose: 0 mls/hr Documented by: KATHY Cosigned by: KAITLIN Admin: 01/21/21 18:28 Dose: 150 mls/hr Documented by: KAITLIN Cosigned by: KATHY Labetalol HCl (Labetalol 20 Mg/4 Ml Syringe) 20 mg IV NOW ONE Stop: 01/21/21 18:14 Last Admin: 01/21/21 18:25 Dose: 20 mg Documented by: KAITLIN Lisinopril (Lisinopril 20 Mg Tablet) 20 mg PO NOW ONE Stop: 01/21/21 23:08 Last Admin: 01/21/21 23:24 Dose: 20 mg Documented by: SIVA Methylprednisolone (Methylprednisolone 125 Mg/2 Ml Vial) 125 mg IV NOW ONE Stop: 01/21/21 16:54 Last Admin: 01/21/21 18:19 Dose: 125 mg Documented by: KAITLIN Non-Formulary Medication (Tiotropium [place]) 1 cap INHALATION DAILY LIGIA Vital Signs Vital signs: Vital Signs - 8 hr 01/21/21 19:00 01/21/21 19:56 Pulse Rate 69 54 L Blood Pressure 157/94 H 163/77 H Pulse Oximetry 94 Medical Decision Making Lab Data Result diagrams: 01/21/21 17:00 01/21/21 17:00 Labs: Lab Results 01/21/21 01/21/21 01/21/21 Range/Units 16:55 17:00 17:00 WBC 10.1 (4.5-11.0) X10^3/uL RBC 5.56 (4.5-5.9) X10^6/uL Hgb 15.1 (13.5-17.5) g/dL Hct 47.6 (41-53) % MCV 85.5 (80-100) fL MCH 27.2 (26-34) PG MCHC 31.7 (30-36) % RDW 14.0 (11.6-14.8) % Plt Count 248 (150-400) X10^3/uL Neut % (Auto) 75.8 H (50-75) % Lymph % (Auto) 12.8 L (25-40) % [place] % (Auto) 8.5 (3-14) % Eos % (Auto) 2.2 (2-4) % Baso % (Auto) 0.7 (0-2) % Neut # (Auto) 7700 H (4230-8215) /uL Lymph # (Auto) 1300 (5834-3662) /uL [place] # (Auto) 900 (0-900) /uL Eos # (Auto) 200 (0-450) /uL Baso # (Auto) 100 (0-100) /uL ABG pH (7.35-7.45) ABG pCO2 (35-45) mmHg ABG pO2 (80-100) mmHg ABG HCO3 (22-26) mmol/L ABG Total CO2 (21-31) mmol/L ABG O2 Saturation (95-100) % ABG Base Excess (-2-2) mmol/L FiO2 Sodium 142 (137-145) mmol/L Potassium 4.7 (3.4-5.1) mmol/L Chloride 102 (98-107) mmol/L Carbon Dioxide 39 H (22-32) mmol/L BUN 18 (9-20) mg/dL Creatinine 0.63 L (0.66-1.25) mg/dL Estimated GFR > 60.0 (>60) mL/min BUN/Creatinine Ratio 28.6 H (6-22) Glucose 95 (70-100) mg/dL Hemoglobin A1c (4.0-6.0) % Calcium 9.1 (8.4-10.2) mg/dL Magnesium (1.6-2.3) mg/dL Total Creatine Kinase 71 (55-170) U/L CK-MB (CK-2) TNP CK-MB (CK-2) Rel Index TNP Troponin I 0.028 (0.01-0.034) ng/mL NT-Pro-B Natriuret Pep (<125) pg/mL Procalcitonin (<0.5) ng/mL Chlamy pneumoniae PCR (Not Detect) Adenovirus (PCR) (Not Detect) B. pertussis DNA (PCR) (Not Detecte) B.parapertussis DNA PCR (Not Detecte) Coronavirus OC43 (PCR) (Not Detect) Coronavirus HKU1 (PCR) (Not Detect) Coronavirus 229E (PCR) (Not Detect) SARS-CoV-2 (PCR) Negative (Negative) Coronavirus NL63 (PCR) (Not Detect) Human Metapneumovir PCR (Not Detect) Influenza Type A (PCR) (Not Detect) Influenza Type B (PCR) (Not Detect) M. pneumoniae (PCR) (Not Detect) Parainfluenza 1 (PCR) (Not Detect) Parainfluenza 2 (PCR) (Not Detect) Parainfluenza 3 (PCR) (Not Detect) Parainfluenza 4 (PCR) (Not Detect) RSV (PCR) (Not Detect) Entero/Rhino (PCR) (Not Detect) 01/21/21 01/21/21 01/21/21 Range/Units 17:00 17:00 17:00 WBC (4.5-11.0) X10^3/uL RBC (4.5-5.9) X10^6/uL Hgb (13.5-17.5) g/dL Hct (41-53) % MCV (80-100) fL MCH (26-34) PG MCHC (30-36) % RDW (11.6-14.8) % Plt Count (150-400) X10^3/uL Neut % (Auto) (50-75) % Lymph % (Auto) (25-40) % [place] % (Auto) (3-14) % Eos % (Auto) (2-4) % Baso % (Auto) (0-2) % Neut # (Auto) (1074-4109) /uL Lymph # (Auto) (0531-2820) /uL [place] # (Auto) (0-900) /uL Eos # (Auto) (0-450) /uL Baso # (Auto) (0-100) /uL ABG pH (7.35-7.45) ABG pCO2 (35-45) mmHg ABG pO2 (80-100) mmHg ABG HCO3 (22-26) mmol/L ABG Total CO2 (21-31) mmol/L ABG O2 Saturation (95-100) % ABG Base Excess (-2-2) mmol/L FiO2 Sodium (137-145) mmol/L Potassium (3.4-5.1) mmol/L Chloride (98-107) mmol/L Carbon Dioxide (22-32) mmol/L BUN (9-20) mg/dL Creatinine (0.66-1.25) mg/dL Estimated GFR (>60) mL/min BUN/Creatinine Ratio (6-22) Glucose (70-100) mg/dL Hemoglobin A1c 5.6 (4.0-6.0) % Calcium (8.4-10.2) mg/dL Magnesium 2.0 (1.6-2.3) mg/dL Total Creatine Kinase (55-170) U/L CK-MB (CK-2) CK-MB (CK-2) Rel Index Troponin I (0.01-0.034) ng/mL NT-Pro-B Natriuret Pep 1180 H (<125) pg/mL Procalcitonin 0.06 (<0.5) ng/mL Chlamy pneumoniae PCR (Not Detect) Adenovirus (PCR) (Not Detect) B. pertussis DNA (PCR) (Not Detecte) B.parapertussis DNA PCR (Not Detecte) Coronavirus OC43 (PCR) (Not Detect) Coronavirus HKU1 (PCR) (Not Detect) Coronavirus 229E (PCR) (Not Detect) SARS-CoV-2 (PCR) (Negative) Coronavirus NL63 (PCR) (Not Detect) Human Metapneumovir PCR (Not Detect) Influenza Type A (PCR) (Not Detect) Influenza Type B (PCR) (Not Detect) M. pneumoniae (PCR) (Not Detect) Parainfluenza 1 (PCR) (Not Detect) Parainfluenza 2 (PCR) (Not Detect) Parainfluenza 3 (PCR) (Not Detect) Parainfluenza 4 (PCR) (Not Detect) RSV (PCR) (Not Detect) Entero/Rhino (PCR) (Not Detect) 01/21/21 01/21/21 Range/Units 18:22 20:00 WBC (4.5-11.0) X10^3/uL RBC (4.5-5.9) X10^6/uL Hgb (13.5-17.5) g/dL Hct (41-53) % MCV (80-100) fL MCH (26-34) PG MCHC (30-36) % RDW (11.6-14.8) % Plt Count (150-400) X10^3/uL Neut % (Auto) (50-75) % Lymph % (Auto) (25-40) % [place] % (Auto) (3-14) % Eos % (Auto) (2-4) % Baso % (Auto) (0-2) % Neut # (Auto) (6265-9865) /uL Lymph # (Auto) (2650-4215) /uL [place] # (Auto) (0-900) /uL Eos # (Auto) (0-450) /uL Baso # (Auto) (0-100) /uL ABG pH 7.41 (7.35-7.45) ABG pCO2 59.2 H (35-45) mmHg ABG pO2 60 L (80-100) mmHg ABG HCO3 37 H (22-26) mmol/L ABG Total CO2 39 H (21-31) mmol/L ABG O2 Saturation 90 L (95-100) % ABG Base Excess 13.0 H (-2-2) mmol/L FiO2 21 Sodium (137-145) mmol/L Potassium (3.4-5.1) mmol/L Chloride (98-107) mmol/L Carbon Dioxide (22-32) mmol/L BUN (9-20) mg/dL Creatinine (0.66-1.25) mg/dL Estimated GFR (>60) mL/min BUN/Creatinine Ratio (6-22) Glucose (70-100) mg/dL Hemoglobin A1c (4.0-6.0) % Calcium (8.4-10.2) mg/dL Magnesium (1.6-2.3) mg/dL Total Creatine Kinase (55-170) U/L CK-MB (CK-2) CK-MB (CK-2) Rel Index Troponin I (0.01-0.034) ng/mL NT-Pro-B Natriuret Pep (<125) pg/mL Procalcitonin (<0.5) ng/mL Chlamy pneumoniae PCR Not detected (Not Detect) Adenovirus (PCR) Not detected (Not Detect) B. pertussis DNA (PCR) Not detected (Not Detecte) B.parapertussis DNA PCR Not detected (Not Detecte) Coronavirus OC43 (PCR) Not detected (Not Detect) Coronavirus HKU1 (PCR) Not detected (Not Detect) Coronavirus 229E (PCR) Not detected (Not Detect) SARS-CoV-2 (PCR) Not detected (Negative) Coronavirus NL63 (PCR) Not detected (Not Detect) Human Metapneumovir PCR Not detected (Not Detect) Influenza Type A (PCR) Not detected (Not Detect) Influenza Type B (PCR) Not detected (Not Detect) M. pneumoniae (PCR) Not detected (Not Detect) Parainfluenza 1 (PCR) Not detected (Not Detect) Parainfluenza 2 (PCR) Not detected (Not Detect) Parainfluenza 3 (PCR) Not detected (Not Detect) Parainfluenza 4 (PCR) Not detected (Not Detect) RSV (PCR) Not detected (Not Detect) Entero/Rhino (PCR) Not detected (Not Detect) MDM Narrative Medical decision making narrative: 55-year-old gentleman with history of COPD, congestive heart failure and methamphetamine use who has been using only his methamphetamine and his prescription medications recently. Significant increased dyspnea. Responded to multiple nebs, magnesium, steroids and fluids. Still significantly wheezy and short of breath. No evidence of acute coronary syndrome, infectious etiology. He has had nice urine output with IV Lasix. Will need to be admitted for treatment of acute congestive heart failure, acute COPD exacerbation. Care is reviewed with the hospitalist service He is safe for transfer to the floor. Discharge Plan Departure Patient Disposition: Admitted as Observation Clinical Impression: COPD exacerbation, Methamphetamine abuse CHF (congestive heart failure) Qualifiers: Heart failure type: unspecified Heart failure chronicity: unspecified Qualified Code(s): I50.9 - Heart failure, unspecified Admit Date/Time: 01/21/21 20:47 Admit Provider: Regina Young
[2021-01-21] MEDS: methylPREDNISolone 125 MG/2 ML VIAL IV (18:19)
[2021-01-21] MEDS: FUROSEMIDE 100 MG/10 ML VIAL 80 MG IV (18:22)
[2021-01-21] MEDS: LABETALOL 20 MG/4 ML SYRINGE IV (18:25)
[2021-01-21] MEDS: MAGNESIUM SULFATE 2 GM/50 ML PIGGYBACK IV (18:28)
[2021-01-21 18:31] LABS: Fractionated Inspired Oxygen 21; HCO3 ABG 37 mmol/L (22-26); Oxygen Saturation ABG 90 % (95-100); PCO2 ABG 59.2 mmHg (35-45); PO2 ABG 60 mmHg (80-100); TCO2 ABG 39 mmol/L (21-31); pH ABG 7.41 (7.35-7.45)
[2021-01-21 21:17] LABS: Adenovirus Not Detected (Not Detect)
[2021-01-21 21:18] LABS: B. parapertussis Not Detected (Not Detecte); Bordetella pertussis Not Detected (Not Detecte); Chlamydophila pneumoniae Not Detected (Not Detect); Coronavirus 229E Not Detected (Not Detect); Coronavirus HKU1 Not Detected (Not Detect); Coronavirus NL 63 Not Detected (Not Detect); Coronavirus OC43 Not Detected (Not Detect); Human Metapneumovirus Not Detected (Not Detect); Human Rhinovirus/Enterovirus Not Detected (Not Detect); Influenza A Not Detected (Not Detect); Influenza B Not Detected (Not Detect); Mycoplasma pneumoniae Not Detected (Not Detect); Parainfluenza Virus 1 Not Detected (Not Detect); Parainfluenza Virus 2 Not Detected (Not Detect); Parainfluenza Virus 3 Not Detected (Not Detect); Parainfluenza Virus 4 Not Detected (Not Detect); Respiratory Syncytial Virus Not Detected (Not Detect); SARS- CoV-2 Not Detected (Not Detecte)
--- NOTE | 2021-01-21 21:22 | PC.NURSE ---
pt with no complaints at this time. Provided with PO and admitted to the floor. Report to Deidre VARELA
--- NOTE | 2021-01-21 21:36 | P.HP_ITS ---
History of Present Illness History of Present Illness Date Patient Seen: 01/21/21 Time Patient Seen: 21:36 Chief complaint: COPD SOB Narrative: This is a 54-year-old male Bradly Morley who is a current smoker and methamphetamine abuse with a past medical history significant for COPD, and congestive heart failure with reduced ejection fraction who presented to the ED with a cheif complaint of SOB and was in severe respiratory distress able to speak in 1-2 word sentences sitting straight up in tripod positioning, with poor air movement. Appears fatigued. Notes that his legs have been a bit more swollen today and that his respiratory issues started yesterday. He notes he has not been taking any medications for a long while, I can't afford my medications. Patient denies of methamphetamine abuse and states he has not taken any meth for a long time. Patient denies chest pain, abdominal pain, nausea, vomiting, diarrhea, chills, fever, body aches, headache, changes in vision, numbness tingling, weakness, recent illness injury or trauma. Patient does note that he is currently abusing methamphetamines. Upon admit patient is O2, lying in bed eating ice cream during exam and talking fairly comfortably, but continues with shallow breathing, though O2 saturation remaining above 94%. Patient's vitals upon admit he presents to the ED in acute respiratory failure, hypertensive, tachypneic initially requiring oxygen, but has been able to titrate and is currently on room air. Temp 98.5?, BP 163/77, HR 54, R 28, O2 saturation 94% on room air. ABGs pH is normal at 7.41, pCO2 59.2, PO2 60, HC03 37, TCO2 39, O2 sat 90%, base excess 13, FiO2 of 21. Patient's CBCs predominantly unremarkable, HC03 of 39, creatinine of 0.63 which is decreased from last creatinine at 0.80, BNP 1180, procalcitonin WNL, respiratory panel is pending. Chest x-ray demonstrates linear scarring redemonstrated in the left lung base, with no acute cardiopulmonary processes. EKG I personally reviewed normal sinus rhythm with a rate of 91 demonstrating moderate voltage 4 L the H, nonspecific T-wave changes, prolonged QT this is consistent with the patient's EKG from 01/11/2021. Patient has had 2 hospitalizations in 2020 1 for CHF exacerbation April, and 1 for COPD exacerbation in August in addition to a positive COVID(09/16/2020). Patient to be admitted for COPD exacerbation possible CHF in the setting of methamphetamine abuse and medication noncompliance. Patient History Medical History (Updated 01/21/21 @ 22:58 by ELIU Ron) COPD (chronic obstructive pulmonary disease) COVID-19 HFrEF (heart failure with reduced ejection fraction) Methamphetamine abuse Peripheral edema Tobacco abuse Surgical History Status post appendectomy Family & Social History Family History Father Heart disease Mother Medical history unknown Brother Medical history unknown Social History: household members none Safety & Behavioral: Feels Safe in Current Yes Environment Been Physically Hurt or No Threatened By a Person Tobacco & Substance use: Tobacco type cigarettes Smoking Status Current every day smoker alcohol intake never alcohol intake frequency other Substance Use Type methamphetamine Meds Home Medications and Allergies Home Medications Medication Instructions Recorded Confirmed Type albuterol sulfate 90 mcg/actuation 2 puff INHALATION Q4-6H PRN 30 09/20/20 Rx aerosol inhaler Days #8.5 gram aspirin 81 mg tablet,delayed 81 mg PO DAILY #30 tab 09/20/20 Rx release carvedilol 12.5 mg tablet 12.5 mg PO DAILY #60 tab 09/20/20 Rx furosemide 20 mg tablet 20 mg PO DAILY #30 tab 09/20/20 Rx levofloxacin 250 mg tablet 750 mg PO 0700 #9 tab 09/20/20 Rx lisinopril 20 mg tablet 20 mg PO DAILY #30 tab 09/20/20 Rx metoprolol succinate 25 mg 12.5 mg PO DAILY #30 tab 09/20/20 Rx tablet,extended release 24 hr prednisone 20 mg tablet 20 mg PO DAILY #4 tab 09/20/20 Rx spironolactone 25 mg tablet 12.5 mg PO DAILY #30 tab 09/20/20 Rx tiotropium bromide 18 mcg capsule 1 cap INHALATION DAILY 30 Days #30 09/20/20 Rx with inhalation device inh furosemide 40 mg tablet (Lasix) 40 mg PO DAILY #5 tab 01/11/21 Rx prednisone 50 mg tablet 50 mg PO DAILY #5 tab 01/11/21 Rx Allergies Allergy/AdvReac Type Severity Reaction Status Date / Time No Known Drug Allergies Allergy Verified 04/14/20 03:02 Review of Systems Review of Systems Narrative: All 12 point systems reviewed with the patient and are negative except otherwise documented. Exam Vital Signs (past 8 hours): - 01/21/21 16:53 01/21/21 17:00 01/21/21 17:06 Temperature 98.5 F Pulse Rate 102 H 94 H 94 H Respiratory Rate 28 H Blood Pressure 163/93 H 186/110 H Pulse Oximetry 96 94 97 01/21/21 17:17 01/21/21 17:30 01/21/21 18:00 Temperature Pulse Rate 84 86 84 Respiratory Rate 40 H Blood Pressure 149/85 H 171/103 H Pulse Oximetry 93 94 96 01/21/21 18:07 01/21/21 18:12 01/21/21 18:25 Temperature Pulse Rate 97 H 91 H 91 H Respiratory Rate 28 H 24 28 H Blood Pressure 171/103 H Pulse Oximetry 97 98 98 01/21/21 18:30 01/21/21 19:00 01/21/21 19:56 Temperature Pulse Rate 69 54 L Respiratory Rate Blood Pressure 157/94 H 163/77 H Pulse Oximetry 97 94 01/21/21 21:16 Temperature 98 F Pulse Rate 77 Respiratory Rate 20 Blood Pressure 163/90 H Pulse Oximetry 94 Oxygen Delivery Method Room Air Oxygen Flow Rate 0 Narrative Exam Narrative: General: Patient is a well-developed, well-nourished who is eating ice cream and talking during admit, in no distress at this time. HEENT: Normocephalic, atraumatic, extraocular muscles intact, oral pharynx is clear and mucous membranes are dry. Neck is supple and symmetric, trachea is midline, no adenopathy, no thyroid enlargement, nontender, no masses palpated. Negative for JVD Chest: Normal AP diameter and contour without kyphoscoliosis, no nasal flaring, retractions, or tachypneic labored breathing- until asked to take a deep breath then his breathing becomes labored, and uses accessory muscles, but 02 sat remains stable. Lungs: Auscultation of all lung santillan are dimished, tight throughout, poor air movement, diffuse wheezing throughout. Cardio: regular rate and rhythm without murmur, rubs, or gallops, no carotid bruit, no cardiac pulsations present. Abdomen: Soft nontender, negative for organomegaly, or masses. Bowel sounds are present in all 4 quadrants without guarding or rebound, no CVA tenderness. Musculoskeletal: Muscle strength and tone are equal within normal limits, no deformity, crepitus, effusions, cyanosis, or clubbing present. Full range of motion intact radial and pedal pulses are normal. Noted chronic bilateral Skin: Warm dry and intact without rashes, ulcerations or petechiae, noted multiple sites of healed skin areas without signs of infection. Neuro: Alert and orientated x3, strength is +5/5 in all extremities, sensation to touch intact, no gross deficits noted of cranial nerves. Psych: Patient has a poorly-kept appearance, appropriate affect. Objective Labs Result Diagrams: 01/21/21 17:00 01/21/21 17:00 Labs: Laboratory Results - last 24 hr 01/21/21 01/21/21 01/21/21 16:55 17:00 17:00 WBC 10.1 RBC 5.56 Hgb 15.1 Hct 47.6 MCV 85.5 MCH 27.2 MCHC 31.7 RDW 14.0 Plt Count 248 Neut % (Auto) 75.8 H Lymph % (Auto) 12.8 L Delta % (Auto) 8.5 Eos % (Auto) 2.2 Baso % (Auto) 0.7 Neut # (Auto) 7700 H Lymph # (Auto) 1300 Delta # (Auto) 900 Eos # (Auto) 200 Baso # (Auto) 100 ABG pH ABG pCO2 ABG pO2 ABG HCO3 ABG Total CO2 ABG O2 Saturation ABG Base Excess FiO2 Sodium 142 Potassium 4.7 Chloride 102 Carbon Dioxide 39 H BUN 18 Creatinine 0.63 L Estimated GFR > 60.0 BUN/Creatinine Ratio 28.6 H Glucose 95 Calcium 9.1 Total Creatine Kinase 71 CK-MB (CK-2) TNP CK-MB (CK-2) Rel Index TNP Troponin I 0.028 NT-Pro-B Natriuret Pep Procalcitonin Chlamy pneumoniae PCR Adenovirus (PCR) B. pertussis DNA (PCR) B.parapertussis DNA PCR Coronavirus OC43 (PCR) Coronavirus HKU1 (PCR) Coronavirus 229E (PCR) SARS-CoV-2 (PCR) Negative Coronavirus NL63 (PCR) Human Metapneumovir PCR Influenza Type A (PCR) Influenza Type B (PCR) M. pneumoniae (PCR) Parainfluenza 1 (PCR) Parainfluenza 2 (PCR) Parainfluenza 3 (PCR) Parainfluenza 4 (PCR) RSV (PCR) Entero/Rhino (PCR) 01/21/21 01/21/21 01/21/21 17:00 18:22 20:00 WBC RBC Hgb Hct MCV MCH MCHC RDW Plt Count Neut % (Auto) Lymph % (Auto) Delta % (Auto) Eos % (Auto) Baso % (Auto) Neut # (Auto) Lymph # (Auto) Delta # (Auto) Eos # (Auto) Baso # (Auto) ABG pH 7.41 ABG pCO2 59.2 H ABG pO2 60 L ABG HCO3 37 H ABG Total CO2 39 H ABG O2 Saturation 90 L ABG Base Excess 13.0 H FiO2 21 Sodium Potassium Chloride Carbon Dioxide BUN Creatinine Estimated GFR BUN/Creatinine Ratio Glucose Calcium Total Creatine Kinase CK-MB (CK-2) CK-MB (CK-2) Rel Index Troponin I NT-Pro-B Natriuret Pep 1180 H Procalcitonin 0.06 Chlamy pneumoniae PCR Not detected Adenovirus (PCR) Not detected B. pertussis DNA (PCR) Not detected B.parapertussis DNA PCR Not detected Coronavirus OC43 (PCR) Not detected Coronavirus HKU1 (PCR) Not detected Coronavirus 229E (PCR) Not detected SARS-CoV-2 (PCR) Not detected Coronavirus NL63 (PCR) Not detected Human Metapneumovir PCR Not detected Influenza Type A (PCR) Not detected Influenza Type B (PCR) Not detected M. pneumoniae (PCR) Not detected Parainfluenza 1 (PCR) Not detected Parainfluenza 2 (PCR) Not detected Parainfluenza 3 (PCR) Not detected Parainfluenza 4 (PCR) Not detected RSV (PCR) Not detected Entero/Rhino (PCR) Not detected Assessment & Plan Assessment & Plan narrative: This is a 55-year-old Bradly Morley who is a current smoker and abuses methamphetamines with a past medical history significant for COPD, HTN and congestive heart failure with reduced ejection fraction, prior abnormal stress testing but not a suitable left heart cath candidate due to medication noncompliance who presented to the ER with shortness of breath for the last few days after not taking any of his medications for a prolonged period of time. Admitted for COPD and CHF exacerbation, with hypertensive urgency 1. Acute exacerbation of chronic COPD, present on admission, active. - Temp 98.5?, BP 163/77, HR 54, R 28, O2 saturation 94% on room air. ABGs: pCO2 59.2, PO2 60, HC03 37, TCO2 39, O2 sat 90%, base excess 13, FiO2 of 21. - Serum:HC03 of 39, , procalcitonin WNL, respiratory panel is pending. -Chest x-ray:linear scarring redemonstrated in the left lung base, with no acute cardiopulmonary processes. -EKG I personally reviewed normal sinus rhythm with a rate of 91 demonstrating moderate voltage possible LVH, nonspecific T-wave changes, prolonged QT this is consistent with the patient's EKG from 01/11/2021. -COVID test is negative. Last chest CT is reviewed and shows/confirms emphysema. -DuoNebs q.6 hours as needed for cough or shortness of breath -continue prednisone 40 mg daily x5days, restart patients Sprivia -respiratory consult ordered 2. Acute on chronic systolic heart failure, exacerbation, in the setting of essential hypertension, acute hypertensive urgency on admit, present on admission, active -BNP 1180, Last admission elevated proBNP 2070 Initial B/P 171/103, admit 163/77 -patient with echocardiogram completed on 04/14/2020 finding ejection fraction of 35-40% with mildly increased left ventricular wall thickness and moderately reduced function right ventricle is normal in size and function. -repeat limited echo 1 month later showing worsening EF of 25-30% Last admission08/2020. Not a [facility] candidate per cardiology during prior admission. -resume previous medciations including coreg, lisinopril, metoprolol. IV Lasix - First dose in ER 80mg. He is not a [facility] at this time. Depending on progress in symptoms consider repeat limited TTE however this will not likely change management facilitator at this time. -prior chest CT shows significant coronary calcifications 3. Prediabetes, chronic, not present on admission -glucose 93 on admission -Hemoglobin A1c 6.3 (04/2020) on previous admission, will repeat. 4. Methamphetamine abuse, acute on chronic, present on admission -patient denies methamphetamine abuse at this time. -UDS pending -strongly encouraged sobriety/cessation. -clonazepam 0.5 mg b.i.d. to be titrated as needed for possible methamphetamine withdrawal. 5. Tobacco abuse, acute on chronic, present on admission -teaching provided on COPD and smoking. -strongly encouraged smoking cessation 6. Medication non-compliance, acute on chronic, present on admission -provide continued patient education regarding health risks due to medication noncompliance. -restart patient's cardiac medications 7. Acute respiratory failure with hypoxia, acute, present on admission- improved -initially patient presented in respiratory distress in the ED requiring O2 oxygenation, see ABGs above, patient was able to be titrated off O2 and is now currently satting 94% on room air, in no distress. -continuous pulse ox until sustained O2 saturation% on room air >94% x4 hours then may change to Q4 hour pulse ox checks. 8. Malnutrition as evidence by BMI of 24.7, acute on chronic, present on admission -patient has received dietary evaluation and consult prior will continue to encourage appropriate or nutrition, and to monitor weight. -likely secondary to patient's substance abuse. Code status:Full Surrogate decision maker: Daughter Meryl Morley, Father Jonnathan Morley COVID PCR:Negative COVID vaccination: Full vaccinated in Spring 2020 [facility] DVT/VTE prophylaxis:Lovenox 30mg & SCD's Disposition: Patient admitted for observation, expected length of stay less than 2 midnights. I have utilized all available immediate resources to obtain, update, or review the patient's current medications. I confirmed that the patient's advanced care plan is present, Code status is documented and/or surrogate decision maker is listed in the patient's medical record. Time Spent With Patient Critical Care time: I spent a total of [] minutes of critical care time on this patient's care today; this time is exclusive of procedural time. Scores GCS [place] coma scale eye opening: Spontaneous Bogdan coma scale verbal response: Orientated [place] coma scale motor response: Obey commands [place] coma scale total score: 15
[2021-01-21 22:28] LABS: Hemoglobin A1C% w Est Avg Glu 5.6 % (4.0-6.0)
[2021-01-21] MEDS: LACTATED RINGERS 1,000 ML 40 ML IV (22:32)
[2021-01-21] MEDS: clonazePAM 0.5 MG TABLET PO (22:32)
--- NOTE | 2021-01-21 23:15 | PC.ADMIT ---
[id number] Arsh Admission Note: Patient arrived to floor from ER at 21:30. Alert and oriented, SOB on exertion. Lung sounds diminished, 95% RA. LR running at 40ml/hr per order. Tele on, NSR. Patient shown how to use call light. Brakes on bed locked. SBA for transfers. Bed alarm on. Patient has no needs at this time. The patient,Bradly Morley,55 y/o, was given written information regarding hospital policies, unit procedures and contact persons. Patient's smoking status: Current every day smoker. Vital Signs - 8 hr 01/21/21 16:53 01/21/21 17:00 01/21/21 17:06 Temperature 98.5 F Pulse Rate 102 H 94 H 94 H Respiratory Rate 28 H Blood Pressure 163/93 H 186/110 H Pulse Oximetry 96 94 97 01/21/21 17:17 01/21/21 17:30 01/21/21 18:00 Temperature Pulse Rate 84 86 84 Respiratory Rate 40 H Blood Pressure 149/85 H 171/103 H Pulse Oximetry 93 94 96 01/21/21 18:07 01/21/21 18:12 01/21/21 18:25 Temperature Pulse Rate 97 H 91 H 91 H Respiratory Rate 28 H 24 28 H Blood Pressure 171/103 H Pulse Oximetry 97 98 98 01/21/21 18:30 01/21/21 19:00 01/21/21 19:56 Temperature Pulse Rate 69 54 L Respiratory Rate Blood Pressure 157/94 H 163/77 H Pulse Oximetry 97 94 01/21/21 21:16 01/21/21 21:50 Temperature 98 F 97.5 F L Pulse Rate 77 84 Respiratory Rate 20 19 Blood Pressure 163/90 H 156/81 H Pulse Oximetry 94 95
[2021-01-21] MEDS: lisinopriL 20 MG TABLET PO (23:24)
[2021-01-22] VITALS (14 sets, daily range): BP systolic 115–136; BP diastolic 63–86; PULSE 79–105; RESP 16–29; TEMP 36.3–36.9; O2SAT 89–96
[2021-01-22 01:40] LABS: Appearance Urine UA CLEAR; Bilirubin Urine UA NEGATIVE (NEGATIVE); Color Urine UA YELLOW; Glucose Urine UA 2+ g/dL (Negative); Ketones Urine UA NEGATIVE (NEGATIVE); Leukocyte Esterase Urine UA NEGATIVE (NEGATIVE); Nitrite Urine UA NEGATIVE (Negative); Occult Blood Urine UA 1+ (Negative); Protein Urine UA 1+ (Negative); Urobilinogen Urine UA 0.2 E.U./dL (0.2)
[2021-01-22 01:47] LABS: UR Morphine/Opiate cutoff 300 Negative (Negative); Ur Creatinine 20 (Normal); Ur Specific Gravity 1.025 (Normal); Urine Amphetamines Negative (Negative); Urine Barbiturates Negative (Negative); Urine Benzodiazepines Negative (Negative); Urine Cocaine Negative (Negative); Urine MDMA Negative (Negative); Urine Methadone Negative (Negative); Urine Methamphetamines Positive (Negative); Urine Oxycodone Negative (Negative); Urine Phencyclidine Negative (Negative); Urine Tetrahydrocannabinol Negative (Negative); Urine Tricyclic Antidepressant Negative (Negative); Urine pH 4 (Normal)
[2021-01-22 01:52] LABS: RBC Urine None Seen (0-5/HPF)
[2021-01-22 01:53] LABS: Bacteria Urine None Seen; Culture Indicated Urine Cult Not Indicated; Hyaline Casts Urine 1-5/LPF; WBC Urine None Seen (0-5/HPF)
--- NOTE | 2021-01-22 05:01 | PC.NURSE ---
Pt. refused blood draw this morning.
[2021-01-22] MEDS: clonazePAM 0.5 MG TABLET PO (08:40)
[2021-01-22] MEDS: ASPIRIN EC 81 MG TABLET PO (08:40)
[2021-01-22] MEDS: predniSONE 20 MG TABLET 40 MG PO (08:41)
[2021-01-22] MEDS: lisinopriL 20 MG TABLET PO (08:41)
[2021-01-22] MEDS: ENOXAPARIN 30 MG/0.3 ML SYRINGE SUBCUT (08:46)
[2021-01-22] MEDS: INFLUENZA VACCINE QIV 0.5 ML SYRINGE IM (08:47)
[2021-01-22 08:53] LABS: BUN Creatinine Ratio 44.9 (6-22); Blood Urea Nitrogen 31 mg/dL (9-20); Calcium 8.9 mg/dL (8.4-10.2); Carbon Dioxide 35 mmol/L (22-32); Chloride 99 mmol/L (98-107); Estimated Glomerular Filt Rate > 60.0 mL/min (>60); Glucose 130 mg/dL (70-100); HEMOLYSIS < 15 (0-50); Potassium 4.7 mmol/L (3.4-5.1); Sodium 139 mmol/L (137-145)
[2021-01-22 09:02] LABS: NT-proBNP (BNP-Adult 18+) 1240 pg/mL (<125)
[2021-01-22] MEDS: ALBUTEROL/IPRATROPIUM 3 ML AMPUL INH ×4 (10:32→22:27)
--- NOTE | 2021-01-22 10:48 | CM.DANOTE ---
DCP: Case received, EMR reviewed and met with patient. Introduced self and role. Was able to get some information from patient, as well as information from prior admissions here at the hospital, including his current living situation. DCP assessment was completed with information currently available. Patient is a 55 year old homeless male who admitted yesterday evening to the care of the hospitalist team. PCP: None currently Payer: confirmed: [employer]. Patient came to the hospital secondary to having some shortness of breath, COPD exacerbation. Patient has history of methamphetamine, which currently showed up in his system. He is here for COPD and CHF secondary to meth abuse. Met briefly in patient's room. He was laying on his left side, answering yes or no , questions. He had some garbled speech. Confirmed that he has no primary care provider, and he indicated that he is homeless. Patient has been here before, at last visit, went to a motel secondary to having COVID. He has also been noncompliant with his medications. Asked him about his father, who is contact, who lives on [facility] here [facility], and he stated, he is not involved. Patient has also been noncompliant with taking his meds. Patient also denied currently using meth. P: DCP to continue to follow. Patient could possibly discharge today, can attempt to give resources, but according to HAND TIRE TRIMMER, he has been given resources before. Rosa Ventura RN/Trim Mechanic Discharge Planning/Care Management CM Discharge Assessment Start: 01/22/21 10:45 Freq: Status: Active Protocol: Document 01/22/21 10:45 (Rec: 01/22/21 10:47 [id number]) Discharge Planning Assessment Assigned Development Rep Rosa Ventura RN/Trim Mechanic Advance Directives? No Advance Directives on File No History Provided By Patient,Medical Record Prior Living Arrangements Homeless Household Members none Type of transporation used prior to Medicaid Transport admit Independent with ADL's Yes Is patient alert and oriented? Yes Caregiver for Another No Patient/Family Preference Drug/Alcohol Rehab Barriers to Discharge Yes Comment Pt is homeless and has been for many years with polysubstance Discharge Plan Home Transportation Arrangement Father lives locally and may provide transport Referrals Initiated None needed Whiteboard Updated in Patient Room with Yes name and ext. # of Development Rep Review Status In Process Next Review Type Continued Stay Review
--- NOTE | 2021-01-22 12:49 | PC.NURSE ---
1120- This SANDER PORTABLE MACHINE offered to give patient a fresh gown and change the linens due to noticeable stains on both gown and sheets. The patient declined. This SANDER PORTABLE MACHINE also offered shower and oral care to which both he declined.
--- NOTE | 2021-01-22 14:35 | PC.NURSE ---
Patient A/O x 3, mumbled speech but oriented. Patient becomes SOB with eating and with conversation, RR increases, patient 90-92% on 1L NC at this time. Resting, RR at 26. Tele d/c per MD. SCD's off, patient refuses. Bed alarm on. Call light in reach. Patient voided using the urinal. LR d/c per MD. ER unable to obtain access. MD notified.
--- NOTE | 2021-01-22 15:17 | P.PN_ITS ---
Subjective Subjective Date Patient Seen: 01/22/21 Time Patient Seen: 08:00 Interval history: Today he appears to have improved. I have seen him before, and his baseline respiratory status is poor as he does not take his medications as an outpatient. He has no idea how long it has been since he has taken them. He feels short of breath but he can't tell me if this has changed since being here. Exam Vital Signs (past 8 hours): - 01/22/21 08:30 01/22/21 08:41 01/22/21 10:32 Temperature 97.4 F L Pulse Rate 94 H 91 H 101 H Respiratory Rate 26 H 22 Blood Pressure 120/86 136/74 Pulse Oximetry 96 89 L 01/22/21 11:40 01/22/21 13:00 01/22/21 13:49 Temperature 97.7 F Pulse Rate 96 H 103 H Respiratory Rate 26 H 20 Blood Pressure 127/82 Pulse Oximetry 90 L 93 Oxygen Delivery Method Nasal Cannula Oxygen Flow Rate 1 Narrative Exam Narrative: General:?no acute distress Pulm:? coarse breath sounds bilaterally Cardio:? regular rate and rhythm without murmurs Abdomen:? Soft nontender, negative for organomegaly, or masses Skin:? Warm dry and intact without rashes Objective Labs Result Diagrams: 01/21/21 17:00 01/22/21 08:15 Labs: Laboratory Results - last 24 hr 01/21/21 01/21/21 01/21/21 16:55 17:00 17:00 WBC 10.1 RBC 5.56 Hgb 15.1 Hct 47.6 MCV 85.5 MCH 27.2 MCHC 31.7 RDW 14.0 Plt Count 248 Neut % (Auto) 75.8 H Lymph % (Auto) 12.8 L [place] % (Auto) 8.5 Eos % (Auto) 2.2 Baso % (Auto) 0.7 Neut # (Auto) 7700 H Lymph # (Auto) 1300 [place] # (Auto) 900 Eos # (Auto) 200 Baso # (Auto) 100 ABG pH ABG pCO2 ABG pO2 ABG HCO3 ABG Total CO2 ABG O2 Saturation ABG Base Excess FiO2 Sodium 142 Potassium 4.7 Chloride 102 Carbon Dioxide 39 H BUN 18 Creatinine 0.63 L Estimated GFR > 60.0 BUN/Creatinine Ratio 28.6 H Glucose 95 Hemoglobin A1c Calcium 9.1 Magnesium Total Creatine Kinase 71 CK-MB (CK-2) TNP CK-MB (CK-2) Rel Index TNP Troponin I 0.028 NT-Pro-B Natriuret Pep Procalcitonin Urine Color Urine Appearance Urine pH Ur Specific [place] Urine Protein Urine Glucose (UA) Urine Ketones Urine Occult Blood Urine Nitrate Urine Bilirubin Urine Urobilinogen Ur Leukocyte Esterase Urine RBC Urine WBC Urine Bacteria Hyaline Casts Ur Culture Indicated? U Opiates 300ng/mL cut Ur Oxycodone Screen Urine Methadone Screen Ur Barbiturates Screen U Tricyclic Antidepress Ur Phencyclidine Scrn Ur Amphetamines Screen U Methamphetamines Scrn Ur MDMA Scrn (Ecstasy) U Benzodiazepines Scrn Urine Cocaine Screen U Marijuana (THC) Screen Chlamy pneumoniae PCR Adenovirus (PCR) B. pertussis DNA (PCR) B.parapertussis DNA PCR Coronavirus OC43 (PCR) Coronavirus HKU1 (PCR) Coronavirus 229E (PCR) SARS-CoV-2 (PCR) Negative Coronavirus NL63 (PCR) Human Metapneumovir PCR Influenza Type A (PCR) Influenza Type B (PCR) M. pneumoniae (PCR) Parainfluenza 1 (PCR) Parainfluenza 2 (PCR) Parainfluenza 3 (PCR) Parainfluenza 4 (PCR) RSV (PCR) Entero/Rhino (PCR) 01/21/21 01/21/21 01/21/21 17:00 17:00 17:00 WBC RBC Hgb Hct MCV MCH MCHC RDW Plt Count Neut % (Auto) Lymph % (Auto) [place] % (Auto) Eos % (Auto) Baso % (Auto) Neut # (Auto) Lymph # (Auto) [place] # (Auto) Eos # (Auto) Baso # (Auto) ABG pH ABG pCO2 ABG pO2 ABG HCO3 ABG Total CO2 ABG O2 Saturation ABG Base Excess FiO2 Sodium Potassium Chloride Carbon Dioxide BUN Creatinine Estimated GFR BUN/Creatinine Ratio Glucose Hemoglobin A1c 5.6 Calcium Magnesium 2.0 Total Creatine Kinase CK-MB (CK-2) CK-MB (CK-2) Rel Index Troponin I NT-Pro-B Natriuret Pep 1180 H Procalcitonin 0.06 Urine Color Urine Appearance Urine pH Ur Specific [place] Urine Protein Urine Glucose (UA) Urine Ketones Urine Occult Blood Urine Nitrate Urine Bilirubin Urine Urobilinogen Ur Leukocyte Esterase Urine RBC Urine WBC Urine Bacteria Hyaline Casts Ur Culture Indicated? U Opiates 300ng/mL cut Ur Oxycodone Screen Urine Methadone Screen Ur Barbiturates Screen U Tricyclic Antidepress Ur Phencyclidine Scrn Ur Amphetamines Screen U Methamphetamines Scrn Ur MDMA Scrn (Ecstasy) U Benzodiazepines Scrn Urine Cocaine Screen U Marijuana (THC) Screen Chlamy pneumoniae PCR Adenovirus (PCR) B. pertussis DNA (PCR) B.parapertussis DNA PCR Coronavirus OC43 (PCR) Coronavirus HKU1 (PCR) Coronavirus 229E (PCR) SARS-CoV-2 (PCR) Coronavirus NL63 (PCR) Human Metapneumovir PCR Influenza Type A (PCR) Influenza Type B (PCR) M. pneumoniae (PCR) Parainfluenza 1 (PCR) Parainfluenza 2 (PCR) Parainfluenza 3 (PCR) Parainfluenza 4 (PCR) RSV (PCR) Entero/Rhino (PCR) 01/21/21 01/21/21 01/22/21 18:22 20:00 01:30 WBC RBC Hgb Hct MCV MCH MCHC RDW Plt Count Neut % (Auto) Lymph % (Auto) [place] % (Auto) Eos % (Auto) Baso % (Auto) Neut # (Auto) Lymph # (Auto) [place] # (Auto) Eos # (Auto) Baso # (Auto) ABG pH 7.41 ABG pCO2 59.2 H ABG pO2 60 L ABG HCO3 37 H ABG Total CO2 39 H ABG O2 Saturation 90 L ABG Base Excess 13.0 H FiO2 21 Sodium Potassium Chloride Carbon Dioxide BUN Creatinine Estimated GFR BUN/Creatinine Ratio Glucose Hemoglobin A1c Calcium Magnesium Total Creatine Kinase CK-MB (CK-2) CK-MB (CK-2) Rel Index Troponin I NT-Pro-B Natriuret Pep Procalcitonin Urine Color Urine Appearance Urine pH Ur Specific [place] Urine Protein Urine Glucose (UA) Urine Ketones Urine Occult Blood Urine Nitrate Urine Bilirubin Urine Urobilinogen Ur Leukocyte Esterase Urine RBC Urine WBC Urine Bacteria Hyaline Casts Ur Culture Indicated? U Opiates 300ng/mL cut Negative Ur Oxycodone Screen Negative Urine Methadone Screen Negative Ur Barbiturates Screen Negative U Tricyclic Antidepress Negative Ur Phencyclidine Scrn Negative Ur Amphetamines Screen Negative U Methamphetamines Scrn Positive H Ur MDMA Scrn (Ecstasy) Negative U Benzodiazepines Scrn Negative Urine Cocaine Screen Negative U Marijuana (THC) Screen Negative Chlamy pneumoniae PCR Not detected Adenovirus (PCR) Not detected B. pertussis DNA (PCR) Not detected B.parapertussis DNA PCR Not detected Coronavirus OC43 (PCR) Not detected Coronavirus HKU1 (PCR) Not detected Coronavirus 229E (PCR) Not detected SARS-CoV-2 (PCR) Not detected Coronavirus NL63 (PCR) Not detected Human Metapneumovir PCR Not detected Influenza Type A (PCR) Not detected Influenza Type B (PCR) Not detected M. pneumoniae (PCR) Not detected Parainfluenza 1 (PCR) Not detected Parainfluenza 2 (PCR) Not detected Parainfluenza 3 (PCR) Not detected Parainfluenza 4 (PCR) Not detected RSV (PCR) Not detected Entero/Rhino (PCR) Not detected 01/22/21 01/22/21 01:30 08:15 WBC RBC Hgb Hct MCV MCH MCHC RDW Plt Count Neut % (Auto) Lymph % (Auto) [place] % (Auto) Eos % (Auto) Baso % (Auto) Neut # (Auto) Lymph # (Auto) [place] # (Auto) Eos # (Auto) Baso # (Auto) ABG pH ABG pCO2 ABG pO2 ABG HCO3 ABG Total CO2 ABG O2 Saturation ABG Base Excess FiO2 Sodium 139 Potassium 4.7 Chloride 99 Carbon Dioxide 35 H BUN 31 H Creatinine 0.69 Estimated GFR > 60.0 BUN/Creatinine Ratio 44.9 H Glucose 130 H Hemoglobin A1c Calcium 8.9 Magnesium Total Creatine Kinase CK-MB (CK-2) CK-MB (CK-2) Rel Index Troponin I NT-Pro-B Natriuret Pep 1240 H Procalcitonin Urine Color Yellow Urine Appearance Clear Urine pH 5.0 Ur Specific [place] 1.020 Urine Protein 1+ H Urine Glucose (UA) 2+ H Urine Ketones Negative Urine Occult Blood 1+ H Urine Nitrate Negative Urine Bilirubin Negative Urine Urobilinogen 0.2 Ur Leukocyte Esterase Negative Urine RBC None seen Urine WBC None seen Urine Bacteria None seen Hyaline Casts 1-5/lpf Ur Culture Indicated? Cult not indicated U Opiates 300ng/mL cut Ur Oxycodone Screen Urine Methadone Screen Ur Barbiturates Screen U Tricyclic Antidepress Ur Phencyclidine Scrn Ur Amphetamines Screen U Methamphetamines Scrn Ur MDMA Scrn (Ecstasy) U Benzodiazepines Scrn Urine Cocaine Screen U Marijuana (THC) Screen Chlamy pneumoniae PCR Adenovirus (PCR) B. pertussis DNA (PCR) B.parapertussis DNA PCR Coronavirus OC43 (PCR) Coronavirus HKU1 (PCR) Coronavirus 229E (PCR) SARS-CoV-2 (PCR) Coronavirus NL63 (PCR) Human Metapneumovir PCR Influenza Type A (PCR) Influenza Type B (PCR) M. pneumoniae (PCR) Parainfluenza 1 (PCR) Parainfluenza 2 (PCR) Parainfluenza 3 (PCR) Parainfluenza 4 (PCR) RSV (PCR) Entero/Rhino (PCR) [facility] Medical History (Updated 01/21/21 @ 22:58 [facility] COPD (chronic obstructive pulmonary disease) COVID-19 HFrEF (heart failure with reduced ejection fraction) Methamphetamine abuse Peripheral edema Tobacco abuse Surgical History Status post appendectomy Family History Father Heart disease Mother Medical history unknown Brother Medical history unknown Social History household members: none Smoking Status: Current every day smoker alcohol intake: never Assessment & Plan Assessment & Plan narrative: Mr. Morley is a 55M with PMH COPD, CHF, smoker, active meth abuse who presents with shortness of breath due to not taking medications. 1. Acute exacerbation of chronic COPD, present on admission, active. -COVID test is negative. -DuoNebs q4 and PRN -continue prednisone 40 mg daily x5days, restart patients Sprivia -respiratory consult ordered -ordered for azithromycin 2. Chronic systolic heart failure, exacerbation, in the setting of essential hypertension -patient with echocardiogram completed on 04/14/2020 finding ejection fraction of 35-40% with mildly increased left ventricular wall thickness and moderately reduced function right ventricle, repeat 1 month later EF of 25-30. Not a [facility] candidate per cardiology during prior admission. -resume previous medciations including lisinopril, metoprolol, lasix. He is not a [facility] at this time -prior chest CT shows significant coronary calcifications 3. Prediabetes, chronic, not present on admission -glucose 93 on admission -Hemoglobin A1c 6.3 (04/2020) 4. Methamphetamine abuse, acute on chronic, present on admission -patient denies methamphetamine abuse at this time. -UDS pending -strongly encouraged sobriety/cessation. 5. Tobacco abuse, acute on chronic, present on admission -teaching provided on COPD and smoking. -strongly encouraged smoking cessation 6. Medication non-compliance, acute on chronic, present on admission -provide continued patient education regarding health risks due to medication noncompliance. -restart patient's cardiac medications Time Spent With Patient Critical Care time: I spent a total of [] minutes of critical care time on this patient's care today; this time is exclusive of procedural time.
[2021-01-22] MEDS: FUROSEMIDE 20 MG TABLET 40 MG PO (15:42)
[2021-01-22] MEDS: SODIUM CHLORIDE 0.9% FLUSH 10 ML IV (19:57)
[2021-01-23] VITALS (16 sets, daily range): BP systolic 115–165; BP diastolic 64–92; PULSE 95–112; RESP 18–30; TEMP 36.1–36.8; O2SAT 86–99
--- NOTE | 2021-01-23 05:10 | PC.NURSE ---
MEDICAL SALES REPRESENTATIVE note: juaquin Cuba came out of the patient room to tell us the patient's floor was very slippery in his room at 0455. I had asked him at the start of shift for patient to please use the trash can with all of his snackies trash. I changed patient's linens on bed when he got up because it was covered in food. When I came into the room at 0455, there was food all over the floor. Spilled fruit cups, milk, cookies, and all sorts of other food were on the floor and table. I asked the patient again to please place all food trash in the trash can next to his bed. Patient told me there was no trash can in his room. I showed him the trash can was right at his bedside. Cleaned up room again, placed all trash in the trash can, and then alerted housekeeping that his floor would need a good clean down. Alerted NICHOLE Gr about the situation.
[2021-01-23 05:19] LABS: Hematocrit 44.2 % (41-53); Hemoglobin 13.8 g/dL (13.5-17.5); Mean Corpuscular HGB Conc 31.2 % (30-36); Mean Corpuscular Hemoglobin 26.8 PG (26-34); Mean Corpuscular Volume 85.9 fL (80-100); Platelet Count 224 X10^3/uL (150-400); Red Blood Cell Count 5.15 X10^6/uL (4.5-5.9); Red Cell Distribution Width 14.3 % (11.6-14.8); White Blood Cell Count 21.6 X10^3/uL (4.5-11.0)
[2021-01-23 05:28] LABS: BUN Creatinine Ratio 50.5 (6-22); Blood Urea Nitrogen 53 mg/dL (9-20); Chloride 99 mmol/L (98-107); Estimated Glomerular Filt Rate > 60.0 mL/min (>60); Glucose 119 mg/dL (70-100); HEMOLYSIS 21 (0-50); Potassium 4.5 mmol/L (3.4-5.1); Sodium 140 mmol/L (137-145)
[2021-01-23 05:34] LABS: Carbon Dioxide 38 mmol/L (22-32)
[2021-01-23] MEDS: ALBUTEROL/IPRATROPIUM 3 ML AMPUL INH ×4 (07:45→23:35)
[2021-01-23] MEDS: ALBUTEROL 2.5 MG/3 ML NEB (ADULT) INH ×4 (08:00→23:35)
[2021-01-23] MEDS: ASPIRIN EC 81 MG TABLET PO (09:05)
[2021-01-23] MEDS: predniSONE 20 MG TABLET 40 MG PO (09:05)
[2021-01-23] MEDS: METOPROLOL ER 25 MG TABLET 12.5 MG PO (09:05)
[2021-01-23] MEDS: ENOXAPARIN 40 MG/0.4 ML SYRINGE SUBCUT (09:05)
[2021-01-23] MEDS: FUROSEMIDE 20 MG TABLET 40 MG PO (09:05)
[2021-01-23] MEDS: lisinopriL 20 MG TABLET PO (09:05)
[2021-01-23] MEDS: SODIUM CHLORIDE 0.9% FLUSH 10 ML IV ×2 (09:07→21:17)
[2021-01-23] MEDS: AZITHROMYCIN 250 MG TABLET PO (09:10)
--- NOTE | 2021-01-23 10:55 | PC.NURSE ---
1030- This PROPOSAL COORDINATOR was asked by NICHOLE Henriquez to walk with patient and monitor his pulse ox saturation. A portable pulse ox was placed on the patient while sitting. He stood up and his saturation quickly went to 86% on room air. He denied chest pain, but reported feeling very short of breath. This PROPOSAL COORDINATOR had him sit down immediately as he also became quite unsteady on his feet and looked as if he could fall. Once seated his oxygen saturation went up to 93%. This PROPOSAL COORDINATOR noticed labored breathing at a RR of 34. Reported all of this information to NICHOLE Henriquez. Patient is in bed resting, pulse ox on, bed alarm on, and call light within reach.
--- NOTE | 2021-01-23 12:23 | PC.NURSE ---
Addendum entered by Florence Lerner R.N. 01/23/21 12:30: Clarify: RA sats decreased to 86% while sitting on the side of the bed. Original Note: Resp: Pt calling staff, having diff breathing, feeling more sob. RR is 36, using accessory muscles to breath, has a loose cough which is non productive, Lungs w/exp wheezes in the upper santillan ant and post, lower santillan sound diminished. O2 sat on 2L NC is 94%. RT called and they did give pt a neb and worked with him. Pt reporting he feels better after same. RR is down to 24. Less use of accessory muscles. Appears more comfortable. No further wheezing is heard for now. Dr. Rodgers made aware. Request for checking ra sats. On RA at rest is 92%. Pt was sat on the side of bed, he felt dizzy and whoozy, and sats decreased to 8^%
--- NOTE | 2021-01-23 15:01 | P.PN_ITS ---
Subjective Subjective Date Patient Seen: 01/23/21 Time Patient Seen: 08:00 Interval history: He still feels short of breath, though he is chronically short of breath. His main concern for leaving is he lacks housing. Trial off oxygen was attempted and he desaturated to 86% Exam Vital Signs (past 8 hours): - 01/23/21 07:30 01/23/21 07:45 01/23/21 07:50 Temperature 97.4 F L Pulse Rate 102 H Respiratory Rate 30 H 30 H Blood Pressure 136/86 Pulse Oximetry 94 95 94 01/23/21 08:00 01/23/21 10:30 01/23/21 10:35 Temperature Pulse Rate Respiratory Rate Blood Pressure Pulse Oximetry 99 86 L 93 01/23/21 11:05 01/23/21 12:11 Temperature 97.6 F Pulse Rate 95 H 112 H Respiratory Rate 28 H 24 Blood Pressure 124/78 Pulse Oximetry 92 94 Oxygen Delivery Method Nasal Cannula Oxygen Flow Rate 2 Narrative Exam Narrative: General: no acute distress Pulm: improving air movement bilaterally with minimal wheezing Cardio: regular rate and rhythm without murmurs Abdomen: Soft nontender, negative for organomegaly, or masses Skin: Warm dry and intact without rashes Objective Labs Result Diagrams: 01/23/21 04:50 01/23/21 04:50 Labs: Laboratory Results - last 24 hr 01/23/21 01/23/21 04:50 04:50 WBC 21.6 H D RBC 5.15 Hgb 13.8 Hct 44.2 MCV 85.9 MCH 26.8 MCHC 31.2 RDW 14.3 Plt Count 224 Sodium 140 Potassium 4.5 Chloride 99 Carbon Dioxide 38 H BUN 53 H Creatinine 1.05 Estimated GFR > 60.0 BUN/Creatinine Ratio 50.5 H Glucose 119 H Calcium 9.0 PFSH Medical History (Updated 01/21/21 @ 22:58 by ELIU Ron) COPD (chronic obstructive pulmonary disease) COVID-19 HFrEF (heart failure with reduced ejection fraction) Methamphetamine abuse Peripheral edema Tobacco abuse Surgical History Status post appendectomy Family History Father Heart disease Mother Medical history unknown Brother Medical history unknown Social History household members: none Smoking Status: Current every day smoker alcohol intake: never Assessment & Plan Assessment & Plan narrative: Mr. Morley is a 55M with PMH COPD, CHF, smoker, active meth abuse who presents with shortness of breath due to not taking medications. 1. Acute exacerbation of chronic COPD, present on admission, active. -COVID test is negative. -DuoNebs q4 and PRN -continue prednisone 40 mg daily x5days -respiratory consult ordered -ordered for azithromycin 2. Chronic systolic heart failure, in the setting of essential hypertension -patient with echocardiogram completed on 04/14/2020 finding ejection fraction of 35-40% with mildly increased left ventricular wall thickness and moderately reduced function right ventricle, repeat 1 month later EF of 25-30. Not a [facility] candidate per cardiology during prior admission. -resume previous medciations including lisinopril, metoprolol, lasix. He is not a [facility] at this time -prior chest CT shows significant coronary calcifications 3. Prediabetes, chronic, not present on admission -glucose 93 on admission -Hemoglobin A1c 6.3 (04/2020) 4. Methamphetamine abuse, acute on chronic, present on admission -patient denies methamphetamine abuse at this time. -UDS pending -strongly encouraged sobriety/cessation, he is not interested in quitting 5. Tobacco abuse, acute on chronic, present on admission -teaching provided on COPD and smoking. -strongly encouraged smoking cessation 6. Medication non-compliance, acute on chronic, present on admission -provide continued patient education regarding health risks due to medication noncompliance. -restart patient's cardiac medications 7. Leukocytosis -patient's respiratory symptoms are improving, no fevers -also had a concurrent rise in BUN -presume both are related to steroids -continue to monitor for fever, other worsening infectious symptoms -initial procal 0.06, repeat in AM Time Spent With Patient Critical Care time: I spent a total of [] minutes of critical care time on this patient's care today; this time is exclusive of procedural time.
[2021-01-23] MEDS: NICOTINE 21 MG PATCH TOP (16:21)
[2021-01-23] MEDS: BENZOCAINE/MENTHOL 1 LOZ PKT 1 EACH PO (19:19)
[2021-01-24] VITALS (14 sets, daily range): BP systolic 111–153; BP diastolic 65–86; PULSE 80–106; RESP 17–24; TEMP 36.2–36.6; O2SAT 92–99
[2021-01-24] MEDS: ALBUTEROL 2.5 MG/3 ML NEB (ADULT) INH (04:20)
[2021-01-24 05:26] LABS: Hematocrit 44.6 % (41-53); Hemoglobin 13.7 g/dL (13.5-17.5); Mean Corpuscular HGB Conc 30.8 % (30-36); Mean Corpuscular Hemoglobin 26.6 PG (26-34); Mean Corpuscular Volume 86.5 fL (80-100); Platelet Count 229 X10^3/uL (150-400); Red Blood Cell Count 5.16 X10^6/uL (4.5-5.9); Red Cell Distribution Width 14.1 % (11.6-14.8); White Blood Cell Count 18.4 X10^3/uL (4.5-11.0)
[2021-01-24 05:40] LABS: BUN Creatinine Ratio 55.2 (6-22); Blood Urea Nitrogen 53 mg/dL (9-20); Calcium 9.4 mg/dL (8.4-10.2); Carbon Dioxide 39 mmol/L (22-32); Chloride 99 mmol/L (98-107); Estimated Glomerular Filt Rate > 60.0 mL/min (>60); Glucose 102 mg/dL (70-100); HEMOLYSIS < 15 (0-50); Potassium 4.6 mmol/L (3.4-5.1); Sodium 139 mmol/L (137-145)
[2021-01-24 05:53] LABS: Procalcitonin 0.08 ng/mL (<0.5)
[2021-01-24] MEDS: ALBUTEROL/IPRATROPIUM 3 ML AMPUL INH ×5 (06:01→22:30)
[2021-01-24] MEDS: METOPROLOL ER 25 MG TABLET 12.5 MG PO (09:00)
[2021-01-24] MEDS: ASPIRIN EC 81 MG TABLET PO (09:00)
[2021-01-24] MEDS: ENOXAPARIN 40 MG/0.4 ML SYRINGE SUBCUT (09:00)
[2021-01-24] MEDS: FUROSEMIDE 20 MG TABLET 40 MG PO (09:01)
[2021-01-24] MEDS: lisinopriL 20 MG TABLET PO (09:02)
[2021-01-24] MEDS: predniSONE 20 MG TABLET 40 MG PO (09:02)
[2021-01-24] MEDS: NICOTINE 21 MG PATCH TOP (09:02)
[2021-01-24] MEDS: SODIUM CHLORIDE 0.9% FLUSH 10 ML IV (09:04)
[2021-01-24] MEDS: AZITHROMYCIN 250 MG TABLET PO (09:09)
--- NOTE | 2021-01-24 09:41 | PC.NURSE ---
AM shift note. pt AO and receptive to care. pt SOB at rest and with activity. 93% RA. pt spontaneous and will not use call light, even when staff reminds him to. Using urinal at bedside and BR for BM's. Nicotine patch replaced and applied to back left shoulder. PIV flushing. Expressing feelings of anxiousness with discharge. urban plannerNettie, working on motel/hotel stipend.
--- NOTE | 2021-01-24 15:31 | CM.DPC ---
DCP Cont: Per MD, pt with significant COPD and difficulty breathing and stabilizing but pt is homeless and breathing issues a high risk factor for readmit and pt needs safe d/c plan other than the street. SW met bedside with pt and with Patient Ombudspersonnathan Paulino and pt requests support with [facility] Motel Voucher Program. Supported pt in calling the [phone] number to request motel voucher. [place] was able to talk directly to Nori in charge of the program and confirmed pt qualifies for 2 nights starting tomorrow at [facility] in [place]. Will just need ride to be set up. Updated pt bedside he is very appreciative and agreeable and unsure if he has Medicaid transport benefits and states he usually goes to [facility] [place] for the pharmacy. SW called Medicaid transport SW made [facility] referral to determine if pt qualifies for a community health advocate to support pt with getting established with PCP, housing, medical care, chemical dependency. SW called [facility] in [place] and confirmed that if pt completes phone intake his meth use would qualify him for detox if pt is agreeable as a back up plan if something happens tomorrow with motel voucher program. Plan: SW to follow closely for plan of pt d/c to [facility] for voucher program for 2 nights. ASHLI Tsai
--- NOTE | 2021-01-24 18:43 | P.PN_ITS ---
Subjective Subjective Interval history: patient is a 55 y/o male admitted for acute respiratory failure secondary to COPD. Patient reports he is very short of breath. He is very concerned about his housing as he is homeless. He is worried that if he is discharged to the street he will be back in the hospital. Exam Vital Signs (past 8 hours): - 01/24/21 12:05 01/24/21 14:37 01/24/21 16:30 Temperature 97.1 F L 97.6 F Pulse Rate 80 97 H 104 H Respiratory Rate 20 20 19 Blood Pressure 153/86 H 111/79 Pulse Oximetry 95 93 93 01/24/21 17:56 Temperature Pulse Rate 106 H Respiratory Rate 20 Blood Pressure Pulse Oximetry 94 Oxygen Delivery Method Room Air Oxygen Flow Rate 0 Narrative Exam Narrative: ill appearing discheveled male lying in bed, anxious and short of breath Resp Other: Lungs: decreased breath sounds with wheezing Cardio Other: RRR Nl Sl S2 GI Other: soft/ nontender/ non distended Extrem Other: no edema Objective Labs Result Diagrams: 01/24/21 04:35 01/24/21 04:35 Labs: Laboratory Results - last 24 hr 01/24/21 01/24/21 04:35 04:35 WBC 18.4 H RBC 5.16 Hgb 13.7 Hct 44.6 MCV 86.5 MCH 26.6 MCHC 30.8 RDW 14.1 Plt Count 229 Sodium 139 Potassium 4.6 Chloride 99 Carbon Dioxide 39 H BUN 53 H Creatinine 0.96 Estimated GFR > 60.0 BUN/Creatinine Ratio 55.2 H Glucose 102 H Calcium 9.4 Procalcitonin 0.08 PFSH Medical History (Updated 01/21/21 @ 22:58 by ELIU Ron) COPD (chronic obstructive pulmonary disease) COVID-19 HFrEF (heart failure with reduced ejection fraction) Methamphetamine abuse Peripheral edema Tobacco abuse Surgical History Status post appendectomy Family History Father Heart disease Mother Medical history unknown Brother Medical history unknown Social History household members: none Smoking Status: Current every day smoker alcohol intake: never Assessment & Plan Assessment & Plan narrative: ? Mr. Morley is a 55M with PMH COPD, CHF, smoker, active meth abuse who presents with shortness of breath due to not taking medications. 1. Acute exacerbation of chronic COPD, present on admission, active. -COVID test is negative. -DuoNebs q4 and PRN -continue prednisone 40 mg daily x5days -respiratory consult ordered -ordered for azithromycin -plan to discharge tomorrow to [facility] 2. Chronic systolic heart failure,? in the setting of essential hypertension -patient with echocardiogram completed on 04/14/2020 finding ejection fraction of 35-40% with mildly increased left ventricular wall thickness and moderately reduced function right ventricle, repeat 1 month later EF of 25-30. Not a [facility] candidate per cardiology during prior admission. -resume previous medciations including lisinopril, metoprolol, lasix. He is not a [facility] at this time -prior chest CT shows significant coronary calcifications 3. Prediabetes, chronic, not present on admission -glucose 93 on admission -Hemoglobin A1c 6.3 (04/2020) 4. Methamphetamine abuse, acute on chronic, present on admission -patient denies methamphetamine abuse at this time. -UDS pending -strongly encouraged sobriety/cessation, he is not interested in quitting 5. Tobacco abuse, acute on chronic, present on admission -teaching provided on COPD and smoking. -strongly encouraged smoking cessation -patch in place 6. Medication non-compliance, acute on chronic, present on admission -provide continued patient education regarding health risks due to medication noncompliance. -restart patient's cardiac medications 7. Leukocytosis -patient's respiratory symptoms are improving, no fevers -also had a concurrent rise in BUN -presume both are related to steroids -continue to monitor for fever, other worsening infectious symptoms -initial procal 0.06, repeat in AM Time Spent With Patient Critical Care time: I spent a total of [] minutes of critical care time on this patient's care today; this time is exclusive of procedural time.
[2021-01-25 00:56] VITALS: BP 147/90; PULSE 97; RESP 22; TEMP 36.6; O2SAT 94
--- NOTE | 2021-01-25 02:30 | PC.NURSE ---
Patient is alert and oriented but seems anxious. ELECTROLYSIST reports earlier patient upset stating he heard someone outside his window saying the person in 217 was a meth user. Repeatedly told ELECTROLYSIST I'm not schizophrenic. Speech is understandable but articulates poorly and mumbles words. Breath sounds diminished on inhalation but CTA with RA sat of 94%; RR was tachypneic at time of assessment at 26. HRR. BP elevated at 147/90 and has been trending on high side. Denied nausea. BT present and abdomen is soft. Denied dysuria, frequency or urgency with urination. Is able to turn himself in bed. Evening RN reported he was up independently in room but fall risk score is high so instructed patient to call for assistance if needing to get out of bed and bed alarm activated. Refused to wear SCD's so reminded to ankle wave when awake. Denied pain.
[2021-01-25 05:04] VITALS: PULSE 95; RESP 24; O2SAT 94
[2021-01-25] MEDS: ALBUTEROL/IPRATROPIUM 3 ML AMPUL INH (05:04)
[2021-01-25 05:26] VITALS: BP 134/91; PULSE 94; RESP 26; TEMP 36.3; O2SAT 96
[2021-01-25 08:45] VITALS: BP 144/94; PULSE 89; RESP 20; TEMP 36.7; O2SAT 94
--- NOTE | 2021-01-25 08:50 | PM.DS.1 ---
History of Present Illness History of Present Illness Date Patient Seen: 01/25/21 Time Patient Seen: 08:55 Chief complaint: COPD SOB Narrative: This is a 54-year-old male? Bradly Morley who is a current smoker and methamphetamine abuse with a past medical history significant for COPD, and congestive heart failure with reduced ejection fraction who presented to the ED with a cheif complaint of SOB and was in severe respiratory distress able to speak in 1-2 word sentences sitting straight up in tripod positioning, with poor air movement.? Appears fatigued.? Notes that his legs have been a bit more swollen today and that his respiratory issues started yesterday.? He notes he has not been taking any medications for a long while, I can't afford my medications.? Patient denies of methamphetamine abuse and states he has not taken any meth for a long time.? Patient denies chest pain, abdominal pain, nausea, vomiting, diarrhea, chills, fever, body aches, headache, changes in vision, numbness tingling, weakness, recent illness injury or trauma.? Patient does note that he is currently abusing methamphetamines.? Upon admit patient is O2, lying in bed eating ice cream during exam and talking fairly comfortably, but continues with shallow breathing, though O2 saturation remaining above 94%. Patient's vitals upon admit he presents to the ED in acute respiratory failure, hypertensive, tachypneic initially requiring oxygen, but has been able to titrate and is currently on room air.? Temp 98.5?, BP 163/77, HR 54, R 28, O2 saturation 94% on room air.? ABGs pH is normal at 7.41, pCO2 59.2, PO2 60, HC03 37, TCO2 39, O2 sat 90%, base excess 13, FiO2 of 21.? Patient's CBCs predominantly unremarkable, HC03 of 39, creatinine of 0.63 which is decreased from last creatinine at 0.80, BNP 1180, procalcitonin WNL, respiratory panel is pending.? Chest x-ray demonstrates linear scarring redemonstrated in the left lung base, with no acute cardiopulmonary processes.? EKG I personally reviewed normal sinus rhythm with a rate of 91 demonstrating moderate voltage 4 L the H, nonspecific T-wave changes, prolonged QT this is consistent with the patient's EKG from 01/11/2021.? Patient has had 2 hospitalizations in 2020 1 for CHF exacerbation April, and 1 for COPD exacerbation in August in addition to a positive COVID(09/16/2020).? Patient to be admitted for COPD exacerbation possible CHF in the setting of methamphetamine abuse and medication noncompliance. Discharge Providers Provider Date of admission: 01/21/21 20:47 Discharge Date: 01/25/21 Discharge provider: Vera Connolly MD Summary Hospital Course Discharge Diagnosis: 1. Acute exacerbation of COPD. 2. Probable chronic bronchitis 3. Chronic systolic heart failure 4. Prediabetes 5. Nicotine dependence 6. Methamphetamine abuse 7. Social Determinants-patient is homeless Hospital Course: Patient was admitted to the hospital for an acute COPD exacerbation. He was treated with oral antibiotics, as is her mycin, prednisone, and nebulizers. Patient is also found to have chronic systolic heart failure, ejection fraction 25-30%. Patient was placed back on his prior medications to include lisinopril metoprolol and Lasix. Patient was placed on a nicotine patch. He continued to have significant coughing shortness of breath and wheezing. However with continued treatment he had improvement of his symptoms. Patient is homeless we were able to arrange for him to have a 2 day stay at a nearby motel until he receives his pay on Sunday. At the time of this dictation his breathing has improved. His room air saturation is 95%. He feels that he has made significant progress and is deemed appropriate for discharge home. Patient does not have any medications. They will be prescribed here and provided prior to discharge. Status at Discharge Cognitive/behavioral status at discharge: oriented Functional status at discharge: independent ambulation Overall status at discharge: patient is progressing back to baseline Exam Vital Signs (past 8 hours): - 01/25/21 00:56 01/25/21 05:04 01/25/21 05:26 Temperature 97.9 F 97.4 F L Pulse Rate 97 H 95 H 94 H Respiratory Rate 22 24 26 H Blood Pressure 147/90 H 134/91 H Pulse Oximetry 94 94 96 Oxygen Delivery Method Room Air Oxygen Flow Rate 0 Narrative Exam Narrative: Pleasant gentleman resting comfortably in no obvious distress Resp Other: Lungs: Coarse breath sounds, occasional end-expiratory wheezing Cardio Other: Cardiac exam: Regular rate and rhythm normal S1-S2 GI Other: Abdomen: Soft and nontender Objective Labs Result Diagrams: 01/24/21 04:35 01/24/21 04:35 [facility] Medical History (Updated 01/21/21 @ 22:58 by ELIU Ron) COPD (chronic obstructive pulmonary disease) COVID-19 HFrEF (heart failure with reduced ejection fraction) Methamphetamine abuse Peripheral edema Tobacco abuse Surgical History Status post appendectomy Family History Father Heart disease Mother Medical history unknown Brother Medical history unknown Social History household members: none Smoking Status: Current every day smoker alcohol intake: never Discharge Assessment & Plan Assessment and Plan Assessment: COPD Exacerbation Chronic Systolic Heart Failure Nicotine Dependence Methamphetamine dependence Plan of Treatment: medications as prescribed Discharge Plan Discharge Plan Patient Disposition: Home Discharge orders & Medications Prescriptions: New prednisone 20 mg Tablet 40 mg PO DAILY 5 Days RF: 0 albuterol sulfate 2.5 mg /3 mL (0.083 %) Solution For Nebulization 2.5 mg inhalation [id number] PRN (Reason: Shortness Of Breath) 30 Days RF: 0 furosemide 20 mg Tablet 40 mg PO DAILY 30 Days Qty: 60 RF: 0 aspirin 81 mg Tablet,Delayed Release (Dr/Ec) 81 mg PO DAILY 30 Days Qty: 30 RF: 0 lisinopril 20 mg Tablet 20 mg PO DAILY 30 Days Qty: 30 RF: 0 metoprolol succinate 25 mg Tablet Extended Release 24 Hr 12.5 mg PO DAILY 30 Days Qty: 30 RF: 0 Continued carvedilol 12.5 mg tablet 12.5 mg PO DAILY Qty: 60 RF: 0 lisinopril 20 mg tablet 20 mg PO DAILY Qty: 30 RF: 0 aspirin 81 mg tablet,delayed release (DR/EC) 81 mg PO DAILY Qty: 30 RF: 0 spironolactone 25 mg tablet 12.5 mg PO DAILY Qty: 30 RF: 0 metoprolol succinate 25 mg tablet extended release 24 hr 12.5 mg PO DAILY Qty: 30 RF: 0 albuterol sulfate 90 mcg/actuation HFA aerosol inhaler 2 puff INHALATION Q4-6H PRN (Reason: shortness of breath or wheezing) 30 Days Qty: 8.5 RF: 0 tiotropium bromide 18 mcg capsule, w/inhalation device 1 cap inhalation DAILY 30 Days Qty: 30 RF: 0 furosemide [Lasix] 40 mg tablet 40 mg PO DAILY Qty: 5 RF: 0 Discontinued prednisone 50 mg tablet 50 mg PO DAILY Qty: 5 RF: 0 Visit Report/Discharge Packet Instructions: Drug Monitoring, DI for Heart Failure, DI for Chronic Obstructive Pulmonary Disease, How to Prevent Falls
[2021-01-25] MEDS: AZITHROMYCIN 250 MG TABLET PO (09:02)
[2021-01-25] MEDS: NICOTINE 21 MG PATCH TOP (09:02)
[2021-01-25] MEDS: ENOXAPARIN 40 MG/0.4 ML SYRINGE SUBCUT (09:02)
[2021-01-25 09:03] VITALS: BP 144/94; PULSE 94
[2021-01-25] MEDS: FUROSEMIDE 20 MG TABLET 40 MG PO (09:03)
[2021-01-25] MEDS: METOPROLOL ER 25 MG TABLET 12.5 MG PO (09:03)
[2021-01-25] MEDS: predniSONE 20 MG TABLET 40 MG PO (09:03)
[2021-01-25] MEDS: lisinopriL 20 MG TABLET PO (09:03)
[2021-01-25] MEDS: ASPIRIN EC 81 MG TABLET PO (09:03)
[2021-01-25 09:17] VITALS: O2SAT 93
--- NOTE | 2021-01-25 10:45 | CM.DPC ---
DCP Discharge Per MD, pt is medically stable to d/c to mot today but requesting SW support with getting pt's meds filled at [facility] in-house to confirm coverage and that pt receives prior to d/c to reduce risk of readmit. Pt agreeable. SW took pt's scripts to [facility] and discussed pt situation and they kindly filled Rxs quickly and no out of pocket expense other than the [id number] aspirin for $3 and pt chooses to get the aspirin after d/c. powder blender and pourer kindly went and picked up filled Rx's and gave to pt. SW completed Medicaid Transport form and faxed requesting taxi to [facility] in [place]. Return call and confirmation that pt can be picked up by [employer] [facility] at 1100 outside ER entrance. JOELLEN updated RN and powder blender and pourer and pt and he is agreeable. Pt has plans once he is paid from [employer] in a few days to rent a hotel room for most of the month and is agreeable to the [facility] casemanager program to hopefully help pt with connecting to more resources and getting established with PCP. Plan: Patient to d/c today via Medicaid taxi [employer] at [address] [facility] under [facility] Mot Voucher Program. ASHLI Tsai
--- NOTE | 2021-01-25 11:07 | PC.NURSE ---
A&Ox4. hypertensive but all other vitals stable. Denies pain. No IV access. Discharge instructions reviewed, questions answwered. Sent with prescription medications. Off of unit at 10:50. [facility] [place] [facility].
== END 2021-01-25 11:00 | disposition home or self-care (01) | DRG 189 ==
LOC: ED 18:03 → AC 21:40
PROVIDERS: Emergency Medicine; Internal Medicine; Admitting Provider Nurse Practitioner Family; Emergency Provider Emergency Medicine; Referring Provider Emergency Medicine; Visit Provider Nurse Practitioner Family
DX: J96.00 Acute respiratory failure, unspecified whether with hypoxia or hypercapnia (principal); J44.1 Chronic obstructive pulmonary disease with (acute) exacerbation; E46 Unspecified protein-calorie malnutrition; I50.22 Chronic systolic (congestive) heart failure; I11.0 Hypertensive heart disease with heart failure; F15.10 Other stimulant abuse, uncomplicated; Z68.28 Body mass index [BMI] 28.0-28.9, adult; F17.200 Nicotine dependence, unspecified, uncomplicated; R73.03 Prediabetes; Z20.822 Contact with and (suspected) exposure to COVID-19; Z91.14 Patient's other noncompliance with medication regimen; Z59.0 Homelessness
CPT/HCPCS: 36415; 36600; 71045; 80048; 80305; 81001; 82550; 82805; 83036; 83735; 83880; 84145; 84484; 85025; 85027; 87633; 87635; 90471; 90656; 93005; 93010; 94640; 94760; 94762; 96365; 96375; 99284; C9803; A9270; J1650; J1940; J2930; J3475; J7613; Q2038

== ENCOUNTER 2021-02-12 19:25 | Emergency (ER) | payer OTHER, MEDICAID, SELFPAY ==
[2021-01-21 22:06] VITALS: BMI 24.6
[2021-02-12 19:27] VITALS: BP 138/78; PULSE 114; RESP 15; TEMP 36.2; O2SAT 95; BMI 26.5
--- NOTE | 2021-02-12 19:29 | ED.SKABFB ---
HPI - Skin/Abscess/Foreign Bdy General Chief complaint: Wound/Laceration Stated complaint: Cut L hand Time Seen by Provider: 02/12/21 19:29 History of Present Illness HPI narrative: 55-year-old male daily smoker with history of COPD presents with a chief complaint of an accidental laceration to his left hand. He was attempting to cut [place] for significant other when the cutting implement slipped and he cut himself in the thenar eminence of left hand. He does not know when his last tetanus was. He said it was bleeding significantly but he denies any numbness, tingling or weakness. He is otherwise well and free of complaint Related Data Previous Rx's Medication Instructions Recorded albuterol sulfate 90 mcg/actuation 2 puff INHALATION Q4-6H PRN 30 09/20/20 aerosol inhaler Days #8.5 gram aspirin 81 mg tablet,delayed 81 mg PO DAILY #30 tab 09/20/20 release carvedilol 12.5 mg tablet 12.5 mg PO DAILY #60 tab 09/20/20 lisinopril 20 mg tablet 20 mg PO DAILY #30 tab 09/20/20 metoprolol succinate 25 mg 12.5 mg PO DAILY #30 tab 09/20/20 tablet,extended release 24 hr spironolactone 25 mg tablet 12.5 mg PO DAILY #30 tab 09/20/20 tiotropium bromide 18 mcg capsule 1 cap INHALATION DAILY 30 Days #30 09/20/20 with inhalation device inh furosemide 40 mg tablet (Lasix) 40 mg PO DAILY #5 tab 01/11/21 albuterol sulfate 2.5 mg INHALATION [id number] PRN 30 01/25/21 Days ml albuterol sulfate 90 mcg/actuation 1 inh INHALATION QID #8.5 g 01/25/21 aerosol inhaler aspirin 81 mg tablet,delayed 81 mg PO DAILY 30 Days #30 tab 01/25/21 release furosemide 20 mg tablet 40 mg PO DAILY 30 Days #60 tab 01/25/21 lisinopril 20 mg tablet 20 mg PO DAILY 30 Days #30 tab 01/25/21 metoprolol succinate 25 mg 12.5 mg PO DAILY 30 Days #30 tab 01/25/21 tablet,extended release 24 hr albuterol sulfate 90 mcg/actuation 2 inh INHALATION Q4H PRN #1 each 10/16/21 breath activated powder inhaler Allergies Allergy/AdvReac Type Severity Reaction Status Date / Time No Known Drug Allergies Allergy Verified 02/12/21 19:27 Review of Systems Review of Systems Narrative: GENERAL: Denies chills, fatigue, malaise, fever, sweats. HEENT: Denies sinus pain, ear pain, sore throat, difficulty swallowing, dizziness. RESPIRATORY: Denies dyspnea, cough, wheezing, hemoptysis, sputum. CARDIOVASCULAR: Denies chest pain, palpitations, orthopnea, edema, GASTROINTESTINAL: Denies nausea, vomiting, abdominal pain, diarrhea, constipation, melena. : Denies dysuria, frequency, incontinence, hematuria, urinary retention. MUSCULOSKELETAL: denies weakness, joint pain, or bony pain SKIN: See HPI NEUROLOGIC: Denies weakness, headache, numbness, change in speech, confusion, seizures, incoordination. PSYCHIATRIC: No concerning psychosocial issues. 12 point review of systems is negative except for those stated above Patient History Medical History COPD (chronic obstructive pulmonary disease) COVID-19 HFrEF (heart failure with reduced ejection fraction) Methamphetamine abuse Peripheral edema Tobacco abuse Surgical History Status post appendectomy Family History Father Heart disease Mother Medical history unknown Brother Medical history unknown Social History household members: none Smoking Status: Current every day smoker alcohol intake: never Smoking Status: Current every day smoker tobacco type: cigarettes alcohol intake frequency: other Substance Use Type: methamphetamine Exam Narrative Exam Narrative: GEN: AOx3 and in mild distress EYES: Pupils are equal, round, and reactive to light and accommodation. Extraoccular muscles are intact bilaterally. There is no subconjunctival hemorrhage or exudate. CHEST: Lungs are clear to auscultation bilaterally and free of wheezes, rales, or rhonchi. Heart rate is regular rhythm, there are no murmurs, clicks, rubs, or gallops. There is no chest wall tenderness. ABD: Abdomen is soft and nontender. There is no guarding or rebound. Bowel sounds are normal in all 4 quadrants. There is no mass or organomegaly. EXT: Full painless ROM of all extremities with no loss of sensation or strength. SKIN: 2 cm laceration on thenar eminence of left hand, no foreign body, no heavy bleeding. Warm, pink, and dry. No erythema or rash Initial Vital Signs Initial Vital Signs: Vital Signs Temperature 97.1 F L 02/12/21 19:27 Pulse Rate 114 H 02/12/21 19:27 Respiratory Rate 15 02/12/21 19:27 Blood Pressure 138/78 02/12/21 19:27 Pulse Oximetry 95 02/12/21 19:27 Procedures Laceration Repair Laceration 1: Site: hand Side (If applicable): left Size (cm): 2 Description: linear Depth: simple, single layer Local Anesthetic: lidocaine 1% and with bicarb Amount of anesthesia used (mL): 3 Pre-repair: wound explored and irrigated extensively Skin layer closed with: nylon Size (cm): 4-0 Number of sutures: 3 Technique: simple, interrupted Course Orders Ordered: Discontinued Medications Diphtheria/Tetanus/Acell Pertussis (Tet,Diph,Pertuss(Acell),Vac/Pf 0.5 Ml Syringe) 0.5 ml IM .ONCE ONE Stop: 02/12/21 19:30 Last Admin: 02/12/21 19:37 Dose: 0.5 ml Documented by: ROSEMARIE Lidocaine/Sodium Bicarbonate (Lido 1%/Sod Bicarb 8.4% (10ml) 10 Ml Syringe) 10 ml INJ NOW ONE Stop: 02/12/21 19:30 Last Admin: 02/12/21 19:37 Dose: 10 ml Documented by: ROSEMARIE Discharge Plan Departure Patient Disposition: Home Clinical Impression: Laceration of hand Qualifiers: Encounter type: initial encounter Foreign body presence: without foreign body Laterality: left Qualified Code(s): S61.412A - Laceration without foreign body of left hand, initial encounter Instructions: DI for Laceration Repair Activity Restrictions/Additional Instructions: Please keep the wound clean and dry to the best of your ability. Please monitor for signs of infection such as redness to the skin or increasing pain. Have the sutures removed by your doctor in about 7 days. If you are unable to get into your doctor, we would be happy to remove the sutures in that same timeframe. Prescriptions: New albuterol sulfate 90 mcg/actuation aerosol powdr breath activated 2 inh INHALATION Q4H PRN (Reason: shortness of breath or wheezing) Qty: 1 RF: 0 No Action carvedilol 12.5 mg tablet 12.5 mg PO DAILY Qty: 60 RF: 0 lisinopril 20 mg tablet 20 mg PO DAILY Qty: 30 RF: 0 aspirin 81 mg tablet,delayed release (DR/EC) 81 mg PO DAILY Qty: 30 RF: 0 spironolactone 25 mg tablet 12.5 mg PO DAILY Qty: 30 RF: 0 metoprolol succinate 25 mg tablet extended release 24 hr 12.5 mg PO DAILY Qty: 30 RF: 0 albuterol sulfate 90 mcg/actuation HFA aerosol inhaler 2 puff INHALATION Q4-6H PRN (Reason: shortness of breath or wheezing) 30 Days Qty: 8.5 RF: 0 tiotropium bromide 18 mcg capsule, w/inhalation device 1 cap inhalation DAILY 30 Days Qty: 30 RF: 0 furosemide [Lasix] 40 mg tablet 40 mg PO DAILY Qty: 5 RF: 0 albuterol sulfate 2.5 mg /3 mL (0.083 %) Solution For Nebulization 2.5 mg inhalation [id number] PRN (Reason: Shortness Of Breath) 30 Days RF: 0 lisinopril 20 mg Tablet 20 mg PO DAILY 30 Days Qty: 30 RF: 0 aspirin 81 mg Tablet,Delayed Release (Dr/Ec) 81 mg PO DAILY 30 Days Qty: 30 RF: 0 furosemide 20 mg Tablet 40 mg PO DAILY 30 Days Qty: 60 RF: 0 metoprolol succinate 25 mg Tablet Extended Release 24 Hr 12.5 mg PO DAILY 30 Days Qty: 30 RF: 0 albuterol sulfate 90 mcg/actuation HFA aerosol inhaler 1 inh inhalation QID Qty: 8.5 RF: 0
[2021-02-12] MEDS: LIDO 1%/SOD BICARB 8.4% (10ML) 10 ML SYRINGE INJ (19:37)
[2021-02-12] MEDS: TET,DIPH,PERTUSS(ACELL),VAC/PF 0.5 ML SYRINGE IM (19:37)
== END 2021-02-12 19:56 | disposition home or self-care (01) ==
PROVIDERS: Emergency Provider Emergency Medicine
DX: S61.412A Laceration without foreign body of left hand, initial encounter (principal); W26.9XXA Contact with unspecified sharp object(s), initial encounter; Z23 Encounter for immunization
CPT/HCPCS: 12001; 90471; 99283; 90715

== ENCOUNTER 2021-02-19 20:44 | Emergency (ER) | payer OTHER, MEDICAID, SELFPAY ==
[2021-01-21 22:06] VITALS: BMI 24.6
[2021-02-19 20:56] VITALS: BP 148/75; PULSE 110; RESP 22; TEMP 36.2; O2SAT 94
--- NOTE | 2021-02-19 21:01 | ED_ITS ---
HPI - Recheck/Abnormal Lab/Rx General Chief Complaint: Recheck/Abnormal Lab/Rx Stated Complaint: needs stitches Time Seen by Provider: 02/19/21 20:49 Source: patient Mode of arrival: Ambulatory Limitations: no limitations History of Present Illness HPI narrative: Patient is a 55-year-old male who has 3 stitches placed in his left hand. He states they were placed approximately 1 week ago. He is here to have the stitches removed. Related Data Previous Rx's Medication Instructions Recorded albuterol sulfate 90 mcg/actuation 2 puff INHALATION Q4-6H PRN 30 09/20/20 aerosol inhaler Days #8.5 gram aspirin 81 mg tablet,delayed 81 mg PO DAILY #30 tab 09/20/20 release carvedilol 12.5 mg tablet 12.5 mg PO DAILY #60 tab 09/20/20 lisinopril 20 mg tablet 20 mg PO DAILY #30 tab 09/20/20 metoprolol succinate 25 mg 12.5 mg PO DAILY #30 tab 09/20/20 tablet,extended release 24 hr spironolactone 25 mg tablet 12.5 mg PO DAILY #30 tab 09/20/20 tiotropium bromide 18 mcg capsule 1 cap INHALATION DAILY 30 Days #30 09/20/20 with inhalation device inh furosemide 40 mg tablet (Lasix) 40 mg PO DAILY #5 tab 01/11/21 albuterol sulfate 2.5 mg INHALATION [id number] PRN 30 01/25/21 Days ml albuterol sulfate 90 mcg/actuation 1 inh INHALATION QID #8.5 g 01/25/21 aerosol inhaler aspirin 81 mg tablet,delayed 81 mg PO DAILY 30 Days #30 tab 01/25/21 release furosemide 20 mg tablet 40 mg PO DAILY 30 Days #60 tab 01/25/21 lisinopril 20 mg tablet 20 mg PO DAILY 30 Days #30 tab 01/25/21 metoprolol succinate 25 mg 12.5 mg PO DAILY 30 Days #30 tab 01/25/21 tablet,extended release 24 hr albuterol sulfate 90 mcg/actuation 2 inh INHALATION Q4H PRN #1 each 02/12/21 breath activated powder inhaler Allergies Allergy/AdvReac Type Severity Reaction Status Date / Time No Known Drug Allergies Allergy Verified 02/12/21 19:27 Review of Systems Musculoskeletal Musculoskeletal: Reports system reviewed and no additional complaints, except as documented Integumentary/Breasts Comments: Stitches in left hand Hematologic/Lymphatic On Anticoagulants: No Patient History Medical History COPD (chronic obstructive pulmonary disease) COVID-19 HFrEF (heart failure with reduced ejection fraction) Methamphetamine abuse Peripheral edema Tobacco abuse Surgical History Status post appendectomy Family History Father Heart disease Mother Medical history unknown Brother Medical history unknown Social History household members: none Smoking Status: Current every day smoker alcohol intake: never Smoking Status: Current every day smoker tobacco type: cigarettes alcohol intake frequency: other Substance Use Type: methamphetamine Exam Initial Vital Signs Initial Vital Signs: Vital Signs Temperature 97.2 F L 02/19/21 20:56 Pulse Rate 110 H 02/19/21 20:56 Respiratory Rate 22 02/19/21 20:56 Blood Pressure 148/75 H 02/19/21 20:56 Pulse Oximetry 94 02/19/21 20:56 Const General: cooperative Skin Other: Patient with a well-healed scar on his left thenar eminence. Three stitches are in place. No active bleeding. No signs of infection Extrem Other: Healing/healed wound to left hand Course Vital Signs Vital signs: Vital Signs - 8 hr 02/19/21 20:56 Temperature 97.2 F L Pulse Rate 110 H Respiratory Rate 22 Blood Pressure 148/75 H Pulse Oximetry 94 MDM - Recheck/Abnormal Lab/Rx MDM Narrative Medical decision making narrative: Patient thinks that the stitches were placed approximately 1 week ago. The wound appears well healed. No signs of infection. Attempted to remove the stitches however the patient stated that a was way too painful. He would like to wait a couple days to have them removed. Attempted multiple times to remove the stitches but the patient now does not wan t any procedures done. Will discharge and have him follow-up with his primary doctor. Discharge Plan Departure Patient Disposition: Home Clinical Impression: Laceration Instructions: DI for Laceration Repair -- Simple Activity Restrictions/Additional Instructions: The stitches should be removed in the next couple days. You can go to your primary doctor or the walk-in clinic for this. I recommend just keeping it covered with a bandage and using topical antibiotic ointment. Prescriptions: No Action carvedilol 12.5 mg tablet 12.5 mg PO DAILY Qty: 60 RF: 0 lisinopril 20 mg tablet 20 mg PO DAILY Qty: 30 RF: 0 aspirin 81 mg tablet,delayed release (DR/EC) 81 mg PO DAILY Qty: 30 RF: 0 spironolactone 25 mg tablet 12.5 mg PO DAILY Qty: 30 RF: 0 metoprolol succinate 25 mg tablet extended release 24 hr 12.5 mg PO DAILY Qty: 30 RF: 0 albuterol sulfate 90 mcg/actuation HFA aerosol inhaler 2 puff INHALATION Q4-6H PRN (Reason: shortness of breath or wheezing) 30 Days Qty: 8.5 RF: 0 tiotropium bromide 18 mcg capsule, w/inhalation device 1 cap inhalation DAILY 30 Days Qty: 30 RF: 0 furosemide [Lasix] 40 mg tablet 40 mg PO DAILY Qty: 5 RF: 0 albuterol sulfate 2.5 mg /3 mL (0.083 %) Solution For Nebulization 2.5 mg inhalation [id number] PRN (Reason: Shortness Of Breath) 30 Days RF: 0 lisinopril 20 mg Tablet 20 mg PO DAILY 30 Days Qty: 30 RF: 0 aspirin 81 mg Tablet,Delayed Release (Dr/Ec) 81 mg PO DAILY 30 Days Qty: 30 RF: 0 furosemide 20 mg Tablet 40 mg PO DAILY 30 Days Qty: 60 RF: 0 metoprolol succinate 25 mg Tablet Extended Release 24 Hr 12.5 mg PO DAILY 30 Days Qty: 30 RF: 0 albuterol sulfate 90 mcg/actuation HFA aerosol inhaler 1 inh inhalation QID Qty: 8.5 RF: 0 albuterol sulfate 90 mcg/actuation aerosol powdr breath activated 2 inh INHALATION Q4H PRN (Reason: shortness of breath or wheezing) Qty: 1 RF: 0
== END 2021-02-19 21:04 | disposition home or self-care (01) ==
PROVIDERS: Emergency Provider Emergency Medicine
DX: Z48.00 Encounter for change or removal of nonsurgical wound dressing (principal)
CPT/HCPCS: 99281

== ENCOUNTER 2021-05-11 05:30 | Inpatient (IN) | payer MEDICAID, OTHER, SELFPAY ==
[2021-01-21 22:06] VITALS: BMI 24.6
[2021-05-11] VITALS (25 sets, daily range): BP systolic 121–203; BP diastolic 73–109; PULSE 92–112; RESP 22–35; TEMP 36.1–36.7; O2SAT 92–100; BMI 26.7; BMI 27.8
--- NOTE | 2021-05-11 05:37 | DI.RAD.S_ITS ---
PROCEDURE: XR CHEST 1V INDICATIONS: Shortness of breath TECHNIQUE: One view of the chest was acquired. COMPARISON: [facility], CR, XR CHEST 1V, 01/11/2021, 13:27. [facility], CR, XR CHEST 1V, 09/16/2020, 14:13. [facility], CR, XR CHEST 1V, 01/21/2021, 17:37. FINDINGS: Surgical changes and devices: None. Lungs and pleura: Focal opacity in left lung base is stable compared to prior exams likely represents parenchymal scarring. No pleural effusions or pneumothorax. Mediastinum: Mediastinal contours appear normal. Heart size is normal. Bones and chest wall: No suspicious bony lesions. Overlying soft tissues appear unremarkable. IMPRESSION: No acute cardiopulmonary disease process. Dictated by: Jenny Juarez MD, PhD on 05/11/2021 at 8:41 Approved by: Jenny Juarez MD, PhD on 05/11/2021 at 8:43
--- NOTE | 2021-05-11 05:38 | ED_ITS ---
HPI - General Adult <Adrian Zambrano DO - Last Filed: 05/14/21 07:01> General Chief complaint: Shortness of Breath/Dyspnea Stated complaint: COPD SOB X1 DAY Time Seen by Provider: 05/11/21 05:36 Source: patient Mode of arrival: Ambulatory Limitations: no limitations History of Present Illness HPI narrative: 55-year-old male. Has a history of COPD. Just prior to his father in he started smoking once again. Afterwards started having shortness of breath and has been progressively worsening since then. No chest pain. He is having headache. Has been coughing as well. Walked to the emergency department this morning because of shortness of breath. Patient mary carmen ng in 1-2 word sentences upon arrival with limited HPI and review of systems Related Data Previous Rx's Medication Instructions Recorded albuterol sulfate 2.5 mg (3 mL) INH [id number] PRN 30 05/14/21 Days ml aspirin 81 mg tablet,delayed 81 mg PO DAILY #30 tab 05/14/21 release carvedilol 3.125 mg tablet (Coreg) 6.25 mg PO BID #30 tab 05/14/21 doxycycline hyclate 100 mg tablet 100 mg PO BID #10 tab 05/14/21 furosemide 40 mg tablet 40 mg PO DAILY #30 tab 05/14/21 ipratropium 0.5 mg-albuterol 3 mg 3 ml INH RTQ4HR #30 ml 05/14/21 (2.5 mg base)/3 mL nebulization soln lisinopril 20 mg tablet 20 mg PO DAILY #30 tab 05/14/21 lorazepam 1 mg tablet 1 mg PO Q4HR PRN #15 tab 05/14/21 prednisone 20 mg tablet 40 mg PO DAILY #5 tab 05/14/21 spironolactone 25 mg tablet 25 mg PO DAILY #30 tab 05/14/21 sumatriptan succinate 25 mg tablet 50 mg PO Q2H PRN #10 tab 05/14/21 (Imitrex) Allergies Allergy/AdvReac Type Severity Reaction Status Date / Time No Known Drug Allergies Allergy Verified 02/12/21 19:27 Review of Systems <DO Michelle Smith Last Filed: 05/14/21 07:01> Constitutional Constitutional: Denies fever(s) and Reports headache(s) ENT Ears, Nose, Mouth, and Throat: Reports headache(s) Cardiovascular Cardiovascular: Denies chest pain and Reports dyspnea Respiratory Respiratory: Reports cough and Reports dyspnea Gastrointestinal Gastrointestinal: Denies nausea and Denies vomiting Integumentary/Breasts Skin/Breast: Reports system reviewed and no additional complaints, except as documented Neurologic Neurologic: Reports headache(s) Hematologic/Lymphatic On Anticoagulants: No Patient History <Adrian Zambrano DO - Last Filed: 05/14/21 07:01> Medical History COPD (chronic obstructive pulmonary disease) COVID-19 HFrEF (heart failure with reduced ejection fraction) Methamphetamine abuse Peripheral edema Tobacco abuse Surgical History Status post appendectomy Family History Father Heart disease Mother Medical history unknown Brother Medical history unknown Social History household members: none Smoking Status: Current every day smoker alcohol intake: never Smoking Status: Current every day smoker tobacco type: cigarettes alcohol intake frequency: other Substance Use Type: methamphetamine Exam <Adrian Zambrano DO - Last Filed: 05/14/21 07:01> Initial Vital Signs Initial Vital Signs: Vital Signs Temperature 97 F L 05/11/21 05:49 Pulse Rate 112 H 05/11/21 05:49 Respiratory Rate 35 H 05/11/21 05:49 Blood Pressure 179/109 H 05/11/21 05:49 Pulse Oximetry 95 05/11/21 05:49 Const General: cooperative HENMT Head: normal to inspection and normocephalic Resp Effort & Inspection: labored and tachypneic Cardio Rate: regular rate Rhythm: regular rhythm GI Inspection: normal to inspection Skin General: no rashes or lesions noted Neuro General: patient alert, patient awake and moves all extremities Extrem General: normal to inspection and capillary refill normal Psych Appearance: grossly normal and well kempt <Zeus Soares MD - Last Filed: 05/16/21 12:22> Initial Vital Signs Initial Vital Signs: Vital Signs Temperature 97 F L 05/11/21 05:49 Pulse Rate 112 H 05/11/21 05:49 Respiratory Rate 35 H 05/11/21 05:49 Blood Pressure 179/109 H 05/11/21 05:49 Pulse Oximetry 95 05/11/21 05:49 Course <Adrian Zambrano DO - Last Filed: 05/14/21 07:01> Orders Ordered: Discontinued Medications Acetaminophen (Acetaminophen 325 Mg Tablet) 650 mg PO NOW ONE Stop: 05/11/21 05:55 Last Admin: 05/11/21 06:00 Dose: 650 mg Documented by: TICO Acetaminophen (Acetaminophen 325 Mg Tablet) 650 mg PO Q4HR PRN PRN Reason: Fever/Mild Pain (1-3) Albuterol (Albuterol 2.5 Mg/3 Ml Neb (Adult)) 20 mg INH NOW ONE Stop: 05/11/21 05:44 Last Admin: 05/11/21 05:53 Dose: 20 mg Documented by: RODOLFO Albuterol (Albuterol 2.5 Mg/3 Ml Neb (Adult)) 2.5 mg INH [id number] PRN PRN Reason: Shortness Of Breath Last Admin: 05/14/21 03:08 Dose: 2.5 mg Documented by: Admin: 05/13/21 22:34 Dose: 2.5 mg Documented by: Admin: 05/12/21 22:16 Dose: 2.5 mg Documented by: Admin: 05/12/21 18:14 Dose: 2.5 mg Documented by: Admin: 05/12/21 10:50 Dose: 2.5 mg Documented by: Admin: 05/12/21 07:26 Dose: 2.5 mg Documented by: Admin: 05/11/21 22:37 Dose: 2.5 mg Documented by: Admin: 05/11/21 12:09 Dose: 2.5 mg Documented by: GORDON Albuterol/Ipratropium (Albuterol/Ipratropium 3 Ml Ampul) 3 ml INH Q20M LIGIA Stop: 05/11/21 06:26 Last Admin: 05/12/21 03:17 Dose: Not Given Documented by: BOUCHRA Albuterol/Ipratropium (Albuterol/Ipratropium 3 Ml Ampul) 3 ml INH [id number] LIGIA Albuterol/Ipratropium (Albuterol/Ipratropium 3 Ml Ampul) 3 ml INH [id number] [facility] Last Admin: 05/11/21 16:46 Dose: 3 ml Documented by: GORODN Albuterol/Ipratropium (Albuterol/Ipratropium 3 Ml Ampul) 3 ml INH RTQ4HR [facility] Last Admin: 05/14/21 07:44 Dose: 3 ml Documented by: Admin: 05/14/21 03:08 Dose: 3 ml Documented by: CTR.CRISTOPHER Admin: 05/13/21 22:35 Dose: 3 ml Documented by: CTR.CRISTOPHER Admin: 05/13/21 19:30 Dose: 3 ml Documented by: CTR.CRISTOPHER Admin: 05/13/21 14:23 Dose: 3 ml Documented by: Admin: 05/13/21 11:16 Dose: 3 ml Documented by: Admin: 05/13/21 06:27 Dose: 3 ml Documented by: Admin: 05/13/21 03:21 Dose: 3 ml Documented by: Admin: 05/12/21 22:16 Dose: 3 ml Documented by: CTR.CRISTOPHER Admin: 05/12/21 18:40 Dose: 3 ml Documented by: Admin: 05/12/21 13:39 Dose: 3 ml Documented by: Admin: 05/12/21 10:50 Dose: 3 ml Documented by: Admin: 05/12/21 07:26 Dose: 3 ml Documented by: Admin: 05/12/21 04:26 Dose: 3 ml Documented by: Admin: 05/12/21 00:11 Dose: 3 ml Documented by: JODIEOX Aspirin (Aspirin Ec 81 Mg Tablet) 81 mg PO DAILY [facility] Last Admin: 05/14/21 08:41 Dose: 81 mg Documented by: Admin: 05/13/21 08:27 Dose: 81 mg Documented by: Admin: 05/12/21 09:36 Dose: 81 mg Documented by: Admin: 05/11/21 16:02 Dose: 81 mg Documented by: ALINA Carvedilol (Carvedilol 3.125 Mg Tablet) 6.25 mg PO BID [facility] Last Admin: 05/14/21 08:41 Dose: 6.25 mg Documented by: Admin: 05/13/21 20:23 Dose: 6.25 mg Documented by: Admin: 05/13/21 08:28 Dose: 6.25 mg Documented by: Admin: 05/12/21 20:24 Dose: 6.25 mg Documented by: Admin: 05/12/21 09:36 Dose: 6.25 mg Documented by: Admin: 05/11/21 21:04 Dose: 6.25 mg Documented by: BOUCHRA Doxycycline Hyclate (Doxycycline Hyclate 100 Mg Tablet) 100 mg PO BID [facility] Stop: 05/15/21 21:01 Last Admin: 05/14/21 08:42 Dose: 100 mg Documented by: Admin: 05/13/21 20:23 Dose: 100 mg Documented by: Admin: 05/13/21 08:27 Dose: 100 mg Documented by: Admin: 05/12/21 20:23 Dose: 100 mg Documented by: Admin: 05/12/21 09:45 Dose: 100 mg Documented by: Admin: 05/11/21 21:04 Dose: 100 mg Documented by: Admin: 05/11/21 16:01 Dose: 100 mg Documented by: ALINA Furosemide (Furosemide 40 Mg Tablet) 40 mg PO DAILY [facility] Last Admin: 05/14/21 08:42 Dose: 40 mg Documented by: Admin: 05/13/21 08:27 Dose: 40 mg Documented by: Admin: 05/12/21 09:36 Dose: 40 mg Documented by: Admin: 05/11/21 16:02 Dose: 40 mg Documented by: ALINA Ipratropium [place] (Ipratropium 0.5 Mg/2.5 Ml Neb) 1.5 mg INH NOW ONE Stop: 05/11/21 05:44 Last Admin: 05/11/21 05:53 Dose: 1.5 mg Documented by: RODOLFO Ketorolac Tromethamine (Ketorolac 30 Mg/Ml Vial) 15 mg IV NOW ONE Stop: 05/11/21 07:59 Last Admin: 05/11/21 09:26 Dose: 15 mg Documented by: PRANAY Lisinopril (Lisinopril 20 Mg Tablet) 20 mg PO DAILY [facility] Last Admin: 05/14/21 08:42 Dose: 20 mg Documented by: Admin: 05/13/21 08:28 Dose: 20 mg Documented by: Admin: 05/12/21 09:36 Dose: 20 mg Documented by: Admin: 05/11/21 16:01 Dose: 20 mg Documented by: ALINA Lorazepam (Lorazepam 1 Mg Tablet) 1 mg PO Q4HR PRN PRN Reason: Anxiety Last Admin: 05/14/21 06:44 Dose: 1 mg Documented by: Admin: 05/13/21 18:26 Dose: 1 mg Documented by: Admin: 05/13/21 09:04 Dose: 1 mg Documented by: MARY Methylprednisolone (Methylprednisolone 125 Mg/2 Ml Vial) 125 mg IV NOW ONE Stop: 05/11/21 05:37 Last Admin: 05/11/21 05:47 Dose: 125 mg Documented by: TICO Metoprolol Succinate (Metoprolol Er 25 Mg Tablet) 12.5 mg PO DAILY [facility] Naloxone HCl (Naloxone 0.4 Mg/Ml Vial) 0.2 mg IV Q2MIN PRN PRN Reason: Opiate Reversal Nicotine (Nicotine 14 Patch) 14 mg TOP DAILY [facility] Last Admin: 05/14/21 08:40 Dose: 14 mg Documented by: Admin: 05/13/21 08:39 Dose: 14 mg Documented by: Admin: 05/12/21 09:36 Dose: 14 mg Documented by: Admin: 05/11/21 23:03 Dose: 14 mg Documented by: BOUCHRA Prednisone (Prednisone 20 Mg Tablet) 40 mg PO DAILY [facility] Last Admin: 05/14/21 08:42 Dose: 40 mg Documented by: Admin: 05/13/21 08:28 Dose: 40 mg Documented by: Admin: 05/12/21 09:36 Dose: 40 mg Documented by: PREETI Sodium Chloride (Sodium Chloride 0.9% Flush) 10 ml IV PRN PRN PRN Reason: Flush Sodium Chloride (Sodium Chloride 0.9% Flush) 10 ml IV BID [facility] Last Admin: 05/14/21 08:42 Dose: 10 ml Documented by: Admin: 05/13/21 20:22 Dose: 10 ml Documented by: Admin: 05/13/21 08:43 Dose: 10 ml Documented by: Admin: 05/12/21 20:26 Dose: 10 ml Documented by: Admin: 05/12/21 09:37 Dose: 10 ml Documented by: Admin: 05/11/21 21:04 Dose: 10 ml Documented by: BOUCHRA Spironolactone (Spironolactone 25 Mg Tablet) 25 mg PO DAILY [facility] Last Admin: 05/14/21 08:42 Dose: 25 mg Documented by: Admin: 05/13/21 08:28 Dose: 25 mg Documented by: Admin: 05/12/21 09:36 Dose: 25 mg Documented by: Admin: 05/11/21 16:01 Dose: 25 mg Documented by: ALINA Sumatriptan Succinate (Sumatriptan 25 Mg Tablet) 50 mg PO Q2H PRN PRN Reason: Headache Last Admin: 05/14/21 06:39 Dose: 50 mg Documented by: Admin: 05/13/21 22:18 Dose: 50 mg Documented by: Admin: 05/13/21 08:26 Dose: 50 mg Documented by: Admin: 05/12/21 22:15 Dose: 50 mg Documented by: Admin: 05/12/21 13:59 Dose: 50 mg Documented by: Admin: 05/12/21 07:33 Dose: 50 mg Documented by: Admin: 05/11/21 23:03 Dose: 50 mg Documented by: BOUCHRA Vital Signs Vital signs: Vital Signs - 8 hr 05/11/21 05:49 05/11/21 05:53 05/11/21 06:04 Temperature 97 F L Pulse Rate 112 H 97 H 94 H Respiratory Rate 35 H 31 H Blood Pressure 179/109 H Pulse Oximetry 95 99 05/11/21 06:30 05/11/21 07:00 05/11/21 07:11 Temperature Pulse Rate 92 H 99 H 105 H Respiratory Rate Blood Pressure 180/100 H 203/99 H 164/91 H Pulse Oximetry 100 99 99 05/11/21 07:27 05/11/21 07:30 05/11/21 07:33 Temperature Pulse Rate 102 H 110 H Respiratory Rate Blood Pressure 144/74 H Pulse Oximetry 100 100 <Zeus Soares MD - Last Filed: 05/16/21 12:22> Course Course Narrative: 7:00 a.m.. Sign out from Dr. Zambrano reassess patient after 1 hour long nebulizer. Patient has history of COPD. Resume smoking again due to home family stress. Orders Ordered: Discontinued Medications Acetaminophen (Acetaminophen 325 Mg Tablet) 650 mg PO NOW ONE Stop: 05/11/21 05:55 Last Admin: 05/11/21 06:00 Dose: 650 mg Documented by: TICO Acetaminophen (Acetaminophen 325 Mg Tablet) 650 mg PO Q4HR PRN PRN Reason: Fever/Mild Pain (1-3) Albuterol (Albuterol 2.5 Mg/3 Ml Neb (Adult)) 20 mg INH NOW ONE Stop: 05/11/21 05:44 Last Admin: 05/11/21 05:53 Dose: 20 mg Documented by: RODOLFO Albuterol (Albuterol 2.5 Mg/3 Ml Neb (Adult)) 2.5 mg INH [id number] PRN PRN Reason: Shortness Of Breath Last Admin: 05/14/21 03:08 Dose: 2.5 mg Documented by: Admin: 05/13/21 22:34 Dose: 2.5 mg Documented by: Admin: 05/12/21 22:16 Dose: 2.5 mg Documented by: Admin: 05/12/21 18:14 Dose: 2.5 mg Documented by: Admin: 05/12/21 10:50 Dose: 2.5 mg Documented by: Admin: 05/12/21 07:26 Dose: 2.5 mg Documented by: Admin: 05/11/21 22:37 Dose: 2.5 mg Documented by: Admin: 05/11/21 12:09 Dose: 2.5 mg Documented by: GORDON Albuterol/Ipratropium (Albuterol/Ipratropium 3 Ml Ampul) 3 ml INH Q20M LIGIA Stop: 05/11/21 06:26 Last Admin: 05/12/21 03:17 Dose: Not Given Documented by: BOUCHRA Albuterol/Ipratropium (Albuterol/Ipratropium 3 Ml Ampul) 3 ml INH [id number] [facility] Albuterol/Ipratropium (Albuterol/Ipratropium 3 Ml Ampul) 3 ml INH [id number] [facility] Last Admin: 05/11/21 16:46 Dose: 3 ml Documented by: GORDON Albuterol/Ipratropium (Albuterol/Ipratropium 3 Ml Ampul) 3 ml INH RTQ4HR [facility] Last Admin: 05/14/21 07:44 Dose: 3 ml Documented by: Admin: 05/14/21 03:08 Dose: 3 ml Documented by: Admin: 05/13/21 22:35 Dose: 3 ml Documented by: Admin: 05/13/21 19:30 Dose: 3 ml Documented by: Admin: 05/13/21 14:23 Dose: 3 ml Documented by: Admin: 05/13/21 11:16 Dose: 3 ml Documented by: Admin: 05/13/21 06:27 Dose: 3 ml Documented by: Admin: 05/13/21 03:21 Dose: 3 ml Documented by: Admin: 05/12/21 22:16 Dose: 3 ml Documented by: Admin: 05/12/21 18:40 Dose: 3 ml Documented by: Admin: 05/12/21 13:39 Dose: 3 ml Documented by: Admin: 05/12/21 10:50 Dose: 3 ml Documented by: Admin: 05/12/21 07:26 Dose: 3 ml Documented by: Admin: 05/12/21 04:26 Dose: 3 ml Documented by: Admin: 05/12/21 00:11 Dose: 3 ml Documented by: JESSY Aspirin (Aspirin Ec 81 Mg Tablet) 81 mg PO DAILY [facility] Last Admin: 05/14/21 08:41 Dose: 81 mg Documented by: Admin: 05/13/21 08:27 Dose: 81 mg Documented by: Admin: 05/12/21 09:36 Dose: 81 mg Documented by: Admin: 05/11/21 16:02 Dose: 81 mg Documented by: ALINA Carvedilol (Carvedilol 3.125 Mg Tablet) 6.25 mg PO BID [facility] Last Admin: 05/14/21 08:41 Dose: 6.25 mg Documented by: Admin: 05/13/21 20:23 Dose: 6.25 mg Documented by: Admin: 05/13/21 08:28 Dose: 6.25 mg Documented by: Admin: 05/12/21 20:24 Dose: 6.25 mg Documented by: Admin: 05/12/21 09:36 Dose: 6.25 mg Documented by: Admin: 05/11/21 21:04 Dose: 6.25 mg Documented by: BOUCHRA Doxycycline Hyclate (Doxycycline Hyclate 100 Mg Tablet) 100 mg PO BID [facility] Stop: 05/15/21 21:01 Last Admin: 05/14/21 08:42 Dose: 100 mg Documented by: Admin: 05/13/21 20:23 Dose: 100 mg Documented by: Admin: 05/13/21 08:27 Dose: 100 mg Documented by: Admin: 05/12/21 20:23 Dose: 100 mg Documented by: Admin: 05/12/21 09:45 Dose: 100 mg Documented by: Admin: 05/11/21 21:04 Dose: 100 mg Documented by: Admin: 05/11/21 16:01 Dose: 100 mg Documented by: ALINA Furosemide (Furosemide 40 Mg Tablet) 40 mg PO DAILY [facility] Last Admin: 05/14/21 08:42 Dose: 40 mg Documented by: Admin: 05/13/21 08:27 Dose: 40 mg Documented by: Admin: 05/12/21 09:36 Dose: 40 mg Documented by: Admin: 05/11/21 16:02 Dose: 40 mg Documented by: ALINA Ipratropium [place] (Ipratropium 0.5 Mg/2.5 Ml Neb) 1.5 mg INH NOW ONE Stop: 05/11/21 05:44 Last Admin: 05/11/21 05:53 Dose: 1.5 mg Documented by: RODOLFO Ketorolac Tromethamine (Ketorolac 30 Mg/Ml Vial) 15 mg IV NOW ONE Stop: 05/11/21 07:59 Last Admin: 05/11/21 09:26 Dose: 15 mg Documented by: PRANAY Lisinopril (Lisinopril 20 Mg Tablet) 20 mg PO DAILY [facility] Last Admin: 05/14/21 08:42 Dose: 20 mg Documented by: Admin: 05/13/21 08:28 Dose: 20 mg Documented by: Admin: 05/12/21 09:36 Dose: 20 mg Documented by: Admin: 05/11/21 16:01 Dose: 20 mg Documented by: ALINA Lorazepam (Lorazepam 1 Mg Tablet) 1 mg PO Q4HR PRN PRN Reason: Anxiety Last Admin: 05/14/21 06:44 Dose: 1 mg Documented by: Admin: 05/13/21 18:26 Dose: 1 mg Documented by: Admin: 05/13/21 09:04 Dose: 1 mg Documented by: MARY Methylprednisolone (Methylprednisolone 125 Mg/2 Ml Vial) 125 mg IV NOW ONE Stop: 05/11/21 05:37 Last Admin: 05/11/21 05:47 Dose: 125 mg Documented by: TICO Metoprolol Succinate (Metoprolol Er 25 Mg Tablet) 12.5 mg PO DAILY [facility] Naloxone HCl (Naloxone 0.4 Mg/Ml Vial) 0.2 mg IV Q2MIN PRN PRN Reason: Opiate Reversal Nicotine (Nicotine 14 Patch) 14 mg TOP DAILY [facility] Last Admin: 05/14/21 08:40 Dose: 14 mg Documented by: Admin: 05/13/21 08:39 Dose: 14 mg Documented by: Admin: 05/12/21 09:36 Dose: 14 mg Documented by: Admin: 05/11/21 23:03 Dose: 14 mg Documented by: BOUCHRA Prednisone (Prednisone 20 Mg Tablet) 40 mg PO DAILY [facility] Last Admin: 05/14/21 08:42 Dose: 40 mg Documented by: Admin: 05/13/21 08:28 Dose: 40 mg Documented by: Admin: 05/12/21 09:36 Dose: 40 mg Documented by: PREETI Sodium Chloride (Sodium Chloride 0.9% Flush) 10 ml IV PRN PRN PRN Reason: Flush Sodium Chloride (Sodium Chloride 0.9% Flush) 10 ml IV BID [facility] Last Admin: 05/14/21 08:42 Dose: 10 ml Documented by: Admin: 05/13/21 20:22 Dose: 10 ml Documented by: Admin: 05/13/21 08:43 Dose: 10 ml Documented by: Admin: 05/12/21 20:26 Dose: 10 ml Documented by: Admin: 05/12/21 09:37 Dose: 10 ml Documented by: Admin: 05/11/21 21:04 Dose: 10 ml Documented by: BOUCHRA Spironolactone (Spironolactone 25 Mg Tablet) 25 mg PO DAILY [facility] Last Admin: 05/14/21 08:42 Dose: 25 mg Documented by: Admin: 05/13/21 08:28 Dose: 25 mg Documented by: Admin: 05/12/21 09:36 Dose: 25 mg Documented by: Admin: 05/11/21 16:01 Dose: 25 mg Documented by: ALINA Sumatriptan Succinate (Sumatriptan 25 Mg Tablet) 50 mg PO Q2H PRN PRN Reason: Headache Last Admin: 05/14/21 06:39 Dose: 50 mg Documented by: Admin: 05/13/21 22:18 Dose: 50 mg Documented by: Admin: 05/13/21 08:26 Dose: 50 mg Documented by: Admin: 05/12/21 22:15 Dose: 50 mg Documented by: Admin: 05/12/21 13:59 Dose: 50 mg Documented by: Admin: 05/12/21 07:33 Dose: 50 mg Documented by: Admin: 05/11/21 23:03 Dose: 50 mg Documented by: BOUCHRA Reevaluation(s) Reevaluation #1: Here patient just finished breathing treatment. Blood pressure has improved to 140 4/74. Heart rate 104. However just had albuterol treatment. Patient states feels a little bit better. Not recovered 100%. Still mild work of breathing but not toxic. He agrees for admit Time: 08:00 Consultations Consultation #1: Spoke with hospitalist, Dr. Connolly, agrees for admission Time: 08:09 Vital Signs Vital signs: Vital Signs - 8 hr 05/11/21 05:49 05/11/21 05:53 05/11/21 06:04 Temperature 97 F L Pulse Rate 112 H 97 H 94 H Respiratory Rate 35 H 31 H Blood Pressure 179/109 H Pulse Oximetry 95 99 05/11/21 06:30 05/11/21 07:00 05/11/21 07:11 Temperature Pulse Rate 92 H 99 H 105 H Respiratory Rate Blood Pressure 180/100 H 203/99 H 164/91 H Pulse Oximetry 100 99 99 05/11/21 07:27 05/11/21 07:30 05/11/21 07:33 Temperature Pulse Rate 102 H 110 H Respiratory Rate Blood Pressure 144/74 H Pulse Oximetry 100 100 Medical Decision Making <Adrian Zambrano DO - Last Filed: 05/14/21 07:01> Medical Records Medical records reviewed: Yes I reviewed the patient's medical records. Lab Data Lab results reviewed: Yes I reviewed the patient's lab results. Result diagrams: 05/12/21 06:38 05/12/21 06:38 Labs: Lab Results 05/11/21 05/11/21 05/11/21 Range/Units 05:40 05:45 05:45 WBC 10.3 (4.5-11.0) X10^3/uL RBC 5.56 (4.5-5.9) X10^6/uL Hgb 15.4 (13.5-17.5) g/dL Hct 46.5 (41-53) % MCV 83.7 (80-100) fL MCH 27.6 (26-34) PG MCHC 33.0 (30-36) % RDW 14.1 (11.6-14.8) % Plt Count 288 (150-400) X10^3/uL Neut % (Auto) 71.0 (50-75) % Lymph % (Auto) 19.1 L (25-40) % Dale % (Auto) 6.3 (3-14) % Eos % (Auto) 2.3 (2-4) % Baso % (Auto) 1.3 (0-2) % Neut # (Auto) 7300 H (8079-7903) /uL Lymph # (Auto) 2000 (0311-2254) /uL Dale # (Auto) 600 (0-900) /uL Eos # (Auto) 200 (0-450) /uL Baso # (Auto) 100 (0-100) /uL Sodium 139 (137-145) mmol/L Potassium 4.4 (3.4-5.1) mmol/L Chloride 103 (98-107) mmol/L Carbon Dioxide 31 (22-32) mmol/L BUN 33 H (9-20) mg/dL Creatinine 0.86 (0.66-1.25) mg/dL Estimated GFR > 60.0 (>60) mL/min BUN/Creatinine Ratio 38.4 H (6-22) Glucose 146 H (70-100) mg/dL Calcium 9.3 (8.4-10.2) mg/dL NT-Pro-B Natriuret Pep (<125) pg/mL SARS-CoV-2 (PCR) Negative (Negative) 05/11/21 Range/Units 05:45 WBC (4.5-11.0) X10^3/uL RBC (4.5-5.9) X10^6/uL Hgb (13.5-17.5) g/dL Hct (41-53) % MCV (80-100) fL MCH (26-34) PG MCHC (30-36) % RDW (11.6-14.8) % Plt Count (150-400) X10^3/uL Neut % (Auto) (50-75) % Lymph % (Auto) (25-40) % Dale % (Auto) (3-14) % Eos % (Auto) (2-4) % Baso % (Auto) (0-2) % Neut # (Auto) (8243-0990) /uL Lymph # (Auto) (9323-9608) /uL Dale # (Auto) (0-900) /uL Eos # (Auto) (0-450) /uL Baso # (Auto) (0-100) /uL Sodium (137-145) mmol/L Potassium (3.4-5.1) mmol/L Chloride (98-107) mmol/L Carbon Dioxide (22-32) mmol/L BUN (9-20) mg/dL Creatinine (0.66-1.25) mg/dL Estimated GFR (>60) mL/min BUN/Creatinine Ratio (6-22) Glucose (70-100) mg/dL Calcium (8.4-10.2) mg/dL NT-Pro-B Natriuret Pep 228 H (<125) pg/mL SARS-CoV-2 (PCR) (Negative) Imaging Data Chest x-ray: Radiologist's Impression: No acute cardiopulmonary abnormality identified MDM Narrative Medical decision making narrative: Patient with a history of COPD. Not hypoxic but is significantly tachypneic in decreased breath sounds bilateral and speaking 1-2 word sentences. Patient started on albuterol. Also given Atrovent. Given Solu-Medrol. Care turned over to Dr. Soares to continue to observe and disposition. <Zeus Soares MD - Last Filed: 05/16/21 12:22> Differential Diagnosis Differential Diagnosis: COPD exacerbation/upper respiratory infection Lab Data Labs: Lab Results 05/11/21 05/11/21 05/11/21 Range/Units 05:40 05:45 05:45 WBC 10.3 (4.5-11.0) X10^3/uL RBC 5.56 (4.5-5.9) X10^6/uL Hgb 15.4 (13.5-17.5) g/dL Hct 46.5 (41-53) % MCV 83.7 (80-100) fL MCH 27.6 (26-34) PG MCHC 33.0 (30-36) % RDW 14.1 (11.6-14.8) % Plt Count 288 (150-400) X10^3/uL Neut % (Auto) 71.0 (50-75) % Lymph % (Auto) 19.1 L (25-40) % Dale % (Auto) 6.3 (3-14) % Eos % (Auto) 2.3 (2-4) % Baso % (Auto) 1.3 (0-2) % Neut # (Auto) 7300 H (6663-7269) /uL Lymph # (Auto) 2000 (3140-0468) /uL Dale # (Auto) 600 (0-900) /uL Eos # (Auto) 200 (0-450) /uL Baso # (Auto) 100 (0-100) /uL Sodium 139 (137-145) mmol/L Potassium 4.4 (3.4-5.1) mmol/L Chloride 103 (98-107) mmol/L Carbon Dioxide 31 (22-32) mmol/L BUN 33 H (9-20) mg/dL Creatinine 0.86 (0.66-1.25) mg/dL Estimated GFR > 60.0 (>60) mL/min BUN/Creatinine Ratio 38.4 H (6-22) Glucose 146 H (70-100) mg/dL Calcium 9.3 (8.4-10.2) mg/dL NT-Pro-B Natriuret Pep (<125) pg/mL SARS-CoV-2 (PCR) Negative (Negative) 05/11/21 Range/Units 05:45 WBC (4.5-11.0) X10^3/uL RBC (4.5-5.9) X10^6/uL Hgb (13.5-17.5) g/dL Hct (41-53) % MCV (80-100) fL MCH (26-34) PG MCHC (30-36) % RDW (11.6-14.8) % Plt Count (150-400) X10^3/uL Neut % (Auto) (50-75) % Lymph % (Auto) (25-40) % Dale % (Auto) (3-14) % Eos % (Auto) (2-4) % Baso % (Auto) (0-2) % Neut # (Auto) (5836-2300) /uL Lymph # (Auto) (7358-5702) /uL Dale # (Auto) (0-900) /uL Eos # (Auto) (0-450) /uL Baso # (Auto) (0-100) /uL Sodium (137-145) mmol/L Potassium (3.4-5.1) mmol/L Chloride (98-107) mmol/L Carbon Dioxide (22-32) mmol/L BUN (9-20) mg/dL Creatinine (0.66-1.25) mg/dL Estimated GFR (>60) mL/min BUN/Creatinine Ratio (6-22) Glucose (70-100) mg/dL Calcium (8.4-10.2) mg/dL NT-Pro-B Natriuret Pep 228 H (<125) pg/mL SARS-CoV-2 (PCR) (Negative) ECG Data Interpretation: Sinus tachycardia rate [address] elevation or depression. MDM Narrative Medical decision making narrative: Patient with a history of COPD. Not hypoxic but is significantly tachypneic in decreased breath sounds bilateral and speaking 1-2 word sentences. Patient started on albuterol. Also given Atrovent. Given Solu-Medrol. Care turned over to Dr. Soares to continue to observe and disposition. Appropriate for admission. Patient will benefit observation overnight for COPD exacerbation. Denies any chest pain Discharge Plan Departure Patient Disposition: Admitted as Observation Clinical Impression: COPD exacerbation Admit Date/Time: 05/11/21 08:15 Admit Provider: Vera Connolly
[2021-05-11] MEDS: methylPREDNISolone 125 MG/2 ML VIAL IV (05:47)
[2021-05-11] MEDS: ALBUTEROL 2.5 MG/3 ML NEB (ADULT) 20 MG INH (05:53)
[2021-05-11] MEDS: IPRATROPIUM 0.5 MG/2.5 ML NEB 1.5 MG INH (05:53)
[2021-05-11 05:59] LABS: Add Manual Diff / Slide Review NO; Basophils Absolute Auto 100 /uL (0-100); Basophils Percent Auto 1.3 % (0-2); Eosinophils Absolute Auto 200 /uL (0-450); Eosinophils Percent Auto 2.3 % (2-4); Hematocrit 46.5 % (41-53); Hemoglobin 15.4 g/dL (13.5-17.5); Lymphocytes Absolute Auto 2000 /uL (1100-4500); Lymphocytes Percent Auto 19.1 % (25-40); Mean Corpuscular Hemoglobin 27.6 PG (26-34); Mean Corpuscular Volume 83.7 fL (80-100); Monocytes Absolute Auto 600 /uL (0-900); Monocytes Percent Auto 6.3 % (3-14); Neutrophils Absolute Auto 7300 /uL (1500-7000); Platelet Count 288 X10^3/uL (150-400); Red Blood Cell Count 5.56 X10^6/uL (4.5-5.9); Red Cell Distribution Width 14.1 % (11.6-14.8); White Blood Cell Count 10.3 X10^3/uL (4.5-11.0)
[2021-05-11] MEDS: ACETAMINOPHEN 325 MG TABLET 650 MG PO (06:00)
[2021-05-11 06:07] LABS: COVID19 -Nasal RAPID Negative (Negative)
[2021-05-11 06:20] LABS: BUN Creatinine Ratio 38.4 (6-22); Blood Urea Nitrogen 33 mg/dL (9-20); Calcium 9.3 mg/dL (8.4-10.2); Carbon Dioxide 31 mmol/L (22-32); Chloride 103 mmol/L (98-107); Estimated Glomerular Filt Rate > 60.0 mL/min (>60); Glucose 146 mg/dL (70-100); HEMOLYSIS 38 (0-50); Potassium 4.4 mmol/L (3.4-5.1); Sodium 139 mmol/L (137-145)
[2021-05-11] MEDS: KETOROLAC 30 MG/ML VIAL 15 MG IV (09:26)
[2021-05-11 10:43] LABS: COVID19 - ADMIT (NP swab/PCR) Negative (Negative)
--- NOTE | 2021-05-11 12:02 | PC.NURSE ---
Report given to NICHOLE Mohr. Patient being admitted to 212.
[2021-05-11] MEDS: ALBUTEROL 2.5 MG/3 ML NEB (ADULT) INH ×2 (12:09→22:37)
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
[2021-05-11 15:20] LABS: NT-proBNP (BNP-Adult 18+) 228 pg/mL (<125)
[2021-05-11] MEDS: DOXYCYCLINE HYCLATE 100 MG TABLET PO ×2 (16:01→21:04)
[2021-05-11] MEDS: lisinopriL 20 MG TABLET PO (16:01)
[2021-05-11] MEDS: SPIRONOLACTONE 25 MG TABLET PO (16:01)
[2021-05-11] MEDS: ASPIRIN EC 81 MG TABLET PO (16:02)
[2021-05-11] MEDS: FUROSEMIDE 40 MG TABLET PO (16:02)
[2021-05-11] MEDS: ALBUTEROL/IPRATROPIUM 3 ML AMPUL INH (16:46)
--- NOTE | 2021-05-11 19:20 | PC.NURSE ---
A&Ox4. Tachy 105, 2L O2 sating 91-96%. Coughing and SOB. Given PRN breathing tx from resp therapy. Independent in room. When asked about home medication she responded that he had been taking them, but was given them last time he was in the hospital and ran out about a month ago. He symptoms worsened at that time, around [place]. Does not have a PCP. Current everyday smoker. Good appetite. Call light within reach, bed low.
[2021-05-11] MEDS: carvediloL 3.125 MG TABLET 6.25 MG PO (21:04)
[2021-05-11] MEDS: SODIUM CHLORIDE 0.9% FLUSH 10 ML IV (21:04)
[2021-05-11] MEDS: SUMAtriptan 25 MG TABLET 50 MG PO (23:03)
[2021-05-11] MEDS: NICOTINE 14 PATCH 14 MG TOP (23:03)
--- NOTE | 2021-05-11 23:18 | PC.NURSE ---
Patient is alert and oriented. Can be difficult to understand as speech is mumbled and poorly articulated. Breath sounds are diminished and tight throughout. Had episode of increased SOB after coughing requiring need for neb Rx with long recovery time after. Using purse lip breathing. Is on oxygen with sat of 95%. Does have moist sounding non productive cough. HRR but tachy in low 100's. Does complain of chest pain related to coughing. Denies nausea. BT present and abdomen is soft. Is independent with mobility and steady on feet. Declines use of SCD's so reminded to ankle wave. Patient is anxious and restless due to dyspnea. Complains of 12/10 excruciating headache so STUDENT SERVICES ADVISOR, Llanos, informed and Imitrex was ordered and administered. Fall risk score is moderate.
[2021-05-12] VITALS (19 sets, daily range): BP systolic 125–157; BP diastolic 83–89; PULSE 70–101; RESP 18–28; TEMP 36.3–37.1; O2SAT 88–97
[2021-05-12] MEDS: ALBUTEROL/IPRATROPIUM 3 ML AMPUL INH ×7 (00:11→22:16)
[2021-05-12 06:57] LABS: Add Manual Diff / Slide Review NO; Basophils Absolute Auto 100 /uL (0-100); Basophils Percent Auto 0.6 % (0-2); Eosinophils Absolute Auto 100 /uL (0-450); Eosinophils Percent Auto 0.3 % (2-4); Hemoglobin 13.9 g/dL (13.5-17.5); Lymphocytes Absolute Auto 1200 /uL (1100-4500); Mean Corpuscular HGB Conc 32.3 % (30-36); Mean Corpuscular Hemoglobin 27.3 PG (26-34); Mean Corpuscular Volume 84.8 fL (80-100); Monocytes Absolute Auto 1200 /uL (0-900); Neutrophils Absolute Auto 14800 /uL (1500-7000); Neutrophils Percent Auto 85.1 % (50-75); Platelet Count 256 X10^3/uL (150-400); Red Blood Cell Count 5.07 X10^6/uL (4.5-5.9); Red Cell Distribution Width 14.1 % (11.6-14.8); White Blood Cell Count 17.4 X10^3/uL (4.5-11.0)
[2021-05-12 07:10] LABS: Blood Urea Nitrogen 44 mg/dL (9-20); Calcium 8.9 mg/dL (8.4-10.2); Carbon Dioxide 31 mmol/L (22-32); Chloride 105 mmol/L (98-107); Estimated Glomerular Filt Rate > 60.0 mL/min (>60); Glucose 90 mg/dL (70-100); HEMOLYSIS < 15 (0-50); Potassium 4.4 mmol/L (3.4-5.1); Sodium 140 mmol/L (137-145)
[2021-05-12 07:19] LABS: NT-proBNP (BNP-Adult 18+) 194 pg/mL (<125)
[2021-05-12] MEDS: ALBUTEROL 2.5 MG/3 ML NEB (ADULT) INH ×4 (07:26→22:16)
[2021-05-12] MEDS: SUMAtriptan 25 MG TABLET 50 MG PO ×3 (07:33→22:15)
[2021-05-12] MEDS: lisinopriL 20 MG TABLET PO (09:36)
[2021-05-12] MEDS: FUROSEMIDE 40 MG TABLET PO (09:36)
[2021-05-12] MEDS: ASPIRIN EC 81 MG TABLET PO (09:36)
[2021-05-12] MEDS: NICOTINE 14 PATCH 14 MG TOP (09:36)
[2021-05-12] MEDS: predniSONE 20 MG TABLET 40 MG PO (09:36)
[2021-05-12] MEDS: carvediloL 3.125 MG TABLET 6.25 MG PO ×2 (09:36→20:24)
[2021-05-12] MEDS: SPIRONOLACTONE 25 MG TABLET PO (09:36)
[2021-05-12] MEDS: SODIUM CHLORIDE 0.9% FLUSH 10 ML IV ×2 (09:37→20:26)
[2021-05-12] MEDS: DOXYCYCLINE HYCLATE 100 MG TABLET PO ×2 (09:45→20:23)
--- NOTE | 2021-05-12 14:37 | CM.IDA ---
Initial DCP Assessment Note Pt is a 55 yo male, resident at [facility], arrives w/COPD exacerbation and severe SOB x 1 day PCP: None Payer: [facility] Patient familiar to this [employer] STRIP[employer] from prior admissions. According to Dr Connolly, patient will remain here this evening and Dr Connolly hopes to secure the following before patient's DC: A referral to a PCP, new Inhaler, and Rx refill for patient's neb treatments...ideally in patient's hands before his departure. Met w/patient this morning to introduce role. Patient explains he has been living at the [facility] for quite some time and plans to return upon DC. Patient denies illicit drug use. Patient reports he currently does not have a personal cell. Also states does not have $ to pay for taxi to get to appointments or p/u Rx, patient reports he spends most of his time inside his motel room and uses most of his income on rent at the [facility]. Patient agreeable to this [employer] STRIPPER researching [facility] transport on his behalf and referral for new PCP; however, not having a phone will be a barrier to continuity of care. This PREPRESS STRIPPER will plan to research resources for those who cannot afford cell phone bill. patient can use the phone in the motel lobby, there are no phones in the motel rooms Patient discussed his father's recent , here at [facility], approx 3 weeks ago, and states he has lost my best friend and is having a difficult time coping. Patient has no other supportive contacts at this time Following closely. Patient would benefit from Complex Care Management through [facility], may even be able to assist w/securing a cell phone for patient (?) Will attempt referral to [facility] ASHLI Davies Discharge Planning/Care Management CM Discharge Assessment Start: 05/12/21 14:27 Freq: Status: Active Protocol: Document 05/12/21 14:29 SANGITA (Rec: 05/12/21 14:37 SANGITA [id number]) Discharge Planning Assessment Assigned Fleet Salesperson ASHLI Halwey DPOA/Assigned Designee Name No one Advance Directives? No Advance Directives on File No History Provided By Patient,Medical Record Has Patient been admitted in last 30 No days? Comment Since Dec 2020, 3 ER visits, 2nd medical admission Comment Mot Household Members none Comment Stays in his motel, walks as needed Independent with ADL's Yes: Poor activity tolerance Is patient alert and oriented? Yes Needs Assistance With Home Chores / Shopping Discharge Plan Home Transportation Arrangement [facility] transport taxi (?)
--- NOTE | 2021-05-12 14:54 | PM.PN.1 ---
Subjective Subjective Date Patient Seen: 05/12/21 Interval history: Patient is a 55-year-old male who was admitted to the hospital for respiratory failure likely related to a COPD exacerbation. This morning patient was found to be ?tripoding markedly short of breath and wheezing. He received a treatment with improvement of his symptoms. He does admit that he has no medication at home, he does not have a primary care provider, and he continues to smoke about a pack per day. Patient did undergo a home O2 evaluation today. He was found to be hypoxic with a room air sat of 88%. Exam Vital Signs (past 8 hours): - 05/12/21 07:26 05/12/21 07:32 05/12/21 09:00 Temperature 98.6 F Pulse Rate 91 H 90 97 H Respiratory Rate 25 H 24 20 Blood Pressure 131/86 Pulse Oximetry 93 94 97 05/12/21 09:36 05/12/21 10:50 05/12/21 10:56 Temperature Pulse Rate 101 H 86 88 Respiratory Rate 22 22 Blood Pressure 131/86 Pulse Oximetry 96 96 05/12/21 14:07 Temperature Pulse Rate Respiratory Rate Blood Pressure Pulse Oximetry 93 Oxygen Delivery Method Nasal Cannula Oxygen Flow Rate 2 Narrative Exam Narrative: Ill-appearing male short of breath Resp Other: Lungs: Decreased breath sounds with prolonged end-expiratory phase and diffuse wheezing Cardio Other: Cardiac exam: Regular rate rhythm normal S1-S2 GI Other: Abdomen: Soft nontender nondistended Extrem Other: Extremities: No edema Objective Labs Result Diagrams: 05/12/21 06:38 05/12/21 06:38 Labs: Laboratory Results - last 24 hr 05/11/21 05/12/21 05/12/21 05:45 06:38 06:38 WBC 17.4 H D RBC 5.07 Hgb 13.9 Hct 43.0 MCV 84.8 MCH 27.3 MCHC 32.3 RDW 14.1 Plt Count 256 Neut % (Auto) 85.1 H Lymph % (Auto) 7.0 L [place] % (Auto) 7.0 Eos % (Auto) 0.3 L Baso % (Auto) 0.6 Neut # (Auto) 16347 H Lymph # (Auto) 1200 [place] # (Auto) 1200 H Eos # (Auto) 100 Baso # (Auto) 100 Sodium 140 Potassium 4.4 Chloride 105 Carbon Dioxide 31 BUN 44 H Creatinine 1.00 Estimated GFR > 60.0 BUN/Creatinine Ratio 44.0 H Glucose 90 Calcium 8.9 NT-Pro-B Natriuret Pep 228 H 194 H PFSH Medical History COPD (chronic obstructive pulmonary disease) COVID-19 HFrEF (heart failure with reduced ejection fraction) Methamphetamine abuse Peripheral edema Tobacco abuse Surgical History Status post appendectomy Family History Father Heart disease Mother Medical history unknown Brother Medical history unknown Social History household members: none Smoking Status: Current every day smoker alcohol intake: never Assessment & Plan Assessment & Plan narrative: 1. Acute hypoxic respiratory failure -secondary to COPD -patient with a documented room air sat of 88% -will obtain a home O2 evaluation -continue albuterol Atrovent nebulized -continue prednisone 40 mg daily -continue antibiotic 2. Hypertension -resume home blood pressure medication -patient is now on Cardizem and lisinopril 3. Chronic systolic heart failure -resume Lasix, lisinopril, Coreg, spironolactone, and aspirin Continue treatment as above, anticipate discharge home once we can arrange home oxygen Time Spent With Patient Critical Care time: I spent a total of [] minutes of critical care time on this patient's care today; this time is exclusive of procedural time.
[2021-05-13] VITALS (15 sets, daily range): BP systolic 117–141; BP diastolic 77–94; PULSE 68–95; RESP 14–28; TEMP 36.2–37.1; O2SAT 90–96
[2021-05-13] MEDS: ALBUTEROL/IPRATROPIUM 3 ML AMPUL INH ×6 (03:21→22:35)
[2021-05-13] MEDS: SUMAtriptan 25 MG TABLET 50 MG PO ×2 (08:26→22:18)
[2021-05-13] MEDS: ASPIRIN EC 81 MG TABLET PO (08:27)
[2021-05-13] MEDS: FUROSEMIDE 40 MG TABLET PO (08:27)
[2021-05-13] MEDS: DOXYCYCLINE HYCLATE 100 MG TABLET PO ×2 (08:27→20:23)
[2021-05-13] MEDS: SPIRONOLACTONE 25 MG TABLET PO (08:28)
[2021-05-13] MEDS: predniSONE 20 MG TABLET 40 MG PO (08:28)
[2021-05-13] MEDS: lisinopriL 20 MG TABLET PO (08:28)
[2021-05-13] MEDS: carvediloL 3.125 MG TABLET 6.25 MG PO ×2 (08:28→20:23)
[2021-05-13] MEDS: NICOTINE 14 PATCH 14 MG TOP (08:39)
[2021-05-13] MEDS: SODIUM CHLORIDE 0.9% FLUSH 10 ML IV ×2 (08:43→20:22)
[2021-05-13] MEDS: LORazepam 1 MG TABLET PO ×2 (09:04→18:26)
--- NOTE | 2021-05-13 13:04 | PM.PN.1 ---
Subjective Subjective Date Patient Seen: 05/13/21 Interval history: Patient is a 55 y/o male with COPD, CHF with reduced systolic function, and hypertension admitted for shortness of breath. Patient continues to be anxious, hypoxic and short of breath He desaturates to 88% on room air. He complianed of a migraine headache today. Exam Vital Signs (past 8 hours): - 05/13/21 06:27 05/13/21 07:00 05/13/21 08:28 Temperature 98.4 F Pulse Rate 87 85 85 Respiratory Rate 16 18 Blood Pressure 126/86 126/86 Pulse Oximetry 92 96 05/13/21 11:17 05/13/21 11:20 Temperature 97.1 F L Pulse Rate 78 92 H Respiratory Rate 16 18 Blood Pressure 139/94 H Pulse Oximetry 94 94 Oxygen Delivery Method Nasal Cannula Oxygen Flow Rate 2 Narrative Exam Narrative: Pleasant male, tripod position, short of breath Resp Other: Decreased breath sounds with diffuse end expiratory wheezing Cardio Other: RRR nl Sl S2 GI Other: Abd: soft/ non tender/ non distended Extrem Other: no edema Objective Labs Result Diagrams: 05/12/21 06:38 05/12/21 06:38 [facility] Medical History COPD (chronic obstructive pulmonary disease) COVID-19 HFrEF (heart failure with reduced ejection fraction) Methamphetamine abuse Peripheral edema Tobacco abuse Surgical History Status post appendectomy Family History Father Heart disease Mother Medical history unknown Brother Medical history unknown Social History household members: none Smoking Status: Current every day smoker alcohol intake: never Assessment & Plan Assessment & Plan narrative: Acute hypoxic respiratory failure -secondary to COPD -patient with a documented room air sat of 88% -will obtain a home O2 evaluation -continue albuterol Atrovent nebulized -continue prednisone 40 mg daily -continue antibiotic -patient meets criteria for home O2, however he continues to smoke, there is concern about his compliance and concern regarding him using oxygen which is flammable all while smoking -I discussed this with the patient today, he said he ?thought he would try not to smoke but was not convincing. -anticipate 1 additional day of steroids nebulizers and oxygen, hopefully can discharge home tomorrow 2. Hypertension -resume home blood pressure medication -patient is now on Coreg and lisinopril 3. Chronic systolic heart failure -resume Lasix, lisinopril, Coreg, spironolactone, and aspirin Time Spent With Patient Critical Care time: I spent a total of [] minutes of critical care time on this patient's care today; this time is exclusive of procedural time.
--- NOTE | 2021-05-13 15:36 | CM.DPNOTE ---
DCP Note Placed call to [facility] Customer Service P# [phone]; requested a referral to Case Management and outlined the following: -Patient needs a referral to PCP -Patient does not have a personal cell phone -Lives in a motel, gave contact info for [employer] -Requested chronic disease counseling for patient -Patient does not have reliable transport -Patient states he runs out of meds requires medication counseling and Rx assistance -Requested f/u for witnessed anxious behavior Ref # [id number]. Requested an expedited referral. Broadcast Correspondent suggested this [employer] would hear from a [facility] Finished Metal Repairer today. Awaiting this call JW
[2021-05-13] MEDS: ALBUTEROL 2.5 MG/3 ML NEB (ADULT) INH (22:34)
[2021-05-14] MEDS: ALBUTEROL 2.5 MG/3 ML NEB (ADULT) INH (03:08)
[2021-05-14] MEDS: ALBUTEROL/IPRATROPIUM 3 ML AMPUL INH ×2 (03:08→07:44)
[2021-05-14 03:35] VITALS: BP 133/86; PULSE 81; RESP 18; TEMP 36.3; O2SAT 100
[2021-05-14] MEDS: SUMAtriptan 25 MG TABLET 50 MG PO (06:39)
[2021-05-14] MEDS: LORazepam 1 MG TABLET PO (06:44)
--- NOTE | 2021-05-14 06:54 | PC.NURSE ---
0638 Woke up C/O migraine headache & anxiety requested some medications. 50 mg. of Imitrex & 1 mg. of PO Ativan. Will cont. POC & monitor.
[2021-05-14 07:44] VITALS: PULSE 94; RESP 20; O2SAT 94
[2021-05-14 08:00] VITALS: PULSE 79; RESP 18; TEMP 36.6; O2SAT 94
--- NOTE | 2021-05-14 08:05 | P.DS_ITS ---
History of Present Illness History of Present Illness Date Patient Seen: 05/14/21 Time Patient Seen: 08:05 Chief complaint: COPD SOB DAY Narrative: The patient is a 55-y . Old male with a history of COPD, heart failure with reduced ejection fraction, methamphetamine use, hypertension, recent COVID pneumonia in August of 2020, who reports he has been without his medications for some time. Patient reports that his father 2 weeks ago and since then he has resumed smoking about a pack per day. He has been increasingly short of breath. He presented to the emergency room for evaluation. In the emergency room the patient was found to have increased work of breathing. He is not hypoxic. He is not on oxygen at home. Patient was given multiple nebulizer treatments. Despite that he remained tachycardic, increased work of breathing, was felt to be at high risk for failure due to his acute respiratory condition. The patient states he does not have a primary care provider. He has not had his medications for several weeks. The patient does have a history of heart failure and hypertension for which she has not been treated. He denies using any m ethamphetamine, or any other illicit substances. Patient is admitted to the hospital for treatment of COPD exacerbation. Discharge Providers Provider Date of admission: 05/11/21 08:15 Discharge Date: 05/14/21 Discharge provider: Vera Connolly MD Summary Hospital Course Discharge Diagnosis: 1. Acute hypoxic respiratory failure 2. COPD 3. Chronic systolic heart failure 4. Hypertension 5. Anxiety 6. Nicotine dependence 7. Migraine headache Hospital Course: Patient was admitted to the hospital for acute hypoxic respiratory failure. Patient presented with increasing shortness of breath tripoding and overall ill feeling. He was placed on prednisone and nebulizers. The patient did have a home O2 eval and does qualify for home oxygen. He does continue to smoke. And it is concerning that the patient will continue to smoke with the oxygen tank in his motel room. As such his oxygenation at rest is 94%. He will not be discharged home with oxygen at this time. Patient also complained of headache, treated for migraine headache. In addition he appeared quite anxious at times and was given Ativan for anxiety which improved him significantly. He made slow but steady progress and was deemed appropriate for discharge home. Consideration for oxygen was entertained. However the patient does not have a phone, lives in a motel, and the respiratory therapy companies felt that they were unable to manage delivering in managing home oxygen to him. In addition the patient does not have a primary care provider at this time. He has been referred previously but has had difficulty getting to a PCP. Social work will be working with him to arrange [employer] services for increasing social support at discharge. Status at Discharge Cognitive/behavioral status at discharge: oriented Functional status at discharge: independent ambulation Overall status at discharge: patient is progressing back to baseline Exam Vital Signs (past 8 hours): - 05/14/21 03:35 05/14/21 07:44 Temperature 97.3 F L Pulse Rate 81 94 H Respiratory Rate 18 20 Blood Pressure 133/86 Pulse Oximetry 100 94 Oxygen Delivery Method Room Air Oxygen Flow Rate 2 Narrative Exam Narrative: Pleasant male resting comfortably in no distress Resp Other: Lungs decreased breath sounds, but clear to auscultation Cardio Other: Cardiac exam: Regular rate and rhythm normal S1-S2 GI Other: Abdomen soft and nontender Extrem Other: Extremity no edema Objective Labs Result Diagrams: 05/12/21 06:38 05/12/21 06:38 [facility] Medical History COPD (chronic obstructive pulmonary disease) COVID-19 HFrEF (heart failure with reduced ejection fraction) Methamphetamine abuse Peripheral edema Tobacco abuse Surgical History Status post appendectomy Family History Father Heart disease Mother Medical history unknown Brother Medical history unknown Social History household members: none Smoking Status: Current every day smoker alcohol intake: never Discharge Assessment & Plan Assessment and Plan Assessment: 1. Acute hypoxic respiratory failure 2. COPD 3. Chronic systolic heart failure 4. Hypertension 5. Anxiety 6. Nicotine dependence 7. Migraine headache Plan of Treatment: Discharge home Medications as prescribed Discharge Plan Discharge Plan Patient Disposition: Home Discharge orders & Medications Prescriptions: New furosemide 40 mg Tablet 40 mg PO DAILY Qty: 30 0RF ipratropium-albuterol 0.5 mg-3 mg(2.5 mg base)/3 mL Solution For Nebulization 3 ml INH RTQ4HR Qty: 30 0RF albuterol sulfate 2.5 mg /3 mL (0.083 %) Solution For Nebulization 2.5 mg INH [id number] PRN (Reason: Shortness Of Breath) 30 Days 0RF sumatriptan succinate [Imitrex] 25 mg Tablet 50 mg PO Q2H PRN (Reason: Headache) Qty: 10 0RF lisinopril 20 mg Tablet 20 mg PO DAILY Qty: 30 0RF prednisone 20 mg Tablet 40 mg PO DAILY Qty: 5 0RF aspirin 81 mg Tablet,Delayed Release (Dr/Ec) 81 mg PO DAILY Qty: 30 0RF spironolactone 25 mg Tablet 25 mg PO DAILY Qty: 30 0RF carvedilol [Coreg] 3.125 mg Tablet 6.25 mg PO BID Qty: 30 0RF lorazepam 1 mg Tablet 1 mg PO Q4HR PRN (Reason: Anxiety) Qty: 15 0RF doxycycline hyclate 100 mg Tablet 100 mg PO BID Qty: 10 0RF Discontinued carvedilol 12.5 mg tablet 12.5 mg PO DAILY Qty: 60 0RF Label Comments: Pt self reports he has not taken medications for a month or more. Rx Instructions: Patient has not taken for over a month, does not have primary care. aspirin 81 mg tablet,delayed release (DR/EC) 81 mg PO DAILY Qty: 30 0RF Rx Instructions: Pt self reports - He has not taken any meds for a month or more furosemide [Lasix] 40 mg tablet 40 mg PO DAILY Qty: 5 0RF Label Comments: Pt self reports he has not taken any medications for a month or more. Rx Instructions: Patient has not taken for over a month, does not have a primary care provider. lisinopril [Zestril] 20 mg tablet 20 mg PO DAILY 0RF Label Comments: Pt self reports he has not taken medications for a month or more. spironolactone [Aldactone] 25 mg tablet 12.5 mg PO DAILY 0RF Label Comments: Pt self reports he has not taken meds for a month or maore. metoprolol succinate [Toprol XL] 25 mg tablet extended release 24 hr 12.5 mg PO DAILY 0RF Rx Instructions: Pt self reports he has not taken meds for a month or more. albuterol sulfate [ProAir HFA] 90 mcg/actuation HFA aerosol inhaler 2 puff INHALATION Q4-6H PRN (Reason: shortness of breath or wheezing) 0RF Label Comments: Pt self reports - has not had any medications for a month or more. albuterol sulfate [ProAir HFA] 90 mcg/actuation HFA aerosol inhaler 1 inh inhalation QID 0RF Spiriva with HandiHaler 18 mcg capsule, w/inhalation device 1 cap inhalation DAILY 0RF Label Comments: Pt self reports he has not taken is meds a month or more Rx Instructions: puncture 1 cap using device; one dose = 2 inhalations ProAir RespiClick 90 mcg/actuation aerosol powdr breath activated 2 inh INHALATION Q4H PRN (Reason: shortness of breath or wheezing) 0RF Rx Instructions: administer with spacer Discharge Health Status Multidrug resistant organism: No MDRO Diet/Activity/Treatments Diet: Low-sodium Visit Report/Discharge Packet Instructions: DI for Chronic Obstructive Pulmonary Disease
[2021-05-14] MEDS: NICOTINE 14 PATCH 14 MG TOP (08:40)
[2021-05-14 08:41] VITALS: BP 121/80; PULSE 90
[2021-05-14] MEDS: ASPIRIN EC 81 MG TABLET PO (08:41)
[2021-05-14] MEDS: carvediloL 3.125 MG TABLET 6.25 MG PO (08:41)
[2021-05-14] MEDS: DOXYCYCLINE HYCLATE 100 MG TABLET PO (08:42)
[2021-05-14] MEDS: SPIRONOLACTONE 25 MG TABLET PO (08:42)
[2021-05-14] MEDS: predniSONE 20 MG TABLET 40 MG PO (08:42)
[2021-05-14] MEDS: lisinopriL 20 MG TABLET PO (08:42)
[2021-05-14] MEDS: SODIUM CHLORIDE 0.9% FLUSH 10 ML IV (08:42)
[2021-05-14] MEDS: FUROSEMIDE 40 MG TABLET PO (08:42)
[2021-05-14 10:20] VITALS: PULSE 103; RESP 20; O2SAT 94
--- NOTE | 2021-05-14 12:55 | CM.DPNOTE ---
Addendum entered by ASHLI Tello 05/14/21 13:01: ADD: Taxi voucher completed then reviewed and signed by FARA White RN and interim Stock Puller. Copy given to [employer], the original placed in bills folder in the [facility] office. JW Original Note: DC Note Patient has been discharged. Patient requires transport and assist in picking up medications from [facility] in [place]. Patient has [facility], transportation benefit unknown. In lieu of calling [facility] transport, called [employer] and scheduled p/u for approx 1045 using a taxi voucher. This was a time sensitive DC d/t the volume of patients awaiting a bed on the acute care floor, from the ER. patient was agreeable. Patient had a friend to pick out hand Rx and drop them off to patient's room at [facility]. SANGITA
== END 2021-05-14 10:39 | disposition home or self-care (01) | DRG 190 ==
LOC: ED 08:01 → AC 10:03
PROVIDERS: Emergency Medicine; Admitting Provider Internal Medicine; Emergency Provider Emergency Medicine; Referring Provider Emergency Medicine; Visit Provider Internal Medicine
DX: J44.1 Chronic obstructive pulmonary disease with (acute) exacerbation (principal); J96.01 Acute respiratory failure with hypoxia; I50.22 Chronic systolic (congestive) heart failure; I11.0 Hypertensive heart disease with heart failure; Z86.16 Personal history of COVID-19; F17.210 Nicotine dependence, cigarettes, uncomplicated; F41.9 Anxiety disorder, unspecified; G43.909 Migraine, unspecified, not intractable, without status migrainosus; Z20.822 Contact with and (suspected) exposure to COVID-19
CPT/HCPCS: 36415; 71045; 80048; 83880; 85025; 87635; 93005; 93010; 94618; 94640; 94762; 96374; 96375; 99285; 99406; C9803; J1885; J2930; J7613

== ENCOUNTER 2021-05-17 17:08 | Observation (INO) | payer OTHER, MEDICAID, SELFPAY ==
[2021-05-11 12:29] VITALS: BMI 26.7
[2021-05-17] VITALS (15 sets, daily range): BP systolic 121–164; BP diastolic 75–111; PULSE 99–115; RESP 24–40; TEMP 36.4–37.1; O2SAT 93–99; BMI 26.2
--- NOTE | 2021-05-17 17:30 | DI.RAD.S_ITS ---
PROCEDURE: XR CHEST 2V INDICATIONS: SOB, copd TECHNIQUE: 2 views of the chest were acquired. COMPARISON: [facility], CR, XR CHEST 1V, 05/11/2021, 6:06. FINDINGS: Surgical changes and devices: None. Lungs and pleura: Lungs are clear. No pleural effusions or pneumothorax. Mediastinum: Mediastinal contours are normal. Heart size is normal. Bones and chest wall: No suspicious bony abnormalities. Soft tissues appear unremarkable. IMPRESSION: No acute process. Dictated by: Jordyn Worthington M.D. on 05/17/2021 at 18:01 Approved by: Jordyn Worthington M.D. on 05/17/2021 at 18:02
[2021-05-17 17:38] LABS: Add Manual Diff / Slide Review NO; Basophils Absolute Auto 100 /uL (0-100); Basophils Percent Auto 0.7 % (0-2); Eosinophils Absolute Auto 0 /uL (0-450); Eosinophils Percent Auto 0.3 % (2-4); Hematocrit 45.9 % (41-53); Hemoglobin 15.2 g/dL (13.5-17.5); Lymphocytes Absolute Auto 600 /uL (1100-4500); Lymphocytes Percent Auto 5.3 % (25-40); Mean Corpuscular HGB Conc 33.1 % (30-36); Mean Corpuscular Volume 84.6 fL (80-100); Monocytes Absolute Auto 300 /uL (0-900); Monocytes Percent Auto 2.7 % (3-14); Neutrophils Absolute Auto 10200 /uL (1500-7000); Platelet Count 299 X10^3/uL (150-400); Red Blood Cell Count 5.43 X10^6/uL (4.5-5.9); Red Cell Distribution Width 14.3 % (11.6-14.8); White Blood Cell Count 11.2 X10^3/uL (4.5-11.0)
[2021-05-17 17:51] LABS: Lactate (Lactic Acid) 1.5 mmol/L (0.7-2.1)
[2021-05-17 17:53] LABS: Alanine Aminotransferase 24 IU/L (<50); Albumin 4.2 g/dL (3.5-5.0); Albumin Globulin Ratio 1.4 (1.0-2.8); Alkaline Phosphatase 63 U/L (38-126); Aspartate Aminotransferase 25 IU/L (17-59); BUN Creatinine Ratio 37.1 (6-22); Bilirubin Total 0.4 mg/dL (0.2-1.3); Blood Urea Nitrogen 39 mg/dL (9-20); Calcium 9.2 mg/dL (8.4-10.2); Carbon Dioxide 30 mmol/L (22-32); Chloride 106 mmol/L (98-107); Estimated Glomerular Filt Rate > 60.0 mL/min (>60); Glucose 136 mg/dL (70-100); HEMOLYSIS 18 (0-50); Sodium 139 mmol/L (137-145); Total Protein 7.2 g/dL (6.3-8.2)
[2021-05-17 17:55] LABS: Potassium 5.4 mmol/L (3.4-5.1)
[2021-05-17] MEDS: ALBUTEROL/IPRATROPIUM 3 ML AMPUL INH (18:02)
[2021-05-17 18:04] LABS: NT-proBNP (BNP-Adult 18+) 151 pg/mL (<125); Troponin I 0.044 ng/mL (0.01-0.034)
[2021-05-17] MEDS: methylPREDNISolone 125 MG/2 ML VIAL IV (18:05)
[2021-05-17 18:14] LABS: COVID19 -Nasal RAPID Negative (Negative)
[2021-05-17] MEDS: BUDESONIDE 0.5 MG/2 ML NEB INH (18:50)
[2021-05-17 19:05] LABS: HCO3 VBG 30 mmol/L (23-28); Oxygen Saturation VBG 89 % (70-75); PCO2 VBG 53.5 mmHg (45-50); PO2 VBG 60 mmHg (35-45); Total CO2 VBG 32 mmol/L (24-29); pH VBG 7.36 (7.33-7.43)
--- NOTE | 2021-05-17 20:49 | ED_ITS ---
HPI - SOB/Dyspnea <Lorena Vora PA-C - Last Filed: 05/17/21 20:57> General Chief Complaint: Shortness of Breath/Dyspnea Stated Complaint: copd flare, difficulty breathing Time Seen by Provider: 05/17/21 17:28 Source: patient Mode of arrival: Ambulatory History of Present Illness HPI Narrative: 55-year-old male with past medical history COPD, CHF presents to the ED with 1 day of shortness of breath. Patient states he is homeless, does not have a inhaler anymore, suddenly started feeling short of breath around noon which caused him to come to the ED. patient was recently discharged from the hospital on the 14 of May for a COPD exacerbation. Patient denies fever, chills, chest pain, increased sputum, nausea, vomiting, lightheadedness, syncope. Related Data Previous Rx's Medication Instructions Recorded aspirin 81 mg tablet,delayed 81 mg PO DAILY #30 tab 05/14/21 release furosemide 40 mg tablet 40 mg PO DAILY #30 tab 05/14/21 lisinopril 20 mg tablet 20 mg PO DAILY #30 tab 05/14/21 spironolactone 25 mg tablet 25 mg PO DAILY #30 tab 05/14/21 albuterol sulfate 2.5 mg (3 mL) INH [id number] PRN 30 05/19/21 Days #240 ml carvedilol 3.125 mg tablet (Coreg) 6.25 mg PO BID #60 tab 05/19/21 ipratropium 0.5 mg-albuterol 3 mg 3 ml INH RTQ4HR #360 ml 05/19/21 (2.5 mg base)/3 mL nebulization soln lorazepam 1 mg tablet 1 mg PO Q4HR PRN #15 tab 05/19/21 prednisone 20 mg tablet 40 mg PO DAILY #5 tab 05/19/21 Allergies Allergy/AdvReac Type Severity Reaction Status Date / Time No Known Drug Allergies Allergy Verified 02/12/21 19:27 Review of Systems <Lorena Vora PA-C - Last Filed: 05/17/21 20:57> Review of Systems ROS Unobtainable: All systems reviewed & are unremarkable except as noted in HPI and below Constitutional Constitutional: Denies chills, Denies fatigue, Denies fever(s), Denies frequent falls, Denies lethargy and Denies weakness Eyes Eyes: Denies change in vision, Denies eye discharge, Denies irritation and Denies loss of vision ENT Ears, Nose, Mouth, and Throat: Denies change in voice, Denies dizziness, Denies neck pain, Denies sore throat and Denies throat swelling Cardiovascular Cardiovascular: Denies chest pain, Denies irregular heart rhythm, Denies lightheadedness, Denies palpitations, Reports dyspnea, Denies dyspnea on exertion and Denies orthopnea Respiratory Respiratory: Denies cough, Reports dyspnea, Denies dyspnea on exertion and Denies wheezing Gastrointestinal Gastrointestinal: Denies abdominal pain, Denies change in bowel habits, Denies diarrhea, Denies nausea and Denies vomiting Genitourinary Genitourinary: Denies hematuria, Denies flank pain, Denies urinary incontinence and Denies urinary urgency Musculoskeletal Musculoskeletal: Denies back pain, Denies muscle weakness, Denies neck pain, Denies numbness and Denies tingling Integumentary/Breasts Skin/Breast: Denies pruritus, Denies erythema, Denies rash and Denies wounds Neurologic Neurologic: Denies behavioral changes, Denies confusion, Denies dizziness, Denies frequent falls, Denies loss of vision, Denies numbness, Denies tingling and Denies weakness Psychiatric Psychiatric: Denies anxiety, Denies behavioral changes, Denies confusion, Denies depression, Denies homicidal ideation and Denies suicidal ideation Endocrine Endocrine: Denies fatigue, Denies flushing and Denies palpitations Hematologic/Lymphatic Hematologic/Lymphatic: Denies easy bruising Allergic/Immunologic Allergic/Immunologic: Denies urticaria, Denies throat swelling and Denies wheezing Patient History <Lorena Vora PA-C - Last Filed: 05/17/21 20:57> Medical History COPD (chronic obstructive pulmonary disease) COVID-19 HFrEF (heart failure with reduced ejection fraction) Methamphetamine abuse Peripheral edema Tobacco abuse Surgical History Status post appendectomy Family History (Updated 05/18/21 @ 02:08 by GISSEL Morillo) Father Heart disease Aortic aneurysm Mother Medical history unknown Family estrangement Brother Medical history unknown Social History household members: none Smoking Status: Current every day smoker alcohol intake: never Smoking Status: Current every day smoker tobacco type: cigarettes alcohol intake frequency: other Substance Use Type: does not use and methamphetamine Exam <Lorena Vora PA-C - Last Filed: 05/17/21 20:57> Initial Vital Signs Initial Vital Signs: Vital Signs Temperature 98.8 F 05/17/21 17:12 Pulse Rate 115 H 05/17/21 17:12 Respiratory Rate 32 H 05/17/21 17:12 Blood Pressure 123/76 05/17/21 17:12 Pulse Oximetry 97 05/17/21 17:12 Const General: cooperative HENMT Head: normal to inspection Eyes General: appearance normal, both eyes and all related structures Neck Neck: normal visual inspection Chest Chest: normal inspection of the chest Resp Effort & Inspection: normal respiratory effort Auscultation: clear to auscultation bilaterally Cardio Rate: regular rate Rhythm: regular rhythm GI Inspection: normal to inspection Other: Abdomen is soft, nontender, nondistended Skin General: no rashes or lesions noted Neuro General: patient alert, patient awake and patient oriented x3 Psych Appearance: grossly normal <Clarita Porras DO - Last Filed: 06/05/21 08:16> Initial Vital Signs Initial Vital Signs: Vital Signs Temperature 98.8 F 05/17/21 17:12 Pulse Rate 115 H 05/17/21 17:12 Respiratory Rate 32 H 05/17/21 17:12 Blood Pressure 123/76 05/17/21 17:12 Pulse Oximetry 97 05/17/21 17:12 Course <Lorena Vora PA-C - Last Filed: 05/17/21 20:57> Orders Ordered: Discontinued Medications Acetaminophen (Acetaminophen 325 Mg Tablet) 650 mg PO Q4HR PRN PRN Reason: Fever/Mild Pain (1-3) Last Admin: 05/18/21 20:38 Dose: 650 mg Documented by: REEMA Albuterol (Albuterol 2.5 Mg/3 Ml Neb (Adult)) 2.5 mg INH [id number] [facility] Albuterol (Albuterol 2.5 Mg/3 Ml Neb (Adult)) 2.5 mg INH [id number] PRN PRN Reason: Shortness Of Breath Last Admin: 05/18/21 01:20 Dose: 2.5 mg Documented by: Admin: 05/18/21 01:14 Dose: 2.5 mg Documented by: RODOLFO Albuterol (Albuterol 2.5 Mg/3 Ml Neb (Adult)) 5 mg INH [id number] PRN PRN Reason: Shortness Of Breath Last Admin: 05/19/21 11:28 Dose: 5 mg Documented by: Admin: 05/19/21 07:21 Dose: 5 mg Documented by: Admin: 05/19/21 03:29 Dose: 5 mg Documented by: Admin: 05/18/21 23:06 Dose: 5 mg Documented by: Admin: 05/18/21 03:00 Dose: 5 mg Documented by: RODOLFO Albuterol/Ipratropium (Albuterol/Ipratropium 3 Ml Ampul) 3 ml INH Q1H PRN PRN Reason: Shortness Of Breath Last Admin: 05/17/21 18:02 Dose: 3 ml Documented by: MATTHIAS Albuterol/Ipratropium (Albuterol/Ipratropium 3 Ml Ampul) 3 ml INH [id number] [facility] Albuterol/Ipratropium (Albuterol/Ipratropium 3 Ml Ampul) 3 ml INH [id number] [facility] Albuterol/Ipratropium (Albuterol/Ipratropium 3 Ml Ampul) 3 ml INH RTQ4HR [facility] Last Admin: 05/19/21 11:28 Dose: 3 ml Documented by: Admin: 05/19/21 10:52 Dose: 3 ml Documented by: Admin: 05/19/21 07:21 Dose: 3 ml Documented by: Admin: 05/19/21 03:29 Dose: 3 ml Documented by: Admin: 05/18/21 23:06 Dose: 3 ml Documented by: Admin: 05/18/21 18:23 Dose: 3 ml Documented by: Admin: 05/18/21 14:27 Dose: 3 ml Documented by: Admin: 05/18/21 10:53 Dose: 3 ml Documented by: Admin: 05/18/21 07:47 Dose: 3 ml Documented by: Admin: 05/18/21 03:00 Dose: 3 ml Documented by: RODOLFO Aspirin (Aspirin Ec 81 Mg Tablet) 81 mg PO DAILY [facility] Last Admin: 05/19/21 09:11 Dose: 81 mg Documented by: Admin: 05/18/21 08:21 Dose: 81 mg Documented by: PREETI Budesonide (Budesonide 0.5 Mg/2 Ml Neb) 0.5 mg INH NOW ONE Stop: 05/17/21 18:43 Last Admin: 05/17/21 18:50 Dose: 0.5 mg Documented by: MATTHIAS Carvedilol (Carvedilol 3.125 Mg Tablet) 6.25 mg PO BID [facility] Last Admin: 05/19/21 09:10 Dose: 6.25 mg Documented by: Admin: 05/18/21 20:39 Dose: 6.25 mg Documented by: Admin: 05/18/21 08:21 Dose: 6.25 mg Documented by: PREETI Enoxaparin Sodium (Enoxaparin 40 Mg/0.4 Ml Syringe) 40 mg SUBCUT DAILY [facility] Last Admin: 05/19/21 09:10 Dose: 40 mg Documented by: Admin: 05/18/21 08:20 Dose: 40 mg Documented by: PREETI Lisinopril (Lisinopril 20 Mg Tablet) 20 mg PO DAILY [facility] Last Admin: 05/19/21 09:11 Dose: 20 mg Documented by: Admin: 05/18/21 08:20 Dose: 20 mg Documented by: PREETI Lorazepam (Lorazepam 1 Mg Tablet) 1 mg PO Q6HR PRN PRN Reason: Anxiety Last Admin: 05/19/21 07:02 Dose: 1 mg Documented by: Admin: 05/18/21 22:47 Dose: 1 mg Documented by: Admin: 05/18/21 16:45 Dose: 1 mg Documented by: Admin: 05/18/21 06:36 Dose: 1 mg Documented by: Admin: 05/18/21 01:05 Dose: 1 mg Documented by: CELESTINO Methylprednisolone (Methylprednisolone 125 Mg/2 Ml Vial) 125 mg IV NOW ONE Stop: 05/17/21 17:48 Last Admin: 05/17/21 18:05 Dose: 125 mg Documented by: LIZETT Naloxone HCl (Naloxone 0.4 Mg/Ml Vial) 0.2 mg IV Q2MIN PRN PRN Reason: Opiate Reversal Nicotine (Nicotine 14 Patch) 14 mg TOP DAILY [facility] Last Admin: 05/19/21 09:10 Dose: 14 mg Documented by: Admin: 05/18/21 08:20 Dose: 14 mg Documented by: PREETI Ondansetron HCl (Ondansetron 4 Mg/2 Ml Inj) 4 mg IV Q8HR PRN PRN Reason: Nausea And Vomiting Prednisone (Prednisone 20 Mg Tablet) 40 mg PO DAILY [facility] Last Admin: 05/19/21 09:11 Dose: 40 mg Documented by: Admin: 05/18/21 08:21 Dose: 40 mg Documented by: PREETI Sumatriptan Succinate (Sumatriptan 25 Mg Tablet) 50 mg PO Q2H PRN PRN Reason: Headache Last Admin: 05/19/21 10:07 Dose: 50 mg Documented by: Admin: 05/19/21 01:12 Dose: 50 mg Documented by: Admin: 05/18/21 12:30 Dose: 50 mg Documented by: PREETI Vital Signs Vital signs: Vital Signs - 8 hr 05/17/21 17:12 05/17/21 17:40 05/17/21 18:00 Temperature 98.8 F Pulse Rate 115 H 109 H 107 H Respiratory Rate 32 H Blood Pressure 123/76 Pulse Oximetry 97 96 95 05/17/21 18:14 05/17/21 18:30 05/17/21 18:31 Temperature Pulse Rate 104 H 102 H 99 H Respiratory Rate 26 H 29 H 24 Blood Pressure 131/90 142/111 H Pulse Oximetry 95 96 99 05/17/21 18:36 05/17/21 19:00 05/17/21 19:01 Temperature Pulse Rate 100 H 103 H 102 H Respiratory Rate 40 H 30 H 32 H Blood Pressure 164/111 H Pulse Oximetry 96 95 93 <Clarita Porras DO - Last Filed: 06/05/21 08:16> Orders Ordered: Discontinued Medications Acetaminophen (Acetaminophen 325 Mg Tablet) 650 mg PO Q4HR PRN PRN Reason: Fever/Mild Pain (1-3) Last Admin: 05/18/21 20:38 Dose: 650 mg Documented by: REEMA Albuterol (Albuterol 2.5 Mg/3 Ml Neb (Adult)) 2.5 mg INH [id number] [facility] Albuterol (Albuterol 2.5 Mg/3 Ml Neb (Adult)) 2.5 mg INH [id number] PRN PRN Reason: Shortness Of Breath Last Admin: 05/18/21 01:20 Dose: 2.5 mg Documented by: Admin: 05/18/21 01:14 Dose: 2.5 mg Documented by: RODOLFO Albuterol (Albuterol 2.5 Mg/3 Ml Neb (Adult)) 5 mg INH [id number] PRN PRN Reason: Shortness Of Breath Last Admin: 05/19/21 11:28 Dose: 5 mg Documented by: Admin: 05/19/21 07:21 Dose: 5 mg Documented by: Admin: 05/19/21 03:29 Dose: 5 mg Documented by: Admin: 05/18/21 23:06 Dose: 5 mg Documented by: Admin: 05/18/21 03:00 Dose: 5 mg Documented by: RODOLFO Albuterol/Ipratropium (Albuterol/Ipratropium 3 Ml Ampul) 3 ml INH Q1H PRN PRN Reason: Shortness Of Breath Last Admin: 05/17/21 18:02 Dose: 3 ml Documented by: MATTHIAS Albuterol/Ipratropium (Albuterol/Ipratropium 3 Ml Ampul) 3 ml INH [id number] [facility] Albuterol/Ipratropium (Albuterol/Ipratropium 3 Ml Ampul) 3 ml INH [id number] [facility] Albuterol/Ipratropium (Albuterol/Ipratropium 3 Ml Ampul) 3 ml INH RTQ4HR [facility] Last Admin: 05/19/21 11:28 Dose: 3 ml Documented by: Admin: 05/19/21 10:52 Dose: 3 ml Documented by: Admin: 05/19/21 07:21 Dose: 3 ml Documented by: Admin: 05/19/21 03:29 Dose: 3 ml Documented by: Admin: 05/18/21 23:06 Dose: 3 ml Documented by: JJOJOSE ANTONIOA Admin: 05/18/21 18:23 Dose: 3 ml Documented by: Admin: 05/18/21 14:27 Dose: 3 ml Documented by: Admin: 05/18/21 10:53 Dose: 3 ml Documented by: Admin: 05/18/21 07:47 Dose: 3 ml Documented by: Admin: 05/18/21 03:00 Dose: 3 ml Documented by: RODOLFO Aspirin (Aspirin Ec 81 Mg Tablet) 81 mg PO DAILY [facility] Last Admin: 05/19/21 09:11 Dose: 81 mg Documented by: Admin: 05/18/21 08:21 Dose: 81 mg Documented by: PREETI Budesonide (Budesonide 0.5 Mg/2 Ml Neb) 0.5 mg INH NOW ONE Stop: 05/17/21 18:43 Last Admin: 05/17/21 18:50 Dose: 0.5 mg Documented by: MATTHIAS Carvedilol (Carvedilol 3.125 Mg Tablet) 6.25 mg PO BID [facility] Last Admin: 05/19/21 09:10 Dose: 6.25 mg Documented by: Admin: 05/18/21 20:39 Dose: 6.25 mg Documented by: Admin: 05/18/21 08:21 Dose: 6.25 mg Documented by: PREETI Enoxaparin Sodium (Enoxaparin 40 Mg/0.4 Ml Syringe) 40 mg SUBCUT DAILY [facility] Last Admin: 05/19/21 09:10 Dose: 40 mg Documented by: Admin: 05/18/21 08:20 Dose: 40 mg Documented by: PREETI Lisinopril (Lisinopril 20 Mg Tablet) 20 mg PO DAILY [facility] Last Admin: 05/19/21 09:11 Dose: 20 mg Documented by: Admin: 05/18/21 08:20 Dose: 20 mg Documented by: PREETI Lorazepam (Lorazepam 1 Mg Tablet) 1 mg PO Q6HR PRN PRN Reason: Anxiety Last Admin: 05/19/21 07:02 Dose: 1 mg Documented by: Admin: 05/18/21 22:47 Dose: 1 mg Documented by: Admin: 05/18/21 16:45 Dose: 1 mg Documented by: Admin: 05/18/21 06:36 Dose: 1 mg Documented by: Admin: 05/18/21 01:05 Dose: 1 mg Documented by: CELESTINO Methylprednisolone (Methylprednisolone 125 Mg/2 Ml Vial) 125 mg IV NOW ONE Stop: 05/17/21 17:48 Last Admin: 05/17/21 18:05 Dose: 125 mg Documented by: LIZETT Naloxone HCl (Naloxone 0.4 Mg/Ml Vial) 0.2 mg IV Q2MIN PRN PRN Reason: Opiate Reversal Nicotine (Nicotine 14 Patch) 14 mg TOP DAILY [facility] Last Admin: 05/19/21 09:10 Dose: 14 mg Documented by: Admin: 05/18/21 08:20 Dose: 14 mg Documented by: PREETI Ondansetron HCl (Ondansetron 4 Mg/2 Ml Inj) 4 mg IV Q8HR PRN PRN Reason: Nausea And Vomiting Prednisone (Prednisone 20 Mg Tablet) 40 mg PO DAILY [facility] Last Admin: 05/19/21 09:11 Dose: 40 mg Documented by: Admin: 05/18/21 08:21 Dose: 40 mg Documented by: PREETI Sumatriptan Succinate (Sumatriptan 25 Mg Tablet) 50 mg PO Q2H PRN PRN Reason: Headache Last Admin: 05/19/21 10:07 Dose: 50 mg Documented by: Admin: 05/19/21 01:12 Dose: 50 mg Documented by: Admin: 05/18/21 12:30 Dose: 50 mg Documented by: PREETI Vital Signs Vital signs: Vital Signs - 8 hr 05/17/21 17:12 05/17/21 17:40 05/17/21 18:00 Temperature 98.8 F Pulse Rate 115 H 109 H 107 H Respiratory Rate 32 H Blood Pressure 123/76 Pulse Oximetry 97 96 95 05/17/21 18:14 05/17/21 18:30 05/17/21 18:31 Temperature Pulse Rate 104 H 102 H 99 H Respiratory Rate 26 H 29 H 24 Blood Pressure 131/90 142/111 H Pulse Oximetry 95 96 99 05/17/21 18:36 05/17/21 19:00 05/17/21 19:01 Temperature Pulse Rate 100 H 103 H 102 H Respiratory Rate 40 H 30 H 32 H Blood Pressure 164/111 H Pulse Oximetry 96 95 93 MDM - SOB/Dyspnea <Lorena Vora PA-C - Last Filed: 05/17/21 20:57> Lab Data Result diagrams: 05/19/21 05:50 05/19/21 05:50 Labs: Lab Results 05/17/21 05/17/21 05/17/21 Range/Units 17:30 17:30 17:30 WBC 11.2 H (4.5-11.0) X10^3/uL RBC 5.43 (4.5-5.9) X10^6/uL Hgb 15.2 (13.5-17.5) g/dL Hct 45.9 (41-53) % MCV 84.6 (80-100) fL MCH 28.0 (26-34) PG MCHC 33.1 (30-36) % RDW 14.3 (11.6-14.8) % Plt Count 299 (150-400) X10^3/uL Neut % (Auto) 91.0 H (50-75) % Lymph % (Auto) 5.3 L (25-40) % Barber % (Auto) 2.7 L (3-14) % Eos % (Auto) 0.3 L (2-4) % Baso % (Auto) 0.7 (0-2) % Neut # (Auto) 06351 H (2174-1518) /uL Lymph # (Auto) 600 L (9904-3860) /uL Barber # (Auto) 300 (0-900) /uL Eos # (Auto) 0 (0-450) /uL Baso # (Auto) 100 (0-100) /uL VBG pH (7.33-7.43) VBG pCO2 (45-50) mmHg VBG pO2 (35-45) mmHg VBG HCO3 (23-28) mmol/L VBG Total CO2 (24-29) mmol/L VBG O2 Saturation (70-75) % VBG Base Excess (0-4) mmol/L Sodium 139 (137-145) mmol/L Potassium 5.4 H (3.4-5.1) mmol/L Chloride 106 (98-107) mmol/L Carbon Dioxide 30 (22-32) mmol/L BUN 39 H (9-20) mg/dL Creatinine 1.05 (0.66-1.25) mg/dL Estimated GFR > 60.0 (>60) mL/min BUN/Creatinine Ratio 37.1 H (6-22) Glucose 136 H (70-100) mg/dL Lactate 1.5 (0.7-2.1) mmol/L Calcium 9.2 (8.4-10.2) mg/dL Total Bilirubin 0.4 (0.2-1.3) mg/dL AST 25 (17-59) IU/L ALT 24 (<50) IU/L Alkaline Phosphatase 63 (38-126) U/L Troponin I 0.044 H (0.01-0.034) ng/mL NT-Pro-B Natriuret Pep 151 H (<125) pg/mL Total Protein 7.2 (6.3-8.2) g/dL Albumin 4.2 (3.5-5.0) g/dL Globulin 3.0 (1.7-4.1) g/dL Albumin/Globulin Ratio 1.4 (1.0-2.8) SARS-CoV-2 (PCR) (Negative) 05/17/21 05/17/21 Range/Units 17:40 18:20 WBC (4.5-11.0) X10^3/uL RBC (4.5-5.9) X10^6/uL Hgb (13.5-17.5) g/dL Hct (41-53) % MCV (80-100) fL MCH (26-34) PG MCHC (30-36) % RDW (11.6-14.8) % Plt Count (150-400) X10^3/uL Neut % (Auto) (50-75) % Lymph % (Auto) (25-40) % Barber % (Auto) (3-14) % Eos % (Auto) (2-4) % Baso % (Auto) (0-2) % Neut # (Auto) (5095-2998) /uL Lymph # (Auto) (9084-9508) /uL Barber # (Auto) (0-900) /uL Eos # (Auto) (0-450) /uL Baso # (Auto) (0-100) /uL VBG pH 7.36 (7.33-7.43) VBG pCO2 53.5 H (45-50) mmHg VBG pO2 60 H (35-45) mmHg VBG HCO3 30 H (23-28) mmol/L VBG Total CO2 32 H (24-29) mmol/L VBG O2 Saturation 89 H (70-75) % VBG Base Excess 5.0 H (0-4) mmol/L Sodium (137-145) mmol/L Potassium (3.4-5.1) mmol/L Chloride (98-107) mmol/L Carbon Dioxide (22-32) mmol/L BUN (9-20) mg/dL Creatinine (0.66-1.25) mg/dL Estimated GFR (>60) mL/min BUN/Creatinine Ratio (6-22) Glucose (70-100) mg/dL Lactate (0.7-2.1) mmol/L Calcium (8.4-10.2) mg/dL Total Bilirubin (0.2-1.3) mg/dL AST (17-59) IU/L ALT (<50) IU/L Alkaline Phosphatase (38-126) U/L Troponin I (0.01-0.034) ng/mL NT-Pro-B Natriuret Pep (<125) pg/mL Total Protein (6.3-8.2) g/dL Albumin (3.5-5.0) g/dL Globulin (1.7-4.1) g/dL Albumin/Globulin Ratio (1.0-2.8) SARS-CoV-2 (PCR) Negative (Negative) Imaging Data Chest x-ray: Radiologist's Impression: PROCEDURE:? XR CHEST 2V ? INDICATIONS:? SOB, copd ? TECHNIQUE:? 2 views of the chest were acquired.? ? COMPARISON:? [facility], , XR CHEST 1V, 05/11/2021, 6:06. ? FINDINGS:? ? Surgical changes and devices:? None.? ? Lungs and pleura:? Lungs are clear.? No pleural effusions or pneumothorax.? ? Mediastinum:? Mediastinal contours are normal.? Heart size is normal.? ? Bones and chest wall:? No suspicious bony abnormalities.? Soft tissues appear unremarkable.? ? IMPRESSION:? No acute process. ? ? Dictated by: Jordyn Worthington M.D. on 05/17/2021 at 18:01 ? ? Approved by: Jordyn Worthington M.D. on 05/17/2021 at 18:02 ? [facility] Narrative Medical decision making narrative: 55-year-old male with past medical history COPD, CHF presents to the ED with 1 day of shortness of breath. Concern for COPD flare versus CHF exacerbation versus ACS. Will order labs, chest x-ray, EKG, labs, troponin, BNP. Will start patient on nebulized albuterol, ipratropium, budesonide. Will give Solu-Medrol. Will put patient on 2 L of oxygen. Will reassess. Patient's troponin was elevated to 0.044. Hospitalist Lovely Llanos was consulted, will admit patient as inpatient. <Clarita Porras, DO - Last Filed: 06/05/21 08:16> Lab Data Labs: Lab Results 05/17/21 05/17/21 05/17/21 Range/Units 17:30 17:30 17:30 WBC 11.2 H (4.5-11.0) X10^3/uL RBC 5.43 (4.5-5.9) X10^6/uL Hgb 15.2 (13.5-17.5) g/dL Hct 45.9 (41-53) % MCV 84.6 (80-100) fL MCH 28.0 (26-34) PG MCHC 33.1 (30-36) % RDW 14.3 (11.6-14.8) % Plt Count 299 (150-400) X10^3/uL Neut % (Auto) 91.0 H (50-75) % Lymph % (Auto) 5.3 L (25-40) % Barber % (Auto) 2.7 L (3-14) % Eos % (Auto) 0.3 L (2-4) % Baso % (Auto) 0.7 (0-2) % Neut # (Auto) 66195 H (9330-3268) /uL Lymph # (Auto) 600 L (6332-2953) /uL Barber # (Auto) 300 (0-900) /uL Eos # (Auto) 0 (0-450) /uL Baso # (Auto) 100 (0-100) /uL VBG pH (7.33-7.43) VBG pCO2 (45-50) mmHg VBG pO2 (35-45) mmHg VBG HCO3 (23-28) mmol/L VBG Total CO2 (24-29) mmol/L VBG O2 Saturation (70-75) % VBG Base Excess (0-4) mmol/L Sodium 139 (137-145) mmol/L Potassium 5.4 H (3.4-5.1) mmol/L Chloride 106 (98-107) mmol/L Carbon Dioxide 30 (22-32) mmol/L BUN 39 H (9-20) mg/dL Creatinine 1.05 (0.66-1.25) mg/dL Estimated GFR > 60.0 (>60) mL/min BUN/Creatinine Ratio 37.1 H (6-22) Glucose 136 H (70-100) mg/dL Lactate 1.5 (0.7-2.1) mmol/L Calcium 9.2 (8.4-10.2) mg/dL Total Bilirubin 0.4 (0.2-1.3) mg/dL AST 25 (17-59) IU/L ALT 24 (<50) IU/L Alkaline Phosphatase 63 (38-126) U/L Troponin I 0.044 H (0.01-0.034) ng/mL NT-Pro-B Natriuret Pep 151 H (<125) pg/mL Total Protein 7.2 (6.3-8.2) g/dL Albumin 4.2 (3.5-5.0) g/dL Globulin 3.0 (1.7-4.1) g/dL Albumin/Globulin Ratio 1.4 (1.0-2.8) SARS-CoV-2 (PCR) (Negative) 05/17/21 05/17/21 Range/Units 17:40 18:20 WBC (4.5-11.0) X10^3/uL RBC (4.5-5.9) X10^6/uL Hgb (13.5-17.5) g/dL Hct (41-53) % MCV (80-100) fL MCH (26-34) PG MCHC (30-36) % RDW (11.6-14.8) % Plt Count (150-400) X10^3/uL Neut % (Auto) (50-75) % Lymph % (Auto) (25-40) % Barber % (Auto) (3-14) % Eos % (Auto) (2-4) % Baso % (Auto) (0-2) % Neut # (Auto) (5311-4565) /uL Lymph # (Auto) (0370-6263) /uL Barber # (Auto) (0-900) /uL Eos # (Auto) (0-450) /uL Baso # (Auto) (0-100) /uL VBG pH 7.36 (7.33-7.43) VBG pCO2 53.5 H (45-50) mmHg VBG pO2 60 H (35-45) mmHg VBG HCO3 30 H (23-28) mmol/L VBG Total CO2 32 H (24-29) mmol/L VBG O2 Saturation 89 H (70-75) % VBG Base Excess 5.0 H (0-4) mmol/L Sodium (137-145) mmol/L Potassium (3.4-5.1) mmol/L Chloride (98-107) mmol/L Carbon Dioxide (22-32) mmol/L BUN (9-20) mg/dL Creatinine (0.66-1.25) mg/dL Estimated GFR (>60) mL/min BUN/Creatinine Ratio (6-22) Glucose (70-100) mg/dL Lactate (0.7-2.1) mmol/L Calcium (8.4-10.2) mg/dL Total Bilirubin (0.2-1.3) mg/dL AST (17-59) IU/L ALT (<50) IU/L Alkaline Phosphatase (38-126) U/L Troponin I (0.01-0.034) ng/mL NT-Pro-B Natriuret Pep (<125) pg/mL Total Protein (6.3-8.2) g/dL Albumin (3.5-5.0) g/dL Globulin (1.7-4.1) g/dL Albumin/Globulin Ratio (1.0-2.8) SARS-CoV-2 (PCR) Negative (Negative) Discharge Plan Departure Patient Disposition: Admitted As Inpatient Clinical Impression: Chronic obstructive pulmonary disease with acute exacerbation Admit Date/Time: 05/17/21 20:26 Admit Provider: Madelaine Llanos <Clarita Porras DO - Last Filed: 06/05/21 08:16> Cosign ED Attending Cosignature Attestation: I was immediately available in the department for consultation. Documentation has been reviewed, case discussed.
[2021-05-17 21:07] LABS: Appearance Urine UA CLEAR; Bilirubin Urine UA NEGATIVE (NEGATIVE); Color Urine UA YELLOW; Glucose Urine UA NEGATIVE (Negative); Ketones Urine UA NEGATIVE (NEGATIVE); Leukocyte Esterase Urine UA NEGATIVE (NEGATIVE); Nitrite Urine UA NEGATIVE (Negative); Occult Blood Urine UA TRACE-LYSED (Negative); Protein Urine UA TRACE (Negative); Urobilinogen Urine UA 0.2 E.U./dL (0.2)
[2021-05-17 21:27] LABS: Bacteria Urine None Seen; Culture Indicated Urine Cult Not Indicated; RBC Urine 0-1/HPF (0-5/HPF); WBC Urine None Seen (0-5/HPF)
--- NOTE | 2021-05-17 23:01 | P.HP_ITS ---
History of Present Illness History of Present Illness Date Patient Seen: 05/17/21 Time Patient Seen: 23:01 Chief complaint: copd flare, difficulty breathing Narrative: Bradly Morley is a 55 y.o. male with end-stage COPD and heart failure with reduced ejection fraction of 35-40% (2019) and methamphetamine user who was admitted on May 11 and just discharged from care on May 14 returns today after running out of his albuterol, medicines for anxiety and being short of breath. He denies fever or chills, chest pain, nausea vomiting, abdominal pain, dysuria, diarrhea constipation, paresthesias of the upper lower extremities. Patient continues to smoke cigarettes and is requesting a tobacco patch and using methamphetamine. As noted before in prior records his father just of an abdominal aortic aneurysm 2 weeks ago stating he ?just lost my best friend?. He currently is homeless and has been living in a hotel, expects to wait until his father's probate so that he can afford to live in more permanent housing. Emergency department did request admission because he had increased work of breathing despite having a normal oxygen saturation and a mildly elevated troponin. In the ED he was tachypneic with a respiratory rate of 32 and had franklyn vated heart rate of 115. Chest x-ray was unremarkable. He is afebrile, blood pressure 128/82, his heart rate is now 103, respiratory rate 26, oxygen saturation of 96% on 2 L, h weighs 85.4 kg with a BMI of 26.2. WBC is mildly elevated at 11.2 is a left shift of 10,000 neutrophils, his pH was 7.36 VBG CO2 was 53.5, VBG PO2 was 60, VBG bicarb was 30, oxygen saturation 89% with a base excess of 5. Sodium was 139, potassium 5.4, BUN 39, normal EGFR, glucose 136, lactate 1.5, troponin is now trending down at 0.040, and his proBNP was 151. UA is negative for UTI and COVID-19 PCR is negative. Patient History Medical History COPD (chronic obstructive pulmonary disease) COVID-19 HFrEF (heart failure with reduced ejection fraction) Methamphetamine abuse Peripheral edema Tobacco abuse Surgical History Status post appendectomy Family & Social History Family History (Updated 05/18/21 @ 02:08 by GISSEL Morillo) Father Heart disease Aortic aneurysm Mother Medical history unknown Family estrangement Brother Medical history unknown Social History: household members none Prior Living Arrangements Homeless Safety & Behavioral: Feels Safe in Current No Environment Been Physically Hurt or No Threatened By a Person Suicidal Ideation Description None Suicide Plan Description No Plan Tobacco & Substance use: Tobacco type cigarettes Smoking Status Current every day smoker Smoking packs per day 1 alcohol intake never alcohol intake frequency other Substance Use Type methamphetamine states last use was in March 2021 Meds Home Medications and Allergies Home Medications Medication Instructions Recorded Confirmed Type albuterol sulfate 2.5 mg (3 mL) INH [id number] PRN 30 05/14/21 Rx Days ml aspirin 81 mg tablet,delayed 81 mg PO DAILY #30 tab 05/14/21 Rx release carvedilol 3.125 mg tablet (Coreg) 6.25 mg PO BID #30 tab 05/14/21 Rx doxycycline hyclate 100 mg tablet 100 mg PO BID #10 tab 05/14/21 Rx furosemide 40 mg tablet 40 mg PO DAILY #30 tab 05/14/21 Rx ipratropium 0.5 mg-albuterol 3 mg 3 ml INH RTQ4HR #30 ml 05/14/21 Rx (2.5 mg base)/3 mL nebulization soln lisinopril 20 mg tablet 20 mg PO DAILY #30 tab 05/14/21 Rx lorazepam 1 mg tablet 1 mg PO Q4HR PRN #15 tab 05/14/21 Rx prednisone 20 mg tablet 40 mg PO DAILY #5 tab 05/14/21 Rx spironolactone 25 mg tablet 25 mg PO DAILY #30 tab 05/14/21 Rx sumatriptan succinate 25 mg tablet 50 mg PO Q2H PRN #10 tab 05/14/21 Rx (Imitrex) Allergies Allergy/AdvReac Type Severity Reaction Status Date / Time No Known Drug Allergies Allergy Verified 02/12/21 19:27 Review of Systems Review of Systems ROS: Yes All systems reviewed with the patient and are negative except as otherwise documented Exam Vital Signs (past 8 hours): - 05/17/21 17:12 05/17/21 17:40 05/17/21 18:00 Temperature 98.8 F Pulse Rate 115 H 109 H 107 H Respiratory Rate 32 H Blood Pressure 123/76 Pulse Oximetry 97 96 95 05/17/21 18:14 05/17/21 18:30 05/17/21 18:31 Temperature Pulse Rate 104 H 102 H 99 H Respiratory Rate 26 H 29 H 24 Blood Pressure 131/90 142/111 H Pulse Oximetry 95 96 99 05/17/21 18:36 05/17/21 19:00 05/17/21 19:01 Temperature Pulse Rate 100 H 103 H 102 H Respiratory Rate 40 H 30 H 32 H Blood Pressure 164/111 H Pulse Oximetry 96 95 93 05/17/21 20:00 05/17/21 20:30 05/17/21 21:00 Temperature Pulse Rate 104 H 100 H 102 H Respiratory Rate 24 29 H 25 H Blood Pressure 122/75 121/78 145/93 H Pulse Oximetry 95 96 97 05/17/21 21:30 05/17/21 22:05 05/17/21 22:12 Temperature 97.6 F 97.6 F Pulse Rate 99 H 99 H 99 H Respiratory Rate 24 24 24 Blood Pressure 127/76 128/82 128/82 Pulse Oximetry 97 96 96 Oxygen Delivery Method Nasal Cannula Oxygen Flow Rate 2 Narrative Exam Narrative: Gen: Alert, oriented, well-developed 55 y.o. male, mildly distressed HEENT: normocephalic, atraumatic, conjunctiva clear, sclera non-icteric, oral mucosa pink and moist Neck: supple, full ROM, no JVD, trachea is midline Resp: Some work of breathing, purse lipped, Lungs with bilateral wheezing CV: RRR, no murmur or rubs Chest: barrel chested Abd: soft, non-tender, normoactive BTs Skin: no lesions or rashes, dry and intact Neuro: Alert and oriented X 4 w/no focal deficits. Speech clear and coherent. Extremities: moves all 4 extremities, is ambulatory, negative Johanne?s sign Psyche: normal mood and affect. Objective Labs Result Diagrams: 05/17/21 17:30 05/17/21 17:30 Labs: Laboratory Results - last 24 hr 05/17/21 05/17/21 05/17/21 17:30 17:30 17:30 WBC 11.2 H RBC 5.43 Hgb 15.2 Hct 45.9 MCV 84.6 MCH 28.0 MCHC 33.1 RDW 14.3 Plt Count 299 Neut % (Auto) 91.0 H Lymph % (Auto) 5.3 L Tucker % (Auto) 2.7 L Eos % (Auto) 0.3 L Baso % (Auto) 0.7 Neut # (Auto) 20994 H Lymph # (Auto) 600 L Tucker # (Auto) 300 Eos # (Auto) 0 Baso # (Auto) 100 VBG pH VBG pCO2 VBG pO2 VBG HCO3 VBG Total CO2 VBG O2 Saturation VBG Base Excess Sodium 139 Potassium 5.4 H Chloride 106 Carbon Dioxide 30 BUN 39 H Creatinine 1.05 Estimated GFR > 60.0 BUN/Creatinine Ratio 37.1 H Glucose 136 H Lactate 1.5 Calcium 9.2 Total Bilirubin 0.4 AST 25 ALT 24 Alkaline Phosphatase 63 Troponin I 0.044 H NT-Pro-B Natriuret Pep 151 H Total Protein 7.2 Albumin 4.2 Globulin 3.0 Albumin/Globulin Ratio 1.4 Urine Color Urine Appearance Urine pH Ur Specific [place] Urine Protein Urine Glucose (UA) Urine Ketones Urine Occult Blood Urine Nitrate Urine Bilirubin Urine Urobilinogen Ur Leukocyte Esterase Urine RBC Urine WBC Urine Bacteria Ur Culture Indicated? SARS-CoV-2 (PCR) 05/17/21 05/17/21 05/17/21 17:40 18:20 20:56 WBC RBC Hgb Hct MCV MCH MCHC RDW Plt Count Neut % (Auto) Lymph % (Auto) Tucker % (Auto) Eos % (Auto) Baso % (Auto) Neut # (Auto) Lymph # (Auto) Tucker # (Auto) Eos # (Auto) Baso # (Auto) VBG pH 7.36 VBG pCO2 53.5 H VBG pO2 60 H VBG HCO3 30 H VBG Total CO2 32 H VBG O2 Saturation 89 H VBG Base Excess 5.0 H Sodium Potassium Chloride Carbon Dioxide BUN Creatinine Estimated GFR BUN/Creatinine Ratio Glucose Lactate Calcium Total Bilirubin AST ALT Alkaline Phosphatase Troponin I NT-Pro-B Natriuret Pep Total Protein Albumin Globulin Albumin/Globulin Ratio Urine Color Yellow Urine Appearance Clear Urine pH 5.0 Ur Specific [place] 1.020 Urine Protein Trace H Urine Glucose (UA) Negative Urine Ketones Negative Urine Occult Blood Trace-lysed Urine Nitrate Negative Urine Bilirubin Negative Urine Urobilinogen 0.2 Ur Leukocyte Esterase Negative Urine RBC 0-1/hpf Urine WBC None seen Urine Bacteria None seen Ur Culture Indicated? Cult not indicated SARS-CoV-2 (PCR) Negative 05/17/21 20:56 WBC RBC Hgb Hct MCV MCH MCHC RDW Plt Count Neut % (Auto) Lymph % (Auto) Tucker % (Auto) Eos % (Auto) Baso % (Auto) Neut # (Auto) Lymph # (Auto) Tucker # (Auto) Eos # (Auto) Baso # (Auto) VBG pH VBG pCO2 VBG pO2 VBG HCO3 VBG Total CO2 VBG O2 Saturation VBG Base Excess Sodium Potassium Chloride Carbon Dioxide BUN Creatinine Estimated GFR BUN/Creatinine Ratio Glucose Lactate Calcium Total Bilirubin AST ALT Alkaline Phosphatase Troponin I 0.040 H NT-Pro-B Natriuret Pep Total Protein Albumin Globulin Albumin/Globulin Ratio Urine Color Urine Appearance Urine pH Ur Specific [place] Urine Protein Urine Glucose (UA) Urine Ketones Urine Occult Blood Urine Nitrate Urine Bilirubin Urine Urobilinogen Ur Leukocyte Esterase Urine RBC Urine WBC Urine Bacteria Ur Culture Indicated? SARS-CoV-2 (PCR) Assessment & Plan Assessment and plan (1) COPD exacerbation: Problem details: Acute and present on admission Status: Acute Plan: * He will be provided albuterol and DuoNeb nebulizers q.3 hours as needed * Budesonide/Pulmicort nebs b.i.d. * Supplemental oxygen as needed (2) CHF (congestive heart failure): Problem details: 2019 echo w/a 35-40% EF. Chads 2 Vasc score is 2. Admission troponin on admission was 0.044. Qualifiers: Heart failure chronicity: chronic Heart failure type: systolic Qualified Code(s): I50.22 - Chronic systolic (congestive) heart failure Status: Acute Plan: * It is now trending down to 0.040 and will stop trending * Patient has declined heart catheterization (3) Methamphetamine abuse: Problem details: Chronic and longstanding Status: Acute Plan: * Counseled patient on continued methamphetamine use will contribute to further deterioration of his heart * He declines drug he rehab because he is not ?addicted? * Request social work/care management consult (4) Tobacco abuse: Problem details: Chronic user 1 pack per day Status: Acute Plan: * He is written for Nicoderm 14 mcg transdermal patch change once daily (5) Noncompliance with medication treatment due to underuse of medication: Problem details: Patient essentially ran out of his medications and did not refill them Status: Acute Plan: * Patient needs to establish with a PCP and I have requested that care management try to assist him with this. Plan VTE Prophylaxis: Wells risk score 4.5 Enoxaparin 40 mg subQ once daily Chelita lim SCDs Patient is admitted to the inpatient service due to the severity of disease, risks of further disease progression and this stay is expected to exceed 2 midnights. FEN: IV fluids: Saline lock, diet: Heart healthy, labs: CBC, C/BMP, liver enzymes, Mag Consultants None Dispo: probable discharge back to the street Code status: Full Code as discussed with the patient who identifies his late father's his her surrogate and POA. [X] I have utilized all available immediate resources to obtain, update, or review of the patient's current medications COVID-19 COVID-19 status: Negative Result date/Date tested (Pos, Neg/Pending): 05/17/21 Time Spent With Patient Critical Care time: I spent a total of [] minutes of critical care time on this patient's care today; this time is exclusive of procedural time. Scores CHADS-VASc Congestive heart failure: yes Hypertension: yes Age 75 years or older: no Diabetes mellitus: no Stroke, TIA, or TE: no Vascular disease: no Age 65 to 74 years: no Sex category (female): Male CHADS-VASc Score: 2 Wells' Criteria for PE Clinical signs and symptoms of DVT: Yes PE is #1 Dx or equally likely: No Heart rate > 100: Yes Immobilization at least 3 days or surg in previous 4 weeks: No History of PE or DVT: No Hemoptysis: No Malignancy w/Treatment within 6 months or palliative: No Wells' PE Score total: 4.5 Quality VTE Deep Vein Thrombosis/Pulmonary Embolism Present on Admission: No MIPS - Admit I confirm the patient?s Advance Care Plan is present, Code status is documented, Surrogate decision maker is in patient?s record [If Yes, STOP here]: Yes MIPS - DC The patient has current or prior documentation of left ventricular ejection fraction (LVEF) less than 40%, or moderate or severely depressed left ventricular systolic function.: Yes A. The patient was prescribed or already taking an Angiotensin-Converting Enzyme (TRE) Inhibitor, or Angiotensin Receptor [place] (ARB).: Yes B. The patient was prescribed or already taking a beta-carolina. [If Yes to Both A & B, STOP here]: Yes
[2021-05-18] VITALS (18 sets, daily range): BP systolic 118–124; BP diastolic 63–81; PULSE 93–108; RESP 16–28; TEMP 36.4–37.1; O2SAT 90–98
[2021-05-18] MEDS: LORazepam 1 MG TABLET PO ×4 (01:05→22:47)
[2021-05-18] MEDS: ALBUTEROL 2.5 MG/3 ML NEB (ADULT) INH ×2 (01:14→01:20)
[2021-05-18] MEDS: ALBUTEROL/IPRATROPIUM 3 ML AMPUL INH ×6 (03:00→23:06)
[2021-05-18] MEDS: ALBUTEROL 2.5 MG/3 ML NEB (ADULT) 5 MG INH ×2 (03:00→23:06)
--- NOTE | 2021-05-18 06:53 | PC.ADMIT ---
[id number] Arsh Admission Note: Patient admitted to AC unit at 22:05, alert and oriented, able to make needs known. Patient oriented to room and shown how to use call light. 93% on 2L nasal canula. Bed in low position and brakes locked. The patient,Bradly Morley,55 y/o, was given written information regarding hospital policies, unit procedures and contact persons. Patient's smoking status: Current every day smoker. Vital Signs - 8 hr 05/18/21 01:14 05/18/21 01:20 05/18/21 03:00 Temperature Pulse Rate 104 H 103 H 104 H Respiratory Rate 28 H 26 H 25 H Blood Pressure Pulse Oximetry 95 96 96 05/18/21 03:06 05/18/21 04:38 Temperature 98.5 F Pulse Rate 103 H 108 H Respiratory Rate 24 18 Blood Pressure 118/63 Pulse Oximetry 96 93
[2021-05-18 06:58] LABS: Add Manual Diff / Slide Review NO; Basophils Absolute Auto 100 /uL (0-100); Basophils Percent Auto 0.6 % (0-2); Eosinophils Absolute Auto 0 /uL (0-450); Hematocrit 43.5 % (41-53); Hemoglobin 13.8 g/dL (13.5-17.5); Lymphocytes Absolute Auto 400 /uL (1100-4500); Lymphocytes Percent Auto 2.6 % (25-40); Mean Corpuscular HGB Conc 31.8 % (30-36); Monocytes Absolute Auto 300 /uL (0-900); Monocytes Percent Auto 1.9 % (3-14); Neutrophils Absolute Auto 15100 /uL (1500-7000); Neutrophils Percent Auto 94.9 % (50-75); Platelet Count 261 X10^3/uL (150-400); Red Blood Cell Count 5.12 X10^6/uL (4.5-5.9); White Blood Cell Count 15.9 X10^3/uL (4.5-11.0)
[2021-05-18 07:08] LABS: Alanine Aminotransferase 22 IU/L (<50); Albumin 3.9 g/dL (3.5-5.0); Albumin Globulin Ratio 1.4 (1.0-2.8); Alkaline Phosphatase 56 U/L (38-126); Aspartate Aminotransferase 22 IU/L (17-59); BUN Creatinine Ratio 57.7 (6-22); Bilirubin Total 0.2 mg/dL (0.2-1.3); Bilirubin Unconjugated 0.2 mg/dL (0.0-1.1); Blood Urea Nitrogen 56 mg/dL (9-20); Calcium 9.3 mg/dL (8.4-10.2); Carbon Dioxide 27 mmol/L (22-32); Chloride 103 mmol/L (98-107); Estimated Glomerular Filt Rate > 60.0 mL/min (>60); Globulin 2.7 g/dL (1.7-4.1); Glucose 135 mg/dL (70-100); HEMOLYSIS 21 (0-50); Sodium 136 mmol/L (137-145); Total Protein 6.6 g/dL (6.3-8.2)
[2021-05-18 07:10] LABS: Potassium 5.5 mmol/L (3.4-5.1)
[2021-05-18] MEDS: ENOXAPARIN 40 MG/0.4 ML SYRINGE SUBCUT (08:20)
[2021-05-18] MEDS: lisinopriL 20 MG TABLET PO (08:20)
[2021-05-18] MEDS: NICOTINE 14 PATCH 14 MG TOP (08:20)
[2021-05-18] MEDS: predniSONE 20 MG TABLET 40 MG PO (08:21)
[2021-05-18] MEDS: ASPIRIN EC 81 MG TABLET PO (08:21)
[2021-05-18] MEDS: carvediloL 3.125 MG TABLET 6.25 MG PO ×2 (08:21→20:39)
--- NOTE | 2021-05-18 10:23 | CM.DANOTE ---
Addendum entered by Rosa Ventura R.N. 05/18/21 15:21: Jefferson Berumen came in and spoke to patient. Patient lost his father in March. Jefferson indicated, 'if he runs our of medications and needs anything, to call him. Brought in patient [facility] providers that are taking new patients. Let him know that if he gets established, can possibly be a few months, sometimes the clinic can have him see one of the nurse practitioners first, if he has more breathing issues. He has a nebulizer at home. He stated, he ran out of the vile of medication. Spoke to hospitalist, and he indicated that patient most likely will be here for another day. He does not have a car, so a taxi would be needed for patient. He stated, his dad's will is in probate, and his living situation is temporary. Will be available for any resources needed. Original Note: DCP: Case received, EMR reviewed and met with patient. Introduced self and role. Was able to get limited information from patient, as he engaged little in conversation. Was able to complete DCP assessment based upon information available, as well as recent admission. Patient is a 55 year old male who admitted yesterday evening to the care of the hospitalist team. PCP: None Payer: confirmed: [employer]. Patient came to the hospital secondary to having difficulty breathing, and running out of his Albuterol. Patient has history of COPD. Patient lives in [facility], and according to notes, is waiting for his father's inheritance so he can move into housing. Patient was recently here, and scripts had been sent over to [facility]. Patient has history of meth amphetamine abuse, according to notes, stopped in Mar. Attempted conversation with patient. He is alert, wanted to sleep. Confirmed that he does live at [facility] [employer], and has no vehicle or primary care provider. Asked him if he wanted primary care resources, and he did not answer. Can attempt to bring him in resources today. P: DCP to continue. Plan is back to his motel when stable. If there is a problem getting his meds, can ask Jefferson if he can mixing picker tender, or if Medicaid transport can stop by pharmacy. Rosa Ventura RN/Manager Consumer [employer]ights Discharge Planning/Care Management Advanced directive, confirm from FAMILY Start: 05/17/21 22:22 Freq: Q24H Status: Active Protocol: Document 05/17/21 22:22 MW (Rec: 05/17/21 22:23 MW [id number]) Advance Directive, confirm on record Time 22:23 Person contacted patient Copy received No CM Discharge Assessment Start: 05/18/21 10:20 Freq: Status: Active Protocol: Document 05/18/21 10:21 VM (Rec: 05/18/21 10:23 [id number]) Discharge Planning Assessment Assigned Experimental Preflight Mechanic Rosa Ventura RN/Manager Consumer Insights Advance Directives? No Advance Directives on File No History Provided By Patient,Medical Record Prior Living Arrangements Homeless Comment Lives at [facility]. Household Members none Type of transporation used prior to Relies on Others admit Independent with ADL's Yes Is patient alert and oriented? Yes Caregiver for Another No Comment Pt is homeless and has been for many years with polysubstance. He is currently living at [facility] Discharge Plan Home Transportation Arrangement PRETTY transport taxi (?) Referrals Initiated None needed,Other Additional Comment Can give patient new provider information, if he will follow up. Whiteboard Updated in Patient Room with Yes name and ext. # of Experimental Preflight Mechanic Review Status In Process Next Review Type Continued Stay Review
[2021-05-18] MEDS: SUMAtriptan 25 MG TABLET 50 MG PO (12:30)
--- NOTE | 2021-05-18 17:28 | P.PN_ITS ---
Subjective Subjective Date Patient Seen: 05/18/21 Time Patient Seen: 08:00 Interval history: He remains short of breath. He is markedly improved from yesterday he says. Exam Vital Signs (past 8 hours): - 05/18/21 10:00 05/18/21 10:54 05/18/21 14:27 Temperature 97.5 F L Pulse Rate 101 H 102 H Respiratory Rate 16 16 Blood Pressure 124/73 Pulse Oximetry 93 92 92 05/18/21 15:39 Temperature Pulse Rate Respiratory Rate Blood Pressure Pulse Oximetry 93 Oxygen Delivery Method Room Air Oxygen Flow Rate 0 Narrative Exam Narrative: Gen: no acute distress Resp: pursed lipped breathing, mild wheezing CV: regular rate and rhythm, no murmurs Abd: soft, non-tender, normal bowel sounds Objective Labs Result Diagrams: 05/18/21 06:30 05/18/21 06:30 Labs: Laboratory Results - last 24 hr 05/17/21 05/17/21 05/17/21 17:30 17:30 17:30 WBC 11.2 H RBC 5.43 Hgb 15.2 Hct 45.9 MCV 84.6 MCH 28.0 MCHC 33.1 RDW 14.3 Plt Count 299 Neut % (Auto) 91.0 H Lymph % (Auto) 5.3 L [place] % (Auto) 2.7 L Eos % (Auto) 0.3 L Baso % (Auto) 0.7 Neut # (Auto) 73779 H Lymph # (Auto) 600 L [place] # (Auto) 300 Eos # (Auto) 0 Baso # (Auto) 100 VBG pH VBG pCO2 VBG pO2 VBG HCO3 VBG Total CO2 VBG O2 Saturation VBG Base Excess Sodium 139 Potassium 5.4 H Chloride 106 Carbon Dioxide 30 BUN 39 H Creatinine 1.05 Estimated GFR > 60.0 BUN/Creatinine Ratio 37.1 H Glucose 136 H Lactate 1.5 Calcium 9.2 Total Bilirubin 0.4 Conjugated Bilirubin Unconjugated Bilirubin AST 25 ALT 24 Alkaline Phosphatase 63 Troponin I 0.044 H NT-Pro-B Natriuret Pep 151 H Total Protein 7.2 Albumin 4.2 Globulin 3.0 Albumin/Globulin Ratio 1.4 Urine Color Urine Appearance Urine pH Ur Specific [place] Urine Protein Urine Glucose (UA) Urine Ketones Urine Occult Blood Urine Nitrate Urine Bilirubin Urine Urobilinogen Ur Leukocyte Esterase Urine RBC Urine WBC Urine Bacteria Ur Culture Indicated? SARS-CoV-2 (PCR) 05/17/21 05/17/21 05/17/21 17:40 18:20 20:56 WBC RBC Hgb Hct MCV MCH MCHC RDW Plt Count Neut % (Auto) Lymph % (Auto) [place] % (Auto) Eos % (Auto) Baso % (Auto) Neut # (Auto) Lymph # (Auto) [place] # (Auto) Eos # (Auto) Baso # (Auto) VBG pH 7.36 VBG pCO2 53.5 H VBG pO2 60 H VBG HCO3 30 H VBG Total CO2 32 H VBG O2 Saturation 89 H VBG Base Excess 5.0 H Sodium Potassium Chloride Carbon Dioxide BUN Creatinine Estimated GFR BUN/Creatinine Ratio Glucose Lactate Calcium Total Bilirubin Conjugated Bilirubin Unconjugated Bilirubin AST ALT Alkaline Phosphatase Troponin I NT-Pro-B Natriuret Pep Total Protein Albumin Globulin Albumin/Globulin Ratio Urine Color Yellow Urine Appearance Clear Urine pH 5.0 Ur Specific [place] 1.020 Urine Protein Trace H Urine Glucose (UA) Negative Urine Ketones Negative Urine Occult Blood Trace-lysed Urine Nitrate Negative Urine Bilirubin Negative Urine Urobilinogen 0.2 Ur Leukocyte Esterase Negative Urine RBC 0-1/hpf Urine WBC None seen Urine Bacteria None seen Ur Culture Indicated? Cult not indicated SARS-CoV-2 (PCR) Negative 05/17/21 05/18/21 05/18/21 20:56 06:30 06:30 WBC 15.9 H RBC 5.12 Hgb 13.8 Hct 43.5 MCV 85.0 MCH 27.0 MCHC 31.8 RDW 14.0 Plt Count 261 Neut % (Auto) 94.9 H Lymph % (Auto) 2.6 L [place] % (Auto) 1.9 L Eos % (Auto) 0.0 L Baso % (Auto) 0.6 Neut # (Auto) 54309 H Lymph # (Auto) 400 L [place] # (Auto) 300 Eos # (Auto) 0 Baso # (Auto) 100 VBG pH VBG pCO2 VBG pO2 VBG HCO3 VBG Total CO2 VBG O2 Saturation VBG Base Excess Sodium 136 L Potassium 5.5 H Chloride 103 Carbon Dioxide 27 BUN 56 H Creatinine 0.97 Estimated GFR > 60.0 BUN/Creatinine Ratio 57.7 H Glucose 135 H Lactate Calcium 9.3 Total Bilirubin 0.2 Conjugated Bilirubin 0.0 Unconjugated Bilirubin 0.2 AST 22 ALT 22 Alkaline Phosphatase 56 Troponin I 0.040 H NT-Pro-B Natriuret Pep Total Protein 6.6 Albumin 3.9 Globulin 2.7 Albumin/Globulin Ratio 1.4 Urine Color Urine Appearance Urine pH Ur Specific [place] Urine Protein Urine Glucose (UA) Urine Ketones Urine Occult Blood Urine Nitrate Urine Bilirubin Urine Urobilinogen Ur Leukocyte Esterase Urine RBC Urine WBC Urine Bacteria Ur Culture Indicated? SARS-CoV-2 (PCR) PFSH Medical History COPD (chronic obstructive pulmonary disease) COVID-19 HFrEF (heart failure with reduced ejection fraction) Methamphetamine abuse Peripheral edema Tobacco abuse Surgical History Status post appendectomy Family History (Updated 05/18/21 @ 02:08 by GISSEL Morillo) Father Heart disease Aortic aneurysm Mother Medical history unknown Family estrangement Brother Medical history unknown Social History household members: none Smoking Status: Current every day smoker alcohol intake: never Assessment & Plan Assessment & Plan narrative: 1. Acute copd exacerbation -He will be provided albuterol and DuoNeb nebulizers q.3 hours as needed -Budesonide/Pulmicort nebs b.i.d. -Supplemental oxygen as needed 2.Methamphetamine abuse: -Counseled patient on continued methamphetamine use will contribute to further deterioration of his heart -He declines rehab -Request social work/care management consult 3.Noncompliance with medication treatment due to underuse of medication: -patient needs to establish with a PCP as his admissions are related to running out of medications as he has not followed up with a PCP to write medications Time Spent With Patient Critical Care time: I spent a total of [] minutes of critical care time on this patient's care today; this time is exclusive of procedural time. Quality VTE Deep Vein Thrombosis/Pulmonary Embolism Present on Admission: No
[2021-05-18] MEDS: ACETAMINOPHEN 325 MG TABLET 650 MG PO (20:38)
[2021-05-19] VITALS (7 sets, daily range): BP systolic 119–134; BP diastolic 79–81; PULSE 86–93; RESP 18–24; TEMP 37–37.2; O2SAT 94–99
[2021-05-19] MEDS: SUMAtriptan 25 MG TABLET 50 MG PO ×2 (01:12→10:07)
[2021-05-19] MEDS: ALBUTEROL/IPRATROPIUM 3 ML AMPUL INH ×4 (03:29→11:28)
[2021-05-19] MEDS: ALBUTEROL 2.5 MG/3 ML NEB (ADULT) 5 MG INH ×3 (03:29→11:28)
[2021-05-19 06:29] LABS: Add Manual Diff / Slide Review NO; Basophils Absolute Auto 100 /uL (0-100); Basophils Percent Auto 0.5 % (0-2); Eosinophils Absolute Auto 100 /uL (0-450); Eosinophils Percent Auto 0.4 % (2-4); Hematocrit 42.1 % (41-53); Hemoglobin 13.7 g/dL (13.5-17.5); Lymphocytes Absolute Auto 1800 /uL (1100-4500); Lymphocytes Percent Auto 10.5 % (25-40); Mean Corpuscular HGB Conc 32.5 % (30-36); Mean Corpuscular Hemoglobin 27.4 PG (26-34); Mean Corpuscular Volume 84.5 fL (80-100); Monocytes Absolute Auto 1000 /uL (0-900); Monocytes Percent Auto 6.1 % (3-14); Neutrophils Absolute Auto 14200 /uL (1500-7000); Neutrophils Percent Auto 82.5 % (50-75); Platelet Count 247 X10^3/uL (150-400); Red Blood Cell Count 4.98 X10^6/uL (4.5-5.9); White Blood Cell Count 17.2 X10^3/uL (4.5-11.0)
[2021-05-19 06:38] LABS: Alanine Aminotransferase 19 IU/L (<50); Albumin 3.6 g/dL (3.5-5.0); Albumin Globulin Ratio 1.3 (1.0-2.8); Alkaline Phosphatase 51 U/L (38-126); Aspartate Aminotransferase 22 IU/L (17-59); BUN Creatinine Ratio 57.9 (6-22); Bilirubin Total 0.3 mg/dL (0.2-1.3); Bilirubin Unconjugated 0.3 mg/dL (0.0-1.1); Blood Urea Nitrogen 55 mg/dL (9-20); Calcium 9.3 mg/dL (8.4-10.2); Carbon Dioxide 29 mmol/L (22-32); Chloride 102 mmol/L (98-107); Estimated Glomerular Filt Rate > 60.0 mL/min (>60); Globulin 2.7 g/dL (1.7-4.1); Glucose 104 mg/dL (70-100); HEMOLYSIS 22 (0-50); Potassium 4.6 mmol/L (3.4-5.1); Sodium 135 mmol/L (137-145); Total Protein 6.3 g/dL (6.3-8.2)
[2021-05-19] MEDS: LORazepam 1 MG TABLET PO (07:02)
[2021-05-19] MEDS: carvediloL 3.125 MG TABLET 6.25 MG PO (09:10)
[2021-05-19] MEDS: ENOXAPARIN 40 MG/0.4 ML SYRINGE SUBCUT (09:10)
[2021-05-19] MEDS: NICOTINE 14 PATCH 14 MG TOP (09:10)
[2021-05-19] MEDS: ASPIRIN EC 81 MG TABLET PO (09:11)
[2021-05-19] MEDS: predniSONE 20 MG TABLET 40 MG PO (09:11)
[2021-05-19] MEDS: lisinopriL 20 MG TABLET PO (09:11)
--- NOTE | 2021-05-19 11:38 | PC.NURSE ---
ANGIE loja dc paperwork and instructions done by Uriel. pt got treatment before leaving. pt has a friend who can medicinal plant picker his meds from pharmacy.
--- NOTE | 2021-05-19 11:45 | CM.DPNOTE ---
DC Note DC order in and patient aware and agreeable; back to [employer]. Placed call to [facility] [employer] and he can transport patient home w/taxi voucher. P/u arranged for approx [phone]; patient's friend Quiana (Quiana was S.O. of patient's late father) agreed to help with filling patient's prescription at [facility]. Plan: DC home to [facility] via [facility] [employer] (voucher, $6), friend to assist w/Rx JW
--- NOTE | 2021-05-19 21:51 | P.DS_ITS ---
History of Present Illness History of Present Illness Chief complaint: copd flare, difficulty breathing Narrative: Bradly Morley is a 55 y.o. male with end-stage COPD and heart failure with reduced ejection fraction of 35-40% (2019) and methamphetamine user who was admitted on May 11 and just discharged from care on May 14 returns today after running out of his albuterol, medicines for anxiety and being short of breath.? He denies fever or chills, chest pain, nausea vomiting, abdominal pain, dysuria, diarrhea constipation, paresthesias of the upper lower extremities.? Patient continues to smoke cigarettes and is requesting a tobacco patch and using methamphetamine.? As noted before in prior records his father just of an abdominal aortic aneurysm 2 weeks ago stating he ?just lost my best friend?. He currently is homeless and has been living in a hotel, expects to wait until his father's probate so that he can afford to live in more permanent housing. Emergency department did request admission because he had increased work of breathing despite having a normal oxygen saturation and a mildly elevated troponin.? In the ED he was tachypneic with a respiratory rate of 32 and had elevated heart rate of 115.? Chest x-ray was unremarkable.? He is afebrile, blood pressure 128/82, his heart rate is now 103, respiratory rate 26, oxygen saturation of 96% on 2 L, h weighs 85.4 kg with a BMI of 26.2.? WBC is mildly elevated at 11.2 is a left shift of 10,000 neutrophils, his pH was 7.36 VBG CO2 was 53.5, VBG PO2 was 60, VBG bicarb was 30, oxygen saturation 89% with a base excess of 5.? Sodium was 139, potassium 5.4, BUN 39, normal EGFR, glucose 136, lactate 1.5, troponin is now trending down at 0.040, and his proBNP was 151.? UA is negative for UTI and COVID-19 PCR is negative. Discharge Providers Provider Date of admission: 05/17/21 20:26 Discharge Date: 05/19/21 Consults: 05/17/21 22:56 Consult to Discharge Planning Routine Comment: Set up w/community clinic, brandon readmits Discharge provider: Ellis Rodgers MD Summary Hospital Course Discharge Diagnosis: 1. Acute COPD exacerbation 2. Anxiety 3. Methamphetamine use 4. Chronic congestive heart failure, systolic 5. Nonadherence with medications Hospital Course: Mr. Morley has had multiple recurrent admissions for shortness of breath. He often is saturating well on oxygen. He has been noted to have significant anxiety, and his work of breathing often markedly changes when providers walk in the room compared to when patient is alone or at rest. He states he ran out of medications after discharge, he then came back short of breath. This has happened before. He had been referred and encouraged multiple times to follow up with a PCP. He was provided prescriptions for his medications. Exam Vital Signs (past 8 hours): Oxygen Delivery Method Room Air Oxygen Flow Rate 0 Narrative Exam Narrative: Gen: no acute distress Resp: pursed lipped breathing, mild wheezing CV: regular rate and rhythm, no murmurs Abd: soft, non-tender, normal bowel sounds Objective Labs Result Diagrams: 05/19/21 05:50 05/19/21 05:50 [facility] Medical History COPD (chronic obstructive pulmonary disease) COVID-19 HFrEF (heart failure with reduced ejection fraction) Methamphetamine abuse Peripheral edema Tobacco abuse Surgical History Status post appendectomy Family History (Updated 05/18/21 @ 02:08 by GISSEL Morillo) Father Heart disease Aortic aneurysm Mother Medical history unknown Family estrangement Brother Medical history unknown Social History household members: none Smoking Status: Current every day smoker alcohol intake: never Discharge Plan Discharge Plan Patient Disposition: Home Provider Discharge Comment: Mr. Morley was admitted with COPD. He ran out of his medications. He should follow up with a PCP to continue to prescribe his medications in the future. He has anxiety which is likely a significant reason for him to feel short of breath. Discharge orders & Medications Prescriptions: Continued furosemide 40 mg Tablet 40 mg PO DAILY Qty: 30 0RF lisinopril 20 mg Tablet 20 mg PO DAILY Qty: 30 0RF aspirin 81 mg Tablet,Delayed Release (Dr/Ec) 81 mg PO DAILY Qty: 30 0RF spironolactone 25 mg Tablet 25 mg PO DAILY Qty: 30 0RF ipratropium-albuterol 0.5 mg-3 mg(2.5 mg base)/3 mL Solution For Nebulization 3 ml INH RTQ4HR Qty: 360 0RF albuterol sulfate 2.5 mg /3 mL (0.083 %) Solution For Nebulization 2.5 mg INH [id number] PRN (Reason: Shortness Of Breath) 30 Days Qty: 240 0RF prednisone 20 mg Tablet 40 mg PO DAILY Qty: 5 0RF carvedilol [Coreg] 3.125 mg Tablet 6.25 mg PO BID Qty: 60 0RF lorazepam 1 mg Tablet 1 mg PO Q4HR PRN (Reason: Anxiety) Qty: 15 0RF Discontinued sumatriptan succinate [Imitrex] 25 mg Tablet 50 mg PO Q2H PRN (Reason: Headache) Qty: 10 0RF doxycycline hyclate 100 mg Tablet 100 mg PO BID Qty: 10 0RF Medication counseling provided by Pharmacist: Yes Diet/Activity/Treatments Diet: Regular Discharge Data Attending Provider: Madelaine Llanos VTE Deep Vein Thrombosis/Pulmonary Embolism Present on Admission: No
== END 2021-05-19 11:36 | disposition home or self-care (01) ==
LOC: ED 17:29 → AC 05-18 08:34
PROVIDERS: Admitting Provider Nurse Practitioner Family; Emergency Provider Student in an Organized Health Care Education/Training Program; Referring Provider Student in an Organized Health Care Education/Training Program; Visit Provider Nurse Practitioner Family
DX: J44.1 Chronic obstructive pulmonary disease with (acute) exacerbation (principal); F15.10 Other stimulant abuse, uncomplicated; F41.9 Anxiety disorder, unspecified; Z72.0 Tobacco use; Z91.14 Patient's other noncompliance with medication regimen; I50.22 Chronic systolic (congestive) heart failure; R06.02 Shortness of breath; Z20.822 Contact with and (suspected) exposure to COVID-19
CPT/HCPCS: 36415; 71046; 80048; 80053; 80076; 81001; 82805; 83605; 83880; 84484; 85025; 87635; 93005; 93010; 94640; 94762; 96372; 96374; 99284; C9803; G0378; J1650; J2930; J7613

== ENCOUNTER 2021-06-05 08:44 | Inpatient (IN) | payer OTHER, MEDICAID, SELFPAY ==
[2021-05-17 22:13] VITALS: BMI 26.2
[2021-06-05] VITALS (29 sets, daily range): BP systolic 93–126; BP diastolic 53–86; PULSE 71–89; RESP 16–24; TEMP 36.1–36.9; O2SAT 88–100; BMI 26.1; BMI 25.9
--- NOTE | 2021-06-05 08:50 | ED.SOB ---
HPI - SOB/Dyspnea General Chief Complaint: Shortness of Breath/Dyspnea Stated Complaint: COPD Time Seen by Provider: 06/05/21 08:50 Source: patient and old records reviewed Mode of arrival: EMS Limitations: no limitations History of Present Illness HPI Narrative: This is a 55-year-old male with known COPD and heart failure with a reduced EF of 35-40% in 2019. Patient was recently admitted 2 weeks ago. He states he ran out of his DuoNeb which he uses daily multiple times scheduled. He states he does not have a prescription, he does have a primary care physician. He does still smoke tobacco. Occasionally uses alcohol. He does sometimes use illicit including methamphetamines which was several days ago. Patient states he is on medications for his heart but does not know what they are called. Patient has had a headache, he has not any fevers or chills. He has had a mild cough which has not been productive. He has been tight and short of breath since running out of his albuterol/ipratropium last night around 03 29. He states he has been having difficulty breathing all night and finally called EMS. Was noted to be in significant distress and was started on DuoNeb which had quite a bit of improvement. Patient denies any chest pain or pressure. He denies any nausea or vomiting. No syncope. No swelling in his lower extremities. No diarrhea or constipation or other urinary symptoms. Related Data Previous Rx's Medication Instructions Recorded aspirin 81 mg tablet,delayed 81 mg PO DAILY #30 tab 05/14/21 release furosemide 40 mg tablet 40 mg PO DAILY #30 tab 05/14/21 lisinopril 20 mg tablet 20 mg PO DAILY #30 tab 05/14/21 spironolactone 25 mg tablet 25 mg PO DAILY #30 tab 05/14/21 albuterol sulfate 2.5 mg (3 mL) INH [id number] PRN 30 05/19/21 Days #240 ml carvedilol 3.125 mg tablet (Coreg) 6.25 mg PO BID #60 tab 05/19/21 ipratropium 0.5 mg-albuterol 3 mg 3 ml INH RTQ4HR #360 ml 05/19/21 (2.5 mg base)/3 mL nebulization soln lorazepam 1 mg tablet 1 mg PO Q4HR PRN #15 tab 05/19/21 prednisone 20 mg tablet 40 mg PO DAILY #5 tab 05/19/21 Allergies Allergy/AdvReac Type Severity Reaction Status Date / Time No Known Drug Allergies Allergy Verified 02/12/21 19:27 Review of Systems Review of Systems ROS Unobtainable: All systems reviewed & are unremarkable except as noted in HPI and below Patient History Medical History COPD (chronic obstructive pulmonary disease) COVID-19 HFrEF (heart failure with reduced ejection fraction) Methamphetamine abuse Peripheral edema Tobacco abuse Surgical History Status post appendectomy Family History Father Heart disease Aortic aneurysm Mother Medical history unknown Family estrangement Brother Medical history unknown Social History household members: none Smoking Status: Current every day smoker alcohol intake: never Smoking Status: Current every day smoker tobacco type: cigarettes alcohol intake frequency: other Substance Use Type: does not use and methamphetamine Exam Narrative Exam Narrative: GEN: well nourished, male, alert and oriented x 3, patient appears to be in moderate distress. HEENT: Atraumatic, pupils are equal round reactive to light, extraocular movements are intact, nares are clear, throat is clear without any exudates, erythema, tonsillar enlargement or uvular deviation HEART: Regular rate and rhythm without murmur, clicks, rubs. Pulses equal bilateral upper extremities. LUNGS:Lungs lungs have decreased breath sounds bilaterally, positive for tachypnea, no rales, no wheezes appreciated. No crackles. Chest moves symmetrically. Speaks in 2-3 words. ABD:bowel sounds normal, soft, non-tender, no guarding, rebound, rigidity, no masses noted, no hepatosplenomegaly :No CVA tenderness MSCL: Non-tender, muscles strength 5/5 upper and lower extremities, full range of motion, normal gait NEURO:CN 2-12 intact, sensation normal. Patient able to stand off EMS gurney and take several steps and sit on the ED gurney without issue. SKIN: No rash, erythema or other skin changes. Initial Vital Signs Initial Vital Signs: Vital Signs Temperature 97.0 F L 06/05/21 09:36 Pulse Rate 80 06/05/21 09:36 Respiratory Rate 22 06/05/21 09:36 Blood Pressure 103/60 06/05/21 09:36 Pulse Oximetry 100 06/05/21 09:36 Scores GCS [place] coma scale eye opening: Spontaneous Bogdan coma scale verbal response: Orientated Bogdan coma scale motor response: Obey commands Bogdan coma scale total score: 15 Course Orders Ordered: ED Orders 06/05/21 08:51 Consult to Respiratory Therapy Evaluate & Treat EKG-12 Lead Stat 06/05/21 08:52 XR chest 1V Stat 06/05/21 08:55 Basic Metabolic Panel Stat Complete Blood Count AUTO DIFF Stat Lactate (Lactic Acid) Stat Magnesium Stat NT-proBNP (BNP-Adult 18+) Stat Partial Thromboplastin Time Stat Prothrombin Time INR Stat Troponin & CK Cardiac Panel Stat 06/05/21 09:15 Arterial Blood Gas Stat 06/05/21 09:27 COVID19 -Nasal swab/Pre-Proc Stat 06/05/21 10:35 Urine Drug Screen, Rapid Stat 06/05/21 10:50 BMP [Basic Metabolic Panel] Stat 06/05/21 12:21 Covid-19 + FLU A/B + RSV - PCR Stat Acetaminophen (Acetaminophen 325 Mg Tablet) 650 mg PO Q6HR PRN PRN Reason: Fever/Mild Pain (1-3) Albuterol (Albuterol 2.5 Mg/3 Ml Neb (Adult)) 2.5 mg INH [id number] PRN PRN Reason: Shortness Of Breath Albuterol/Ipratropium (Albuterol/Ipratropium 3 Ml Ampul) 3 ml INH RTQ4HR LIGIA Last Admin: 06/05/21 15:53 Dose: 3 ml Documented by: GORDON Aspirin (Aspirin Ec 81 Mg Tablet) 81 mg PO DAILY [facility] Enoxaparin Sodium (Enoxaparin 40 Mg/0.4 Ml Syringe) 40 mg SUBCUT DAILY [facility] Sodium Chloride (Normal Saline 0.9%) 1,000 mls @ 150 mls/hr IV CONT LIGIA Last Admin: 06/05/21 16:30 Dose: 150 mls/hr Documented by: Infusion: 06/05/21 16:30 Dose: 150 mls/hr Documented by: Infusion: 06/05/21 16:28 Dose: 150 mls/hr Documented by: Infusion: 06/05/21 12:37 Dose: 0 mls/hr Documented by: Admin: 06/05/21 10:08 Dose: 150 mls/hr Documented by: Infusion: 06/05/21 10:08 Dose: 150 mls/hr Documented by: Admin: 06/05/21 09:04 Dose: 150 mls/hr Documented by: SERGIO Magnesium Hydroxide (Magnesium Hydroxide 30 Ml Udc) 30 ml PO DAILY PRN PRN Reason: Constipation Methylprednisolone (Methylprednisolone 125 Mg/2 Ml Vial) 80 mg IV Q12H LIGIA Last Admin: 06/05/21 14:22 Dose: 80 mg Documented by: BERNARDO Naloxone HCl (Naloxone 0.4 Mg/Ml Vial) 0.2 mg IV Q2MIN PRN PRN Reason: Opiate Reversal Ondansetron HCl (Ondansetron 4 Mg/2 Ml Inj) 4 mg IV Q8HR PRN PRN Reason: Nausea And Vomiting Discontinued Medications Albuterol (Albuterol 2.5 Mg/3 Ml Neb (Adult)) 15 mg INH NOW ONE Stop: 06/05/21 09:25 Last Admin: 06/05/21 16:28 Dose: Not Given Documented by: BERNARDO Albuterol (Albuterol 2.5 Mg/3 Ml Neb (Adult)) 20 mg INH NOW ONE Stop: 06/05/21 09:45 Last Admin: 06/05/21 09:47 Dose: 20 mg Documented by: GORDON Albuterol/Ipratropium (Albuterol/Ipratropium 3 Ml Ampul) 3 ml INH NOW ONE Stop: 06/05/21 08:52 Last Admin: 06/05/21 08:59 Dose: 3 ml Documented by: GORDON Albuterol/Ipratropium (Albuterol/Ipratropium 3 Ml Ampul) 3 ml INH RTQ4HR PRN PRN Reason: Shortness Of Breath Last Admin: 06/05/21 09:11 Dose: 3 ml Documented by: SERGIO Sodium Chloride (Normal Saline 0.9%) 1,000 mls @ 1,000 mls/hr IV BOLUS ONE Stop: 06/05/21 10:43 Last Infusion: 06/05/21 12:36 Dose: 0 mls/hr Documented by: Admin: 06/05/21 09:00 Dose: 1,000 mls/hr Documented by: SERGIO Calcium Gluconate 4.65 meq/ (Sodium Chloride) 60 mls @ 180 mls/hr IV NOW ONE Stop: 06/05/21 10:03 Last Infusion: 06/05/21 11:46 Dose: 0 mls/hr Documented by: Admin: 06/05/21 10:01 Dose: 180 mls/hr Documented by: SERGIO Piperacillin Sod/Tazobactam (Sod 4.5 gm/ Sodium Chloride) 100 mls @ 200 mls/hr IV NOW ONE Stop: 06/05/21 10:37 Last Infusion: 06/05/21 12:36 Dose: 0 mls/hr Documented by: Admin: 06/05/21 11:39 Dose: 200 mls/hr Documented by: SERGIO Methylprednisolone (Methylprednisolone 125 Mg/2 Ml Vial) 125 mg IV NOW ONE Stop: 06/05/21 08:52 Last Admin: 06/05/21 09:03 Dose: 125 mg Documented by: SERGIO Reevaluation(s) Reevaluation #1: Patient has tachypnea somewhat improved but still is quite tight with minimal air movement after a 2nd DuoNeb. Patient's ABG was obtained he does appear slightly acidotic with a pH of 7.24, pCO2 is 67 PO2 170 with a bicarb of 29. Patient prior ABGs in [facility] showed pH typically about 7.3-7.4 with a pCO2 of 59-44. Plan for continuous albuterol treatment and patient has received Solu-Medrol and re-evaluate. Time: 09:15 Reevaluation #2: Patient re-evaluated after albuterol neb continuous. He improvement air movement but still quite tight. Patient is alert. He is occasionally somewhat agitated was very resistant to having nasal swab. But is open to being admitted at this time. Consultations Consultation #1: Dr. Powell, hospitalist accepts for admission. Patient has COPD exacerbation with noncompliance, CHF with decreased EF but has normal troponin, EKG with no acute changes and negative BNP chest x-ray shows possible pneumonia. He also has acute kidney injury with hyperkalemia patient received a large amount of albuterol was given calcium gluconate fluids with some improvement and no peaked T-waves or significant changes to EKG so continued without additional interventions. Patient's ABG does show hypercapnia atypical from his prior visits. Patient was on high-flow with continuous neb. not had complete resolution of his symptoms but has been weaned down on his O2 significantly. Patient plan for inpatient admission. Vital Signs Vital signs: Vital Signs - 8 hr 06/05/21 09:36 06/05/21 09:45 06/05/21 09:46 Temperature 97.0 F L Pulse Rate 80 79 74 Respiratory Rate 22 22 22 Blood Pressure 103/60 98/67 Pulse Oximetry 100 100 100 06/05/21 09:47 06/05/21 09:52 06/05/21 10:00 Temperature 97.0 F L Pulse Rate 79 71 86 Respiratory Rate 22 20 22 Blood Pressure 94/63 93/62 Pulse Oximetry 100 99 100 06/05/21 10:08 06/05/21 10:17 06/05/21 10:30 Temperature Pulse Rate 77 73 80 Respiratory Rate 22 19 22 Blood Pressure 102/58 L 106/53 L 101/58 L Pulse Oximetry 100 100 97 06/05/21 10:49 06/05/21 11:00 06/05/21 11:01 Temperature Pulse Rate 80 85 83 Respiratory Rate 21 22 22 Blood Pressure 104/55 L 112/60 Pulse Oximetry 100 96 96 06/05/21 11:17 06/05/21 11:30 06/05/21 11:45 Temperature Pulse Rate 78 84 80 Respiratory Rate 22 22 21 Blood Pressure 126/86 110/55 L 103/59 L Pulse Oximetry 95 92 96 MDM - SOB/Dyspnea Lab Data Result diagrams: 06/05/21 08:55 06/05/21 10:50 Labs: Lab Results 06/05/21 06/05/21 06/05/21 Range/Units 08:55 08:55 08:55 WBC 9.6 (4.5-11.0) X10^3/uL RBC 5.15 (4.5-5.9) X10^6/uL Hgb 14.3 (13.5-17.5) g/dL Hct 43.5 (41-53) % MCV 84.4 (80-100) fL MCH 27.7 (26-34) PG MCHC 32.8 (30-36) % RDW 13.6 (11.6-14.8) % Plt Count 241 (150-400) X10^3/uL Neut % (Auto) 76.6 H (50-75) % Lymph % (Auto) 9.1 L (25-40) % Karnes % (Auto) 9.6 (3-14) % Eos % (Auto) 2.9 (2-4) % Baso % (Auto) 1.8 (0-2) % Neut # (Auto) 7400 H (1214-0605) /uL Lymph # (Auto) 900 L (4957-4094) /uL Karnes # (Auto) 900 (0-900) /uL Eos # (Auto) 300 (0-450) /uL Baso # (Auto) 200 H (0-100) /uL PT 11.2 (10.1-12.7) SECONDS INR 1.0 (0.9-1.3) APTT 37 H D (26.4-36.2) SECONDS ABG pH (7.35-7.45) ABG pCO2 (35-45) mmHg ABG pO2 (80-100) mmHg ABG HCO3 (22-26) mmol/L ABG Total CO2 (21-31) mmol/L ABG O2 Saturation (95-100) % ABG Base Excess (-2-2) mmol/L FiO2 Sodium 142 (137-145) mmol/L Potassium 6.2 H (3.4-5.1) mmol/L Chloride 105 (98-107) mmol/L Carbon Dioxide 33 H (22-32) mmol/L BUN 73 H (9-20) mg/dL Creatinine 1.58 H (0.66-1.25) mg/dL Estimated GFR 45.8 L (>60) mL/min BUN/Creatinine Ratio 46.2 H (6-22) Glucose 94 (70-100) mg/dL Lactate (0.7-2.1) mmol/L Calcium 9.2 (8.4-10.2) mg/dL Magnesium 2.7 H (1.6-2.3) mg/dL Total Creatine Kinase 288 H (55-170) U/L CK-MB (CK-2) 9.25 H (<2.37) ng/mL CK-MB (CK-2) Rel Index 3.2 (1.5-5.0) % Troponin I < 0.012 (0.01-0.034) ng/mL NT-Pro-B Natriuret Pep 143 H (<125) pg/mL Procalcitonin (<0.5) ng/mL U Opiates 300ng/mL cut (Negative) Ur Oxycodone Screen (Negative) Urine Methadone Screen (Negative) Ur Barbiturates Screen (Negative) U Tricyclic Antidepress (Negative) Ur Phencyclidine Scrn (Negative) Ur Amphetamines Screen (Negative) U Methamphetamines Scrn (Negative) Ur MDMA Scrn (Ecstasy) (Negative) U Benzodiazepines Scrn (Negative) Urine Cocaine Screen (Negative) U Marijuana (THC) Screen (Negative) SARS-CoV-2 (PCR) (Negative) 06/05/21 06/05/21 06/05/21 Range/Units 08:55 09:15 09:27 WBC (4.5-11.0) X10^3/uL RBC (4.5-5.9) X10^6/uL Hgb (13.5-17.5) g/dL Hct (41-53) % MCV (80-100) fL MCH (26-34) PG MCHC (30-36) % RDW (11.6-14.8) % Plt Count (150-400) X10^3/uL Neut % (Auto) (50-75) % Lymph % (Auto) (25-40) % Karnes % (Auto) (3-14) % Eos % (Auto) (2-4) % Baso % (Auto) (0-2) % Neut # (Auto) (5107-6468) /uL Lymph # (Auto) (5330-1285) /uL Karnes # (Auto) (0-900) /uL Eos # (Auto) (0-450) /uL Baso # (Auto) (0-100) /uL PT (10.1-12.7) SECONDS INR (0.9-1.3) APTT (26.4-36.2) SECONDS ABG pH 7.25 L* (7.35-7.45) ABG pCO2 67.0 H* (35-45) mmHg ABG pO2 170 H (80-100) mmHg ABG HCO3 29 H (22-26) mmol/L ABG Total CO2 31 (21-31) mmol/L ABG O2 Saturation 99 (95-100) % ABG Base Excess 2.0 (-2-2) mmol/L FiO2 100 Sodium (137-145) mmol/L Potassium (3.4-5.1) mmol/L Chloride (98-107) mmol/L Carbon Dioxide (22-32) mmol/L BUN (9-20) mg/dL Creatinine (0.66-1.25) mg/dL Estimated GFR (>60) mL/min BUN/Creatinine Ratio (6-22) Glucose (70-100) mg/dL Lactate < 0.5 L (0.7-2.1) mmol/L Calcium (8.4-10.2) mg/dL Magnesium (1.6-2.3) mg/dL Total Creatine Kinase (55-170) U/L CK-MB (CK-2) (<2.37) ng/mL CK-MB (CK-2) Rel Index (1.5-5.0) % Troponin I (0.01-0.034) ng/mL NT-Pro-B Natriuret Pep (<125) pg/mL Procalcitonin (<0.5) ng/mL U Opiates 300ng/mL cut (Negative) Ur Oxycodone Screen (Negative) Urine Methadone Screen (Negative) Ur Barbiturates Screen (Negative) U Tricyclic Antidepress (Negative) Ur Phencyclidine Scrn (Negative) Ur Amphetamines Screen (Negative) U Methamphetamines Scrn (Negative) Ur MDMA Scrn (Ecstasy) (Negative) U Benzodiazepines Scrn (Negative) Urine Cocaine Screen (Negative) U Marijuana (THC) Screen (Negative) SARS-CoV-2 (PCR) Negative (Negative) 06/05/21 06/05/21 06/05/21 Range/Units 10:35 10:50 10:50 WBC (4.5-11.0) X10^3/uL RBC (4.5-5.9) X10^6/uL Hgb (13.5-17.5) g/dL Hct (41-53) % MCV (80-100) fL MCH (26-34) PG MCHC (30-36) % RDW (11.6-14.8) % Plt Count (150-400) X10^3/uL Neut % (Auto) (50-75) % Lymph % (Auto) (25-40) % Karnes % (Auto) (3-14) % Eos % (Auto) (2-4) % Baso % (Auto) (0-2) % Neut # (Auto) (5109-7656) /uL Lymph # (Auto) (8060-4163) /uL Karnes # (Auto) (0-900) /uL Eos # (Auto) (0-450) /uL Baso # (Auto) (0-100) /uL PT (10.1-12.7) SECONDS INR (0.9-1.3) APTT (26.4-36.2) SECONDS ABG pH (7.35-7.45) ABG pCO2 (35-45) mmHg ABG pO2 (80-100) mmHg ABG HCO3 (22-26) mmol/L ABG Total CO2 (21-31) mmol/L ABG O2 Saturation (95-100) % ABG Base Excess (-2-2) mmol/L FiO2 Sodium 141 (137-145) mmol/L Potassium 5.9 H (3.4-5.1) mmol/L Chloride 109 H (98-107) mmol/L Carbon Dioxide 33 H (22-32) mmol/L BUN 71 H (9-20) mg/dL Creatinine 1.43 H (0.66-1.25) mg/dL Estimated GFR 51.3 L (>60) mL/min BUN/Creatinine Ratio 49.7 H (6-22) Glucose 106 H (70-100) mg/dL Lactate (0.7-2.1) mmol/L Calcium 9.2 (8.4-10.2) mg/dL Magnesium (1.6-2.3) mg/dL Total Creatine Kinase (55-170) U/L CK-MB (CK-2) (<2.37) ng/mL CK-MB (CK-2) Rel Index (1.5-5.0) % Troponin I (0.01-0.034) ng/mL NT-Pro-B Natriuret Pep (<125) pg/mL Procalcitonin 0.20 (<0.5) ng/mL U Opiates 300ng/mL cut Negative (Negative) Ur Oxycodone Screen Negative (Negative) Urine Methadone Screen Negative (Negative) Ur Barbiturates Screen Negative (Negative) U Tricyclic Antidepress Negative (Negative) Ur Phencyclidine Scrn Negative (Negative) Ur Amphetamines Screen Positive H (Negative) U Methamphetamines Scrn Positive H (Negative) Ur MDMA Scrn (Ecstasy) Negative (Negative) U Benzodiazepines Scrn Negative (Negative) Urine Cocaine Screen Negative (Negative) U Marijuana (THC) Screen Negative (Negative) SARS-CoV-2 (PCR) (Negative) Urine Dip Bedside Urine Glucose Negative Bedside Urine Bilirubin - Negative Bedside Urine Ketone - Negative Urine Specific Aubrey 1.02 Bedside Urine Occult Blood +/- Bedside Urine pH 5.5 Bedside Urine Protein - Negative Bedside Urine Urobilinogen - Negative Bedside Urine Nitrite - Negative Bedside Urine Leukocytes - Negative Esterase Imaging Data Chest x-ray: Radiologist's Impression: [address] [id number] XRay Report Signed Patient: Bradly Morley MR#: [id number] : 1965 Acct:[id number] Age/Sex: 55 / M Date of Service: 06/05/21 Loc: ED Accession Number: [id number] ?? Procedure: XR chest 1V Ordering Provider: Clarita Porras D.O. PROCEDURE:? XR CHEST 1V ? INDICATIONS:? copd ? TECHNIQUE:? One view of the chest was acquired.? ? COMPARISON:? [facility], , XR CHEST 2V, 05/17/2021, 17:41. ? FINDINGS:? ? Surgical changes and devices:? None.? ? Lungs and pleura:? Left mid/lower lung zone streaky densities, most consistent with atelectasis.? No consolidation, pleural effusions or pneumothorax.? ? Mediastinum:? Mediastinal contours appear normal.? Heart size is normal.? ? Bones and chest wall:? No suspicious bony lesions.? Overlying soft tissues appear unremarkable.? ? IMPRESSION:? Left mid/lower lung zone atelectasis.? A developing pneumonic infiltrate cannot be excluded. ? ? Dictated by: Live Leon M.D. on 06/05/2021 at 10:18 ? ? Approved by: Live Leon M.D. on 06/05/2021 at 10:19?? ECG Data Attestation: I personally reviewed and interpreted this ECG as follows: Prior ECG tracings: available for review Interpretation: Sinus rhythm rate of 70 6p are 156 QRS of [address]TC [address] No acute ST elevation or depression. No peaked T-waves appreciated. Nonspecific change. Patient has prior from 05/17/2020 which appears similar. MDM Narrative Medical decision making narrative: This is a 55-year-old male with known COPD who is often non here into his medications, known cardiac history with a prior EF of 35-40% range in 2019. Patient had run out of his medications and presented in respiratory distress with some improvement with a single DuoNeb still quite tachypneic speaking in 2-3 words. ABG does show a respiratory acidosis with hypercapnia consistent with COPD exacerbation. Patient prior ABGs typically show a pH of 7.4-7.36 range with pCO2 of 44-59. Patient received a 2nd DuoNeb followed by 20 mg albuterol and was placed on high-flow although he had some episode of hypoxia he also appears to be having some withdrawal symptoms from methamphetamines. Patient's chest x-ray shows possible pneumonia. He does not appear to meet septic criteria. White count and hemoglobin are normal troponin is negative, BNP is not elevated today and patient has decreased lung sounds with no crackles or clinical changes consistent with CHF. Patient received Solu-Medrol, fluids and was noted to be hyperkalemic. He was receiving significant amount of albuterol so calcium gluconate was given and had no acute EKG changes electrolytes will were rechecked prior to initiating the rest of hyperkalemia protocol. Patient's potassium is improved some without acute EKG changes of continued to hydrate and discussed with hospitalist. They kindly accept for admission for COPD exacerbation, possible pneumonia along with acute kidney injury and hyperkalemia as well as some methamphetamine toxicity. Critical Care Time Critical Care Time Critical Care Time: Yes Total Critical Care Time: 45 Attestation: The high probability of a clinically significant, sudden or life threatening deterioration of the [] system(s) required my full and direct attention, intervention and personal management. The aggregate critical care time was [45] minutes. This time is in addition to time spent performing reported procedures but includes the following: [x] Data Review and interpretation [x] Patient assessment and monitoring of vital signs [x] Documentation [x] Medication orders and management Discharge Plan Departure Patient Disposition: Admitted As Inpatient Clinical Impression: COPD exacerbation, Pneumonia, Acute kidney injury, Acute hyperkalemia Admit Date/Time: 06/05/21 11:58 Admit Provider: De Powell
--- NOTE | 2021-06-05 08:52 | DI.RAD.S_ITS ---
PROCEDURE: XR CHEST 1V INDICATIONS: copd TECHNIQUE: One view of the chest was acquired. COMPARISON: [facility], CR, XR CHEST 2V, 05/17/2021, 17:41. FINDINGS: Surgical changes and devices: None. Lungs and pleura: Left mid/lower lung zone streaky densities, most consistent with atelectasis. No consolidation, pleural effusions or pneumothorax. Mediastinum: Mediastinal contours appear normal. Heart size is normal. Bones and chest wall: No suspicious bony lesions. Overlying soft tissues appear unremarkable. IMPRESSION: Left mid/lower lung zone atelectasis. A developing pneumonic infiltrate cannot be excluded. Dictated by: Live Leon M.D. on 06/05/2021 at 10:18 Approved by: Live Leon M.D. on 06/05/2021 at 10:19
[2021-06-05 08:58] LABS: Add Manual Diff / Slide Review NO; Basophils Percent Auto 1.8 % (0-2); Eosinophils Percent Auto 2.9 % (2-4); Hematocrit 43.5 % (41-53); Hemoglobin 14.3 g/dL (13.5-17.5); Lymphocytes Percent Auto 9.1 % (25-40); Mean Corpuscular HGB Conc 32.8 % (30-36); Mean Corpuscular Hemoglobin 27.7 PG (26-34); Mean Corpuscular Volume 84.4 fL (80-100); Monocytes Percent Auto 9.6 % (3-14); Neutrophils Percent Auto 76.6 % (50-75); Platelet Count 241 X10^3/uL (150-400); Red Blood Cell Count 5.15 X10^6/uL (4.5-5.9); Red Cell Distribution Width 13.6 % (11.6-14.8); White Blood Cell Count 9.6 X10^3/uL (4.5-11.0)
[2021-06-05 08:59] LABS: Basophils Absolute Auto 200 /uL (0-100); Eosinophils Absolute Auto 300 /uL (0-450); Lymphocytes Absolute Auto 900 /uL (1100-4500); Monocytes Absolute Auto 900 /uL (0-900); Neutrophils Absolute Auto 7400 /uL (1500-7000)
[2021-06-05] MEDS: ALBUTEROL/IPRATROPIUM 3 ML AMPUL INH ×6 (08:59→23:18)
[2021-06-05] MEDS: SODIUM CHLORIDE 0.9% 1,000 ML 1000 ML IV (09:00)
[2021-06-05] MEDS: methylPREDNISolone 125 MG/2 ML VIAL IV (09:03)
[2021-06-05] MEDS: SODIUM CHLORIDE 0.9% 1,000 ML 150 ML IV ×3 (09:04→16:30)
[2021-06-05 09:22] LABS: Prothrombin Time 11.2 SECONDS (10.1-12.7)
[2021-06-05 09:25] LABS: PTT Partial Thromboplastin Tim 37 SECONDS (26.4-36.2)
[2021-06-05 09:26] LABS: BUN Creatinine Ratio 46.2 (6-22); Blood Urea Nitrogen 73 mg/dL (9-20); Calcium 9.2 mg/dL (8.4-10.2); Carbon Dioxide 33 mmol/L (22-32); Chloride 105 mmol/L (98-107); Creatine Kinase 288 U/L (55-170); Estimated Glomerular Filt Rate 45.8 mL/min (>60); Glucose 94 mg/dL (70-100); HEMOLYSIS < 15 (0-50); Magnesium 2.7 mg/dL (1.6-2.3); Sodium 142 mmol/L (137-145)
[2021-06-05 09:37] LABS: Lactate (Lactic Acid) < 0.5 mmol/L (0.7-2.1)
[2021-06-05 09:38] LABS: NT-proBNP (BNP-Adult 18+) 143 pg/mL (<125); Troponin I < 0.012 ng/mL (0.01-0.034)
[2021-06-05 09:40] LABS: CKMB % Relative Index 3.2 % (1.5-5.0); Creatine Kinase MB 9.25 ng/mL (<2.37); Potassium 6.2 mmol/L (3.4-5.1)
[2021-06-05] MEDS: ALBUTEROL 2.5 MG/3 ML NEB (ADULT) 20 MG INH (09:47)
[2021-06-05] MEDS: ALBUTEROL 2.5 MG/3 ML NEB (ADULT) INH ×3 (09:50→23:18)
[2021-06-05] MEDS: CALCIUM GLUCONATE 4.65 MEQ in SODIUM CHLORIDE 0.9% 50 ML 180 ML IV (10:01)
[2021-06-05 10:08] LABS: COVID19 -Nasal RAPID Negative (Negative)
--- NOTE | 2021-06-05 10:17 | PC.NURSE ---
Patient presents today with shortness of breath. Hx of COPD, meth use. Patient reports that he ran out of his albuterol inhaler. Was brought to hospital by EMS, IV was started by EMS. Patient reports having used meth recently, but unknown time frame. He presents with confusion, periods of shaking and restlessness and periods of nodding off. He requires frequent reminders to leave his nebulizer mask on, as he takes it off frequently.
[2021-06-05 10:48] LABS: UR Morphine/Opiate cutoff 300 Negative (Negative); Ur Creatinine Normal (Normal); Ur Specific Gravity Normal (Normal); Urine Amphetamines Positive (Negative); Urine Barbiturates Negative (Negative); Urine Benzodiazepines Negative (Negative); Urine Cocaine Negative (Negative); Urine MDMA Negative (Negative); Urine Methadone Negative (Negative); Urine Methamphetamines Positive (Negative); Urine Oxycodone Negative (Negative); Urine Phencyclidine Negative (Negative); Urine Tetrahydrocannabinol Negative (Negative); Urine Tricyclic Antidepressant Negative (Negative); Urine pH Normal (Normal)
[2021-06-05 10:49] LABS: HCO3 ABG 29 mmol/L (22-26); Oxygen Saturation ABG 99 % (95-100); PO2 ABG 170 mmHg (80-100); TCO2 ABG 31 mmol/L (21-31); pH ABG 7.25 (7.35-7.45)
[2021-06-05 10:50] LABS: Fractionated Inspired Oxygen 100
--- NOTE | 2021-06-05 10:53 | PC.NURSE ---
Patient running on continuous neb, RT at bedside with 10 LPM flow for neb.
--- NOTE | 2021-06-05 10:55 | PC.NURSE ---
Patient completed nebulizer, transitioned to Cannula at 2 LPM by RT at bedside.
[2021-06-05 11:17] LABS: BUN Creatinine Ratio 49.7 (6-22); Blood Urea Nitrogen 71 mg/dL (9-20); Calcium 9.2 mg/dL (8.4-10.2); Carbon Dioxide 33 mmol/L (22-32); Chloride 109 mmol/L (98-107); Estimated Glomerular Filt Rate 51.3 mL/min (>60); Glucose 106 mg/dL (70-100); HEMOLYSIS < 15 (0-50); Potassium 5.9 mmol/L (3.4-5.1); Sodium 141 mmol/L (137-145)
[2021-06-05] MEDS: PIPERACILLIN/TAZO 4.5 GM in SODIUM CHLORIDE 0.9% 100 ML 200 ML IV (11:39)
[2021-06-05] MEDS: ALBUTEROL 2.5 MG/3 ML NEB (ADULT) 15 MG INH (12:51)
[2021-06-05 13:09] LABS: Influenza A - CEPHEID Flu A NEGATIVE (NEGATIVE); Influenza B - CEPHEID Flu B NEGATIVE (NEGATIVE); Respiratory Syncytial Virus Negative (Negative)
[2021-06-05 13:10] LABS: COVID-19 CEPHEID PCR (VTM/NP) Negative (Negative)
--- NOTE | 2021-06-05 14:20 | P.HP_ITS ---
History of Present Illness History of Present Illness Date Patient Seen: 06/05/21 Time Patient Seen: 14:00 Chief complaint: COPD Narrative: Patient is a 55-year-old male with history of end-stage COPD, heart failure with reduced EF of 35-40% in 2020, methamphetamine abuse, medication non adherence presented to the emergency department with complaints of difficulty breathing. He was noted to be in respiratory distress with increased work of breathing and respiratory rate in the 30s up to 50 per minute. Chest x-ray showed some atelectasis. His ABG showed pH 7.25, pCO2 67, PO2 170 on 100% FiO2. Subsequently O2 sat 97% on 2 L. labs notable for normal CBC, acute kidney injury with creatinine 1.58 and BUN of 73, elevated serum potassium of 6.2. Lactate normal, and BNP 143. COVID and flu negative. He was given albuterol 20 mg inhalation, DuoNeb, calcium gluconate, IV Solu-Medrol and antibiotic in the ED. when I saw patient on the floor, he was completely unresponsive and unable to provide further history. Patient History Medical History COPD (chronic obstructive pulmonary disease) COVID-19 HFrEF (heart failure with reduced ejection fraction) Methamphetamine abuse Peripheral edema Tobacco abuse Surgical History Status post appendectomy Family & Social History Family History Father Heart disease Aortic aneurysm Mother Medical history unknown Family estrangement Brother Medical history unknown Social History: household members none Prior Living Arrangements Homeless Safety & Behavioral: Feels Safe in Current Yes Environment Been Physically Hurt or No Threatened By a Person Suicidal Ideation Description None Suicide Plan Description No Plan Tobacco & Substance use: Tobacco type cigarettes Smoking Status Current every day smoker Smoking packs per day 1 alcohol intake never alcohol intake frequency other Substance Use Type does not use,methamphetamine Meds Home Medications and Allergies Home Medications Medication Instructions Recorded Confirmed Type aspirin 81 mg tablet,delayed 81 mg PO DAILY #30 tab 05/14/21 05/18/21 Rx release furosemide 40 mg tablet 40 mg PO DAILY #30 tab 05/14/21 05/18/21 Rx lisinopril 20 mg tablet 20 mg PO DAILY #30 tab 05/14/21 05/18/21 Rx spironolactone 25 mg tablet 25 mg PO DAILY #30 tab 05/14/21 05/18/21 Rx albuterol sulfate 2.5 mg (3 mL) INH [id number] PRN 30 05/19/21 Rx Days #240 ml carvedilol 3.125 mg tablet (Coreg) 6.25 mg PO BID #60 tab 05/19/21 05/18/21 Rx ipratropium 0.5 mg-albuterol 3 mg 3 ml INH RTQ4HR #360 ml 05/19/21 Rx (2.5 mg base)/3 mL nebulization soln lorazepam 1 mg tablet 1 mg PO Q4HR PRN #15 tab 05/19/21 Rx prednisone 20 mg tablet 40 mg PO DAILY #5 tab 05/19/21 Rx Allergies Allergy/AdvReac Type Severity Reaction Status Date / Time No Known Drug Allergies Allergy Verified 02/12/21 19:27 Review of Systems Review of Systems Narrative: Further ROS unable to obtain secondary to altered mental status Exam Vital Signs (past 8 hours): - 06/05/21 09:36 06/05/21 09:45 06/05/21 09:46 Temperature 97.0 F L Pulse Rate 80 79 74 Respiratory Rate Blood Pressure 103/60 98/67 Pulse Oximetry 100 100 100 06/05/21 09:47 06/05/21 09:52 06/05/21 10:00 Temperature 97.0 F L Pulse Rate 79 71 86 Respiratory Rate 22 Blood Pressure 94/63 93/62 Pulse Oximetry 100 99 100 06/05/21 10:08 06/05/21 10:17 06/05/21 10:30 Temperature Pulse Rate 77 73 80 Respiratory Rate 22 Blood Pressure 102/58 L 106/53 L 101/58 L Pulse Oximetry 100 100 97 06/05/21 10:49 06/05/21 11:00 06/05/21 11:01 Temperature Pulse Rate 80 85 83 Respiratory Rate 22 Blood Pressure 104/55 L 112/60 Pulse Oximetry 100 96 96 06/05/21 11:17 06/05/21 11:30 06/05/21 11:45 Temperature Pulse Rate 78 84 80 Respiratory Rate 22 22 21 Blood Pressure 126/86 110/55 L 103/59 L Pulse Oximetry 95 92 96 06/05/21 12:00 06/05/21 12:03 06/05/21 12:16 Temperature Pulse Rate 89 79 82 Respiratory Rate 22 Blood Pressure 113/57 L 123/57 L Pulse Oximetry 92 91 93 06/05/21 12:55 Temperature 96.9 F L Pulse Rate 82 Respiratory Rate 20 Blood Pressure 125/69 Pulse Oximetry 97 Oxygen Delivery Method Nasal Cannula Oxygen Flow Rate 2 Narrative Exam Narrative: General: Well-developed well-nourished male who is somnolent and unarousable. HEENT: Nontraumatic, pupils equal and pinpoint bilaterally, anicteric Neck: No lymphadenopathy Lungs: Diminished throughout without wheeze or crackles Heart: Normal S1 and S2, regular rate and rhythm, no murmur Abdomen: Soft, no HSM Extremities: Warm, dry and without edema Neurological: Unresponsive, no posturing or spontaneous movement of extremities Objective Labs Result Diagrams: 06/05/21 08:55 06/05/21 10:50 Labs: Laboratory Results - last 24 hr 06/05/21 06/05/21 06/05/21 08:55 08:55 08:55 WBC 9.6 RBC 5.15 Hgb 14.3 Hct 43.5 MCV 84.4 MCH 27.7 MCHC 32.8 RDW 13.6 Plt Count 241 Neut % (Auto) 76.6 H Lymph % (Auto) 9.1 L [place] % (Auto) 9.6 Eos % (Auto) 2.9 Baso % (Auto) 1.8 Neut # (Auto) 7400 H Lymph # (Auto) 900 L [place] # (Auto) 900 Eos # (Auto) 300 Baso # (Auto) 200 H PT 11.2 INR 1.0 APTT 37 H D ABG pH ABG pCO2 ABG pO2 ABG HCO3 ABG Total CO2 ABG O2 Saturation ABG Base Excess FiO2 Sodium 142 Potassium 6.2 H Chloride 105 Carbon Dioxide 33 H BUN 73 H Creatinine 1.58 H Estimated GFR 45.8 L BUN/Creatinine Ratio 46.2 H Glucose 94 Lactate Calcium 9.2 Magnesium 2.7 H Total Creatine Kinase 288 H CK-MB (CK-2) 9.25 H CK-MB (CK-2) Rel Index 3.2 Troponin I < 0.012 NT-Pro-B Natriuret Pep 143 H U Opiates 300ng/mL cut Ur Oxycodone Screen Urine Methadone Screen Ur Barbiturates Screen U Tricyclic Antidepress Ur Phencyclidine Scrn Ur Amphetamines Screen U Methamphetamines Scrn Ur MDMA Scrn (Ecstasy) U Benzodiazepines Scrn Urine Cocaine Screen U Marijuana (THC) Screen SARS-CoV-2 (PCR) Influenza A (RT-PCR) Influenza B (RT-PCR) RSV (PCR) 06/05/21 06/05/21 06/05/21 08:55 09:15 09:27 WBC RBC Hgb Hct MCV MCH MCHC RDW Plt Count Neut % (Auto) Lymph % (Auto) [place] % (Auto) Eos % (Auto) Baso % (Auto) Neut # (Auto) Lymph # (Auto) [place] # (Auto) Eos # (Auto) Baso # (Auto) PT INR APTT ABG pH 7.25 L* ABG pCO2 67.0 H* ABG pO2 170 H ABG HCO3 29 H ABG Total CO2 31 ABG O2 Saturation 99 ABG Base Excess 2.0 FiO2 100 Sodium Potassium Chloride Carbon Dioxide BUN Creatinine Estimated GFR BUN/Creatinine Ratio Glucose Lactate < 0.5 L Calcium Magnesium Total Creatine Kinase CK-MB (CK-2) CK-MB (CK-2) Rel Index Troponin I NT-Pro-B Natriuret Pep U Opiates 300ng/mL cut Ur Oxycodone Screen Urine Methadone Screen Ur Barbiturates Screen U Tricyclic Antidepress Ur Phencyclidine Scrn Ur Amphetamines Screen U Methamphetamines Scrn Ur MDMA Scrn (Ecstasy) U Benzodiazepines Scrn Urine Cocaine Screen U Marijuana (THC) Screen SARS-CoV-2 (PCR) Negative Influenza A (RT-PCR) Influenza B (RT-PCR) RSV (PCR) 06/05/21 06/05/21 06/05/21 10:35 10:50 12:21 WBC RBC Hgb Hct MCV MCH MCHC RDW Plt Count Neut % (Auto) Lymph % (Auto) [place] % (Auto) Eos % (Auto) Baso % (Auto) Neut # (Auto) Lymph # (Auto) [place] # (Auto) Eos # (Auto) Baso # (Auto) PT INR APTT ABG pH ABG pCO2 ABG pO2 ABG HCO3 ABG Total CO2 ABG O2 Saturation ABG Base Excess FiO2 Sodium 141 Potassium 5.9 H Chloride 109 H Carbon Dioxide 33 H BUN 71 H Creatinine 1.43 H Estimated GFR 51.3 L BUN/Creatinine Ratio 49.7 H Glucose 106 H Lactate Calcium 9.2 Magnesium Total Creatine Kinase CK-MB (CK-2) CK-MB (CK-2) Rel Index Troponin I NT-Pro-B Natriuret Pep U Opiates 300ng/mL cut Negative Ur Oxycodone Screen Negative Urine Methadone Screen Negative Ur Barbiturates Screen Negative U Tricyclic Antidepress Negative Ur Phencyclidine Scrn Negative Ur Amphetamines Screen Positive H U Methamphetamines Scrn Positive H Ur MDMA Scrn (Ecstasy) Negative U Benzodiazepines Scrn Negative Urine Cocaine Screen Negative U Marijuana (THC) Screen Negative SARS-CoV-2 (PCR) Negative Influenza A (RT-PCR) Flu a negative Influenza B (RT-PCR) Flu b negative RSV (PCR) Negative Assessment & Plan Assessment & Plan narrative: 1. Acute hypercapnic respiratory failure -this is secondary to severe COPD with exacerbation -ABG consistent with acute respiratory acidosis -continue nebulizers with RT, IV Solu-Medrol -O2 to keep sat 80-90% -repeat ABG -may need BiPAP support if worsens -no obvious pneumonia 2. Acute metabolic encephalopathy -likely secondary to respiratory failure -obtain repeat ABG as above 3. Acute kidney injury, prerenal -provide IV hydration -Viramontes catheter to monitor urine output until more awake -repeat labs in a.m. 4. Acute hyperkalemia secondary to renal failure -received albuterol and calcium gluconate in ED -continue IV fluids -telemetry monitoring 5. History of heart failure with reduced EF -currently appears hypovolemic -hold cardiac meds -known history of medication non adherence Time Spent With Patient Critical Care time: I spent a total of [] minutes of critical care time on this patient's care today; this time is exclusive of procedural time. Scores GCS Luck coma scale eye opening: None Bogdan coma scale verbal response: None Bogdan coma scale motor response: None Bogdan coma scale total score: 3
[2021-06-05] MEDS: methylPREDNISolone 125 MG/2 ML VIAL 80 MG IV (14:22)
--- NOTE | 2021-06-05 14:26 | PC.NURSE ---
Day shift: Pt unable to form complete sentances at this time. He has also been using swear words directed at this fha underwriter and FREDERIC Campbell. Pt refusing all care at this time. Tele in place and IV fluids infusing. Seizure pads in place and bed alarm is on.
--- NOTE | 2021-06-05 14:53 | PC.NURSE ---
Day shift: Pt awake enough to ambulate (unsteady) to BR w/ this entry writer at his side. He had an unmeasured void. He also was able to drink approx 200mls of ice water and 2 each half sandwiches. He is asleep again as this is written (1669). Will have to wait until Pt more awake for assessments and teachings.
--- NOTE | 2021-06-05 16:16 | PC.NURSE ---
Day shift: Pt instructed on I.S. use and is using device. Instructed by Jonnathan higgins/ .
[2021-06-05] MEDS: SODIUM CHLORIDE 0.9% FLUSH 10 ML IV (20:56)
[2021-06-05] MEDS: SODIUM CHLORIDE 0.9% 1,000 ML 80 ML IV (23:05)
[2021-06-06] VITALS (11 sets, daily range): BP systolic 114–129; BP diastolic 68–72; PULSE 75–98; RESP 16–19; TEMP 36.3–37.6; O2SAT 90–95
[2021-06-06] MEDS: SODIUM CHLORIDE 0.9% 1,000 ML 80 ML IV (01:01)
[2021-06-06] MEDS: methylPREDNISolone 125 MG/2 ML VIAL 80 MG IV (01:04)
[2021-06-06] MEDS: ALBUTEROL 2.5 MG/3 ML NEB (ADULT) INH ×2 (03:50→14:19)
[2021-06-06] MEDS: ALBUTEROL/IPRATROPIUM 3 ML AMPUL INH ×4 (03:50→14:14)
[2021-06-06 05:44] LABS: Add Manual Diff / Slide Review NO; Basophils Absolute Auto 0 /uL (0-100); Basophils Percent Auto 0.2 % (0-2); Eosinophils Absolute Auto 0 /uL (0-450); Hematocrit 35.8 % (41-53); Hemoglobin 11.7 g/dL (13.5-17.5); Lymphocytes Absolute Auto 200 /uL (1100-4500); Lymphocytes Percent Auto 2.7 % (25-40); Mean Corpuscular HGB Conc 32.7 % (30-36); Mean Corpuscular Hemoglobin 27.6 PG (26-34); Mean Corpuscular Volume 84.4 fL (80-100); Monocytes Absolute Auto 100 /uL (0-900); Monocytes Percent Auto 1.2 % (3-14); Neutrophils Absolute Auto 6000 /uL (1500-7000); Neutrophils Percent Auto 95.9 % (50-75); Platelet Count 172 X10^3/uL (150-400); Red Blood Cell Count 4.24 X10^6/uL (4.5-5.9); Red Cell Distribution Width 13.9 % (11.6-14.8); White Blood Cell Count 6.3 X10^3/uL (4.5-11.0)
[2021-06-06 05:57] LABS: BUN Creatinine Ratio 48.3 (6-22); Blood Urea Nitrogen 56 mg/dL (9-20); Calcium 8.6 mg/dL (8.4-10.2); Carbon Dioxide 28 mmol/L (22-32); Chloride 111 mmol/L (98-107); Estimated Glomerular Filt Rate > 60.0 mL/min (>60); Glucose 200 mg/dL (70-100); HEMOLYSIS < 15 (0-50); Sodium 141 mmol/L (137-145)
[2021-06-06 05:58] LABS: Potassium 5.8 mmol/L (3.4-5.1)
[2021-06-06] MEDS: ENOXAPARIN 40 MG/0.4 ML SYRINGE SUBCUT (08:24)
[2021-06-06] MEDS: SODIUM CHLORIDE 0.9% FLUSH 10 ML IV (08:25)
[2021-06-06] MEDS: ASPIRIN EC 81 MG TABLET PO (08:25)
[2021-06-06 08:36] LABS: Hemoglobin A1C% w Est Avg Glu 5.8 % (4.0-6.0)
--- NOTE | 2021-06-06 12:11 | P.DS_ITS ---
History of Present Illness History of Present Illness Chief complaint: COPD Narrative: Patient is a 55-year-old male with history of end-stage COPD, heart failure with reduced EF of 35-40% in 2020, methamphetamine abuse, medication non adherence presented to the emergency department with complaints of difficulty breathing. He was noted to be in respiratory distress with increased work of breathing and respiratory rate in the 30s up to 50 per minute. Chest x-ray showed some atelectasis. His ABG showed pH 7.25, pCO2 67, PO2 170 on 100% FiO2. Subsequently O2 sat 97% on 2 L. labs notable for normal CBC, acute kidney injury with creatinine 1.58 and BUN of 73, elevated serum potassium of 6.2. Lactate normal, and BNP 143. COVID and flu negative. He was given albuterol 20 mg inhalation, DuoNeb, calcium gluconate, IV Solu-Medrol and antibiotic in the ED. when I saw patient on the floor, he was completely unresponsive and unable to provide further history. Discharge Providers Provider Date of admission: 06/05/21 11:58 Discharge Date: 06/06/21 Consults: 06/05/21 13:50 Consult to Respiratory Therapy Evaluate & Treat Comment: Physician Instructions: Evaluate and treat Discharge provider: De Powell MD Summary Hospital Course Discharge Diagnosis: 1. Acute hypercapnic respiratory failure 2. Acute metabolic encephalopathy 3. Acute kidney injury 4. Acute hyperkalemia 5. History of heart failure with reduced EF Patient ran out of meds and inhalers and presented with severe COPD exacerbation. ABG consistent with acute respiratory acidosis. His condition stabilized more rapidly than expected with hospital care. There was no obvious pneumonia on lung imaging. He had intermittent confusion and was on arousable at points but mentation appears cleared up to his normal. Renal injury resolving after IV hydration and holding his diuretics and Lionel inhibitor. Patient has severe systolic dysfunction but did not appear to be in pulmonary edema. Due to acute renal failure and severe hyperkalemia I discontinued his Lionel inhibitor and spironolactone and just kept him on carvedilol and small amount of furosemide. I gave him 1 month with 2 additional refills on all meds so hopefully he will not run out. Additionally he is going to be established locally with Dr. Luciano at [facility] and their clinic has agreed to continue refilling his meds until patient can be seen sometime in October. Status at Discharge Cognitive/behavioral status at discharge: oriented Functional status at discharge: independent ambulation Overall status at discharge: patient is back to baseline Time Spent with Patient Time spent: Greater than 30 minutes Exam Vital Signs (past 8 hours): - 06/06/21 07:00 06/06/21 07:20 06/06/21 08:06 Temperature 98.1 F Pulse Rate 90 Respiratory Rate 16 Blood Pressure 128/68 Pulse Oximetry 94 90 L 90 L 06/06/21 11:00 06/06/21 11:27 Temperature Pulse Rate 75 Respiratory Rate 16 Blood Pressure Pulse Oximetry 95 94 Oxygen Delivery Method Room Air Oxygen Flow Rate 0 Narrative Exam Narrative: General: Alert NAD Lungs: Clear Heart: Regular rhythm Extremities: No edema Neuro: Well oriented, affect normal Objective Labs Result Diagrams: 06/06/21 05:32 06/06/21 05:32 Labs: Laboratory Results - last 24 hr 06/05/21 06/05/21 06/06/21 10:50 12:21 05:32 WBC 6.3 RBC 4.24 L Hgb 11.7 L Hct 35.8 L MCV 84.4 MCH 27.6 MCHC 32.7 RDW 13.9 Plt Count 172 Neut % (Auto) 95.9 H Lymph % (Auto) 2.7 L [place] % (Auto) 1.2 L Eos % (Auto) 0.0 L Baso % (Auto) 0.2 Neut # (Auto) 6000 Lymph # (Auto) 200 L [place] # (Auto) 100 Eos # (Auto) 0 Baso # (Auto) 0 Sodium Potassium Chloride Carbon Dioxide BUN Creatinine Estimated GFR BUN/Creatinine Ratio Glucose Hemoglobin A1c Calcium Procalcitonin 0.20 SARS-CoV-2 (PCR) Negative Influenza A (RT-PCR) Flu a negative Influenza B (RT-PCR) Flu b negative RSV (PCR) Negative 06/06/21 06/06/21 05:32 05:32 WBC RBC Hgb Hct MCV MCH MCHC RDW Plt Count Neut % (Auto) Lymph % (Auto) [place] % (Auto) Eos % (Auto) Baso % (Auto) Neut # (Auto) Lymph # (Auto) [place] # (Auto) Eos # (Auto) Baso # (Auto) Sodium 141 Potassium 5.8 H Chloride 111 H Carbon Dioxide 28 BUN 56 H Creatinine 1.16 Estimated GFR > 60.0 BUN/Creatinine Ratio 48.3 H Glucose 200 H Hemoglobin A1c 5.8 Calcium 8.6 Procalcitonin SARS-CoV-2 (PCR) Influenza A (RT-PCR) Influenza B (RT-PCR) RSV (PCR) PFSH Medical History COPD (chronic obstructive pulmonary disease) COVID-19 HFrEF (heart failure with reduced ejection fraction) Methamphetamine abuse Peripheral edema Tobacco abuse Surgical History Status post appendectomy Family History Father Heart disease Aortic aneurysm Mother Medical history unknown Family estrangement Brother Medical history unknown Social History household members: none Smoking Status: Current every day smoker alcohol intake: never Discharge Plan Discharge Plan Patient Disposition: Home Provider Discharge Comment: Take medications as directed. I have refilled given you 30 days plus 2 additional refills on all medications so hopefully you won't run oput. use the nebulizer 4 times daily. Use the rescue inhaler as needed. The pills are to treat your heart failure. Discharge orders & Medications Prescriptions: New furosemide 20 mg tablet 20 mg PO DAILY Qty: 30 2RF carvedilol 6.25 mg tablet 6.25 mg PO BID Qty: 60 2RF albuterol sulfate 90 mcg/actuation HFA aerosol inhaler 2 puff inhalation Q4H PRN (Reason: shortness of breath or wheezing) Qty: 6.7 2RF Continued prednisone 20 mg Tablet 40 mg PO DAILY Qty: 10 0RF aspirin 81 mg Tablet,Delayed Release (Dr/Ec) 81 mg PO DAILY Qty: 30 2RF Changed albuterol sulfate 2.5 mg /3 mL (0.083 %) Solution For Nebulization 2.5 mg INH QID 30 Days Qty: 360 2RF Discontinued furosemide 40 mg Tablet 40 mg PO DAILY Qty: 30 0RF lisinopril 20 mg Tablet 20 mg PO DAILY Qty: 30 0RF spironolactone 25 mg Tablet 25 mg PO DAILY Qty: 30 0RF ipratropium-albuterol 0.5 mg-3 mg(2.5 mg base)/3 mL Solution For Nebulization 3 ml INH RTQ4HR Qty: 360 0RF carvedilol [Coreg] 3.125 mg Tablet 6.25 mg PO BID Qty: 60 0RF lorazepam 1 mg Tablet 1 mg PO Q4HR PRN (Reason: Anxiety) Qty: 15 0RF Medication counseling provided by Pharmacist: Yes Diet/Activity/Treatments Diet: Regular
--- NOTE | 2021-06-06 13:40 | CM.DANOTE ---
Addendum entered by Rosa Ventura R.N. 06/06/21 14:22: Called [facility] to ensure that medications will be ready by the time he is picked up. Pharmacist indicated, some of them can be ready, but not all due to the quantity. Let him know that patient is being picked up at 1445, and will be there at approximately 1500 for miner pick. Original Note: DCP: Case received, EMR reviewed and met with patient. This patient is familiar with this service planner, as he has been here before. Was able to obtain information regarding patient's living situation and baseline activity prior to hospitalization. DCP assessment completed with information currently available. Patient is a 55 year old male who admitted yesterday morning to the care of the hospitalist team. PCP: None currently, has an appointment in October with Dr. Luciano at [facility]. Payer: confirmed: [employer]. Patient came to the hospital via ambulance, as he could not breathe. Patient has history of COPD, as well as substance abuse with methamphetamines. Patient here with COPD exacerbation, as he had run out of his medications. He is currently on home nebulizer treatments. Looked at last note from DCP, stating that he was given resources for [facility]. Called over at [facility] and found out that patient has an appointment in October with Dr. Mustapha D.O. Asked guest relations receptionist if patient needs to be seen or if he runs out of meds, if he can call clinic. [employer] indicated, they can bridge him, meaning that he can call triage nurse, and she/he may be able to get medications refilled. She indicated, sometimes the ARNPs can see patient before scheduled appointment to be established, depends upon situation. Patient is to be discharge today, and updated Dr. Powell on primary care appointment. He indicated that he would fill a 3 month supply of his medication. He would need renewals in August, and patient can call over at clinic and ask for triage nurse. Wrote down instructions for patient regarding this matter. He needs transportation home, called Medicaid transport, and they will pick him up at approximately 1445, and confirmed, they can stop at [facility] here in town before taking him home. Met with patient in his room. Confirmed that he is staying at [facility]. Asked him about his current Meth use, and he denied. Let him know that he would need to call triage nurse when he runs out of medications, and that ride was set up for him at 1445 at ER entrance, and that they would stop by [facility] to miner pick his meds. P: Patient will be discharging home today, Medicaid transport to miner pick, they will be using [employer] [facility]. Rosa Ventura RN/Agricultural Research Director Discharge Planning/Care Management CM Discharge Assessment Start: 06/06/21 13:37 Freq: Status: Active Protocol: Document 06/06/21 13:38 (Rec: 06/06/21 13:40 [id number]) Discharge Planning Assessment Assigned Fence Setter Rosa Ventura RN/Agricultural Research Director Advance Directives? No Advance Directives on File No History Provided By Patient,Medical Record Prior Living Arrangements Homeless Comment Living at [facility] Household Members none Type of transporation used prior to Relies on Others admit Independent with ADL's Yes Is patient alert and oriented? Yes Caregiver for Another No Comment Pt is homeless and has been for many years with polysubstance. He is currently living at [facility] Discharge Plan Home Transportation Arrangement [employer] transport [employer] (?) Referrals Initiated None needed,Other Additional Comment Patient was given provider resources at last admit. He has an appointment with Dr. Luciano in October at [facility] He can call triage nurse if he runs out of medications before then. Review Status In Process Next Review Type Continued Stay Review
--- NOTE | 2021-06-11 12:39 | CM.MNRNOTE ---
Received phone call from Darcy Collins from [facility] office. Pt suffered cardiac arrest at home, DOA. There is an narcotics investigator on scene and Darcy called for information as the patient was recently discharged from . Gave verbal report per her request. All questions answered.
--- NOTE | 2021-06-11 13:14 | PC.NURSE ---
[facility] They are asking Dr. Powell (who is not on in the near future) or Dr. Porras to sign certificate. As Dr. Porras will be in on Sunday the case will be assigned to her for signature. If Dr. Porras is not able to sign, I will call back the coroners office and speak with Liza to come up with a new plan.
--- NOTE | 2021-06-13 17:23 | PC.NURSE ---
Received call from Coroners office to f/u if Dr. Porras is going to sign certificate. Informed that Dr. Porras is not going to sign certificate as did not occur under her care. They will find another path per investigator Marquise.
== END 2021-06-06 14:45 | disposition home or self-care (01) | DRG 190 ==
LOC: ED 09:43 → AC 11:59
PROVIDERS: Admitting Provider Internal Medicine; Emergency Provider Emergency Medicine; Referring Provider Emergency Medicine; Visit Provider Internal Medicine
DX: J44.1 Chronic obstructive pulmonary disease with (acute) exacerbation (principal); J96.02 Acute respiratory failure with hypercapnia; G93.41 Metabolic encephalopathy; N17.9 Acute kidney failure, unspecified; I50.22 Chronic systolic (congestive) heart failure; E87.5 Hyperkalemia; F17.210 Nicotine dependence, cigarettes, uncomplicated; Z20.822 Contact with and (suspected) exposure to COVID-19
CPT/HCPCS: 0241U; 36415; 36600; 71045; 80048; 80305; 81003; 82550; 82553; 82805; 83036; 83605; 83735; 83880; 84145; 84484; 85025; 85610; 85730; 87635; 93005; 93010; 94640; 94760; 96361; 96365; 96366; 96367; 96375; 99285; 99291; C9803; J0610; J1650; J2543; J2930; J7613